=== PATIENT | male | born 1950 | race Caucasian/White ===

== ENCOUNTER 2017-06-28 10:10 | Emergency (ER) | payer BC, MEDICARE, OTHER ==
[~2017-06-28] VITALS: Ht 182.9 cm; Wt 111.6 kg
[~2017-06-28 10:10] MED LIST: ACHYD1T PO; CELE200C PO; GLIP10TA13 PO; INSU100V5 SQ; LACT1CAP66 PO; LIRA0.6P SQ; MELO-195 PO; METF-380 PO; SULF-222 PO; TRAM50TA2 PO
--- NOTE | 2017-06-28 10:26 | ED Neurological Problem ---
General Chief Complaint: Neuro-Stroke Like Symptoms Stated Complaint: LEFT SIDE WEAKNESS Nursing Triage Note: TO ROOM 05 WITH COMPLAINTS OF LEFT SIDED LEG WEAKNESS. STATES HE WOKE UP YESTERDAY AM WITH THIS. STATES SHE NOTICED LEFT FACIAL DROOP LAST NIGHT. Nursing Sepsis Screen: No Definite Risk Source: patient, spouse Exam Limitations: no limitations History of Present Illness Time seen by provider: 10:15 Initial Comments . He denies any falls or syncope or palpitations or heart racing. He only has a history of diabetes for which is on metformin and Victoza and uses NSAIDs for occasional knee pain after having both knees replaced historically. Appetite is been okay no fevers or chills nausea vomiting or diarrhea. However his noticed last night that he was having some facial drooping on the left side. He has no history of strokes TIAs or heart disease. Last known well time was approximately 26 hours ago. Denies slurring of speech or confusion or problems walking on his own. Allergies and Home Medications Allergies Coded Allergies: No Known Allergies (Unverified Allergy, Unknown, 02/15/14) Home Medications Celecoxib 200 Mg Capsule, 200 MG PO DAILY, (Reported) Liraglutide 0.6 Mg/0.1 Ml Pen.injctr, 0.6 MG SQ DAILY, (Reported) Metformin Hcl 1,000 Mg Tablet, 1,000 MG PO BID WITH MEALS, (Reported) Constitutional: see HPI, No chills, No diaphoresis Eyes: Denies Blindness, Denies Blurred Vision, Denies Decreased Acuity Ears, Nose, Mouth, Throat: denies ear pain Respiratory: No cough (heart appearing), No short of breath Cardiovascular: No chest pain, No edema, No Hx of Intervention, No palpitations , No syncope, No vascular heart diseas Gastrointestinal: No abdominal pain, No constipation, No diarrhea, No loss of appetite, No nausea Genitourinary: No discharge, No dysuria, No incontinence Musculoskeletal: joint pain (chronic bilateral knee pain) Skin: No pruritus, No rash Psychiatric/Neurological: Denies Cognitive Dysfunction, Denies Headache, Denies Numbness Past Yvrllms-Taufuu-Tcpcil Hx Patient Social History Alcohol Use: Denies Use Recreational Drug Use: No Smoking Status: Never a Smoker Recent Foreign Travel: No Contact w/Someone Who Travel: No Recent Infectious Disease Expo: No Immunizations Up To Date Tetanus Booster (TDap): More than 5yrs Date of Pneumonia Vaccine: Aug 23, 2015 Date of Influenza Vaccine: Aug 23, 2015 Surgeries HX Surgeries: Yes (R TKR, DENTAL SX, ELBOW SURGERY) Respiratory Hx Respiratory Disorders: No Cardiovascular Hx Cardiac Disorders: No Neurological Hx Neurological Disorders: No Reproductive System Hx Reproductive Disorders: No Sexually Transmitted Disease: No HIV/AIDS: No Genitourinary Hx Genitourinary Disorders: No Gastrointestinal Hx Gastrointestinal Disorders: No Musculoskeletal Hx Musculoskeletal Disorders: Yes (LEFT ANKLE INFLAMED, KNEES) Musculoskeletal Disorders: Arthritis Endocrine Hx Endocrine Disorders: Yes Endocrine Disorders: Diabetes, Non-Insulin dep HEENT HX ENT Disorders: Yes (GLASSES, DENTURES (FULL)) Hearing Impairment: Hard of Hearing, Bilateral Hearing Aide Cancer Hx Cancer: No Psychosocial Hx Psychiatric Problems: No Integumentary HX Skin/Integumentary Disorder: No Blood Transfusions Hx Blood Disorders: No Adverse Reaction to a Blood Tr: No Family Medical History Family Medial History: Cancer 03 FATHER (BLADDER) 03 MOTHER (LUNG) Myocardial infarction 03 FATHER No Family History of: Abdominal aortic aneurysm Alcoholism Congestive heart failure Family history: Alzheimer's disease Family history: Arthritis Family history: Asthma Family history: Breast disease Family history: Cardiovascular disease Family history: Diabetes mellitus Family history: Gastrointestinal disease Family history: Hypertension Family history: Thyroid disorder Heart disease Hereditary disease History of - anemia Parkinson's disease Prostate cancer Psychotic disorder Seizure disorder Stroke Physical Exam Vital Signs Vital Sign - Last 12Hours 06/28/17 10:10 Temp 98.5 Pulse 77 Resp 16 B/P (MAP) 183/92 Pulse Ox 98 Capillary Refill : Less Than 3 Seconds General Appearance: WD/WN, no apparent distress HEENT: PERRL/EOMI, normal ENT inspection, pharynx normal Neck: non-tender, normal inspection Respiratory: chest non-tender, lungs clear, normal breath sounds Cardiovascular: normal peripheral pulses, regular rate, rhythm, no edema, no gallop, no murmur Peripheral Pulses: 3+ Dorsalis Pedis (R), 3+ Left Dors-Pedis (L), 3+ Radial Pulses (R), 3+ Radial Pulses (L) Gastrointestinal: normal bowel sounds, non tender, soft Back: normal inspection, no CVA tenderness Extremities: non-tender, normal inspection, no pedal edema, normal capillary refill Neurologic/Psychiatric: bee tender II-XII nml as tested, no motor/sensory deficits, alert, normal mood/affect, oriented x 3, No abnormal cerebellar tests Crainal Nerves: normal hearing (chronic hard of hearing with hearing aids in place), normal speech, PERRL Coordination/Gait: normal finger to nose, normal gait Motor/Sensory: no sensory deficit, no pronator drift, other (slight facial droop noted at the left orbicularis emily) Reflexes: 2+ Bicep (R), 2+ Bicep (L), 2+ Knee (R), 2+ Knee (L) Skin: normal color, warm/dry Stroke Onset of Symptoms Date of Onset of Symptoms: Jun 27, 2017 Time of Symptom Onset: 07:30 NIH Stroke Scale Assessment Select: Initial Level of Consciousness: 0=Alert Level of Consciousness-Questio: 0=Answers both month/age LOC Commands: 0=Performs both tasks Gaze: 0=Normal Visual Villalobos: 0=No visual loss Facial Movement (Facial Paresi: 1=Minor paralysis Motor Function-Arms Right: 0=No drift Motor Function-Arms Left: 0=No drift Motor Function-Legs Right: 0=No drift Motor Function-Legs Left: 0=No drift Limb Ataxia: 0=Absent Sensory: 0=Normal:no loss Best Language: 0=No aphasia Dysarthria: 0=Normal Extinction & Inattention: 0=No abnormality NIH Stroke Scale Score: 1 Stroke Thrombolytic Exclusion Age 18 or Over: Yes Acute intenal hemorrhage: No History of CVA: No Uncontrolled Coagulation Defec: No Intracranial Hemorrhage: No Severe Hypertension: No GI or Bleed: No Subarachnoid Hemorrhage: No Intracranial Neoplasm/Aneurysm: No Oral Anticoagulants: No Surgery or Trauma: No Puncture of Non-Compressible V: No Recent CPR: No Diabetic Hemorrhagic Retinopat: No Organ Biopsy: No Recent Obstetric Delivery: No Glucose: No Significant Hepatic Dysfunctio: No NIH Stoke Scale >22: No Bacterial Endocarditis: No Pericarditis: No Improving Symptoms: No Platelets: No TPA Contraindication: Yes (greater than 24 hours since last known well time) Progress/Results/Core Measures Results/Orders Lab Results Laboratory Tests Test 06/28/17 10:20 Range/Units White Blood Count 8.2 4.3-11.0 10^3/uL Red Blood Count 5.70 4.35-5.85 10^6/uL Hemoglobin 15.3 13.3-17.7 G/DL Hematocrit 45 40-54 % Mean Corpuscular Volume 79 L 80-99 FL Mean Corpuscular Hemoglobin 27 25-34 PG Mean Corpuscular Hemoglobin Concent 34 32-36 G/DL Red Cell Distribution Width 13.2 10.0-14.5 % Platelet Count 199 130-400 10^3/uL Mean Platelet Volume 11.3 H 7.4-10.4 FL Neutrophils (%) (Auto) 59 42-75 % Lymphocytes (%) (Auto) 29 12-44 % Monocytes (%) (Auto) 7 0-12 % Eosinophils (%) (Auto) 4 0-10 % Basophils (%) (Auto) 1 0-10 % Neutrophils # (Auto) 4.8 1.8-7.8 X 10^3 Lymphocytes # (Auto) 2.4 1.0-4.0 X 10^3 Monocytes # (Auto) 0.6 0.0-1.0 X 10^3 Eosinophils # (Auto) 0.4 H 0.0-0.3 10^3/uL Basophils # (Auto) 0.0 0.0-0.1 10^3/uL Sodium Level 137 135-145 MMOL/L Potassium Level 3.9 3.6-5.0 MMOL/L Chloride Level 103 98-107 MMOL/L Carbon Dioxide Level 24 21-32 MMOL/L Anion Gap 10 5-14 MMOL/L Blood Urea Nitrogen 15 7-18 MG/DL Creatinine 0.78 0.60-1.30 MG/DL Estimat Glomerular Filtration Rate > 60 BUN/Creatinine Ratio 19 Glucose Level 206 H 70-105 MG/DL Calcium Level 9.6 8.5-10.1 MG/DL Magnesium Level 1.9 1.8-2.4 MG/DL Total Bilirubin 0.7 0.1-1.0 MG/DL Aspartate Amino Transf (AST/SGOT) 13 5-34 U/L Alanine Aminotransferase (ALT/SGPT) 19 0-55 U/L Alkaline Phosphatase 54 40-136 U/L Troponin I < 0.30 <0.30 NG/ML Total Protein 7.5 6.4-8.2 GM/DL Albumin 4.1 3.2-4.5 GM/DL My Orders Orders - RAIZA EATON Ct Head Wo-R/O Stroke (06/28/17 10:28) Saline Lock/Iv-Start (06/28/17 10:28) Cbc With Automated Diff (06/28/17 10:28) Comprehensive Metabolic Panel (06/28/17 10:28) Magnesium (06/28/17 10:28) Troponin I (06/28/17 10:28) Chest 1 View, Ap/Pa Only (06/28/17 10:28) Ekg Tracing (06/28/17 10:28) Mri Brain W/O Contrast (06/28/17 11:13) Atorvastatin Tablet (Lipitor) (06/28/17 11:15) General/Regular (06/28/17 Lunch) Ct Angio Head/Neck (06/28/17 13:34) Iohexol Injection (Omnipaque 350 Mg/Ml 1 (06/28/17 14:00) Ns (Ivpb) (Sodium Chloride 0.9% Ivpb Bag (06/28/17 14:00) Aspirin Chewable Tablet (Baby Aspirin Ch (06/28/17 15:45) Medications Given in ED Current Medications Medications Dose Ordered Sig/Naya Route Start Time Stop Time Status Last Admin Dose Admin Iohexol 100 ml ONCE ONCE IV 06/28/17 14:00 06/28/17 14:01 DC 06/28/17 14:44 85 ML Sodium Chloride 100 ml ONCE ONCE IV 06/28/17 14:00 06/28/17 14:01 DC 06/28/17 14:44 80 ML Vital Signs/I&O Vital Sign - Last 12Hours 06/28/17 10:10 Temp 98.5 Pulse 77 Resp 16 B/P (MAP) 183/92 Pulse Ox 98 Blood Pressure Mean: 122 Progress Note : Time: 10:59 Progress Note Patient presents for signs of possible CVA but last known well time was over 24 hours ago. We'll obtain CT of the head and basic lab workup. ECG Initial ECG Impression Date: Jun 28, 2017 Initial ECG Impression Time: 10:34 Initial ECG Rate: 67 Initial ECG Rhythm: Normal Sinus Initial ECG Intervals: Normal Initial ECG Impression: Normal Initial ECG Comparisson: No Previous ECG Available Diagnostic Imaging Diagonstic Imaging: Xray Plain Films/CT/US/NM/MRI: chest Comments No acute cardio pulmonary process. Reviewed: Reviewed by Me Diagonstic Imaging: CT Plain Films/CT/US/NM/MRI: head (without contrast) Comments No masses, bleeds, areas of new infarct, midline shift. NAME: GISSELLE SINGER [facility] REC#: [id number] PHYSICIAN: RAIZA EATON MD CC: RYAN MIRELES MD; RAIZA EATON Page 1 of 1 RADIOLOGY REPORT [place]IA [place], [place] CC: RYAN MIRELES MD; RAIZA EATON Page 1 of 1 RADIOLOGY REPORT NAME: GISSELLE SINGER [facility] REC#: [id number] PT STATUS: REG ER : 1950 PHYSICIAN: RAIZA EATON MD ADMIT DATE: 06/28/17/ER Signed Date of Exam: 06/28/17 CT HEAD WO-R/O STROKE EXAM: CT head. TECHNIQUE: Noncontrast axial images of the brain were obtained. INDICATION: Weakness. Abnormal balance. FINDINGS: There is no intracranial hemorrhage, edema or mass effect. The brain parenchyma appears unremarkable. No hydrocephalus. The visualized portions of the orbits and paranasal sinuses appear unremarkable. IMPRESSION: Unremarkable study. Dictated by: Dictated on workstation # [id number] Dict: 06/28/17 1054 Trans: 06/28/17 1057 Interpreted by: RYAN MIRELES MD Electronically signed by: RYAN MIRELES MD 06/28/17 1057 Reviewed: Reviewed by Me Diagonstic Imaging: MRI Plain Films/CT/US/NM/MRI: head Comments [place] NAME: GISSELLE SINGER [facility] REC#: [id number] PT STATUS: REG ER : 1950 PHYSICIAN: RAIZA EATON MD ADMIT DATE: 06/28/17/ER Draft Date of Exam:06/28/17 MRI BRAIN W/O CONTRAST PROCEDURE: MR imaging of the brain without contrast. TECHNIQUE: Multiplanar, multisequence MR imaging of the brain was performed without contrast. INDICATION: Bilateral leg weakness worse on the left side. FINDINGS: There is a lacunar acute infarct measuring 1 cm seen in the lower jeff to the right of the midline measuring 1 cm in size with edema seen in the area on FLAIR and T2-weighted images compatible with an acute lacunar infarct. No other areas of diffusion restriction are seen. The basilar artery demonstrates normal flow-void signal. The other central vascular flow-voids appear grossly unremarkable as well. The rest of the brain demonstrates no significant signal abnormality. There is no hydrocephalus. No extra-axial fluid collection is seen. The pituitary gland is normal in size. No hypothalamic or pineal region mass. The internal auditory canals and inner ear structures appear unremarkable. The paranasal sinuses and orbits appear grossly unremarkable. IMPRESSION: Findings compatible with an acute 1 cm lacunar infarct in the lower jeff, to the right of the midline. The findings were called to Dr. Eaton by Dr. Mireles at time of dictation. Dictated on workstation # [id number] Dict: 06/28/17 1245 Trans: 06/28/17 1313 [facility] [id number] Interpreted by: RYAN MIRELES MD Electronically signed by: Reviewed: Reviewed by Dc Diagonstic Imaging: CT (angiogram) Plain Films/CT/US/NM/MRI: head Comments [place] NAME: GISSELLE SINGER Christoph [facility] REC#: [id number] PT STATUS: REG ER : 1950 PHYSICIAN: RAIZA EATON MD ADMIT DATE: 06/28/17/ER Draft Date of Exam:06/28/17 CT ANGIO HEAD/NECK PROCEDURE: CT angiography of the head and CT angiography of the neck with and without contrast. TECHNIQUE: Contiguous noncontrast images were obtained from the skull base through the vertex. After intravenous contrast administration, helical CT angiography of the neck was performed. Source data was reformatted into multiple MIP projections. Delayed post contrast acquisition was also obtained. INDICATION: Recent infarct of the jeff demonstrated on MRI. FINDINGS: There is good opacification of the aorta. Normal takeoff of the carotid and vertebral arteries. There does appear to be occlusion short segment in nature in the base of the right common carotid artery. There is reconstitution in the lower cervical region of the right carotid artery. There is a calcified plaquing in the carotid bulb extending into the internal carotid artery with stenosis estimated less than 50%. The left common carotid artery is patent. There is atherosclerotic change noted in the left internal carotid artery with stenosis estimated less than 50%. External carotid are both widely patent. Both vertebral arteries are widely patent and symmetrical in appearance. Both vertebral arteries supply the basilar artery. Both the internal carotid arteries show a rather dense calcification within the carotid siphons. Probable hemodynamic stenosis within the internal carotid arteries intracranially. The anterior, middle and posterior cerebral arteries opacify in a symmetrical fashion with no evidence of stenosis or occlusive disease. The cerebellar arteries are patent. The basilar artery is widely patent. The pontine arteries are not well visualized. There are no intracranial enhancing masses. There is no mass effect. IMPRESSION: 1. 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 2. There is moderate calcified plaquing within the internal carotid artery bilaterally at the bifurcation though these do not appear to be in hemodynamic. There is dense calcification within the internal carotid arteries along the carotid siphon which does appear to be most likely hemodynamic bilaterally. 3. Vertebral arteries and basilar artery widely patent with cerebellar arteries well visualized. The pontine arteries are not well seen. Dictated on workstation # [id number] Dict: 06/28/17 1501 Trans: 06/28/17 1519 [facility] [id number] Interpreted by: SWATI FREITAS MD Electronically signed by: Reviewed: Reviewed by Me, Discussed w/Radiologist Consults Consults #1: Consulting Physician: ROCHELLE RIBEIRO MD Consults Notes Discussed the imaging and she is okay with getting the MRI today and if it's okay letting follow-up next week in the clinic. It is positive then we'll observe him and start a more thorough workup. Consults #2: Consults Notes Case discussed with neurology Dr. Butler who recommends getting a CTA make sure the basilar artery is patent and if there is nothing actionable then maximize medical management and have him follow up outpatient. Departure Impression Impression: Primary Impression: Transient cerebral ischemia Qualified Codes: G45.9 - Transient cerebral ischemic attack, unspecified Disposition: 01 HOME, SELF-CARE Condition: Stable Departure-Patient Inst. Decision time for Depature: 15:49 Referrals: ROCHELLE RIBEIRO MD (PCP/Family) Primary Care Physician Patient Instructions: Transient Ischemic Attack (DC) Add. Discharge Instructions: Saturday morning call your doctor and make an appointment to be seen the following 1-2 weeks. Please follow-up the medical management of your stroke. You 'll need to control your blood pressure and diabetes. Go to the pharmacy and slat pickler your statin to be taken at bedtime one tablet daily. If you're having any symptoms such as muscle aches or pains or weakness in the big muscle groups then you should stop taking the medicine immediately and call your primary doctor. Take a baby aspirin and take one tablet daily by mouth. If you're having new or worsening neurologic symptoms such as weakness or facial asymmetry or slurring of your speech or any other symptoms you should return to the ER immediately for evaluation. All discharge instructions reviewed with patient and/or family. Voiced understanding. Scripts Aspirin (Aspirin EC) 81 Mg Tablet. 81 MG PO DAILY for 100 Days, #100 TAB 0 Refills Prov: RAIZA EATON 06/28/17 Atorvastatin Calcium (Atorvastatin Calcium) 40 Mg Tablet 40 MG PO HS for 30 Days, #30 TAB 0 Refills Prov: RAIZA EATON 06/28/17 Copy Copies To 1: ROCHELLE RIBEIRO MD, TITUS J Jun 28, 2017 10:26
[2017-06-28 10:35] LABS: BASOPHILS % (AUTO) 1 % (0-10); EOSINOPHILS # (AUTO) 0.4 10^3/uL (0.0-0.3); EOSINOPHILS % (AUTO) 4 % (0-10); LYMPHOCYTES # (AUTO) 2.4 X 10^3 (1.0-4.0); LYMPHOCYTES % (AUTO) 29 % (12-44); MEAN CORPUSCULAR HEMOGLOBIN 27 PG (25-34); MEAN CORPUSCULAR HGB CONC 34 G/DL (32-36); MEAN CORPUSCULAR VOLUME 79 FL (80-99); MEAN PLATELET VOLUME 11.3 FL (7.4-10.4); MONOCYTES # (AUTO) 0.6 X 10^3 (0.0-1.0); MONOCYTES % (AUTO) 7 % (0-12); NEUTROPHILS # (AUTO) 4.8 X 10^3 (1.8-7.8); NEUTROPHILS % (AUTO) 59 % (42-75); PLATELET COUNT 199 10^3/uL (130-400); RED CELL DISTRIBUTION WIDTH 13.2 % (10.0-14.5); WHITE BLOOD COUNT 8.2 10^3/uL (4.3-11.0)
[2017-06-28 10:51] LABS: ALANINE AMINOTRANSFERASE 19 U/L (0-55); ALBUMIN 4.1 GM/DL (3.2-4.5); ANION GAP 10 MMOL/L (5-14); ASPARTATE AMINO TRANSFERASE 13 U/L (5-34); BILIRUBIN,TOTAL 0.7 MG/DL (0.1-1.0); BLOOD UREA NITROGEN 15 MG/DL (7-18); BUN/CREATININE RATIO 19; CALCIUM 9.6 MG/DL (8.5-10.1); CARBON DIOXIDE 24 MMOL/L (21-32); CHLORIDE 103 MMOL/L (98-107); CREATININE SERUM 0.78 MG/DL (0.60-1.30); GFR ESTIMATED > 60; GLUCOSE 206 MG/DL (70-105); MAGNESIUM 1.9 MG/DL (1.8-2.4); POTASSIUM 3.9 MMOL/L (3.6-5.0); SODIUM 137 MMOL/L (135-145); TOTAL PROTEIN 7.5 GM/DL (6.4-8.2)
--- NOTE | 2017-06-28 10:59 | Diagnostic Imaging Report ---
EXAM: CT head. TECHNIQUE: Noncontrast axial images of the brain were obtained. INDICATION: Weakness. Abnormal balance. FINDINGS: There is no intracranial hemorrhage, edema or mass effect. The brain parenchyma appears unremarkable. No hydrocephalus. The visualized portions of the orbits and paranasal sinuses appear unremarkable. IMPRESSION: Unremarkable study. Dictated by: Dictated on workstation # [id number]
--- NOTE | 2017-06-28 11:08 | Diagnostic Imaging Report ---
PA view of the chest. INDICATION: Weakness. Abnormal balance. COMPARISON: 07/14/15. FINDINGS: The lungs are clear. The heart size is normal. No effusion or pneumothorax. The mediastinum and juancho appear unremarkable. IMPRESSION: Unremarkable exam. Dictated by: Dictated on workstation # [id number]
[2017-06-28 11:09] LABS: TROPONIN I < 0.30 NG/ML (<0.30)
[2017-06-28] MEDS ORDERED: ATORVASTATIN 40 MG (LIPITOR) TABLET PO SCH (11:15)
--- NOTE | 2017-06-28 13:14 | Diagnostic Imaging Report ---
PROCEDURE: MR imaging of the brain without contrast. TECHNIQUE: Multiplanar, multisequence MR imaging of the brain was performed without contrast. INDICATION: Bilateral leg weakness worse on the left side. FINDINGS: There is a lacunar acute infarct measuring 1 cm seen in the lower jeff to the right of the midline measuring 1 cm in size with edema seen in the area on FLAIR and T2-weighted images compatible with an acute lacunar infarct. No other areas of diffusion restriction are seen. The basilar artery demonstrates normal flow-void signal. The other central vascular flow-voids appear grossly unremarkable as well. The rest of the brain demonstrates no significant signal abnormality. There is no hydrocephalus. No extra-axial fluid collection is seen. The pituitary gland is normal in size. No hypothalamic or pineal region mass. The internal auditory canals and inner ear structures appear unremarkable. The paranasal sinuses and orbits appear grossly unremarkable. IMPRESSION: Findings compatible with an acute 1 cm lacunar infarct in the lower jeff, to the right of the midline. The findings were called to Dr. Eaton by Dr. Mireles at time of dictation. Dictated by: Dictated on workstation # [id number]
[2017-06-28] MEDS ORDERED: NS 100 ML (IVPB) BAG IV ONE (14:00)
[2017-06-28] MEDS ORDERED: IOHEXOL 350 MG/ML 100 ML (OMNIPAQUE 350) VIAL IV ONE (14:00)
--- NOTE | 2017-06-28 15:20 | Diagnostic Imaging Report ---
PROCEDURE: CT angiography of the head and CT angiography of the neck with and without contrast. TECHNIQUE: Contiguous noncontrast images were obtained from the skull base through the vertex. After intravenous contrast administration, helical CT angiography of the neck was performed. Source data was reformatted into multiple MIP projections. Delayed post contrast acquisition was also obtained. INDICATION: Recent infarct of the jeff demonstrated on MRI. FINDINGS: There is good opacification of the aorta. Normal takeoff of the carotid and vertebral arteries. There does appear to be occlusion short segment in nature in the base of the right common carotid artery. There is reconstitution in the lower cervical region of the right carotid artery. There is a calcified plaquing in the carotid bulb extending into the internal carotid artery with stenosis estimated less than 50%. The left common carotid artery is patent. There is atherosclerotic change noted in the left internal carotid artery with stenosis estimated less than 50%. External carotid are both widely patent. Both vertebral arteries are widely patent and symmetrical in appearance. Both vertebral arteries supply the basilar artery. Both the internal carotid arteries show a rather dense calcification within the carotid siphons. Probable hemodynamic stenosis within the internal carotid arteries intracranially. The anterior, middle and posterior cerebral arteries opacify in a symmetrical fashion with no evidence of stenosis or occlusive disease. The cerebellar arteries are patent. The basilar artery is widely patent. The pontine arteries are not well visualized. There are no intracranial enhancing masses. There is no mass effect. IMPRESSION: 1. 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 2. There is moderate calcified plaquing within the internal carotid artery bilaterally at the bifurcation with stenosis estimated less than 50%. 3.. There is dense calcification within the internal carotid arteries along the carotid siphon intracranially which does appear to be most likely hemodynamic bilaterally estimated 50-70%.. 4. Vertebral arteries and basilar artery widely patent with cerebellar arteries well visualized. The pontine arteries are not well seen. Dictated by: Dictated on workstation # [id number]
[2017-06-28] MEDS ORDERED: ASPIRIN 81 MG CHEW (CHILDREN'S ASA) PO ONE (15:45)
[2017-06-28] MEDS ORDERED: ASPI-983 PO (15:52)
[2017-06-28] MEDS ORDERED: ATOR40TA70 PO (15:52)
[2017-06-28 16:16] VITALS: BP 153/87
[2017-06-29] MEDS ORDERED: CLOP75TA28 PO (11:27)
== END 2017-06-28 16:16 | disposition home or self-care (01) ==
LOC: EDUNIT# 10:10 → ER 10:12
DX: G45.9 Transient cerebral ischemic attack, unspecified (principal); E11.9 Type 2 diabetes mellitus without complications; M19.90 Unspecified osteoarthritis, unspecified site; R29.701 NIHSS score 1; Z98.890 Other specified postprocedural states; Z79.84 Long term (current) use of oral hypoglycemic drugs
CPT/HCPCS: 36415; 70450; 70496; 70498; 70551; 71010; 80053; 83735; 84484; 85025; 93005; 93041

== ENCOUNTER 2017-06-29 10:18 | Emergency (ER) | payer OTHER ==
[~2017-06-29] VITALS: Ht 182.9 cm; Wt 113.4 kg
[~2017-06-29 10:18] MED LIST changes: +ASPI-983 PO; +ATOR40TA70 PO
--- NOTE | 2017-06-29 10:35 | ED Neurological Problem ---
General Chief Complaint: Neuro-Stroke Like Symptoms Stated Complaint: STROKE SYMPTOMS Nursing Triage Note: ARRIVED VIA AMB TO ROOM 09. WAS SEEN YESTERDAY ET DX WITH A TIA. TODAY WOKE UP AT 0730 WITH LEFT ARM AND LEG WEAKNESS. STATES MOUTH STARTED DROPPING (MORE THEN YESTERDAY) AT 0918 ALONG WITH SLURRED SPEECH. Nursing Sepsis Screen: No Definite Risk Source: patient, RN/MD, spouse Exam Limitations: no limitations History of Present Illness Time seen by provider: 10:30 Initial Comments Patient returns the ER. Was seen yesterday for a TIA and found to have a small infarct in the jeff. He initiated a statin and aspirin yesterday in the ER. Today he is having worsening symptoms with right-sided face and weakness in the left upper extremity and left lower extremity. He is having some facial symmetry and this is worse than yesterday. Allergies and Home Medications Allergies Coded Allergies: No Known Allergies (Unverified Allergy, Unknown, 02/15/14) Home Medications Aspirin 81 Mg Tablet.dr, 81 MG PO DAILY for 100 Days, #100 Ref 0 Prescribed by: RAIZA HEDRICK on 06/28/17 1552 Atorvastatin Calcium 40 Mg Tablet, 40 MG PO HS for 30 Days, #30 Ref 0 Prescribed by: RAIZA HEDRICK on 06/28/17 1552 Celecoxib 200 Mg Capsule, 200 MG PO DAILY, (Reported) Clopidogrel Bisulfate 75 Mg Tablet, 75 MG PO DAILY for 30 Days, #30 Ref 0 Prescribed by: RAIZA HEDRICK on 06/29/17 1127 Liraglutide 0.6 Mg/0.1 Ml Pen.injctr, 0.6 MG SQ DAILY, (Reported) Metformin Hcl 1,000 Mg Tablet, 1,000 MG PO BID WITH MEALS, (Reported) Constitutional: No chills, No diaphoresis, No fever, No malaise Eyes: Denies Blindness, Denies Blurred Vision Ears, Nose, Mouth, Throat: denies ear pain, denies ear discharge Respiratory: No cough, No short of breath Cardiovascular: No chest pain, No palpitations Gastrointestinal: No constipation, No diarrhea, No nausea Genitourinary: No discharge, No dysuria Musculoskeletal: No back pain, No joint pain Skin: No pruritus, No rash Psychiatric/Neurological: See HPI, Denies Cognitive Dysfunction, Denies Headache Past Xpbcmzw-Qeqolw-Iskwap Hx Patient Social History Alcohol Use: Denies Use Recreational Drug Use: No Smoking Status: Never a Smoker Recent Foreign Travel: No Contact w/Someone Who Travel: No Recent Infectious Disease Expo: No Immunizations Up To Date Tetanus Booster (TDap): More than 5yrs Date of Pneumonia Vaccine: Aug 23, 2015 Date of Influenza Vaccine: Aug 23, 2015 Surgeries HX Surgeries: Yes (R TKR, DENTAL SX, ELBOW SURGERY) Respiratory Hx Respiratory Disorders: No Cardiovascular Hx Cardiac Disorders: No Neurological Hx Neurological Disorders: No Reproductive System Hx Reproductive Disorders: No Sexually Transmitted Disease: No HIV/AIDS: No Genitourinary Hx Genitourinary Disorders: No Gastrointestinal Hx Gastrointestinal Disorders: No Musculoskeletal Hx Musculoskeletal Disorders: Yes (LEFT ANKLE INFLAMED, KNEES) Musculoskeletal Disorders: Arthritis Endocrine Hx Endocrine Disorders: Yes Endocrine Disorders: Diabetes, Non-Insulin dep HEENT HX ENT Disorders: Yes (GLASSES, DENTURES (FULL)) Hearing Impairment: Hard of Hearing, Bilateral Hearing Aide Cancer Hx Cancer: No Psychosocial Hx Psychiatric Problems: No Integumentary HX Skin/Integumentary Disorder: No Blood Transfusions Hx Blood Disorders: No Adverse Reaction to a Blood Tr: No Family Medical History Family Medial History: Cancer 03 FATHER (BLADDER) 03 MOTHER (LUNG) Myocardial infarction 03 FATHER No Family History of: Abdominal aortic aneurysm Alcoholism Congestive heart failure Family history: Alzheimer's disease Family history: Arthritis Family history: Asthma Family history: Breast disease Family history: Cardiovascular disease Family history: Diabetes mellitus Family history: Gastrointestinal disease Family history: Hypertension Family history: Thyroid disorder Heart disease Hereditary disease History of - anemia Parkinson's disease Prostate cancer Psychotic disorder Seizure disorder Stroke Physical Exam Vital Signs Vital Sign - Last 12Hours 06/29/17 10:20 Temp 98.0 Pulse 69 Resp 16 B/P (MAP) 176/109 Pulse Ox 97 O2 Delivery Room Air Capillary Refill : Less Than 3 Seconds General Appearance: WD/WN, no apparent distress HEENT: PERRL/EOMI, normal ENT inspection, pharynx normal Neck: non-tender, normal inspection Respiratory: lungs clear, normal breath sounds Cardiovascular: normal peripheral pulses, regular rate, rhythm Peripheral Pulses: 3+ Radial Pulses (R), 3+ Radial Pulses (L) Gastrointestinal: normal bowel sounds, non tender, soft Extremities: normal range of motion, normal capillary refill Neurologic/Psychiatric: alert, normal mood/affect, oriented x 3, No abnormal cerebellar tests, facial droop (left face drooping smile and mild left-sided pronator drift as well as weakness on his left leg. 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.) Crainal Nerves: normal hearing (baseline hard of hearing), normal speech, PERRL Coordination/Gait: normal finger to nose, normal gait (slowed) Motor/Sensory: no sensory deficit, weak motor strength LUE, weak motor strength LLE Skin: normal color, warm/dry Stroke Onset of Symptoms Date of Onset of Symptoms: Jun 28, 2017 NIH Stroke Scale Assessment Level of Consciousness: 0=Alert Level of Consciousness-Questio: 0=Answers both month/age LOC Commands: 0=Performs both tasks Gaze: 0=Normal Visual Villalobos: 0=No visual loss Facial Movement (Facial Paresi: 1=Minor paralysis Motor Function-Arms Right: 0=No drift Motor Function-Arms Left: 1=Drift Motor Function-Legs Right: 0=No drift Motor Function-Legs Left: 1=Drift Limb Ataxia: 1=Present in one limb Sensory: 0=Normal:no loss Best Language: 0=No aphasia Dysarthria: 0=Normal Extinction & Inattention: 0=No abnormality Stroke Thrombolytic Exclusion Age 18 or Over: Yes Acute intenal hemorrhage: No History of CVA: No Uncontrolled Coagulation Defec: No Intracranial Hemorrhage: No Severe Hypertension: No GI or Bleed: No Subarachnoid Hemorrhage: No Intracranial Neoplasm/Aneurysm: No Oral Anticoagulants: No Surgery or Trauma: No Puncture of Non-Compressible V: No Recent CPR: No Diabetic Hemorrhagic Retinopat: No Organ Biopsy: No Recent Obstetric Delivery: No Glucose: No Significant Hepatic Dysfunctio: No NIH Stoke Scale >22: No Bacterial Endocarditis: No Pericarditis: No Improving Symptoms: No Platelets: No TPA Contraindication: Yes (2 long since onset of symptoms) IV - TPa Received IV - TPa Procedure Performed?: No Progress/Results/Core Measures Results/Orders Lab Results Laboratory Tests Test 06/29/17 10:40 06/29/17 10:42 06/29/17 11:26 Range/Units White Blood Count 7.5 4.3-11.0 10^3/uL Red Blood Count 5.51 4.35-5.85 10^6/uL Hemoglobin 15.0 13.3-17.7 G/DL Hematocrit 44 40-54 % Mean Corpuscular Volume 80 80-99 FL Mean Corpuscular Hemoglobin 27 25-34 PG Mean Corpuscular Hemoglobin Concent 34 32-36 G/DL Red Cell Distribution Width 13.3 10.0-14.5 % Platelet Count 200 130-400 10^3/uL Mean Platelet Volume 11.2 H 7.4-10.4 FL Neutrophils (%) (Auto) 60 42-75 % Lymphocytes (%) (Auto) 27 12-44 % Monocytes (%) (Auto) 9 0-12 % Eosinophils (%) (Auto) 3 0-10 % Basophils (%) (Auto) 0 0-10 % Neutrophils # (Auto) 4.5 1.8-7.8 X 10^3 Lymphocytes # (Auto) 2.1 1.0-4.0 X 10^3 Monocytes # (Auto) 0.7 0.0-1.0 X 10^3 Eosinophils # (Auto) 0.2 0.0-0.3 10^3/uL Basophils # (Auto) 0.0 0.0-0.1 10^3/uL Prothrombin Time 12.5 12.2-14.7 SEC INR Comment 1.0 0.8-1.4 Activated Partial Thromboplast Time 26 24-35 SEC D-Dimer 0.27 0.00-0.49 UG/ML Sodium Level 138 135-145 MMOL/L Potassium Level 4.1 3.6-5.0 MMOL/L Chloride Level 104 98-107 MMOL/L Carbon Dioxide Level 21 21-32 MMOL/L Anion Gap 13 5-14 MMOL/L Blood Urea Nitrogen 17 7-18 MG/DL Creatinine 0.87 0.60-1.30 MG/DL Estimat Glomerular Filtration Rate > 60 BUN/Creatinine Ratio 20 Glucose Level 246 H 70-105 MG/DL Calcium Level 9.4 8.5-10.1 MG/DL Total Bilirubin 0.5 0.1-1.0 MG/DL Aspartate Amino Transf (AST/SGOT) 11 5-34 U/L Alanine Aminotransferase (ALT/SGPT) 18 0-55 U/L Alkaline Phosphatase 55 40-136 U/L Troponin I < 0.30 <0.30 NG/ML Total Protein 7.3 6.4-8.2 GM/DL Albumin 4.1 3.2-4.5 GM/DL Glucometer 221 H 70-110 MG/DL Urine Color YELLOW Urine Clarity CLEAR Urine pH 6 5-9 Urine Specific Simms 1.025 H 1.016-1.022 Urine Protein 1+ H NEGATIVE Urine Glucose (UA) 4+ H NEGATIVE Urine Ketones 1+ H NEGATIVE Urine Nitrite NEGATIVE NEGATIVE Urine Bilirubin NEGATIVE NEGATIVE Urine Urobilinogen NORMAL NORMAL MG/DL Urine Leukocyte Esterase NEGATIVE NEGATIVE Urine RBC (Auto) NEGATIVE NEGATIVE Urine RBC NONE /HPF Urine WBC NONE /HPF Urine Crystals NONE /LPF Urine Bacteria NEGATIVE /HPF Urine Casts NONE /LPF Urine Mucus NEGATIVE /LPF Urine Culture Indicated NO My Orders Orders - RAIZA HEDRICK Cbc With Automated Diff (06/29/17 10:23) Protime With Inr (06/29/17 10:23) Partial Thromboplastin Time (06/29/17 10:23) Comprehensive Metabolic Panel (06/29/17 10:23) Fibrin Degradation Products (06/29/17 10:23) Troponin I (06/29/17 10:23) Chest 1 View, Ap/Pa Only (06/29/17 10:23) Catheter(Urinary) Insert & Ass 03,15 (06/29/17 10:23) Ekg Tracing (06/29/17 10:23) Nothing By Mouth (06/29/17 Lunch) Accucheck Stat ONCE (06/29/17 10:23) Saline Lock/Iv-Start (06/29/17 10:23) Saline Lock/Iv-Start (06/29/17 10:23) Vital Signs - Stroke Q15M (06/29/17 10:23) Ct Head Wo-R/O Stroke (06/29/17 10:23) O2 (06/29/17 10:23) Intake & Output 06,14,22 (06/29/17 10:23) Monitor-Rhythm Ecg Trace Only (06/29/17 10:23) Dysphagia Screening Tool (06/29/17 10:23) Post Thrombolytic Adminstratio (06/29/17 10:23) Urinalysis (06/29/17 11:26) Vital Signs/I&O Vital Sign - Last 12Hours 06/29/17 06/29/17 10:20 11:40 Temp 98.0 Pulse 69 75 Resp 16 16 B/P (MAP) 176/109 Pulse Ox 97 97 O2 Delivery Room Air Blood Pressure Mean: 131 Progress Note : Time: 11:14 Progress Note After discussing the case with neuro and the patient he agrees to go home and he will set up physical therapy occupational therapy as needed next week early. He has an appointment Saturday with his doctor. We will have the nurse get him up walking around and do a bedside swallow study if he does okay on these things would be prepared let him go barring his labs being okay. ECG Initial ECG Impression Date: Jun 29, 2017 Initial ECG Impression Time: 10:44 Initial ECG Rate: 70 Initial ECG Rhythm: Normal Sinus Initial ECG Intervals: Normal Initial ECG Impression: Normal Initial ECG Comparisson: Unchanged Comment No T-wave elevation or depression. Diagnostic Imaging Diagonstic Imaging: CT Plain Films/CT/US/NM/MRI: head Comments NAME: GISSELLE SINGER [facility] REC#: [id number] PHYSICIAN: RAIZA HEDRICK MD CC: CRISTOBAL TURNER; RAIZA HEDRICK Page 1 of 1 RADIOLOGY REPORT VIA [place], [place] CC: CRISTOBAL TURNER; RAIZA HEDRICK Page 1 of 1 RADIOLOGY REPORT NAME: GISSELLE SINGER JR [facility] REC#: [id number] PT STATUS: REG ER : 1950 PHYSICIAN: RAIZA HEDRICK MD ADMIT DATE: 06/29/17/ER Signed Date of Exam: 06/29/17 CT HEAD WO-R/O STROKE INDICATION: Stroke FINDINGS: Ventricles normal in size, shape and position. There is no midline shift or mass effect. There is no hemorrhage or evidence of acute ischemia. No dense vessel sign is identified. The bony calvarium, visualized paranasal sinuses and mastoids are unremarkable. IMPRESSION: Negative CT head. Dictated by: Dictated on workstation # [id number] Dict: 06/29/17 1037 Trans: 06/29/17 1044 Interpreted by: CRISTOBAL TURNER Electronically signed by: CRISTOBAL TURNER 06/29/17 1044 Diagonstic Imaging: Xray Plain Films/CT/US/NM/MRI: chest Comments NAME: LUCRECIAGISSELLE [facility] REC#: [id number] PHYSICIAN: RAIZA HEDRICK MD CC: CRISTOBAL TURNER; RAIZA HEDRICK Page 1 of 1 RADIOLOGY REPORT VIA [facility], [facility]. [place], [place] CC: CRISTOBAL TRUNER; RAIZA HEDRICK Page 1 of 1 RADIOLOGY REPORT NAME: GISSELLE SINGER JR [facility] REC#: [id number] PT STATUS: REG ER : 1950 PHYSICIAN: RAIZA HEDRICK MD ADMIT DATE: 06/29/17/ER Signed Date of Exam: 06/29/17 CHEST 1 VIEW, AP/PA ONLY INDICATION: Stroke COMPARISON: 06/28/17 FINDINGS: Single view of the chest demonstrates clear lungs bilaterally. The heart is normal. No pneumothorax. Osseous structures normal. IMPRESSION: Negative chest Dictated by: Dictated on workstation # [id number] Dict: 06/29/17 1038 Trans: 06/29/17 1044 Interpreted by: CRISTOBAL TURNER Electronically signed by: CRISTOBAL TURNER 06/29/17 1044 Reviewed: Reviewed by Me Consults Consults : Consults Notes 1104 Dr Terry discussed the case and today and yesterday's findings. She recommends it with a history of one day of small pontine lesion that since he has a negative CT today it's possible that this is still the same stroke just finishing setting up and it may have some changing symptoms for the next day or 2. She says that it is able to walk and take care of himself for going home and following up with outpatient PT OT would be reasonable. He also would not be unreasonable to observe him for a day in the hospital however there is nothing to be added in terms of intervention acutely if the stroke symptoms are worsening. We can start him on Plavix in addition to the aspirin and statin. This may give him some benefit although that is uncertain. She recommends that we explained to him that if he goes home is always possible his symptoms could worsen. At the small infarct in the right jeff would definitely explain the symptoms she was experiencing yesterday and today. She recommends early initiation of PT OT, Plavix, aspirin. The other alternative explanation is that there may be something wrong with the small physician president vessels that serve the pontine midbrain but there is no intervention available at this time nor is her imaging sensitive enough to view them. Departure Impression Impression: Primary Impression: CVA, old, hemiparesis Disposition: 01 HOME, SELF-CARE Condition: Improved Departure-Patient Inst. Decision time for Depature: 11:19 Referrals: ROCHELLE RIBEIRO MD (PCP/Family) Primary Care Physician Patient Instructions: Stroke (DC) Add. Discharge Instructions: Your symptoms appear to be recurrence of the same symptoms of stroke. The CT scan does not show any new findings. Neurology agrees that we can add Plavix, a blood thinner that may help you with some of the symptoms and that you can expect some waxing and waning and recurrence of the same symptoms for the next day or two as the stroke organizes and becomes more stable. Continue taking aspirin and the statin. Please discontinue the Plavix when you're physician tells you it is okay to do so. When you are on Plavix you will be more prone to bleeding if you have a fall and hit your head, lose consciousness or have any cuts that you cannot get the bleeding under control; if this occurs you should report to the ER. If you have new symptoms such as weakness on the right side or other symptoms that are new from what you been experiencing you should return to the ER as well. If you're having chest pain fever shortness of breath nausea and vomiting or any other concerning symptoms he should also return to the ER otherwise plan on following with her primary care physician at your scheduled appointment on Monday July 03, 2017. If you're having some weakness with your walking you should use the walker that you have at home. All discharge instructions reviewed with patient and/or family. Voiced understanding. Scripts Clopidogrel Bisulfate (Clopidogrel) 75 Mg Tablet 75 MG PO DAILY for 30 Days, #30 TAB 0 Refills Prov: RAIZA HEDRICK 06/29/17 Copy Copies To 1: ROCHELLE RIBEIRO MD, TITUS J Jun 29, 2017 10:34
--- NOTE | 2017-06-29 10:43 | Diagnostic Imaging Report ---
INDICATION: Stroke FINDINGS: Ventricles normal in size, shape and position. There is no midline shift or mass effect. There is no hemorrhage or evidence of acute ischemia. No dense vessel sign is identified. The bony calvarium, visualized paranasal sinuses and mastoids are unremarkable. IMPRESSION: Negative CT head. Dictated by: Dictated on workstation # [id number]
--- NOTE | 2017-06-29 10:44 | Diagnostic Imaging Report ---
INDICATION: Stroke COMPARISON: 06/28/17 FINDINGS: Single view of the chest demonstrates clear lungs bilaterally. The heart is normal. No pneumothorax. Osseous structures normal. IMPRESSION: Negative chest Dictated by: Dictated on workstation # [id number]
[2017-06-29 10:48] LABS: BASOPHILS % (AUTO) 0 % (0-10); EOSINOPHILS # (AUTO) 0.2 10^3/uL (0.0-0.3); EOSINOPHILS % (AUTO) 3 % (0-10); LYMPHOCYTES # (AUTO) 2.1 X 10^3 (1.0-4.0); LYMPHOCYTES % (AUTO) 27 % (12-44); MEAN CORPUSCULAR HEMOGLOBIN 27 PG (25-34); MEAN CORPUSCULAR HGB CONC 34 G/DL (32-36); MEAN CORPUSCULAR VOLUME 80 FL (80-99); MEAN PLATELET VOLUME 11.2 FL (7.4-10.4); MONOCYTES # (AUTO) 0.7 X 10^3 (0.0-1.0); MONOCYTES % (AUTO) 9 % (0-12); NEUTROPHILS # (AUTO) 4.5 X 10^3 (1.8-7.8); NEUTROPHILS % (AUTO) 60 % (42-75); PLATELET COUNT 200 10^3/uL (130-400); RED BLOOD COUNT 5.51 10^6/uL (4.35-5.85); RED CELL DISTRIBUTION WIDTH 13.3 % (10.0-14.5); WHITE BLOOD COUNT 7.5 10^3/uL (4.3-11.0)
[2017-06-29 10:57] LABS: PROTHROMBIN TIME PATIENT 12.5 SEC (12.2-14.7)
[2017-06-29 11:08] LABS: ALANINE AMINOTRANSFERASE 18 U/L (0-55); ALBUMIN 4.1 GM/DL (3.2-4.5); ANION GAP 13 MMOL/L (5-14); ASPARTATE AMINO TRANSFERASE 11 U/L (5-34); BILIRUBIN,TOTAL 0.5 MG/DL (0.1-1.0); BLOOD UREA NITROGEN 17 MG/DL (7-18); BUN/CREATININE RATIO 20; CALCIUM 9.4 MG/DL (8.5-10.1); CARBON DIOXIDE 21 MMOL/L (21-32); CHLORIDE 104 MMOL/L (98-107); CREATININE SERUM 0.87 MG/DL (0.60-1.30); GFR ESTIMATED > 60; GLUCOSE 246 MG/DL (70-105); POTASSIUM 4.1 MMOL/L (3.6-5.0); SODIUM 138 MMOL/L (135-145); TOTAL PROTEIN 7.3 GM/DL (6.4-8.2)
[2017-06-29 11:13] LABS: TROPONIN I < 0.30 NG/ML (<0.30)
[2017-06-29] MEDS ORDERED: CLOP75TA28 PO (11:27)
[2017-06-29 11:40] VITALS: BP 150/80
[2017-06-29 11:54] LABS: BILIRUBIN,URINE NEGATIVE (NEGATIVE); KETONES,URINE 1+ (NEGATIVE); LEUKOCYTE ESTERASE ,URINE NEGATIVE (NEGATIVE); NITRITE,URINE NEGATIVE (NEGATIVE); PH,URINE 6 (5-9); PROTEIN,URINE 1+ (NEGATIVE); UROBILINOGEN,URINE NORMAL (NORMAL)
== END 2017-06-29 11:40 | disposition home or self-care (01) ==
LOC: EDUNIT# 10:18 → ER 10:19
DX: I63.9 Cerebral infarction, unspecified (principal); G81.90 Hemiplegia, unspecified affecting unspecified side; E11.9 Type 2 diabetes mellitus without complications; M19.90 Unspecified osteoarthritis, unspecified site; Z98.890 Other specified postprocedural states
CPT/HCPCS: 36415; 70450; 71010; 80053; 81000; 82962; 84484; 85025; 85379; 85610; 85730; 93005; 93041

== ENCOUNTER 2017-07-03 15:23 | Inpatient (IN) | payer MEDICARE ==
[~2017-07-03] VITALS: Ht 182.9 cm; Wt 121.3 kg
[~2017-07-03 15:23] MED LIST changes: +CLOP75TA28 PO
[2017-07-03 16:00] VITALS: BP 141/96
--- NOTE | 2017-07-03 16:23 | Consultation ---
History of Present Illness History of Present Illness Patient Consulted On(keny/time) 07/03/17 16:18 Date Seen by Provider: Jul 03, 2017 Time Seen by Provider: 15:20 Reason for Visit: stroke History of Present Illness PT IS A 67 Y/O FEMALE WHO IS KNOWN TO ME FROM CLINIC. HE WAS IN THE CLINIC TODAY WITH COMPLAINTS OF WORSENING LEFT LEG WEAKNESS. HIS UPPER BODY HAS NOT IMPROVED. HE PRESENTED TO THE HOSPITAL EMERGENCY DEPARTMENT ON SATURDAY WITH OVER 26 HOURS OF STROKE SYMPTOMS. HE WAS DISCHARGED FROM THE HOSPITAL EMERGENCY DEPARTMENT AFTER AN MRI SHOWED AN ACUTE LACUNAR INFARCT. HE WAS DISCHARGED ON ASPIRIN, PLAVIX AND LIPITOR. Allergies and Home Medications Allergies Coded Allergies: No Known Allergies (Unverified Allergy, Unknown, 02/15/14) Home Medications Aspirin 81 Mg Tablet.dr, 81 MG PO DAILY for 100 Days, #100 Ref 0 Prescribed by: RAIZA HEDRICK on 06/28/17 1552 Atorvastatin Calcium 40 Mg Tablet, 40 MG PO HS for 30 Days, #30 Ref 0 Prescribed by: RAIZA HEDRICK on 06/28/17 1552 Celecoxib 200 Mg Capsule, 200 MG PO DAILY, (Reported) Clopidogrel Bisulfate 75 Mg Tablet, 75 MG PO DAILY for 30 Days, #30 Ref 0 Prescribed by: RAIZA HEDRICK on 06/29/17 1127 Liraglutide 0.6 Mg/0.1 Ml Pen.injctr, 0.6 MG SQ DAILY, (Reported) Metformin Hcl 1,000 Mg Tablet, 1,000 MG PO BID WITH MEALS, (Reported) Past Hoeakzq-Owudue-Gpidbe Hx Patient Social History Alcohol Use: Denies Use Recreational Drug Use: No 2nd Hand Smoke Exposure: No Recent Foreign Travel: No Contact w/Someone Who Travel: No Recent Infectious Disease Expo: No Recent Hopitalizations: No Physical Abuse Screen: No Sexual Abuse: No Immunizations Up To Date Tetanus Booster (TDap): More than 5yrs Date of Pneumonia Vaccine: Aug 23, 2015 Date of Influenza Vaccine: Aug 23, 2015 Seasonal Allergies Seasonal Allergies: No Surgeries HX Surgeries: Yes (R TKR, DENTAL SX, ELBOW SURGERY) Surgeries: Orthopedic Respiratory Hx Respiratory Disorders: No Cardiovascular Hx Cardiac Disorders: No Neurological Hx Neurological Disorders: Yes Neurological Disorders: Stroke Reproductive System Hx Reproductive Disorders: No Sexually Transmitted Disease: No HIV/AIDS: No Genitourinary Hx Genitourinary Disorders: No Gastrointestinal Hx Gastrointestinal Disorders: No Musculoskeletal Hx Musculoskeletal Disorders: Yes (LEFT ANKLE INFLAMED, KNEES) Musculoskeletal Disorders: Arthritis Endocrine Hx Endocrine Disorders: Yes Endocrine Disorders: Diabetes, Non-Insulin dep HEENT HX ENT Disorders: Yes (GLASSES, DENTURES (FULL)) Loss of Vision: Denies Hearing Impairment: Hard of Hearing, Bilateral Hearing Aide Cancer Hx Cancer: No Psychosocial Hx Psychiatric Problems: No Integumentary HX Skin/Integumentary Disorder: No Blood Transfusions Hx Blood Disorders: No Adverse Reaction to a Blood Tr: No Reviewed Nursing Assessment Reviewed/Agree w Nursing PMH: Yes Family Medical History Significant Family History: Heart Disease, Cancer, Hypertension Family Medial History: Cancer 03 FATHER (BLADDER) 03 MOTHER (LUNG) Myocardial infarction 03 FATHER No Family History of: Abdominal aortic aneurysm Alcoholism Congestive heart failure Family history: Alzheimer's disease Family history: Arthritis Family history: Asthma Family history: Breast disease Family history: Cardiovascular disease Family history: Diabetes mellitus Family history: Gastrointestinal disease Family history: Hypertension Family history: Thyroid disorder Heart disease Hereditary disease History of - anemia Parkinson's disease Prostate cancer Psychotic disorder Seizure disorder Stroke Review of Systems-General Constitutional: No chills, No diaphoresis, No fever, malaise, weakness EENTM: No hoarseness, No mouth pain, No throat pain Respiratory: No cough, No dyspnea on exertion Cardiovascular: No chest pain, No palpitations Gastrointestinal: No abdominal pain, No constipation, No diarrhea Genitourinary: no symptoms reported Musculoskeletal: muscle weakness (LEFT ARM/HAND/LEG/FOOT) Psychiatric/Neurological: Denies Anxiety, Denies Depressed, Pre-Existing Deficit (FROM RECENT STROKE), Weakness All Other Systems Reviewed Negative Unless Noted: Yes Physical Exam-General Problems Physical Exam Vital Signs Vital Sign - Last 12Hours 07/03/17 16:00 Temp 97.3 Pulse 70 Resp 20 B/P (MAP) 141/96 Pulse Ox 95 O2 Delivery Room Air Capillary Refill : General Appearance: WD/WN, no apparent distress Eyes: Bilateral Eye EOMI, Bilateral Eye Normal Inspection, Bilateral Eye PERRL HEENT: PERRL/EOMI, pharynx normal Neck: non-tender, supple Respiratory: chest non-tender, lungs clear, normal breath sounds, no respiratory distress Cardiovascular: regular rate, rhythm, no edema Gastrointestinal: normal bowel sounds, non tender, soft, no organomegaly, no pulsatile mass Back: no CVA tenderness Extremities: other (LEFT ARM AND HAND FLACID, LEFT FOOT WITH FOOT DROP) Neurologic/Psychiatric: alert, normal mood/affect, oriented x 3, facial droop ( LEFT MOUTH), 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 PHYSICAL, OCCUPATIONAL SPEECH AND REC THERAPY TO BE STARTED ON THE INPATIENT REHAB UNIT. DIABETES MELLITUS - RESTARTED METFORMIN - MONITOR RESPONSE, CHECK HGBA1C AND ACCU CHECK BID HX OF TICK BITES - CHECK TICK PANEL. ROCHELLE RIBEIRO MD Jul 03, 2017 16:23
[2017-07-03] MEDS ORDERED: METF1000 PO (16:44)
[2017-07-03] MEDS ORDERED: CLOP75TA28 PO (16:44)
[2017-07-03] MEDS ORDERED: LIRA0.6P3 SQ (16:44)
[2017-07-03] MEDS ORDERED: NAPR-1033 PO (16:44)
[2017-07-03] MEDS ORDERED: ATOR40TA70 PO (16:44)
[2017-07-03] MEDS ORDERED: CELE-63 PO (16:44)
[2017-07-03] MEDS ORDERED: ASPI-983 PO (16:44)
[2017-07-03] MEDS: metFORMIN 500 MG (GLUCOPHAGE) TAB PO SCH (17:11)
[2017-07-03 18:14] VITALS: BP 114/62
[2017-07-03] MEDS: ATORVASTATIN 40 MG (LIPITOR) TABLET PO SCH (20:11)
[2017-07-04 05:21] VITALS: BP 125/75
[2017-07-04 05:27] LABS: MEAN PLATELET VOLUME 11.7 FL (7.4-10.4); RED BLOOD COUNT 5.35 10^6/uL (4.35-5.85); RED CELL DISTRIBUTION WIDTH 13.4 % (10.0-14.5); WHITE BLOOD COUNT 10.2 10^3/uL (4.3-11.0)
[2017-07-04 05:51] LABS: ALANINE AMINOTRANSFERASE 21 U/L (0-55); ALBUMIN 3.8 GM/DL (3.2-4.5); ANION GAP 11 MMOL/L (5-14); ASPARTATE AMINO TRANSFERASE 15 U/L (5-34); BILIRUBIN,TOTAL 0.7 MG/DL (0.1-1.0); BLOOD UREA NITROGEN 17 MG/DL (7-18); BUN/CREATININE RATIO 22; CALCIUM 9.1 MG/DL (8.5-10.1); CARBON DIOXIDE 22 MMOL/L (21-32); CHLORIDE 103 MMOL/L (98-107); CHOLESTEROL 127 MG/DL (< 200); CREATININE SERUM 0.76 MG/DL (0.60-1.30); DIRECT LDL 80 MG/DL (1-129); GFR ESTIMATED > 60; GLUCOSE 243 MG/DL (70-105); POTASSIUM 3.7 MMOL/L (3.6-5.0); SODIUM 136 MMOL/L (135-145); TRIGLYCERIDES 105 MG/DL (<150); VLDL CHOLESTEROL 21 MG/DL (5-40)
[2017-07-04] MEDS: metFORMIN 500 MG (GLUCOPHAGE) TAB PO SCH ×2 (06:26→16:24)
--- NOTE | 2017-07-04 08:03 | PM&R Post Admission Assessment ---
Post Admission Physician Asses The preadmission screen agrees with the post admission assessment that the patient is a good candidate for inpatient rehabilitation. The patient will have a comprehensive program of inpatient rehabilitation with a goal of maximizing level of functional independence prior to discharge home with spouse. The patient will have PT/OT ninety minutes per day, each discipline, five days a week for gait, strengthening, conditioning, balance, ADLs, any patient/family/caregiver training as necessary. Speech therapy to do cognitive and speech assessment and treat as indicated. Rehabilitation nursing to assist with bowel, bladder, skin,, medication administration, pain management. Manager Search to assist with discharge planning, community reentry. SCD's for DVT prophylaxis. He appears to be well motivated to participate in three hours of therapy a day. He should be able to tolerate three hours of therapy a day from a medical standpoint. He should benefit from the three hours of therapy a day. He has a reasonable discharge plan, reasonable discharge rehabilitation goals and a supportive family. He has various comorbidities that need to be closely monitored with medications and treatments adjusted on a daily basis as needed. These include: DM OA Barriers to discharge for this patient who had been independent prior to this are for him to be modified independent to supervision for ADLs and mobility skills prior to discharge home with spouse, so as to lessen the burden of the caregivers. Risks for this patient include: 1. Fall 2. Fracture 3. DVT 4. Pulmonary embolism 5. Poorly controlled DM 6. Skin breakdown 7. Contractures 8. Poorly controlled pain 9. Urinary retention 10. UTI 11. Respiratory infection 12. Aspiration 13. reactive depression Estimated Length of Stay: 21 days Prognosis: Rehab prognosis appears good for goal of discharge home with spouse modified independent to supervision for ADLs and mobility skills. SWATI STOREY MD Jul 04, 2017 08:03
[2017-07-04] MEDS: ASPIRIN E.C. 325 MG (ECOTRIN) TABLET PO SCH (08:22)
[2017-07-04] MEDS: CLOPIDOGREL 75 MG (PLAVIX) TABLET PO SCH (08:22)
--- NOTE | 2017-07-04 09:26 | Physical Therapy Evaluation ---
PT Evaluation-General Medical Diagnosis Admission Date Jul 03, 2017 at 15:44 Medical Diagnosis: lacunar infact Onset Date: Jun 28, 2017 Therapy Diagnosis Therapy Diagnosis: weakness; abn gait Height/Weight Height (Feet): 6 Height (Inches): 0.00 Weight (Pounds): 267 Weight (Ounces): 7.0 Precautions Precautions/Isolations: Fall Prevention, Standard Precautions Referral Physician: Augustine Reason for Referral: Evaluation/Treatment Medical History Pertinent Medical History: Arthritis, DM Additional Medical History B TKR Current History Pt presented to ED on 06/28/17 with left sided weakness; diagnostic testing revealed CVA; pt sent home. Pt reports his symptoms did not resolve and presented to his primary care physicians office on 07/03/17; pt admitted to ARU directly with left sided weakness. Reviewed History: Yes Social History Home: Single Level Current Living Status: Spouse Entry Into Home: Stairs With Railing PT Steps Into Home: 3 pt also has a ramp Prior/Core FIM Prior Level of Function Functional [place] Measure 0=Not Assessed/NA 4=Minimal Assistance 1=Total Assistance 5=Supervision or Setup 2=Maximal Assistance 6=Modified [place] 3=Moderate Assistance 7=Complete [place] Bed Mobility: 7 Transfers (B,C,W/C) (FIM): 7 Gait: 7 Pt spends time wood working in his shop; indep and active. Retired about a year ago PT Evaluation-Current Subjective denies pain. Reports he feels his left side is generally moving a bit better than yesterday. Happy to be on ARU. Wants to return home when able. Pain Numeric Pain Scale: 0-No Pain Location: No Pain Reported Objective Patient Orientation: Person, Place, Time, Situation Problem Solving: Good ROM/Strength ROM Lower Extremities R LE WNL: left LE WFL with AAROM Strenght Lower Extremities R LE is grossly 5/5 throughout; left LE DF 1/5, quads 3/5; hamstrings 2/5, hip flexion 1/5 Integumentary/Posture Integumentary Refer to nursing notes. Bowel Incontinence: No Bladder Incontinence: No Posture Normal and symmetrical; left shoulder slightly dropped due to mm weakness Neuromuscular (Tone, Coordination, Reflexes) R LE WNL: left side has diminished tone and coordination; reflexes intact but diminished. Sensory Vision: Wears Glasses Hearing: Hearing Aid/Aides Hand Dominance: Right Sensation Right Lower Extremit: Intact Sensation Left Lower Extremity: Impaired Sensation Lower Extremities Decreased sensation to light touch left LE but it is present Transfers Functional [place] Measure 0=Not Assessed/NA 4=Minimal Assistance 1=Total Assistance 5=Supervision or Setup 2=Maximal Assistance 6=Modified [place] 3=Moderate Assistance 7=Complete IndependenceIRFPAI Quality Coding Scale 6 Independent with activity with or without an assistive device 5 Patient requires set up or clean up by helper. Patient completes activity by themselves 4 Supervision or touching assist (CGA). Independence provide cues , steadying assist 3 The helper provides less than half the effort to complete the activity 2 The helper provides more than half the effort to complete the activity 1 Dependent. The helper does all the effort to complete an activity 7 Patient refused to complete or attempt activity 9 The patient did not perform the activity before the current illness or injury 88 Not attempted due to Medical conditions or safety concerns Transfers (B, C, W/C) (FIM): 2 Scootin Roll Left to Right (QC): 3 Supine to/from Sit: 2 (Max assist to lift his trunk) Sit to/from Stand: 3 (lifting assist withskilled cues for sequencing) bed t/f WC(FIM only if WC use): 3 Sit to Lying (QC): 4 (asssit with left LE) Lying to Sitting/Side of Bed(Q: 2 (max asssit to lift trunk) Sit to Stand (QC): 3 Chair/Bep-oj-Jitrs Xfer(QC): 4 Car Transfer (QC): 88 Worked on sit to stand transfers with skilled cues for hand placement and sequencing. Pt able to push up from the bed and reach for the walker. Sit to stand x 5 reps. Gait Does the Patient Walk?: Yes Mode of Locomotion: Walk Anticipated Mode of Locomotion: Walk Gait (FIM): 2 Distance (FIM): 1=up to 49 ft (30 ft) Walk 10 feet (QC): 4 (close CGA with FWW) Walk 50 ft with 2 Turns(QC): 88 Walk 150 ft (QC): 88 Walking 10ft/uneven surface-QC: 88 (unsafe to attempt) Distance: 30 ft Gait Level of Assist: 4 Gait Assistive Device: FWW Comments/Gait Description close CGA with skilled cues to sequence; difficulty clearing left LE as he swings through with toe drag and limited foot clearanc.e Wheelchair Training Does the Pt Use a Wheelchair?: No Stairs Stairs (FIM): 0 (unsafe to attempt due to left LE weakness) #of Steps: 0 1 Step (curb) (QC): 88 4 Steps (QC): 88 12 Steps (QC): 88 If not tested on admit;explain unsafe to attempt due to left LE weakness Balance Sitting Static: Good Sitting Dynamic: Good Standing Static: Fair Standing Dynamic: Fair Picking up an Object (QC): 88 Treatment Worked on seated EOB balance; transfers; gait progression. Education on PT POC and and progression of activity. Assessment/Needs Pt presents post CVA with left sided weakness that impairs all aspects of functional mobility. Per his report he is moving better today compared to yesterday. He is an excellent candidate for skilled PT intervention to address his mobility and weakness to allow him to return home as before. Eval of moderate intensity; Personal factors: alone during the day, history of DM and arthritis; systems impaired: L sided strength, transfers, balance, decreased functional activity tolerance; and is it evolving as it is a recent event. Rehab Potential: Good PT Short Term Goals Short Term Goals Time Frame: Jul 18, 2017 Transfers (B,C,W/C) (FIM): 4 Gait (FIM): 4 Distance (FIM): 3=150 ft Gait Assistive Device: FWW PT Care Home Goals Care Home Goals PT Care Home Goals Time Frame: Aug 01, 2017 Transfers (B,C,W/C) (FIM): 6 Sit to Lying (QC): 6 Lying-Sitting on Side/Bed(QC): 6 Sit to Stand (QC): 6 Roll Left to Right (QC): 6 Chair/Rzc-qs-Uvihr Xfer(QC): 6 Car Transfer (QC): 5 Does the Patient Walk: Yes Gait (FIM): 6 Gait distance (FIM): 3=150 ft Walk 10 feet (QC): 6 Walk 10ft-Uneven Surface(QC): 6 Walk 50ft with 2 Turns (QC): 6 Walk 150 ft (QC): 6 Gait Assistive Device: FWW Does the Pt use WC or Scooter?: No Stairs (FIM): 5 # of Steps: 8 1 Step (curb) (QC): 6 4 Steps (QC): 6 12 Steps (QC): 88 Stairs Level Of Assist: 6 Picking up an Object (QC): 5 All LTG's set with the plan for him to return home and be mod indep in his home and able to enter/exit his home without assist. PT Plan Problem List Problem List: Activity Tolerance, Functional Strength, Safety, Balance, Gait, Transfer, Bed Mobility Treatment/Plan Treatment Plan: Continue Plan of Care Treatment Plan: Bed Mobility, Education, Functional Activity Ninfa, Functional Strength, Group Therapy, Gait, Safety Treatment Duration: Aug 01, 2017 Frequency: At least 5-7 days/Wk (IRF) Estimated Hrs Per Day: 1.5 hours per day Patient and/or Family Agrees t: Yes Safety Risks/Education Patient Education: Transfer Techniques, Safety Issues Teaching Recipient: Patient, Significant Other Teaching Methods: Discussion Response to Teaching: Reinforcement Needed Discharge Recommendations Therapy D/C Recommendations: Physical Therapy Home Care Time/GCodes Time In: 800 Time Out: 905 Total Billed Treatment Time: 65 Total Billed Treatment visit EVM 20 FA 45 GREY YOUNG PT Jul 04, 2017 09:26
[2017-07-04] MEDS: NAPROXEN 250 MG (NAPROSYN) TABLET PO SCH ×2 (09:36→16:25)
--- NOTE | 2017-07-04 09:52 | Occupational Therapy Eval ---
OT Evaluation-General/PLF Medical Diagnosis Admission Date Jul 03, 2017 at 15:44 Medical Diagnosis: lacunar infact Onset Date: Jun 28, 2017 Therapy Diagnosis Therapy Diagnosis: Left Hemiparesis Height/Weight Height (Feet): 6 Height (Inches): 0.00 Weight (Pounds): 267 Weight (Ounces): 7.0 Precautions Precautions/Isolations: Fall Prevention, Standard Precautions Safety Interventions: Reorient-PRN Weight Bear Status Weight Bearing Restriction: Weight Bearing/Tolerated Referral Physician: Augustine Referral Reason: Activity Tolerance, Self Care, Evaluation/Treatment, Strengthening/ROM Medical History Pertinent Medical History: Arthritis, DM Additional Medical History Right TKR, dental sx, elbow sx Current History Pt. went to ER on 06-28-17. Diagnosed with acute lacunar infarct. Sent home on medication. Pt. states that he had worsening of symptoms. Went to physicians clinic yesterday. Presented with significant left sided weakness. Admitted yesterday afternoon. Reviewed History: Yes Social History Home: Single Level Current Living Status: Spouse Entry Into Home: Stairs With Railing Steps Into Home: 3 Pt. usually goes in the back of house, where the stairs are. However, states that he has a ramp on the front of his house. ADL-Prior Level of Function ADL PLOF Comments Pt. states that he was independent with daily tasks. 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 DME/Equipment: Bath Chair, Grab Bars, Shower DME/Equipment Comments Pt. has a walker at home and an "old wheelchair" that belonged to his mother. He states that he has a small step to get into walk in shower, but that it has grab bars and a seat in there. Drive Self: Yes OT Current Status Subjective No pain reported, except some "tenderness" in left bicep upon palpation. Appearance Pt. in chair. Spouse in room. Pleasant and able to answer all questions. Mental Status/Objective Patient Orientation: Person, Place, Time, Situation Pt. somewhat [place]. Current Glasses/Contacts: Yes Hearing Aids: Yes Hand Dominance: Right Upper Extremity ROM Right- WFL Left- slight index finger noted. Slight thumb adduction noted. Slight MP movement noted. However, no other active ROM noted at this time in left UE. Upper Extremity Coordination Right- intact Left- impaired. See above. Upper Extremity Strength Right- 4/5 throughout Left- Trace in index/thumb. Edema: No UE edema noted at this time. Pt. is educated about positioning of left UE for posture and pain control. Note reported tenderness in joint space of shoulder and bicep with palpation. No subluxation noted. ADL-Treatment Functional [place] Measure 0=Not Assessed/NA 4=Minimal Assistance 1=Total Assistance 5=Supervision or Setup 2=Maximal Assistance 6=Modified [place] 3=Moderate Assistance 7=Complete IndependenceIRFPAI Quality Coding Scale 6 Independent with activity with or without an assistive device 5 Patient requires set up or clean up by helper. Patient completes activity by themselves 4 Supervision or touching assist (CGA). [place] provide cues , steadying assist 3 The helper provides less than half the effort to complete the activity 2 The helper provides more than half the effort to complete the activity 1 Dependent. The helper does all the effort to complete an activity 7 Patient refused to complete or attempt activity 9 The patient did not perform the activity before the current illness or injury 88 Not attempted due to Medical conditions or safety concerns Grooming (FIM): 5 (set up with comb.) Bathing (FIM): 3 (Pt. required assist to wash rear pinky area and under left UE. ) Shower/Bathe Self (QC): 3 Upper Body Dressing (FIM): 3 (Mod assist to don shirt. ) Upper Body Dressing (QC): 3 Lower Body Dressing (FIM): 2 (Pt. requires max assist to don underwear, shorts , socks, and shoes.) Lower Body Dressing (QC): 2 On/Off Footwear (QC): 1 Transfers (B, C, W/C) (FIM): 3 (Pt. requires mod assist to stand out of chair, and to transfer between chair and wheelchair.) Shower Transfer (FIM): 3 Other Treatments Pt. able to stand with mod assist for sit-stand, and min in stance to urinate at toilet. Is able to pull self up using right UE and grab bars. No functional assistance provided by left UE. Pt. does have ability to pivot on left LE. No visual deficits noted. No neglect or field cuts noted. All needs met after shower back in reclining chair. Education OT Patient Education: Correct positioning, Modified ADL techniques, Progress toward Goal/Update tx plan, Purpose of tx/functional activities, Reviewed precautions, Rehab process, Transfer techniques Teaching Recipient: Patient Teaching Methods: Demonstration, Discussion Response to Teaching: Verbalize Understanding, Return Demonstration OT Short Term Goals Short Term Goals Time Frame: Jul 18, 2017 Eating(FIM): 5 Grooming(FIM): 5 Bathing(FIM): 5 Upper Body Dressing(FIM): 5 Lower Body Dressing(FIM): 4 Toileting(FIM): 4 Transfers (B,C,W/C) (FIM): 4 Toilet/Commode Transfer(FIM): 4 Shower Transfer(FIM): 4 Additional Short Term Goals: 1-Demonstrate ADL Tasks, 2-Verbalize Understanding , 3-ImproveStrength/Ninfa 1=Demonstrate adherence to instructed precautions during ADL tasks. 2=Patient will verbalize/demonstrate understanding of assistive devices/ modifications for ADL. 3=Patient will improve strength/tolerance for activity to enable patient to perform ADL's. OT Custodial Goals Armature Coil Winder Goals Time Frame: Aug 01, 2017 Eating (FIM): 6 Eating (QC): 6 Groomin Oral Hygiene (QC): 6 Bathing(FIM): 5 Shower/Bathe Self (QC): 5 Upper Body Dressing(FIM): 6 Upper Body Dressing (QC): 6 Lower Body Dressing(FIM): 6 Lower Body Dressing (QC): 6 On/Off Footwear (QC): 6 Toileting(FIM): 6 Toileting Hygiene (QC): 6 Transfers (B,C,W/C) (FIM): 6 Toilet/Commode Transfer(FIM): 6 Toilet/Commode Transfer (QC): 6 Shower Transfer(FIM): 5 Additional Goals: 1-Demonstrate ADL Tasks, 2-Verbalize Understanding, 3- ImproveStrength/Ninfa 1=Demonstrate adherence to instructed precautions during ADL tasks. 2=Patient will verbalize/demonstrate understanding of assistive devices/ modifications for ADL. 3=Patient will improve strength/tolerance for activity to enable patient to perform ADL's. OT Education/Plan Problem List/Assessment Assessment: Decreased Activ Tolerance, Decreased UE Strength, Dependent Transfers, Impaired Coordination, Impaired Funct Balance, Impaired I ADL's, Impaired Self-Care Skills, Restricted Funct UE ROM Discharge Recommendations Plan/Recommendations: Continue POC Therapy D/C Recommendations: Home w/ Family Support, Occupational Therapy Home Care Equpiment Recommendations-D/C: Hip Kit Barriers to Progress Left UE weakness Treatment Plan/Plan of Care Treatment,Training & Education: Yes Patient would benefit from OT for education, treatment and training to promote independence in ADL's, mobility, safety and/or upper extremity function for ADL' s. Plan of Care: ADL Retraining, Caregiver Training, Functional Mobility, UE Funct Exercise/Act, UE Neuromus Re-Ed/Coord Treatment Duration: Aug 01, 2017 Frequency: At least 5-7 days/Wk (IRF) Estimated Hrs Per Day: 1.5 hours per day Agreement: Yes Rehab Potential: Good Time/GCodes Start Time: 09:15 Stop Time: 10:55 Total Time Billed (hr/min): 75 Billed Treatment Time 1, EVM x 30minutes [id number] 1, ADL x 45minutes [id number] NURY LMION OT Jul 04, 2017 09:52
--- NOTE | 2017-07-04 10:27 | HISTORY AND PHYSICAL ---
DATE OF ADMISSION: 07/03/2017 CHIEF COMPLAINT: Difficulty with walking. HISTORY OF PRESENT ILLNESS: The patient is a 67-year-old male who was admitted from Dr. Prakash's office, PCP, after imaging studies revealed an acute lacunar infarct on the right with resulting left hemiparesis. He was initially evaluated in ED and sent home but having increasing weakness and problems with daily routine. He lives with his spouse in [place], [place]. He was referred to Inpatient Rehabilitation Unit with approval of his managed Medicare plan for ongoing stroke rehabilitation. Currently he requires assistance for his ADLs and mobility skills.He is mod assist for transfers and gait with Gait aide,He is set up for grooming nad max assist for lower body dressing He is mod assist for Upper body dressing He is right handed PAST MEDICAL HISTORY: 1. Diabetes mellitus 2. Arthritis. 3. Presbycusis. 4. He has bilateral hearing aids. PAST SURGICAL HISTORY: He has had bilateral total knee replacements and elbow surgeries. ALLERGIES: No known medication allergies. FAMILY HISTORY: Heart disease, cancer, hypertension. 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 No tobacco. Active in [employer] with his spouse.He had been Independent prior to this REVIEW OF SYSTEMS: Ten-point review of systems significant for left-sided weakness. He checks his Accu-Cheks as home p.r.n. MEDICATIONS: 1. Metformin 1000 mg p.o. b.i.d. 2. Lipitor 40 mg p.o. at bedtime. 3. Plavix 75 mg p.o. daily. 4. ASA 325 mg p.o. daily. PHYSICAL EXAMINATION: Significant for a pleasant male, appearing his stated age, alert and oriented in no acute distress. VITAL SIGNS: Blood pressure is 114/62, pulse 72, O2 sat 94% on room air. Respirations 20. HEENT: He has a mild left-sided labial droop. Vision, speech, hearing otherwise grossly intact with hearing aids and slight dysarthria noted. No oral lesion is noted. NECK: Supple without mass. HEART: Regular rhythm. LUNGS: Clear. ABDOMEN: Soft, nontender. Bowel sounds present. EXTREMITIES: No lower leg edema. No calf tenderness. MUSCULOSKELETAL: The patient has functional passive range of motion of all 4 extremities. NEUROLOGIC: He has a left hemiparesis. Coordination is impaired He has a mild dysarthria.. Sensation is grossly intact to touch. Cognition appears grossly intact.He is reported to be contineent of bowel and bladder Sensation is mildly diminshed in left leg.Good strength on rt Left LE dorsiflexion 1/5,Quads 3/5,hamstrings 2/5,hip flex 1/5 Decreased tone and reflexes on left.Trace movement in left hand. IMPRESSION: 1. Right lacunar infarct with resulting left hemiparesis and mild dysarthria with a decline in his functional independence. 2. Diabetes mellitus, controlled with medication. 3. Osteoarthritis. Status post bilateral total knee replacements. 4. Presbycusis has bileteral hearing aides PLAN: The patient is admitted to Inpatient Rehabilitation Unit for a comprehensive program of inpatient stroke rehabilitation with goal of maximizing level of functional independence prior to discharge home with spouse. The patient will have PT/OT 90 minutes per day, each discipline, 5 days week for gait, strengthening, conditioning, balance, ADLs, any patient/family/caregiver training necessary, any adaptive equipment and training necessary. Speech therapy do cognitive speech assessment and treat as indicated, 3 to 5 times a week for 1 to 2 weeks. Rehabilitation nursing assist with bowel, bladder, skin care, medication administration, pain management. management services technician to assist with discharge planning, community reentry. Follow-up with Dr. Prakash as per her schedule. Appreciate her consult. ESTIMATED LENGTH OF STAY: 2 to 3 weeks. PROGNOSIS: Rehab prognosis appears good for goal of discharging home with spouse modified independent to supervision for ADLs and mobility skills. DIET: Carb consistent. CODE STATUS: Full code. Job ID: [id number] Dictated Date: 07/03/2017 22:18:38 Fast Food Manager Date: 07/04/2017 10:12:13/yumiko JACOBS
--- NOTE | 2017-07-04 10:49 | ST Cognitive Linguistic Eval ---
Speech Evaluation-General Medical Diagnosis Lacunar Infact Onset Date: Jun 28, 2017 Therapy Diagnosis Therapy Diagnosis: Mild Dysarthria Precautions Precautions/Isolations: Fall Prevention, Standard Precautions Referral Referring Physician: Dr. Mark Bradshaw Reason for Referral: Evaluation/Treatment Cognitive Evaluation Medical History Pertinent Medical History: Arthritis, DM Reviewed History: Yes Social History Current Living Status: Spouse Speech PLF-Current Status Prior Level of Function The patient denied prior challenges with speech, language, or cognition. Subjective The patient was recently admitted to [facility] Unit with a diagnosis of acute lacunar infarct. The patient greeted the clinician appropriately and was agreeable to participation in the cognitive, speech, and language evaluation. Language Eval: Auditory Comprehends Simple Yes/No Ques: Functional Indent/Objects Multiple [place]: Functional Ident/Pics in Multiple [place]: Functional Follows 1-Step Commands: Functional Follows Complex Directions: Functional Follows General Conversations: Functional Language Eval: Verbal Language Completes Spontaneous Greeting: Functional Produces Auto, Serial Info: Functional Imitates Simple Words/Phrases: Functional Word Finding: Functional Requests Basic Needs: Functional States Basic Personal Info: Functional Expresses Complex Ideas: Functional To note, the patient has a left facial droop at rest, demonstrating reduced left labial retraction and protrusion. The reduced range of motion results in mildly imprecise articulation upon oral expression. Cognitive Patient Orientation The patient was oriented to month, year, day of week and date (independently). Objective Cognitive Domain Attention: WNL Memory: WNL Problem Solving: Functional Executive Functions: WNL Objective Impression The patient demonstrated cognitive linguistic skills within normal limits. The patient displayed mild dysarthria consistent with flaccid-type. Communication/Social Cognition Comprehension: 6 Expression: 5 Social Interaction: 6 Problem Solvin Memory: 6 Speech Patient Assess Expression of Ideas/Wants: Expression (4) Understanding [place] Content: Understands (4) Brief Interview-Mental Status: Yes Repetition of Three Words: Three (3) Temporal Orientation: Year: Correct (3) Temporal Orientation: Month: Accurate within 5 days(2) Temporal Orientation: Day: Incorrect or No Answer(0) Recall : Wear to say "Sock": Yes, no cue required (2) Recall : Color: Yes, no cue required (2) Recall : Bed: Yes, no cue required (2) Speech Short Term Goals Short Term Goals Short Term Goals 1. The patient will demonstrate oral motor exercises (labial range of motion and strengthening) with 90% accuracy, independently. Time Frame-STG: Five Days Speech Concrete Craftsman Goals Concrete Craftsman Goals 1. The patient will demonstrate increased intelligibility through oral expression. Time Frame: One Week Comprehension: 6 Expression: 6 Social Interaction: 6 Problem Solvin Memory: 6 Speech-Plan Treatment Plan Speech Therapy Treatment Plan: Continue Plan of Care Continue skilled speech pathology to target lingual and labial strengthening for improved oral expression. Frequency: Modified Program (IRF) (4 to 5 times per week.) Estimated Hrs Per Day: .5 hour per day Rehab Potential: Good Safety Risks/Education Teaching Recipient: Patient Teaching Methods: Discussion Response to Teaching: Verbalize Understanding Education Topics Provided: Plan of Care, Results, Recommendations Time Speech Therapy Time In: 10:51 Speech Therapy Time Out: 11:06 Total Billed Time: 15 Billed Treatment Time 1, DEVON MCKENZIE Jul 04, 2017 10:49
--- NOTE | 2017-07-04 14:11 | Progress Note (SOAP) ---
Subjective Date Seen by Provider: Jul 04, 2017 Time Seen by Provider: 09:20 Subjective/Events-last exam PT REPORTS THAT WHEN HE GOT UP THIS MORNING HIS FACE AND ARM WERE MORE DIFFICULT TO MANEUVER - HIS FACE HAD MORE DROP ON THE LEFT. HE DENIES ANY OTHER ACUTE CONCERNS THIS MORNING. Review of Systems General: Fatigue HEENT: No Head Aches, No Visual Changes Pulmonary: No Dyspnea, No Cough Cardiovascular: No: Chest Pain, Palpitations Gastrointestinal: No: Abdominal Pain Genitourinary: No Dysuria Neurological: Weakness, No: Confusion Objective Exam Vital Signs Date Time Temp Pulse Resp B/P (MAP) Pulse Ox O2 Delivery O2 Flow Rate FiO2 07/04/17 05:21 97.7 76 18 125/75 93 Room Air 07/03/17 18:14 98.2 72 20 114/62 94 Room Air 07/03/17 18:13 Room Air 07/03/17 16:00 97.3 70 20 141/96 95 Room Air I & O 07/04/17 07:00 Intake Total 700 ml Balance 700 ml Capillary Refill : General Appearance: No Apparent Distress, WD/WN HEENT: PERRL/EOMI Neck: Supple Respiratory: Chest Non Tender, Lungs Clear, Normal Breath Sounds, No Accessory Muscle Use Cardiovascular: Regular Rate, Rhythm, No Edema Gastrointestinal: normal bowel sounds, non tender, soft, no organomegaly, no pulsatile mass Extremity: Normal Capillary Refill, No Calf Tenderness, No Pedal Edema Neurologic/Psychiatric: Alert, Oriented x3, Normal Mood/Affect, Other (FACIAL DROOP ON LEFT, PARESIS LEFT UPPER EXT AND LOWER EXT) Skin: Warm/Dry Lymphatic: No Adenopathy Results Lab Laboratory Tests 07/04/17 05:10: White Blood Count 10.2, Red Blood Count 5.35, Hemoglobin 14.4, Hematocrit 43, Mean Corpuscular Volume 80, Mean Corpuscular Hemoglobin 27, Mean Corpuscular Hemoglobin Concent 34, Red Cell Distribution Width 13.4, Platelet Count 215, Mean Platelet Volume 11.7H, Sodium Level 136, Potassium Level 3.7, Chloride Level 103, Carbon Dioxide Level 22, Anion Gap 11, Blood Urea Nitrogen 17, Creatinine 0.76, Estimat Glomerular Filtration Rate > 60, BUN/Creatinine Ratio 22, Glucose Level 243H, Hemoglobin A1c < 4.0L, Calcium Level 9.1, Total Bilirubin 0.7, Aspartate Amino Transf (AST/SGOT) 15, Alanine Aminotransferase ( ALT/SGPT) 21, Alkaline Phosphatase 51, Total Protein 7.0, Albumin 3.8, Triglycerides Level 105, Cholesterol Level 127, LDL Cholesterol Direct 80, VLDL Cholesterol 21, HDL Cholesterol 29L Assessment/Plan Assessment/Plan Assess & Plan/Chief Complaint SUBACUTE LACUNAR INFARCT LEFT HEMIPARESIS DIABETES MELLITUS HX OF TICK BITES SUBACUTE LACUNAR INFARCT WITH LEFT HEMIPARESIS - CONTINUE WITH PLAVIX, ASPIRIN, LIPITOR -CHECK CAROTID ULTRASOUND AND AN ECHOCARDIOGRAM (WAITING ON REPORTS). PHYSICAL, OCCUPATIONAL SPEECH AND REC THERAPY TO BE STARTED ON THE INPATIENT REHAB UNIT. DIABETES MELLITUS - RESTARTED METFORMIN - MONITOR RESPONSE, CHECK HGBA1C AND ACCU CHECK BID HX OF TICK BITES - CHECK TICK PANEL (WAITING ON RESULTS). Clinical Quality Measures DVT/VTE Risk/Contraindication: Risk Factor Score Per Nursin RFS Level Per Nursing on Admit: 4+=Very High ROCHELLE RIBEIRO MD Jul 04, 2017 2:11 pm
--- NOTE | 2017-07-04 14:15 | Physical Therapy Daily Note ---
PT Daily Note-Current Subjective Agrees to PT. Reports he feels drowsy this afternoon after a busy morning and lunch. Pain Numeric Pain Scale: 0-No Pain Location: No Pain Reported Mental Status Patient Orientation: Person, Place, Time, Situation Transfers Functional [place] Measure 0=Not Assessed/NA 4=Minimal Assistance 1=Total Assistance 5=Supervision or Setup 2=Maximal Assistance 6=Modified [place] 3=Moderate Assistance 7=Complete IndependenceIRFPAI Quality Coding Scale 6 Independent with activity with or without an assistive device 5 Patient requires set up or clean up by helper. Patient completes activity by themselves 4 Supervision or touching assist (CGA). [place] provide cues , steadying assist 3 The helper provides less than half the effort to complete the activity 2 The helper provides more than half the effort to complete the activity 1 Dependent. The helper does all the effort to complete an activity 7 Patient refused to complete or attempt activity 9 The patient did not perform the activity before the current illness or injury 88 Not attempted due to Medical conditions or safety concerns Transfers (B, C, W/C) (FIM): 3 Sit to Lying (QC): 3 Sit to Stand (QC): 4 Sit to stand x multiple times this visit with CGA and skilled cues for hand placement. SPT x 4 with FWW with CGA and cues 50% of the time for sequencing and safety. Gait Training Gait (FIM): 2 Distance (FIM): 1=up to 49 ft Distance: 40 ft x 4 reps. Gait Assistive Device: FWW platform walker; close CGA. Difficulty clearing left LE but able swing through with extra time and concentration. Exercises NuStep Minutes: 10 (to increase Le strength for functional transfers) Treatments Stood at toilet to urninate with CGA. Pt in bed post treatment with needs met. Assessment Current Status: Good Progress PT Short Term Goals Short Term Goals Time Frame: Jul 18, 2017 Transfers (B,C,W/C) (FIM): 4 Gait (FIM): 4 Distance (FIM): 3=150 ft Gait Assistive Device: FWW PT Fpc Goals Acetylene Cutter Goals PT Acetylene Cutter Goals Time Frame: Aug 01, 2017 Transfers (B,C,W/C) (FIM): 6 Sit to Lying (QC): 6 Lying-Sitting on Side/Bed(QC): 6 Sit to Stand (QC): 6 Roll Left to Right (QC): 6 Chair/Qkt-hq-Dydww Xfer(QC): 6 Car Transfer (QC): 5 Does the Patient Walk: Yes Gait (FIM): 6 Gait distance (FIM): 3=150 ft Walk 10 feet (QC): 6 Walk 10ft-Uneven Surface(QC): 6 Walk 50ft with 2 Turns (QC): 6 Walk 150 ft (QC): 6 Gait Assistive Device: FWW Does the Pt use WC or Scooter?: No Stairs (FIM): 5 # of Steps: 8 1 Step (curb) (QC): 6 4 Steps (QC): 6 12 Steps (QC): 88 Stairs Level Of Assist: 6 Picking up an Object (QC): 5 PT Plan Problem List Problem List: Activity Tolerance, Functional Strength Treatment/Plan Treatment Plan: Continue Plan of Care Treatment Plan: Bed Mobility, Education, Functional Activity Ninfa, Functional Strength, Group Therapy, Gait, Safety Treatment Duration: Aug 01, 2017 Frequency: At least 5-7 days/Wk (IRF) Estimated Hrs Per Day: 1.5 hours per day Patient and/or Family Agrees t: Yes Safety Risks/Education Patient Education: Transfer Techniques, Safety Issues Teaching Recipient: Patient Teaching Methods: Demonstration, Discussion Response to Teaching: Reinforcement Needed Time/GCodes Time In: 1230 Time Out: 1300 Total Billed Treatment Time: 30 Total Billed Treatment visit GT 20 EX 10 GREY YOUNG PT Jul 04, 2017 14:14
--- NOTE | 2017-07-04 15:48 | Diagnostic Imaging Report ---
PROCEDURE: US carotid duplex, bilateral. TECHNIQUE: Multiple real-time grayscale images were obtained over the carotid arteries in various projections, bilaterally. Additional duplex Doppler and color Doppler images were also obtained. INDICATION: STROKE. FINDINGS: Grayscale images demonstrate mild plaque seen, bilaterally. Color Doppler demonstrates flow in the common carotid, internal and external carotid arteries, bilaterally. The vertebral arteries demonstrate antegrade flow on both sides. Peak systolic velocities in the right ICA is 81, 92 and 93 cm/s and on the left side 45, 51 and 45 cm/s. ICA over CCA ratios are up to 1.0 on the right and 0.6 on the left. IMPRESSION: There is mild atherosclerotic plaque seen at the carotid bifurcation, more prominent on the left side. Estimated underlying degree of stenosis is less than 40%, bilaterally. Dictated by: Dictated on workstation # [id number]
--- NOTE | 2017-07-04 17:34 | Individualized Plan of Care ---
Individualized Plan of Care Rehab Nursing IPOC Order Admission Date Jul 03, 2017 at 15:44 Current Orders Orders Physical Therapy Rehab Orders (07/03/17 17:45) Occupational Therapy Rehab Ord (07/03/17 17:45) Rehab Nursing Orders-Ipoc (07/03/17 17:45) Speech Therapy Rehab Orders (07/03/17 17:45) Metformin Tablet (Glucophage Tablet) (07/04/17 17:00) Naproxen Tablet (Naprosyn Tablet) (07/04/17 09:00) Patient Visit (07/04/17 ) Speech Sound Lang Comp (07/04/17 ) Patient Visit (07/04/17 ) Pt Eval Moderate Complexity (07/04/17 ) Functional Activities, Ea 15 (07/04/17 ) Exercise Therap, Ea 15 Min (07/04/17 ) Gait Training, Ea 15 Min (07/04/17 ) Accucheck Achs ACHS (07/04/17 17:03) Insulin Aspart (Novolog) (Novolog (Charg (07/04/17 21:00) Rehab Nursing Orders: Bladder Program, Bladder Scan, Bladder Training, Bowel Program, Bowel Training, Diseage Management, Edu in Press Rel Techn, Hydration Management, Nutrition Management Other Nursing Orders: Monitor for urinary retention and constipation PT IPOC Problem List: Activity Tolerance, Functional Strength Treatment Plan: Continue Plan of Care Bed Mobility, Education, Functional Activity Ninfa, Functional Strength, Group Therapy, Gait, Safety Treatment Duration: Aug 01, 2017 Frequency: At least 5-7 days/Wk (IRF) Estimated Hrs Per Day: 1.5 hours per day OT IPOC Problems: Decreased Activ Tolerance, Decreased UE Strength, Dependent Transfers , Impaired Coordination, Impaired Funct Balance, Impaired I ADL's, Impaired Self -Care Skills, Restricted Funct UE ROM Plan of Care: ADL Retraining, Caregiver Training, Functional Mobility, UE Funct Exercise/Act, UE Neuromus Re-Ed/Coord Treatment Duration: Aug 01, 2017 Frequency: At least 5-7 days/Wk (IRF) Estimated Hrs Per Day: 1.[address] IPOC Speech Therapy Treatment Plan: Continue Plan of Care Frequency: Modified Program (IRF) (4 to 5 times per week.) Estimated Hrs Per Day: .5 hour per day Physician IPOC Medical Issues being managed closely and that require the 24 hour availability of a physician: DM arthritic pain Medical Issues: DVT Prophylaxis, Falls Precautions, Fluid/Electrolyte/ Nutrition Balance, Infection Protection, Pain Management, Other (List) (as per above) Brief Synthesis of Preadmission Screen, Post-Admission Evaluation, and Therapy Evaluations: 67 yo male with rt lacunar infarct with resulting Left HP and mild dysarthria PMH Arthritis with TKRS and DM Meds for DM currently being adjusted Had been Independent prior to this and living with spouse in [facility] PCP DR Prakash Medical Prognosis: good Anticipated Length of Stay: 08-01-17 Rehab Goals Modified Independent to supervision for adls and mobility skills with improved speech articulation Anticipated discharge destinat: Home with spouse with [facility] SWATI STOREY MD Jul 04, 2017 17:34
--- NOTE | 2017-07-04 18:18 | PM & R (SOAP) Progress Note ---
Subjective Time Seen by Provider: 07:50 Subjective/Events-last exam Patient was seen in his room this AM Appreciate DR Vanegas notes and therapy notes Adjusting well to unit Discussed case with RN this afternoon Accucheks climbing Sliding scale insulin regimen ordered Patient mod assist for transfers Review of Systems Neurological: Change in speech, Weakness Objective Exam Last Set of Vital Signs Vital Signs Date Time Temp Pulse Resp B/P (MAP) Pulse Ox O2 Delivery O2 Flow Rate FiO2 07/04/17 05:21 97.7 76 18 125/75 93 Room Air Capillary Refill : I&O Bad tableGeneral: Alert, Oriented X3, Cooperative, No Acute Distress HEENT: Atraumatic, PERRLA, EOMI, Mucous Memb Moist/[place] Neck: Supple, No JVD Lungs: Clear to Auscultation Heart: Regular Rate Abdomen: Normal Bowel Sounds, Soft, No Tenderness Extremities: No Edema Neuro: Other (Left HP upper >lower extremity mild dysarthria) Results Lab Laboratory Tests 07/04/17 05:10: White Blood Count 10.2, Red Blood Count 5.35, Hemoglobin 14.4, Hematocrit 43, Mean Corpuscular Volume 80, Mean Corpuscular Hemoglobin 27, Mean Corpuscular Hemoglobin Concent 34, Red Cell Distribution Width 13.4, Platelet Count 215, Mean Platelet Volume 11.7H, Sodium Level 136, Potassium Level 3.7, Chloride Level 103, Carbon Dioxide Level 22, Anion Gap 11, Blood Urea Nitrogen 17, Creatinine 0.76, Estimat Glomerular Filtration Rate > 60, BUN/Creatinine Ratio 22, Glucose Level 243H, Hemoglobin A1c < 4.0L, Calcium Level 9.1, Total Bilirubin 0.7, Aspartate Amino Transf (AST/SGOT) 15, Alanine Aminotransferase ( ALT/SGPT) 21, Alkaline Phosphatase 51, Total Protein 7.0, Albumin 3.8, Triglycerides Level 105, Cholesterol Level 127, LDL Cholesterol Direct 80, VLDL Cholesterol 21, HDL Cholesterol 29L 07/04/17 13:55: Glucometer 235H 07/04/17 16:04: Glucometer 262H Assessment/Plan Assessment Rt lacunar infarct with Left HP and dysarthria OA DM meds being adjusted Presbycusis has hearing aides Plan Continue PT/OT/ST Monitor accucheks and adjust meds as needed F/U with SWATI Padron MD Jul 04, 2017 18:18
[2017-07-04 18:34] VITALS: BP 130/75
[2017-07-04] MEDS: ATORVASTATIN 40 MG (LIPITOR) TABLET PO SCH (21:39)
[2017-07-04] MEDS: inSUlin ASPART (NovoLOG) 1 UNIT/0.01 ML (CHARGE PER UNIT) SC SCH (21:42)
[2017-07-05 03:35] LABS: LYME AB G M 0.03 Index (0.00-0.89)
[2017-07-05] MEDS: inSUlin ASPART (NovoLOG) 1 UNIT/0.01 ML (CHARGE PER UNIT) SC SCH ×4 (05:20→21:44)
[2017-07-05 05:47] VITALS: BP 115/72
[2017-07-05 06:39] LABS: LYME AB INTERP Negative (Negative)
[2017-07-05] MEDS: NAPROXEN 250 MG (NAPROSYN) TABLET PO SCH ×2 (06:41→16:33)
[2017-07-05] MEDS: metFORMIN 500 MG (GLUCOPHAGE) TAB PO SCH ×2 (06:41→16:33)
--- NOTE | 2017-07-05 07:34 | Progress Note (SOAP) ---
Subjective Date Seen by Provider: Jul 05, 2017 Time Seen by Provider: 07:50 Subjective/Events-last exam PT REPORTS THAT HE FELT A LITTLE STRONGER THIS MORNING. HE WAS ABLE TO HELP HIMSELF TO THE RESTROOM YESTERDAY EVENING AFTER THERAPY. HE DENIES CHEST PAIN, SHORTNESS OF BREATH, ABDOMINAL PAIN, NAUSEA. Review of Systems General: Fatigue HEENT: No Head Aches Pulmonary: No Dyspnea, No Cough Cardiovascular: No: Chest Pain Gastrointestinal: No: Abdominal Pain, Nausea Genitourinary: No Dysuria Neurological: Weakness, No: Confusion Objective Exam Vital Signs Date Time Temp Pulse Resp B/P (MAP) Pulse Ox O2 Delivery O2 Flow Rate FiO2 07/05/17 05:47 96.0 68 22 115/72 94 Room Air 07/04/17 21:00 Room Air 07/04/17 18:34 96.4 71 16 130/75 94 I & O 07/05/17 07:00 Intake Total 1400 ml Balance 1400 ml Capillary Refill : General Appearance: No Apparent Distress, WD/WN HEENT: PERRL/EOMI Neck: Supple Respiratory: Chest Non Tender, Lungs Clear, Normal Breath Sounds Cardiovascular: Regular Rate, Rhythm Gastrointestinal: normal bowel sounds, non tender, soft Extremity: Normal Capillary Refill, No Pedal Edema Neurologic/Psychiatric: Alert, Oriented x3, Normal Mood/Affect Skin: Warm/Dry Results Lab Laboratory Tests 07/04/17 13:55: Glucometer 235H 07/04/17 16:04: Glucometer 262H 07/04/17 21:30: Glucometer 226H 07/05/17 05:04: Glucometer 178H Assessment/Plan Assessment/Plan Assess & Plan/Chief Complaint SUBACUTE LACUNAR INFARCT LEFT HEMIPARESIS DIABETES MELLITUS HX OF TICK BITES SUBACUTE LACUNAR INFARCT WITH LEFT HEMIPARESIS - CONTINUE WITH PLAVIX, ASPIRIN, LIPITOR -CHECK CAROTID ULTRASOUND 40% STENOSIS BILATERALLY AND AN ECHOCARDIOGRAM (WAITING ON REPORT). PHYSICAL, OCCUPATIONAL SPEECH AND REC THERAPY TO BE STARTED ON THE INPATIENT REHAB UNIT. DIABETES MELLITUS - RESTARTED METFORMIN - MONITOR RESPONSE, CHECKED HGBA1C - LESS THAN 4 AND ACCU CHECK BID HX OF TICK BITES - CHECK TICK PANEL (WAITING ON RESULTS). Clinical Quality Measures DVT/VTE Risk/Contraindication: Risk Factor Score Per Nursin RFS Level Per Nursing on Admit: 4+=Very High ROCHELLE RIBEIRO MD Jul 05, 2017 7:34 am
[2017-07-05] MEDS: CLOPIDOGREL 75 MG (PLAVIX) TABLET PO SCH (08:49)
[2017-07-05] MEDS: ASPIRIN E.C. 325 MG (ECOTRIN) TABLET PO SCH (08:49)
--- NOTE | 2017-07-05 08:52 | Speech Therapy Daily Note ---
Speech Daily Progress Note Subjective Date Seen by Provider: Jul 05, 2017 Time Seen by Provider: 08:15 The patient was seated upright in bed upon entrance. The patient greeted the clinician appropriately and was agreeable to participation in the speech pathology treatment session. The patient's was present for a portion of today's therapy. Objective Oral Motor Exercises: Oral motor (lingual and labial) range of motion and strengthening exercises were introduced, discussed, and demonstrated on this date. The patient demonstrated high accuracy with all exercises with mild clinician verbal prompting and direct modeling (initially). The patient completed ten repetitions of each exercise. Functional Sentences: The patient was encouraged to brainstorm functional sentences to practice speech sounds that may be problematic in his common vernacular. The patient composed seven phrases which included family members' names and favorite sport teams. The phrases were typed and provided to the patient to add to the above oral motor exercises. Assessment Assessment Current Status: Excellent Progress Treatment Plan Continue Plan of Care Communication Comprehension: 6 Expression: 6 Social Cognition Social Interaction: 7 Problem Solvin Memory: 6 Speech Short Term Goals Short Term Goals Short Term Goals 1. The patient will demonstrate oral motor exercises (labial range of motion and strengthening) with 90% accuracy, independently. Time Frame-STG: Five Days Speech [facility] Goals Systems Development Manager Goals 1. The patient will demonstrate increased intelligibility through oral expression. Time Frame: One Week Comprehension: 6 Expression: 6 Social Interaction: 6 Problem Solvin Memory: 6 Speech-Plan Treatment Plan Speech Therapy Treatment Plan: Continue Plan of Care Continue skilled speech pathology to target lingual and labial strength and range of motion to improve oral expressive communication. Frequency: Modified Program (IRF) (4 to 5 times per week.) Estimated Hrs Per Day: .5 hour per day Rehab Potential: Good Safety Risks/Education Teaching Recipient: Patient Teaching Methods: Demonstration, Handout, Discussion Response to Teaching: Verbalize Understanding, Return Demonstration Education Topics Provided: Oral Motor Exercises Time Speech Therapy Time In: 08:15 Speech Therapy Time Out: 08:45 Total Billed Time: 30 Billed Treatment Time SHEN Shwa ELIZABETH Jul 05, 2017 08:52
--- NOTE | 2017-07-05 10:13 | PM & R (SOAP) Progress Note ---
Subjective Time Seen by Provider: 08:00 Subjective/Events-last exam Patient was seen in his room this AM Has question re test for tick bites? DR Prakash following up Patient mod assist for transfers Objective Exam Last Set of Vital Signs Vital Signs Date Time Temp Pulse Resp B/P (MAP) Pulse Ox O2 Delivery O2 Flow Rate FiO2 07/05/17 05:47 96.0 68 22 115/72 94 Room Air Capillary Refill : I&O Intake and Output 07/05/17 00:00 Intake Total 1500 ml Balance 1500 ml Intake Oral 1500 ml # Voids 5 # Bowel Movements 4 General: Alert, Oriented X3, Cooperative, No Acute Distress HEENT: Atraumatic, PERRLA, EOMI, Mucous Memb Moist/[place] Neck: Supple, No JVD Lungs: Clear to Auscultation Heart: Regular Rate Abdomen: Normal Bowel Sounds, Soft, No Tenderness Extremities: No Edema Neuro: Other (Left HP upper >lower extremity mild dysarthria) Results Lab Laboratory Tests 07/04/17 05:10: White Blood Count 10.2, Red Blood Count 5.35, Hemoglobin 14.4, Hematocrit 43, Mean Corpuscular Volume 80, Mean Corpuscular Hemoglobin 27, Mean Corpuscular Hemoglobin Concent 34, Red Cell Distribution Width 13.4, Platelet Count 215, Mean Platelet Volume 11.7H, Sodium Level 136, Potassium Level 3.7, Chloride Level 103, Carbon Dioxide Level 22, Anion Gap 11, Blood Urea Nitrogen 17, Creatinine 0.76, Estimat Glomerular Filtration Rate > 60, BUN/Creatinine Ratio 22, Glucose Level 243H, Hemoglobin A1c < 4.0L, Calcium Level 9.1, Total Bilirubin 0.7, Aspartate Amino Transf (AST/SGOT) 15, Alanine Aminotransferase ( ALT/SGPT) 21, Alkaline Phosphatase 51, Total Protein 7.0, Albumin 3.8, Triglycerides Level 105, Cholesterol Level 127, LDL Cholesterol Direct 80, VLDL Cholesterol 21, HDL Cholesterol 29L, Lyme Disease Screen IgG & IgM Ab 0.03, Lyme Antibody Interpretation Negative 07/04/17 13:55: Glucometer 235H 07/04/17 16:04: Glucometer 262H 07/04/17 21:30: Glucometer 226H 07/05/17 05:04: Glucometer 178H Assessment/Plan Assessment Rt lacunar infarct with Left HP and dysarthria OA DM meds being adjusted Presbycusis has hearing aides Plan Continue PT/OT/ST Monitor accucheks and adjust meds as needed F/U with DR Prakash prn Team Conference next week SWATI STOREY MD Jul 05, 2017 10:13
--- NOTE | 2017-07-05 12:58 | Physical Therapy Daily Note ---
PT Daily Note-Current Subjective Pt sitting in recliner upon arrival. Pt agrees to PT. Pain Location: No Pain Reported Mental Status Patient Orientation: Person, Place, Situation Transfers Functional [place] Measure 0=Not Assessed/NA 4=Minimal Assistance 1=Total Assistance 5=Supervision or Setup 2=Maximal Assistance 6=Modified [place] 3=Moderate Assistance 7=Complete IndependenceIRFPAI Quality Coding Scale 6 Independent with activity with or without an assistive device 5 Patient requires set up or clean up by helper. Patient completes activity by themselves 4 Supervision or touching assist (CGA). [place] provide cues , steadying assist 3 The helper provides less than half the effort to complete the activity 2 The helper provides more than half the effort to complete the activity 1 Dependent. The helper does all the effort to complete an activity 7 Patient refused to complete or attempt activity 9 The patient did not perform the activity before the current illness or injury 88 Not attempted due to Medical conditions or safety concerns Scootin Sit to/from Stand: 4 Sit to Stand (QC): 4 Weight Bearing Weight Bearing Restriction: Full Weight Bearing Location Restriction: LE Bilateral Gait Training Does the Patient Walk?: Yes Distance (FIM): 0=557-92 ft Distance: 80' Walk 10 feet (QC): 4 Walk 50 ft with 2 Turns(QC): 4 Gait Level of Assist: 4 Gait Persons Needed: 1 Gait Assistive Device: Walker Platform Pt improves on distance ambulated and with less dependence on staff. Wheelchair Training Does the Pt Use a Wheelchair?: Yes Wheelchair Distance: 3=729-31 ft Distance: 100' Wheelchair Level of Assist: 3 Wheel 50 ft with 2 turns (QC): 3 Type of Wheelchair: Manual Pt needs assistance propelling WCH due to lack of coordination on LUE. Exercises Seated Therapy Exercises: Ankle pumps, Long arc quads, Hip flexion, Kicking activity Seated Reps: 15 NuStep Minutes: 10 NuStep Workload: 3 Treatments Pt transferred from recliner to standing using platform walker at CGA-Min A. Pt ambulated using walker at CGA-Min A with FWW following. Pt rests a couple of times during ambulation. Pt uses NuStep for 10m at Workload 3 as well as completes Seated Ex to work on ROM and strengthening. Pt ambulates to mat to sit EOB then lay Supine for OT to work on LUE. Pt has all needs met at end of tx. Assessment Current Status: Good Progress Pt increased distance ambulating at a time as well as independence of transfers and mobility. PT Short Term Goals Short Term Goals Time Frame: Jul 18, 2017 Transfers (B,C,W/C) (FIM): 4 Gait (FIM): 4 Distance (FIM): 3=150 ft Gait Assistive Device: FWW PT Alf Goals Alf Goals PT Financial Report Service Sales Agent Goals Time Frame: Aug 01, 2017 Transfers (B,C,W/C) (FIM): 6 Sit to Lying (QC): 6 Lying-Sitting on Side/Bed(QC): 6 Sit to Stand (QC): 6 Roll Left to Right (QC): 6 Chair/Zmz-yx-Mknun Xfer(QC): 6 Car Transfer (QC): 5 Does the Patient Walk: Yes Gait (FIM): 6 Gait distance (FIM): 3=150 ft Walk 10 feet (QC): 6 Walk 10ft-Uneven Surface(QC): 6 Walk 50ft with 2 Turns (QC): 6 Walk 150 ft (QC): 6 Gait Assistive Device: FWW Does the Pt use WC or Scooter?: No Stairs (FIM): 5 # of Steps: 8 1 Step (curb) (QC): 6 4 Steps (QC): 6 12 Steps (QC): 88 Stairs Level Of Assist: 6 Picking up an Object (QC): 5 PT Plan Problem List Problem List: Activity Tolerance, Functional Strength, Safety, Balance, Gait, Transfer, Bed Mobility Treatment/Plan Treatment Plan: Continue Plan of Care Treatment Plan: Bed Mobility, Education, Functional Activity Ninfa, Functional Strength, Group Therapy, Gait, Safety Treatment Duration: Aug 01, 2017 Frequency: At least 5-7 days/Wk (IRF) Estimated Hrs Per Day: 1.5 hours per day Patient and/or Family Agrees t: Yes Safety Risks/Education Patient Education: Gait Training, Transfer Techniques, Correct Positioning, W/ C Management, Safety Issues Teaching Recipient: Patient Teaching Methods: Discussion Response to Teaching: Verbalize Understanding Time/GCodes Time In: 900 Time Out: 1000 Total Billed Treatment Time: 60 Total Billed Treatment visit, GT x2 (30m) & EX x2 (30m) GRANT GOLDEN HAND PLEATER Jul 05, 2017 12:58
--- NOTE | 2017-07-05 13:22 | Occupational Ther Daily Note ---
OT Current Status-Daily Note Subjective Took over care from PT in therapy gym. Pt agreed to OT. Pt c/o pain in L shldr , did not rate. Mental Status/Objective Patient Orientation: Person, Place, Time, Situation Functional [place] Measure 0=Not Assessed/NA 4=Minimal Assistance 1=Total Assistance 5=Supervision or Setup 2=Maximal Assistance 6=Modified [place] 3=Moderate Assistance 7=Complete [place] ADL-Treatment Pt declined shower, agreed to sponge bath. Pt bathed upper body only. Mod A for donning/doffing shirt with one arm technique. Verbal/physical cues needed for technique. Min A for donning/doffing lower body assist. Pt was able to cross each leg, L leg was able to remain on R knee for dressing purposes. Pt stood with CGA while hiking pants over hips with assist to get over L hip. Pt was able to shave self with electric razor. Min A for stand pivot transfer from w/c to recliner. After therapy, pt sitting in recliner with call light/ phone in reach. All needs met in room. Functional [place] Measure 0=Not Assessed/NA 4=Minimal Assistance 1=Total Assistance 5=Supervision or Setup 2=Maximal Assistance 6=Modified [place] 3=Moderate Assistance 7=Complete IndependenceIRFPAI Quality Coding Scale 6 Independent with activity with or without an assistive device 5 Patient requires set up or clean up by helper. Patient completes activity by themselves 4 Supervision or touching assist (CGA). [place] provide cues , steadying assist 3 The helper provides less than half the effort to complete the activity 2 The helper provides more than half the effort to complete the activity 1 Dependent. The helper does all the effort to complete an activity 7 Patient refused to complete or attempt activity 9 The patient did not perform the activity before the current illness or injury 88 Not attempted due to Medical conditions or safety concerns Upper Body (FIM): 3 Lower Body Dressing (FIM): 4 Other Treatment Pt was able to transfer to therapy mat with min A then mod A to go from EOB to supine. Active movement noted in L shldr elevation, bicep (after tapping), finger flexion-poor- (middle, pinky, thumb). Educated pt on shldr subluxation and encouraged pt to work on shldr shrugs for strengthening. Self ROM for shldr flexion recommended while lying in bed. Pt demonstrated tightness in external shldr rotation and at end range with shldr flexion. No movement in wrist or forearm noted at this time. OT Short Term Goals Short Term Goals Time Frame: Jul 18, 2017 Eating(FIM): 5 Grooming(FIM): 5 Bathing(FIM): 5 Upper Body Dressing(FIM): 5 Lower Body Dressing(FIM): 4 Toileting(FIM): 4 Transfers (B,C,W/C) (FIM): 4 Toilet/Commode Transfer(FIM): 4 Shower Transfer(FIM): 4 Additional Short Term Goals: 1-Demonstrate ADL Tasks, 2-Verbalize Understanding , 3-ImproveStrength/Ninfa 1=Demonstrate adherence to instructed precautions during ADL tasks. 2=Patient will verbalize/demonstrate understanding of assistive devices/ modifications for ADL. 3=Patient will improve strength/tolerance for activity to enable patient to perform ADL's. OT Penitentiary Goals Penitentiary Goals Time Frame: Aug 01, 2017 Eating (FIM): 6 Eating (QC): 6 Groomin Oral Hygiene (QC): 6 Bathing(FIM): 5 Shower/Bathe Self (QC): 5 Upper Body Dressing(FIM): 6 Upper Body Dressing (QC): 6 Lower Body Dressing(FIM): 6 Lower Body Dressing (QC): 6 On/Off Footwear (QC): 6 Toileting(FIM): 6 Toileting Hygiene (QC): 6 Transfers (B,C,W/C) (FIM): 6 Toilet/Commode Transfer(FIM): 6 Toilet/Commode Transfer (QC): 6 Shower Transfer(FIM): 5 Comprehension(FIM): 6 Expression (FIM): 6 Social Interaction(FIM): 6 Problem Solving(FIM): 6 Memory(FIM): 6 Additional Goals: 1-Demonstrate ADL Tasks, 2-Verbalize Understanding, 3- ImproveStrength/Ninfa 1=Demonstrate adherence to instructed precautions during ADL tasks. 2=Patient will verbalize/demonstrate understanding of assistive devices/ modifications for ADL. 3=Patient will improve strength/tolerance for activity to enable patient to perform ADL's. OT Education/Plan Discharge Recommendations Plan/Recommendations: Continue POC Treatment Plan/Plan of Care Patient would benefit from OT for education, treatment and training to promote independence in ADL's, mobility, safety and/or upper extremity function for ADL' s. Plan of Care: ADL Retraining, Caregiver Training, Functional Mobility, UE Funct Exercise/Act, UE Neuromus Re-Ed/Coord Treatment Duration: Aug 01, 2017 Frequency: At least 5-7 days/Wk (IRF) Estimated Hrs Per Day: 1.5 hours per day Agreement: Yes Rehab Potential: Good Time/GCodes Start Time: 10:00 Stop Time: 11:00 Total Time Billed (hr/min): 60 Billed Treatment Time 1 visit-NM 2 (30 min) ADL 2 (30 min) GREY VAUGHN Jul 05, 2017 13:22
[2017-07-05 13:39] LABS: EHRLICHIA CHAFFEENSIS G ABY <1:16 (<1:16)
--- NOTE | 2017-07-05 14:31 | Therapy Group Daily Note ---
Therapy Daily Group Note Patient Education Topic Other List Below Exercises LE Seated Exercise, UE Exercise Other/Notes Pt was an active participant in OT/PT group. He introduced himself by describing a school memory. He contributed to group discussion/education on memory strategies and was able to make matches on a memory activity. He also did seated UE and LE exercises to strengthen himself for transfers and ADLs. He had a visitor and stayed in the [facility] area after group, up in w/c, all needs met. Start Time: 13:00 Stop Time: 14:00 Total Billed Treatment Time: 60 Total Billed Treatment visit, 60 minutes group BRIANA HERRERA OT Jul 05, 2017 14:31
[2017-07-05 17:44] VITALS: BP 144/79
[2017-07-05] MEDS: ATORVASTATIN 40 MG (LIPITOR) TABLET PO SCH (21:44)
[2017-07-06 05:00] VITALS: BP 135/80
[2017-07-06] MEDS: inSUlin ASPART (NovoLOG) 1 UNIT/0.01 ML (CHARGE PER UNIT) SC SCH ×4 (05:58→20:59)
[2017-07-06] MEDS: NAPROXEN 250 MG (NAPROSYN) TABLET PO SCH ×2 (06:20→16:52)
[2017-07-06] MEDS: metFORMIN 500 MG (GLUCOPHAGE) TAB PO SCH ×2 (06:21→16:52)
[2017-07-06] MEDS: CLOPIDOGREL 75 MG (PLAVIX) TABLET PO SCH (07:51)
[2017-07-06] MEDS: ASPIRIN E.C. 325 MG (ECOTRIN) TABLET PO SCH (07:51)
--- NOTE | 2017-07-06 08:24 | Occupational Ther Daily Note ---
OT Current Status-Daily Note Subjective Pt alert, in the bathroom. Pt agreed to therapy. C/o dizziness, reported to nrsg. BP-120/74 and P-74 Mental Status/Objective Patient Orientation: Person, Place, Time, Situation Functional [place] Measure 0=Not Assessed/NA 4=Minimal Assistance 1=Total Assistance 5=Supervision or Setup 2=Maximal Assistance 6=Modified [place] 3=Moderate Assistance 7=Complete [place] ADL-Treatment Pt declined sponge bath or shower this am. Pt completed toileting with min A. Pt was able to cleanse self sitting on toilet then assist to hike pants over hips. Pt was able to doff pants with min A then donned pants with min A. Pt is able to cross LE over opposite knee and don over feet, assist only with hiking over hips. Pt ambulated back to recliner with min A using platform walker. Doffed by self, donned with 1-handed technique with mod A (attempted sequence L UE-over head-R UE, still working on easiest sequence). Pt then was educated on donning socks with 1-handed technique. Min A for donning socks. Functional [place] Measure 0=Not Assessed/NA 4=Minimal Assistance 1=Total Assistance 5=Supervision or Setup 2=Maximal Assistance 6=Modified [place] 3=Moderate Assistance 7=Complete IndependenceIRFPAI Quality Coding Scale 6 Independent with activity with or without an assistive device 5 Patient requires set up or clean up by helper. Patient completes activity by themselves 4 Supervision or touching assist (CGA). [place] provide cues , steadying assist 3 The helper provides less than half the effort to complete the activity 2 The helper provides more than half the effort to complete the activity 1 Dependent. The helper does all the effort to complete an activity 7 Patient refused to complete or attempt activity 9 The patient did not perform the activity before the current illness or injury 88 Not attempted due to Medical conditions or safety concerns Upper Body (FIM): 3 Lower Body Dressing (FIM): 4 Toileting (FIM): 4 Toilet/Commode Transfer (FIM): 4 Other Treatment Pt was able to demonstrate self AAROM for L shldr flexion. Pt stated that L shdr was sore and stiff this morning. Massage to L shldr to relieve soreness/ stiffness then PROM for L shldr flexion. Pt demonstrated shldr retraction and slight protraction with shldr elevation in L UE. After therapy, pt sitting in recliner with call light/phone in reach. All needs met in room. Education OT Patient Education: Modified ADL techniques Teaching Recipient: Patient Teaching Methods: Demonstration Response to Teaching: Verbalize Understanding, Return Demonstration OT Short Term Goals Short Term Goals Time Frame: Jul 18, 2017 Eating(FIM): 5 Grooming(FIM): 5 Bathing(FIM): 5 Upper Body Dressing(FIM): 5 Lower Body Dressing(FIM): 4 Toileting(FIM): 4 Transfers (B,C,W/C) (FIM): 4 Toilet/Commode Transfer(FIM): 4 Shower Transfer(FIM): 4 Additional Short Term Goals: 1-Demonstrate ADL Tasks, 2-Verbalize Understanding , 3-ImproveStrength/Ninfa 1=Demonstrate adherence to instructed precautions during ADL tasks. 2=Patient will verbalize/demonstrate understanding of assistive devices/ modifications for ADL. 3=Patient will improve strength/tolerance for activity to enable patient to perform ADL's. OT Usp Goals Usp Goals Time Frame: Aug 01, 2017 Eating (FIM): 6 Eating (QC): 6 Groomin Oral Hygiene (QC): 6 Bathing(FIM): 5 Shower/Bathe Self (QC): 5 Upper Body Dressing(FIM): 6 Upper Body Dressing (QC): 6 Lower Body Dressing(FIM): 6 Lower Body Dressing (QC): 6 On/Off Footwear (QC): 6 Toileting(FIM): 6 Toileting Hygiene (QC): 6 Transfers (B,C,W/C) (FIM): 6 Toilet/Commode Transfer(FIM): 6 Toilet/Commode Transfer (QC): 6 Shower Transfer(FIM): 5 Comprehension(FIM): 6 Expression (FIM): 6 Social Interaction(FIM): 6 Problem Solving(FIM): 6 Memory(FIM): 6 Additional Goals: 1-Demonstrate ADL Tasks, 2-Verbalize Understanding, 3- ImproveStrength/Ninfa 1=Demonstrate adherence to instructed precautions during ADL tasks. 2=Patient will verbalize/demonstrate understanding of assistive devices/ modifications for ADL. 3=Patient will improve strength/tolerance for activity to enable patient to perform ADL's. OT Education/Plan Discharge Recommendations Plan/Recommendations: Continue POC Treatment Plan/Plan of Care Patient would benefit from OT for education, treatment and training to promote independence in ADL's, mobility, safety and/or upper extremity function for ADL' s. Plan of Care: ADL Retraining, Caregiver Training, Functional Mobility, UE Funct Exercise/Act, UE Neuromus Re-Ed/Coord Treatment Duration: Aug 01, 2017 Frequency: At least 5-7 days/Wk (IRF) Estimated Hrs Per Day: 1.5 hours per day Agreement: Yes Rehab Potential: Good Time/GCodes Start Time: 07:30 Stop Time: 08:00 Total Time Billed (hr/min): 30 Billed Treatment Time 1 visit-FA 1 (15 min) EX 1 (15 min) GREY VAUGHN Jul 06, 2017 08:24
--- NOTE | 2017-07-06 10:13 | Physical Therapy Daily Note ---
PT Daily Note-Current Subjective Patient agrees to PT. No c/o at this time. Pain Numeric Pain Scale: 0-No Pain Location: No Pain Reported Mental Status Patient Orientation: Normal For Age Transfers Functional [place] Measure 0=Not Assessed/NA 4=Minimal Assistance 1=Total Assistance 5=Supervision or Setup 2=Maximal Assistance 6=Modified [place] 3=Moderate Assistance 7=Complete IndependenceIRFPAI Quality Coding Scale 6 Independent with activity with or without an assistive device 5 Patient requires set up or clean up by helper. Patient completes activity by themselves 4 Supervision or touching assist (CGA). [place] provide cues , steadying assist 3 The helper provides less than half the effort to complete the activity 2 The helper provides more than half the effort to complete the activity 1 Dependent. The helper does all the effort to complete an activity 7 Patient refused to complete or attempt activity 9 The patient did not perform the activity before the current illness or injury 88 Not attempted due to Medical conditions or safety concerns Transfers (B, C, W/C) (FIM): 4 Scootin Sit to/from Stand: 4 Sit to Stand (QC): 3 close CGA for safety with sit to stand transfers Gait Training Does the Patient Walk?: Yes Gait (FIM): 2 Distance (FIM): 6=474-23 ft Distance: 125' x 3 Walk 10 feet (QC): 3 Walk 50 ft with 2 Turns(QC): 3 Gait Level of Assist: 4 Gait Persons Needed: 1 Gait Assistive Device: Walker Platform (left UE) 25% skilled verbal instruction with advancing left LE with weight shifting to right Exercises Seated Therapy Exercises: Long arc quads, Hip flexion Seated Reps: 10 (AAROM left LE) NuStep Minutes: 10 NuStep Workload: 3 (to improve reciprocal movement and bilateral LE strength) Assessment Current Status: Good Progress PT Short Term Goals Short Term Goals Time Frame: Jul 18, 2017 Transfers (B,C,W/C) (FIM): 4 Gait (FIM): 4 Distance (FIM): 3=150 ft Gait Assistive Device: FWW Wheelchair Distance: 100' PT Air Filler Goals Air Filler Goals PT Air Filler Goals Time Frame: Aug 01, 2017 Transfers (B,C,W/C) (FIM): 6 Sit to Lying (QC): 6 Lying-Sitting on Side/Bed(QC): 6 Sit to Stand (QC): 6 Roll Left to Right (QC): 6 Chair/Blm-ps-Fkbzc Xfer(QC): 6 Car Transfer (QC): 5 Does the Patient Walk: Yes Gait (FIM): 6 Gait distance (FIM): 3=150 ft Walk 10 feet (QC): 6 Walk 10ft-Uneven Surface(QC): 6 Walk 50ft with 2 Turns (QC): 6 Walk 150 ft (QC): 6 Gait Assistive Device: FWW Does the Pt use WC or Scooter?: No Stairs (FIM): 5 # of Steps: 8 1 Step (curb) (QC): 6 4 Steps (QC): 6 12 Steps (QC): 88 Stairs Level Of Assist: 6 Picking up an Object (QC): 5 PT Plan Treatment/Plan Treatment Plan: Continue Plan of Care Treatment Plan: Bed Mobility, Education, Functional Activity Ninfa, Functional Strength, Group Therapy, Gait, Safety Treatment Duration: Aug 01, 2017 Frequency: At least 5-7 days/Wk (IRF) Estimated Hrs Per Day: 1.5 hours per day Patient and/or Family Agrees t: Yes Time/GCodes Time In: 935 Time Out: 1005 Total Billed Treatment Time: 30 Total Billed Treatment 1 visit GT 15 min EX 15 min LAURA DOUGLASS PT Jul 06, 2017 10:13
[2017-07-06 13:04] LABS: IGG ROCKY MOUNTAIN SPOTTED FEV <1:16 (<1:16); IGM ROCKY MOUNTAIN SPOTTED FEV <1:10 (<1:10)
[2017-07-06 13:05] LABS: TULAREMIA ANTIBODY <1:20
[2017-07-06 18:16] VITALS: BP 144/80
[2017-07-06 18:21] VITALS: BP 89/60
[2017-07-06] MEDS: ATORVASTATIN 40 MG (LIPITOR) TABLET PO SCH (21:39)
[2017-07-07 06:07] VITALS: BP 142/69
[2017-07-07] MEDS: inSUlin ASPART (NovoLOG) 1 UNIT/0.01 ML (CHARGE PER UNIT) SC SCH ×4 (06:09→20:59)
[2017-07-07] MEDS: NAPROXEN 250 MG (NAPROSYN) TABLET PO SCH ×2 (06:17→16:41)
[2017-07-07] MEDS: metFORMIN 500 MG (GLUCOPHAGE) TAB PO SCH ×2 (06:17→16:41)
[2017-07-07] MEDS: CLOPIDOGREL 75 MG (PLAVIX) TABLET PO SCH (08:04)
[2017-07-07] MEDS: ASPIRIN E.C. 325 MG (ECOTRIN) TABLET PO SCH (08:04)
[2017-07-07 19:19] VITALS: BP 139/67
[2017-07-07] MEDS: ATORVASTATIN 40 MG (LIPITOR) TABLET PO SCH (20:25)
[2017-07-08 05:12] VITALS: BP 149/68
[2017-07-08] MEDS: inSUlin ASPART (NovoLOG) 1 UNIT/0.01 ML (CHARGE PER UNIT) SC SCH ×4 (05:18→20:59)
[2017-07-08] MEDS: metFORMIN 500 MG (GLUCOPHAGE) TAB PO SCH ×2 (06:01→16:54)
[2017-07-08] MEDS: NAPROXEN 250 MG (NAPROSYN) TABLET PO SCH ×2 (06:01→16:54)
[2017-07-08] MEDS: ASPIRIN E.C. 325 MG (ECOTRIN) TABLET PO SCH (08:11)
[2017-07-08] MEDS: CLOPIDOGREL 75 MG (PLAVIX) TABLET PO SCH (08:11)
--- NOTE | 2017-07-08 09:05 | Speech Therapy Daily Note ---
Speech Daily Progress Note Subjective Date Seen by Provider: Jul 08, 2017 Time Seen by Provider: 08:30 The patient was seated upright in bed upon entrance. The patient greeted the clinician appropriately and was agreeable to participation in the speech pathology treatment session. Objective Oral Motor Exercises: Oral motor (lingual and labial) range of motion and strengthening exercises were continued, discussed, and demonstrated on this date. The patient demonstrated high accuracy with all exercises with minimal clinician verbal prompting and direct modeling (initially). The patient completed ten repetitions of each exercise. Functional Sentences: The patient composed seven phrases which included family members' names and favorite sport teams. The phrases were typed and provided to the patient to add to the above oral motor exercises. The patient completed phrases with high accuracy and demonstration of intelligibility strategies. Assessment Assessment Current Status: Excellent Progress Treatment Plan Discontinue ST, Goals Met Communication Comprehension: 6 Expression: 6 Social Cognition Social Interaction: 6 Problem Solvin Memory: 6 Speech Short Term Goals Short Term Goals Short Term Goals 1. The patient will demonstrate oral motor exercises (labial range of motion and strengthening) with 90% accuracy, independently. Time Frame-STG: Five Days Speech Halfway Goals Change Control Analyst Goals 1. The patient will demonstrate increased intelligibility through oral expression. Time Frame: One Week Comprehension: 6 Expression: 6 Social Interaction: 6 Problem Solvin Memory: 6 Speech-Plan Treatment Plan Speech Therapy Treatment Plan: Discontinue ST, Goals Met The patient met oral expression exercises and will be discharged from speech pathology services at this time. Frequency: Modified Program (IRF) (4 to 5 times per week.) Estimated Hrs Per Day: .5 hour per day Rehab Potential: Good Safety Risks/Education Teaching Recipient: Patient Teaching Methods: Demonstration, Handout, Discussion Response to Teaching: Verbalize Understanding, Return Demonstration Education Topics Provided: Oral Motor Exercises. Time Speech Therapy Time In: 08:30 Speech Therapy Time Out: 09:00 Total Billed Time: 30 Billed Treatment Time 1, DEVON CHOE Jul 08, 2017 09:05
--- NOTE | 2017-07-08 09:07 | Therapy Team Discharge Summary ---
Therapy Discharge Summary Discharge Recommendations Date of Discharge Therapy D/C Recommendations: Home w/ Family Support, Occupational Therapy Home Care Speech-Language Pathology The patient was recently admitted to [facility] following a lacunar ischemic infarct. The patient demonstrated mild dysarthria upon admission with a left labial droop. Skilled speech pathology focused on oral motor exercises and functional speech. The patient demonstrated high accuracy with all exercises and strategies. The patient will be discharged from skilled speech pathology services at this time. PT Half-Way Goals Half-Way Goals PT Half-Way Goals Time Frame: Aug 01, 2017 Transfers (B,C,W/C) (FIM): 6 Roll Left to Right (QC): 6 Sit to Lying (QC): 6 Lying-Sitting on Side/Bed(QC): 6 Sit to Stand (QC): 6 Chair/Vmo-gz-Clfns Xfer(QC): 6 Car Transfer (QC): 5 Does the Patient Walk: Yes Gait (FIM): 6 Gait distance (FIM): 3=150 ft Walk 10 feet (QC): 6 Walk 10ft-Uneven Surface(QC): 6 Walk 50ft with 2 Turns (QC): 6 Walk 150 ft (QC): 6 Gait Assistive Device: FWW Does the Pt use WC or Scooter?: No Stairs (FIM): 5 # of Steps: 8 1 Step (curb) (QC): 6 4 Steps (QC): 6 12 Steps (QC): 88 Stairs Level Of Assist: 6 Picking up an Object (QC): 5 OT Half-Way Goals Shim Plug Cutter Goals Time Frame: Aug 01, 2017 Eating (FIM): 6 Eating (QC): 6 Oral Hygiene (QC): 6 Grooming(FIM): 6 Bathing(FIM): 5 Shower/Bathe Self (QC): 5 Upper Body Dressing(FIM): 6 Upper Body Dressing (QC): 6 Lower Body Dressing(FIM): 6 Lower Body Dressing (QC): 6 On/Off Footwear (QC): 6 Toileting(FIM): 6 Toileting Hygiene (QC): 6 Transfers (B,C,W/C) (FIM): 6 Toilet/Commode Transfer(FIM): 6 Toilet/Commode Transfer (QC): 6 Shower Transfer(FIM): 5 Comprehension(FIM): 6 Expression (FIM): 6 Social Interaction(FIM): 6 Problem Solving(FIM): 6 Memory(FIM): 6 Additional Goals: 1-Demonstrate ADL Tasks, 2-Verbalize Understanding, 3- ImproveStrength/Ninfa 1=Demonstrate adherence to instructed precautions during ADL tasks. 2=Patient will verbalize/demonstrate understanding of assistive devices/ modifications for ADL. 3=Patient will improve strength/tolerance for activity to enable patient to perform ADL's. Speech Shim Plug Cutter Goals Shim Plug Cutter Goals 1. The patient will demonstrate increased intelligibility through oral expression. Time Frame: One Week Comprehension: 6 (MET) Expression: 6 (MET) Social Interaction: 6 (MET) Problem Solvin (MET) Memory: 6 (MET) DEVON GAMA Jul 08, 2017 09:07
--- NOTE | 2017-07-08 10:00 | Physical Therapy Daily Note ---
PT Daily Note-Current Subjective Patient in recliner pre tx, agrees to PT, he has no complaints of pain. Appearance Patient in recliner post tx with nurse call, phone, tray, all needs met. Mental Status Patient Orientation: Person, Place, Situation Transfers Functional [place] Measure 0=Not Assessed/NA 4=Minimal Assistance 1=Total Assistance 5=Supervision or Setup 2=Maximal Assistance 6=Modified [place] 3=Moderate Assistance 7=Complete IndependenceIRFPAI Quality Coding Scale 6 Independent with activity with or without an assistive device 5 Patient requires set up or clean up by helper. Patient completes activity by themselves 4 Supervision or touching assist (CGA). [place] provide cues , steadying assist 3 The helper provides less than half the effort to complete the activity 2 The helper provides more than half the effort to complete the activity 1 Dependent. The helper does all the effort to complete an activity 7 Patient refused to complete or attempt activity 9 The patient did not perform the activity before the current illness or injury 88 Not attempted due to Medical conditions or safety concerns Transfers (B, C, W/C) (FIM): 4 Sit to/from Stand: 4 CGA, cues for safety and hand placement, patient has a harder time turning to the right when turning to sit Gait Training Gait (FIM): 4 Distance: 150'x2, 50'x2 Gait Level of Assist: 4 Gait Persons Needed: 1 Gait Assistive Device: Walker Platform Patient ambulated 150'x2 with a platform walker with CGA, slight hyperextension of left knee, trouble advancing his left leg, no heel strike. Patient also ambulated 50'x2 with a quad cane with min assist for balance. Slow, uncoordinated ambulation, fatigues quickly. Exercises LAQ left side for 5 min NuStep Minutes: 15 NuStep Workload: 5 (to strengthen left leg and improve ambulation and mobility ) Treatments transfers, ambulation, functional strengthening Assessment Current Status: Fair Progress improving endurance but he does fatigue quickly and needs rest breaks between activities PT Short Term Goals Short Term Goals Time Frame: Jul 18, 2017 Transfers (B,C,W/C) (FIM): 4 Gait (FIM): 4 Distance (FIM): 3=150 ft Gait Assistive Device: FWW Wheelchair Distance: 100' PT Silo Worker Goals Shelter Goals PT Shelter Goals Time Frame: Aug 01, 2017 Transfers (B,C,W/C) (FIM): 6 Sit to Lying (QC): 6 Lying-Sitting on Side/Bed(QC): 6 Sit to Stand (QC): 6 Roll Left to Right (QC): 6 Chair/Dvy-vv-Whaji Xfer(QC): 6 Car Transfer (QC): 5 Does the Patient Walk: Yes Gait (FIM): 6 Gait distance (FIM): 3=150 ft Walk 10 feet (QC): 6 Walk 10ft-Uneven Surface(QC): 6 Walk 50ft with 2 Turns (QC): 6 Walk 150 ft (QC): 6 Gait Assistive Device: FWW Does the Pt use WC or Scooter?: No Stairs (FIM): 5 # of Steps: 8 1 Step (curb) (QC): 6 4 Steps (QC): 6 12 Steps (QC): 88 Stairs Level Of Assist: 6 Picking up an Object (QC): 5 PT Plan Problem List Problem List: Activity Tolerance, Functional Strength, Safety, Balance, Gait, Transfer, Bed Mobility, ROM Treatment/Plan Treatment Plan: Continue Plan of Care Treatment Plan: Bed Mobility, Education, Functional Activity Ninfa, Functional Strength, Group Therapy, Gait, Safety Treatment Duration: Aug 01, 2017 Frequency: At least 5-7 days/Wk (IRF) Estimated Hrs Per Day: 1.5 hours per day Patient and/or Family Agrees t: Yes Safety Risks/Education Patient Education: Gait Training, Transfer Techniques, Correct Positioning, Safety Issues Teaching Recipient: Patient Teaching Methods: Demonstration, Discussion Response to Teaching: Reinforcement Needed Time/GCodes Time In: 900 Time Out: 1000 Total Billed Treatment Time: 60 Total Billed Treatment 1 visit EX 20' GT 40' ELSA DIAZ PT Jul 08, 2017 10:00
--- NOTE | 2017-07-08 12:33 | Occupational Ther Daily Note ---
OT Current Status-Daily Note Subjective Pt. states that he did not sleep well last night. No pain reported. Appearance Pt up in chair. Agrees to work with OT and shower. Mental Status/Objective Patient Orientation: Person, Place, Time, Situation Functional [place] Measure 0=Not Assessed/NA 4=Minimal Assistance 1=Total Assistance 5=Supervision or Setup 2=Maximal Assistance 6=Modified [place] 3=Moderate Assistance 7=Complete [place] ADL-Treatment Functional [place] Measure 0=Not Assessed/NA 4=Minimal Assistance 1=Total Assistance 5=Supervision or Setup 2=Maximal Assistance 6=Modified [place] 3=Moderate Assistance 7=Complete IndependenceIRFPAI Quality Coding Scale 6 Independent with activity with or without an assistive device 5 Patient requires set up or clean up by helper. Patient completes activity by themselves 4 Supervision or touching assist (CGA). [place] provide cues , steadying assist 3 The helper provides less than half the effort to complete the activity 2 The helper provides more than half the effort to complete the activity 1 Dependent. The helper does all the effort to complete an activity 7 Patient refused to complete or attempt activity 9 The patient did not perform the activity before the current illness or injury 88 Not attempted due to Medical conditions or safety concerns Bathing (FIM): 3 (Pt. required assistance to bathe right UE and rear pinky area. ) Shower/Bathe Self (QC): 3 Upper Body (FIM): 5 (Pt. is able to doff and don shirt. Demonstrates some difficulty getting on left UE, but able to do with increased time.) Upper Body Dressing (QC): 4 Lower Body Dressing (FIM): 3 (Pt. requires assistance in shower to don underwear and pants over left LE, and to jawbone puller left hip. Is able to do the rest. Assist to don left sock.) Lower Body Dressing (QC): 3 On/Off Footwear (QC): 3 Transfers (B, C, W/C) (FIM): 4 (Min assist sit-stand) Shower Transfer(FIM): 4 Other Treatment After ADLs, OT brought in adaptive equipment. Pt. educated in use of adapted equipment. Pt. able to doff socks with dressing stick, but unable to put sock on sock aide due to only being able to use one hand. OT put sock on sock aide, and then pt. practiced pulling sock onto foot using right hand. Pt. able to pull onto right foot, but unable to flex left ankle, or point toes downward. OT applied e-stim pads to left wrist extensors. Pt. able to tolerate 5 elizabeth- amps x 8 minutes to facilitate wrist extension. Tolerated this well with good muscle stimulation noted. All needs met in room. Education OT Patient Education: Correct positioning, Exercise program, Modified ADL techniques, Progress toward Goal/Update tx plan, Purpose of tx/functional activities, Reviewed precautions, Rehab process, Transfer techniques, Use of adapted equipment Teaching Recipient: Patient Teaching Methods: Demonstration, Discussion Response to Teaching: Verbalize Understanding, Return Demonstration OT Short Term Goals Short Term Goals Time Frame: Jul 18, 2017 Eating(FIM): 5 Grooming(FIM): 5 Bathing(FIM): 5 Upper Body Dressing(FIM): 5 Lower Body Dressing(FIM): 4 Toileting(FIM): 4 Transfers (B,C,W/C) (FIM): 4 Toilet/Commode Transfer(FIM): 4 Shower Transfer(FIM): 4 Additional Short Term Goals: 1-Demonstrate ADL Tasks, 2-Verbalize Understanding , 3-ImproveStrength/Ninfa 1=Demonstrate adherence to instructed precautions during ADL tasks. 2=Patient will verbalize/demonstrate understanding of assistive devices/ modifications for ADL. 3=Patient will improve strength/tolerance for activity to enable patient to perform ADL's. OT Threading Machine Operator Goals [facility] Goals Time Frame: Aug 01, 2017 Eating (FIM): 6 Eating (QC): 6 Groomin Oral Hygiene (QC): 6 Bathing(FIM): 5 Shower/Bathe Self (QC): 5 Upper Body Dressing(FIM): 6 Upper Body Dressing (QC): 6 Lower Body Dressing(FIM): 6 Lower Body Dressing (QC): 6 On/Off Footwear (QC): 6 Toileting(FIM): 6 Toileting Hygiene (QC): 6 Transfers (B,C,W/C) (FIM): 6 Toilet/Commode Transfer(FIM): 6 Toilet/Commode Transfer (QC): 6 Shower Transfer(FIM): 5 Comprehension(FIM): 6 (MET) Expression (FIM): 6 (MET) Social Interaction(FIM): 6 (MET) Problem Solving(FIM): 6 (MET) Memory(FIM): 6 (MET) Additional Goals: 1-Demonstrate ADL Tasks, 2-Verbalize Understanding, 3- ImproveStrength/Ninfa 1=Demonstrate adherence to instructed precautions during ADL tasks. 2=Patient will verbalize/demonstrate understanding of assistive devices/ modifications for ADL. 3=Patient will improve strength/tolerance for activity to enable patient to perform ADL's. OT Education/Plan Problem List/Assessment Assessment: Decreased Activ Tolerance, Decreased UE Strength, Dependent Transfers, Impaired Bed Mobility, Impaired Coordination, Impaired Funct Balance , Impaired I ADL's, Impaired Self-Care Skills, Restricted Funct UE ROM Discharge Recommendations Plan/Recommendations: Continue POC Therapy D/C Recommendations: Home w/ Family Support, Occupational Therapy Home Care Treatment Plan/Plan of Care Treatment,Training & Education: Yes Patient would benefit from OT for education, treatment and training to promote independence in ADL's, mobility, safety and/or upper extremity function for ADL' s. Plan of Care: ADL Retraining, Caregiver Training, Functional Mobility, UE Funct Exercise/Act, UE Neuromus Re-Ed/Coord Treatment Duration: Aug 01, 2017 Frequency: At least 5-7 days/Wk (IRF) Estimated Hrs Per Day: 1.5 hours per day Agreement: Yes Rehab Potential: Good Time/GCodes Start Time: 11:00 Stop Time: 12:00 Total Time Billed (hr/min): 60 Billed Treatment Time 1, ADL x 45minutes, NM x 15minutes NURY LIMON OT Jul 08, 2017 12:33
--- NOTE | 2017-07-08 15:34 | Physical Therapy Daily Note ---
PT Daily Note-Current Subjective Patient agrees to PT. No c/o at this time. Pain Numeric Pain Scale: 0-No Pain Location: No Pain Reported Mental Status Patient Orientation: Normal For Age Transfers Functional [place] Measure 0=Not Assessed/NA 4=Minimal Assistance 1=Total Assistance 5=Supervision or Setup 2=Maximal Assistance 6=Modified [place] 3=Moderate Assistance 7=Complete IndependenceIRFPAI Quality Coding Scale 6 Independent with activity with or without an assistive device 5 Patient requires set up or clean up by helper. Patient completes activity by themselves 4 Supervision or touching assist (CGA). [place] provide cues , steadying assist 3 The helper provides less than half the effort to complete the activity 2 The helper provides more than half the effort to complete the activity 1 Dependent. The helper does all the effort to complete an activity 7 Patient refused to complete or attempt activity 9 The patient did not perform the activity before the current illness or injury 88 Not attempted due to Medical conditions or safety concerns Transfers (B, C, W/C) (FIM): 4 Scootin Rollin Roll Left to Right (QC): 4 Supine to/from Sit: 5 Sit to/from Stand: 4 Sit to Lying (QC): 4 Sit to Stand (QC): 3 Gait Training Does the Patient Walk?: Yes Gait (FIM): 4 Distance (FIM): 3=150 ft Distance: 150' Walk 10 feet (QC): 3 Walk 50 ft with 2 Turns(QC): 3 Walk 150 ft (QC): 3 Gait Level of Assist: 4 Gait Persons Needed: 1 Gait Assistive Device: Walker Platform improve reciprocal pattern Exercises Seated Therapy Exercises: Ankle pumps, Long arc quads, Hip flexion Seated Reps: 15 (x 3 sets; AAROM left hip flexion and PROM ankle dorsi/ plantarflexion) Assessment Current Status: Good Progress PT Short Term Goals Short Term Goals Time Frame: Jul 18, 2017 Transfers (B,C,W/C) (FIM): 4 Gait (FIM): 4 Distance (FIM): 3=150 ft Gait Assistive Device: FWW Wheelchair Distance: 100' PT Grinding And Spraying Supervisor Goals Grinding And Spraying Supervisor Goals PT Grinding And Spraying Supervisor Goals Time Frame: Aug 01, 2017 Transfers (B,C,W/C) (FIM): 6 Sit to Lying (QC): 6 Lying-Sitting on Side/Bed(QC): 6 Sit to Stand (QC): 6 Roll Left to Right (QC): 6 Chair/Qbt-cc-Hevdy Xfer(QC): 6 Car Transfer (QC): 5 Does the Patient Walk: Yes Gait (FIM): 6 Gait distance (FIM): 3=150 ft Walk 10 feet (QC): 6 Walk 10ft-Uneven Surface(QC): 6 Walk 50ft with 2 Turns (QC): 6 Walk 150 ft (QC): 6 Gait Assistive Device: FWW Does the Pt use WC or Scooter?: No Stairs (FIM): 5 # of Steps: 8 1 Step (curb) (QC): 6 4 Steps (QC): 6 12 Steps (QC): 88 Stairs Level Of Assist: 6 Picking up an Object (QC): 5 PT Plan Treatment/Plan Treatment Plan: Continue Plan of Care Treatment Plan: Bed Mobility, Education, Functional Activity Ninfa, Functional Strength, Group Therapy, Gait, Safety Treatment Duration: Aug 01, 2017 Frequency: At least 5-7 days/Wk (IRF) Estimated Hrs Per Day: 1.5 hours per day Patient and/or Family Agrees t: Yes Time/GCodes Time In: 1445 Time Out: 1515 Total Billed Treatment Time: 30 Total Billed Treatment 1 visit EX 15 min GT 15 min LAURA DOUGLASS PT Jul 08, 2017 15:33
--- NOTE | 2017-07-08 16:03 | Occupational Ther Daily Note ---
OT Current Status-Daily Note Subjective No pain reported. Appearance Pt. up in chair. Asleep. Awakes and states that he is tired. Mental Status/Objective Patient Orientation: Person, Place Functional [place] Measure 0=Not Assessed/NA 4=Minimal Assistance 1=Total Assistance 5=Supervision or Setup 2=Maximal Assistance 6=Modified [place] 3=Moderate Assistance 7=Complete [place] ADL-Treatment Functional [place] Measure 0=Not Assessed/NA 4=Minimal Assistance 1=Total Assistance 5=Supervision or Setup 2=Maximal Assistance 6=Modified [place] 3=Moderate Assistance 7=Complete IndependenceIRFPAI Quality Coding Scale 6 Independent with activity with or without an assistive device 5 Patient requires set up or clean up by helper. Patient completes activity by themselves 4 Supervision or touching assist (CGA). [place] provide cues , steadying assist 3 The helper provides less than half the effort to complete the activity 2 The helper provides more than half the effort to complete the activity 1 Dependent. The helper does all the effort to complete an activity 7 Patient refused to complete or attempt activity 9 The patient did not perform the activity before the current illness or injury 88 Not attempted due to Medical conditions or safety concerns Other Treatment Pt. agrees to e-stim to left UE. Tolerated 7 elizabeth-amps to left finger flexors x 10 minutes with rest break afterwards. Then tolerated 10 minutes with 5 elizabeth -amps to wrist extensors. After electrical stimulation, pt. able to demonstrate AROM in the following planes.....slight wrist extension with ulnar deviation. Slight forearm supination with no trunk compensation. Thumb adduction and MP flexion with increased sensory noted from last week. Overall, note that pt. has made progress actively to left UE. All needs met in room. Education OT Patient Education: Correct positioning, Exercise program, Modified ADL techniques, Progress toward Goal/Update tx plan, Purpose of tx/functional activities, Reviewed precautions, Rehab process, Transfer techniques Teaching Recipient: Patient Teaching Methods: Demonstration, Discussion Response to Teaching: Verbalize Understanding, Return Demonstration OT Short Term Goals Short Term Goals Time Frame: Jul 18, 2017 Eating(FIM): 5 Grooming(FIM): 5 Bathing(FIM): 5 Upper Body Dressing(FIM): 5 Lower Body Dressing(FIM): 4 Toileting(FIM): 4 Transfers (B,C,W/C) (FIM): 4 Toilet/Commode Transfer(FIM): 4 Shower Transfer(FIM): 4 Additional Short Term Goals: 1-Demonstrate ADL Tasks, 2-Verbalize Understanding , 3-ImproveStrength/Ninfa 1=Demonstrate adherence to instructed precautions during ADL tasks. 2=Patient will verbalize/demonstrate understanding of assistive devices/ modifications for ADL. 3=Patient will improve strength/tolerance for activity to enable patient to perform ADL's. OT Finishing Machine Operator Automatic Goals Finishing Machine Operator Automatic Goals Time Frame: Aug 01, 2017 Eating (FIM): 6 Eating (QC): 6 Groomin Oral Hygiene (QC): 6 Bathing(FIM): 5 Shower/Bathe Self (QC): 5 Upper Body Dressing(FIM): 6 Upper Body Dressing (QC): 6 Lower Body Dressing(FIM): 6 Lower Body Dressing (QC): 6 On/Off Footwear (QC): 6 Toileting(FIM): 6 Toileting Hygiene (QC): 6 Transfers (B,C,W/C) (FIM): 6 Toilet/Commode Transfer(FIM): 6 Toilet/Commode Transfer (QC): 6 Shower Transfer(FIM): 5 Comprehension(FIM): 6 (MET) Expression (FIM): 6 (MET) Social Interaction(FIM): 6 (MET) Problem Solving(FIM): 6 (MET) Memory(FIM): 6 (MET) Additional Goals: 1-Demonstrate ADL Tasks, 2-Verbalize Understanding, 3- ImproveStrength/Ninfa 1=Demonstrate adherence to instructed precautions during ADL tasks. 2=Patient will verbalize/demonstrate understanding of assistive devices/ modifications for ADL. 3=Patient will improve strength/tolerance for activity to enable patient to perform ADL's. OT Education/Plan Problem List/Assessment Assessment: Decreased Activ Tolerance, Decreased UE Strength, Impaired Coordination, Impaired Funct Balance, Impaired I ADL's, Impaired Self-Care Skills, Restricted Funct UE ROM Discharge Recommendations Plan/Recommendations: Continue POC Therapy D/C Recommendations: Home w/ Family Support, Occupational Therapy Home Care Equpiment Recommendations-D/C: Hip Kit Treatment Plan/Plan of Care Treatment,Training & Education: Yes Patient would benefit from OT for education, treatment and training to promote independence in ADL's, mobility, safety and/or upper extremity function for ADL' s. Plan of Care: ADL Retraining, Caregiver Training, Functional Mobility, UE Funct Exercise/Act, UE Neuromus Re-Ed/Coord Treatment Duration: Aug 01, 2017 Frequency: At least 5-7 days/Wk (IRF) Estimated Hrs Per Day: 1.5 hours per day Agreement: Yes Rehab Potential: Good Time/GCodes Start Time: 14:00 Stop Time: 14:30 Total Time Billed (hr/min): 30 Billed Treatment Time 1, NM x 2 NURY LIMON OT Jul 08, 2017 16:03
[2017-07-08 17:29] VITALS: BP 143/80
[2017-07-08] MEDS: ATORVASTATIN 40 MG (LIPITOR) TABLET PO SCH (20:58)
--- NOTE | 2017-07-08 21:19 | PM & R (SOAP) Progress Note ---
Subjective Time Seen by Provider: 21:10 Subjective/Events-last exam Patient was seen in his room this evening Patient min assist for transfers Objective Exam Last Set of Vital Signs Vital Signs Date Time Temp Pulse Resp B/P (MAP) Pulse Ox O2 Delivery O2 Flow Rate FiO2 07/08/17 17:29 60 18 143/80 94 Room Air 07/08/17 05:12 96.8 Capillary Refill : I&O Intake and Output 07/08/17 00:00 Intake Total 1670 ml Balance 1670 ml Intake Oral 1670 ml # Voids 8 # Bowel Movements 1 General: Alert, Oriented X3, Cooperative, No Acute Distress HEENT: Atraumatic, PERRLA, EOMI, Mucous Memb Moist/[place] Neck: Supple, No JVD Lungs: Clear to Auscultation Heart: Regular Rate Abdomen: Normal Bowel Sounds, Soft, No Tenderness Extremities: No Edema Neuro: Other (Left HP upper >lower extremity mild dysarthria) Results Lab Laboratory Tests 07/05/17 21:40: Glucometer 203H 07/06/17 05:48: Glucometer 193H 07/06/17 11:25: Glucometer 191H 07/06/17 15:51: Glucometer 202H 07/06/17 20:58: Glucometer 159H 07/07/17 05:23: Glucometer 150H 07/07/17 11:06: Glucometer 205H 07/07/17 16:10: Glucometer 202H 07/07/17 20:40: Glucometer 164H 07/08/17 05:17: Glucometer 185H 07/08/17 10:53: Glucometer 159H 07/08/17 16:05: Glucometer 162H 07/08/17 20:38: Glucometer 204H Assessment/Plan Assessment 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
[2017-07-09 05:09] VITALS: BP 132/72
[2017-07-09] MEDS: inSUlin ASPART (NovoLOG) 1 UNIT/0.01 ML (CHARGE PER UNIT) SC SCH (05:52)
[2017-07-09] MEDS: metFORMIN 500 MG (GLUCOPHAGE) TAB PO SCH ×3 (06:17→16:21)
[2017-07-09] MEDS: NAPROXEN 250 MG (NAPROSYN) TABLET PO SCH ×2 (06:18→16:21)
[2017-07-09] MEDS: ASPIRIN E.C. 325 MG (ECOTRIN) TABLET PO SCH (08:24)
[2017-07-09] MEDS: CLOPIDOGREL 75 MG (PLAVIX) TABLET PO SCH (08:24)
--- NOTE | 2017-07-09 09:01 | Progress Note (SOAP) ---
Subjective Date Seen by Provider: Jul 09, 2017 Time Seen by Provider: 08:55 Subjective/Events-last exam PT REPORTS THAT HE IS FEELING BETTER, MOVING HIS LEFT HAND/WRIST AND FINGERS. HE HAS MORE CONTROL OF HIS LEFT LEG WELL. Review of Systems General: No Chills, No Fatigue Pulmonary: No Dyspnea, No Cough Cardiovascular: No: Chest Pain Gastrointestinal: No: Abdominal Pain, Nausea Neurological: Weakness, No: Confusion Objective Exam Vital Signs Date Time Temp Pulse Resp B/P (MAP) Pulse Ox O2 Delivery O2 Flow Rate FiO2 07/09/17 05:09 97.8 60 18 132/72 96 Room Air 07/08/17 20:10 Room Air 07/08/17 17:29 60 18 143/80 94 Room Air I & O 07/09/17 07:00 Intake Total 1900 ml Balance 1900 ml Capillary Refill : General Appearance: No Apparent Distress, WD/WN HEENT: PERRL/EOMI Neck: Supple Respiratory: Chest Non Tender, Lungs Clear, Normal Breath Sounds, No Accessory Muscle Use Cardiovascular: Regular Rate, Rhythm Gastrointestinal: normal bowel sounds, non tender, soft Extremity: Normal Capillary Refill, No Pedal Edema Neurologic/Psychiatric: Alert, Oriented x3, Normal Mood/Affect Skin: Warm/Dry Lymphatic: No Adenopathy Results Lab Laboratory Tests 07/08/17 10:53: Glucometer 159H 07/08/17 16:05: Glucometer 162H 07/08/17 20:38: Glucometer 204H 07/09/17 05:36: Glucometer 141H Assessment/Plan Assessment/Plan Assess & Plan/Chief Complaint SUBACUTE LACUNAR INFARCT LEFT HEMIPARESIS DIABETES MELLITUS HX OF TICK BITES SUBACUTE LACUNAR INFARCT WITH LEFT HEMIPARESIS - CONTINUE WITH PLAVIX, ASPIRIN, LIPITOR -CHECK CAROTID ULTRASOUND 40% STENOSIS BILATERALLY AND AN ECHOCARDIOGRAM WHICH IS NEGATIVE. PHYSICAL, OCCUPATIONAL SPEECH AND REC THERAPY TO CONTINUE, MONITOR PROGRESS. PT HAS MORE MOVEMENT IN HIS LEFT HAND, ARM, LEG. DIABETES MELLITUS - RESTARTED METFORMIN - INCREASE DOSE FROM 500MG TO 1000MG- MONITOR RESPONSE, CHECKED HGBA1C - LESS THAN 4 AND ACCU CHECK BID HX OF TICK BITES - NEGATIVE RESULTS. Clinical Quality Measures DVT/VTE Risk/Contraindication: Risk Factor Score Per Nursin RFS Level Per Nursing on Admit: 4+=Very High ROCHELLE RIBEIRO MD Jul 09, 2017 09:01
[2017-07-09] MEDS ORDERED: metFORMIN 500 MG (GLUCOPHAGE) TAB PO NR (09:45)
--- NOTE | 2017-07-09 10:09 | PM & R (SOAP) Progress Note ---
Subjective Time Seen by Provider: 08:00 Subjective/Events-last exam Patient was seen in his room this AM Patient min assist for transfers Appreciate DR Vanegas note and orders Metformin adjusted. Objective Exam Last Set of Vital Signs Vital Signs Date Time Temp Pulse Resp B/P (MAP) Pulse Ox O2 Delivery O2 Flow Rate FiO2 07/09/17 05:09 97.8 60 18 132/72 96 Room Air Capillary Refill : I&O Intake and Output 07/09/17 00:00 Intake Total 2250 ml Balance 2250 ml Intake Oral 2250 ml # Voids 8 # Bowel Movements 1 General: Alert, Oriented X3, Cooperative, No Acute Distress HEENT: Atraumatic, PERRLA, EOMI, Mucous Memb Moist/[place] Neck: Supple, No JVD Lungs: Clear to Auscultation Heart: Regular Rate Abdomen: Normal Bowel Sounds, Soft, No Tenderness Extremities: No Edema Neuro: Other (Left HP upper >lower extremity mild dysarthria) Results Lab Laboratory Tests 07/06/17 11:25: Glucometer 191H 07/06/17 15:51: Glucometer 202H 07/06/17 20:58: Glucometer 159H 07/07/17 05:23: Glucometer 150H 07/07/17 11:06: Glucometer 205H 07/07/17 16:10: Glucometer 202H 07/07/17 20:40: Glucometer 164H 07/08/17 05:17: Glucometer 185H 07/08/17 10:53: Glucometer 159H 07/08/17 16:05: Glucometer 162H 07/08/17 20:38: Glucometer 204H 07/09/17 05:36: Glucometer 141H 07/09/17 09:27: Glucometer 214H Assessment/Plan Assessment 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
--- NOTE | 2017-07-09 11:06 | Physical Therapy Daily Note ---
PT Daily Note-Current Subjective Patient reports fatigue from OT. Agrees to PT. Pain Numeric Pain Scale: 5-Moderate Pain Location: Left Location Body Site: Shoulder Pain Description: Acute Mental Status Patient Orientation: Normal For Age Transfers Functional [place] Measure 0=Not Assessed/NA 4=Minimal Assistance 1=Total Assistance 5=Supervision or Setup 2=Maximal Assistance 6=Modified [place] 3=Moderate Assistance 7=Complete IndependenceIRFPAI Quality Coding Scale 6 Independent with activity with or without an assistive device 5 Patient requires set up or clean up by helper. Patient completes activity by themselves 4 Supervision or touching assist (CGA). [place] provide cues , steadying assist 3 The helper provides less than half the effort to complete the activity 2 The helper provides more than half the effort to complete the activity 1 Dependent. The helper does all the effort to complete an activity 7 Patient refused to complete or attempt activity 9 The patient did not perform the activity before the current illness or injury 88 Not attempted due to Medical conditions or safety concerns Transfers (B, C, W/C) (FIM): 4 Scootin Rollin Roll Left to Right (QC): 4 Supine to/from Sit: 5 Sit to/from Stand: 4 Sit to Lying (QC): 4 Sit to Stand (QC): 3 Chair/Ugi-dq-Vqtlx Xfer(QC): 3 Bed to/from Chair: 4 Car Transfer (QC): 4 CGA for safety with all sit to stand transfer Gait Training Does the Patient Walk?: Yes Gait (FIM): 4 Distance (FIM): 3=150 ft Distance: 150' x 2;75' x 2 Walk 10 feet (QC): 3 Walk 50 ft with 2 Turns(QC): 3 Walk 150 ft (QC): 3 Gait Level of Assist: 4 Gait Persons Needed: 1 Gait Assistive Device: Walker Platform (left platform) improved reciprocal pattern with noted slight left LE lag with ER to advance left LE. Exercises Supine Ex: Bridging, Ankle pumps, Quad Set, Heel Slides, Straight leg raise, Hip abd/add Supine Reps: 25 (2 sets all AROM) Seated Therapy Exercises: Ankle pumps, Long arc quads Seated Reps: 25 (2 sets) NuStep Minutes: 15 NuStep Workload: 3 (to improve strength to improve functional mobility) Assessment Patient improving with treatment plan with improvement in gait sequence and ability to perform exercises. PT to increase activity as tolerated by patient. PT Short Term Goals Short Term Goals Time Frame: Jul 18, 2017 Transfers (B,C,W/C) (FIM): 4 Gait (FIM): 4 Distance (FIM): 3=150 ft Gait Assistive Device: FWW Wheelchair Distance: 100' PT [employer] Asc[employer] Consultant Goals Nursing Home Goals PT Nursing Home Goals Time Frame: Aug 01, 2017 Transfers (B,C,W/C) (FIM): 6 Sit to Lying (QC): 6 Lying-Sitting on Side/Bed(QC): 6 Sit to Stand (QC): 6 Rollin Roll Left to Right (QC): 6 Chair/Wfy-db-Ezqps Xfer(QC): 6 Car Transfer (QC): 5 Does the Patient Walk: Yes Gait (FIM): 6 Gait distance (FIM): 3=150 ft Walk 10 feet (QC): 6 Walk 10ft-Uneven Surface(QC): 6 Walk 50ft with 2 Turns (QC): 6 Walk 150 ft (QC): 6 Gait Assistive Device: FWW Does the Pt use WC or Scooter?: No Stairs (FIM): 5 # of Steps: 8 1 Step (curb) (QC): 6 4 Steps (QC): 6 12 Steps (QC): 88 Stairs Level Of Assist: 6 Picking up an Object (QC): 5 PT Plan Treatment/Plan Treatment Plan: Continue Plan of Care Treatment Plan: Bed Mobility, Education, Functional Activity Ninfa, Functional Strength, Group Therapy, Gait, Safety Treatment Duration: Aug 01, 2017 Frequency: At least 5-7 days/Wk (IRF) Estimated Hrs Per Day: 1.5 hours per day Patient and/or Family Agrees t: Yes Time/GCodes Time In: 1000 Time Out: 1100 Total Billed Treatment Time: 60 Total Billed Treatment 1 visit EX x 2 35 min GT x 2 25 min LAURA DOUGLASS PT Jul 09, 2017 11:06
--- NOTE | 2017-07-09 12:10 | Occupational Ther Daily Note ---
OT Current Status-Daily Note Subjective No pain reported. Appearance Pt. declines showering, but does agree to put on clean clothes. Mental Status/Objective Patient Orientation: Person, Place, Time, Situation Functional [place] Measure 0=Not Assessed/NA 4=Minimal Assistance 1=Total Assistance 5=Supervision or Setup 2=Maximal Assistance 6=Modified [place] 3=Moderate Assistance 7=Complete [place] ADL-Treatment Functional [place] Measure 0=Not Assessed/NA 4=Minimal Assistance 1=Total Assistance 5=Supervision or Setup 2=Maximal Assistance 6=Modified [place] 3=Moderate Assistance 7=Complete IndependenceIRFPAI Quality Coding Scale 6 Independent with activity with or without an assistive device 5 Patient requires set up or clean up by helper. Patient completes activity by themselves 4 Supervision or touching assist (CGA). [place] provide cues , steadying assist 3 The helper provides less than half the effort to complete the activity 2 The helper provides more than half the effort to complete the activity 1 Dependent. The helper does all the effort to complete an activity 7 Patient refused to complete or attempt activity 9 The patient did not perform the activity before the current illness or injury 88 Not attempted due to Medical conditions or safety concerns Upper Body (FIM): 5 (Pt. is able to doff/don shirt with increased time noted. Educated him on putting affected side in first.) Upper Body Dressing (QC): 4 Lower Body Dressing (FIM): 4 (Pt. is able to stand with CGA and doff undwear and shorts. Is able to thread left LE in first, and then stand with CGA to pullover hips. Pt. did not change slip resistance socks.) Lower Body Dressing (QC): 4 Other Treatment Noted increased balance in standing this date. After dressing tasks, pt. agreed to ambulate to therapy gym. Required CGA with platform walker and ambulated from room to gym. Completed gentle PROM to left UE in all planes. Noted adequate scapular glide, and very little tightness. Slight subluxation forming. No pain reported at this area. Completed compression exercises and educated pt. on positioning techniques. Muscle stimulation completed with bicep and tricep tapping. Pt. able to flex/extend elbow with this technique. Slight wrist extension actively noted. Slight finger flexion. Pt. educated and able to perform self ranging techniques with right UE assisting left UE. Stood at table with CGA, and worked on [place] with left hand on towel, and emphasis to flex shoulder without compensation of trunk. Pt. able to do this somewhat, but still does have difficulty differentiating movements. Performed e- stim to left UE. 6 elizabeth-amps tolerated to wrist extensors x 10 minutes, and then 5, 8 elizabeth-amps tolerated to finger flexors for muscle stimulation. Noted good activation of musculature with stimulation. Pt. ambulated back to room via platform walker. Noted fatigue at this time, and pt. had increased difficulty picking up left foot to progress it forward. All needs met back in room. Education OT Patient Education: Correct positioning, Exercise program, Modified ADL techniques, Progress toward Goal/Update tx plan, Purpose of tx/functional activities, Reviewed precautions, Rehab process, Transfer techniques Teaching Recipient: Patient Teaching Methods: Demonstration, Discussion Response to Teaching: Verbalize Understanding, Return Demonstration OT Short Term Goals Short Term Goals Time Frame: Jul 18, 2017 Eating(FIM): 5 Grooming(FIM): 5 Bathing(FIM): 5 Upper Body Dressing(FIM): 5 Lower Body Dressing(FIM): 4 Toileting(FIM): 4 Transfers (B,C,W/C) (FIM): 4 Toilet/Commode Transfer(FIM): 4 Shower Transfer(FIM): 4 Additional Short Term Goals: 1-Demonstrate ADL Tasks, 2-Verbalize Understanding , 3-ImproveStrength/Ninfa 1=Demonstrate adherence to instructed precautions during ADL tasks. 2=Patient will verbalize/demonstrate understanding of assistive devices/ modifications for ADL. 3=Patient will improve strength/tolerance for activity to enable patient to perform ADL's. OT Dry Roaster Goals Dry Roaster Goals Time Frame: Aug 01, 2017 Eating (FIM): 6 Eating (QC): 6 Groomin Oral Hygiene (QC): 6 Bathing(FIM): 5 Shower/Bathe Self (QC): 5 Upper Body Dressing(FIM): 6 Upper Body Dressing (QC): 6 Lower Body Dressing(FIM): 6 Lower Body Dressing (QC): 6 On/Off Footwear (QC): 6 Toileting(FIM): 6 Toileting Hygiene (QC): 6 Transfers (B,C,W/C) (FIM): 6 Toilet/Commode Transfer(FIM): 6 Toilet/Commode Transfer (QC): 6 Shower Transfer(FIM): 5 Comprehension(FIM): 6 (MET) Expression (FIM): 6 (MET) Social Interaction(FIM): 6 (MET) Problem Solving(FIM): 6 (MET) Memory(FIM): 6 (MET) Additional Goals: 1-Demonstrate ADL Tasks, 2-Verbalize Understanding, 3- ImproveStrength/Ninfa 1=Demonstrate adherence to instructed precautions during ADL tasks. 2=Patient will verbalize/demonstrate understanding of assistive devices/ modifications for ADL. 3=Patient will improve strength/tolerance for activity to enable patient to perform ADL's. OT Education/Plan Problem List/Assessment Assessment: Decreased Activ Tolerance, Decreased UE Strength, Dependent Transfers, Impaired Coordination, Impaired Funct Balance, Impaired I ADL's, Impaired Self-Care Skills, Restricted Funct UE ROM Discharge Recommendations Plan/Recommendations: Continue POC Therapy D/C Recommendations: Home w/ Family Support, Occupational Therapy Home Care Treatment Plan/Plan of Care Treatment,Training & Education: Yes Patient would benefit from OT for education, treatment and training to promote independence in ADL's, mobility, safety and/or upper extremity function for ADL' s. Plan of Care: ADL Retraining, Caregiver Training, Functional Mobility, UE Funct Exercise/Act, UE Neuromus Re-Ed/Coord Treatment Duration: Aug 01, 2017 Frequency: At least 5-7 days/Wk (IRF) Estimated Hrs Per Day: 1.5 hours per day Agreement: Yes Rehab Potential: Good Time/GCodes Start Time: 08:30 Stop Time: 10:00 Total Time Billed (hr/min): 90 Billed Treatment Time 1, ADL x 30minutes, NM x 60minutes NURY LIMON OT Jul 09, 2017 12:10
--- NOTE | 2017-07-09 15:07 | Physical Therapy Daily Note ---
PT Daily Note-Current Subjective Patient c/o right shoulder pain from exercises. Agrees to PT. Pain Numeric Pain Scale: 5-Moderate Pain Location: Right, Soft Tissue Location Body Site: Shoulder Pain Description: Ache Mental Status Patient Orientation: Normal For Age Transfers Functional [place] Measure 0=Not Assessed/NA 4=Minimal Assistance 1=Total Assistance 5=Supervision or Setup 2=Maximal Assistance 6=Modified [place] 3=Moderate Assistance 7=Complete IndependenceIRFPAI Quality Coding Scale 6 Independent with activity with or without an assistive device 5 Patient requires set up or clean up by helper. Patient completes activity by themselves 4 Supervision or touching assist (CGA). [place] provide cues , steadying assist 3 The helper provides less than half the effort to complete the activity 2 The helper provides more than half the effort to complete the activity 1 Dependent. The helper does all the effort to complete an activity 7 Patient refused to complete or attempt activity 9 The patient did not perform the activity before the current illness or injury 88 Not attempted due to Medical conditions or safety concerns Transfers (B, C, W/C) (FIM): 4 Scootin Sit to/from Stand: 4 Sit to Stand (QC): 3 Gait Training Does the Patient Walk?: Yes Gait (FIM): 4 Distance (FIM): 3=150 ft Distance: 200' x 2 Walk 10 feet (QC): 3 Walk 50 ft with 2 Turns(QC): 3 Walk 150 ft (QC): 3 Walking 10ft/uneven surface-QC: 3 Gait Level of Assist: 4 Gait Persons Needed: 1 Gait Assistive Device: Walker Platform (left platform) reciprocal pattern with slight left LE lag Assessment Patient tolerated treatment well and is very fatigued this p.m. PT Short Term Goals Short Term Goals Time Frame: Jul 18, 2017 Transfers (B,C,W/C) (FIM): 4 Gait (FIM): 4 Distance (FIM): 3=150 ft Gait Assistive Device: FWW Wheelchair Distance: 100' PT Inspector Screen Printing Goals Inspector Screen Printing Goals PT Inspector Screen Printing Goals Time Frame: Aug 01, 2017 Transfers (B,C,W/C) (FIM): 6 Sit to Lying (QC): 6 Lying-Sitting on Side/Bed(QC): 6 Sit to Stand (QC): 6 Rollin Roll Left to Right (QC): 6 Chair/Lhf-bu-Oeiye Xfer(QC): 6 Car Transfer (QC): 5 Does the Patient Walk: Yes Gait (FIM): 6 Gait distance (FIM): 3=150 ft Walk 10 feet (QC): 6 Walk 10ft-Uneven Surface(QC): 6 Walk 50ft with 2 Turns (QC): 6 Walk 150 ft (QC): 6 Gait Assistive Device: FWW Does the Pt use WC or Scooter?: No Stairs (FIM): 5 # of Steps: 8 1 Step (curb) (QC): 6 4 Steps (QC): 6 12 Steps (QC): 88 Stairs Level Of Assist: 6 Picking up an Object (QC): 5 PT Plan Treatment/Plan Treatment Plan: Continue Plan of Care Treatment Plan: Bed Mobility, Education, Functional Activity Ninfa, Functional Strength, Group Therapy, Gait, Safety Treatment Duration: Aug 01, 2017 Frequency: At least 5-7 days/Wk (IRF) Estimated Hrs Per Day: 1.5 hours per day Patient and/or Family Agrees t: Yes Time/GCodes Time In: 1400 Time Out: 1430 Total Billed Treatment Time: 30 Total Billed Treatment 1 visit GT x 2 30 min LAURA DOUGLASS PT Jul 09, 2017 15:07
[2017-07-09 19:41] VITALS: BP 152/76
[2017-07-09] MEDS: ATORVASTATIN 40 MG (LIPITOR) TABLET PO SCH (20:38)
[2017-07-10] MEDS: NAPROXEN 250 MG (NAPROSYN) TABLET PO SCH ×2 (06:21→17:19)
[2017-07-10] MEDS: metFORMIN 500 MG (GLUCOPHAGE) TAB PO SCH ×2 (06:21→17:19)
[2017-07-10 06:27] VITALS: BP 125/75
--- NOTE | 2017-07-10 08:17 | PM & R (SOAP) Progress Note ---
Subjective Time Seen by Provider: 07:40 Subjective/Events-last exam Patient was seen in his room this AM Patient min assist for transfers Eating sleeping well Accuchecks noted Appreciate therapy and Dr Vanegas notes Objective Exam Last Set of Vital Signs Vital Signs Date Time Temp Pulse Resp B/P (MAP) Pulse Ox O2 Delivery O2 Flow Rate FiO2 07/10/17 06:27 98.3 60 18 125/75 97 Room Air Capillary Refill : I&O Intake and Output 07/10/17 00:00 Intake Total 1010 ml Balance 1010 ml Intake Oral 1010 ml # Voids 5 General: Alert, Oriented X3, Cooperative, No Acute Distress HEENT: Atraumatic, PERRLA, EOMI, Mucous Memb Moist/[place] Neck: Supple, No JVD Lungs: Clear to Auscultation Heart: Regular Rate Abdomen: Normal Bowel Sounds, Soft, No Tenderness Extremities: No Edema Neuro: Other (Left HP upper >lower extremity mild dysarthria) Results Lab Laboratory Tests 07/07/17 11:06: Glucometer 205H 07/07/17 16:10: Glucometer 202H 07/07/17 20:40: Glucometer 164H 07/08/17 05:17: Glucometer 185H 07/08/17 10:53: Glucometer 159H 07/08/17 16:05: Glucometer 162H 07/08/17 20:38: Glucometer 204H 07/09/17 05:36: Glucometer 141H 07/09/17 09:27: Glucometer 214H 07/09/17 21:42: Glucometer 159H Assessment/Plan Assessment 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
[2017-07-10] MEDS: CLOPIDOGREL 75 MG (PLAVIX) TABLET PO SCH (09:45)
[2017-07-10] MEDS: ASPIRIN E.C. 325 MG (ECOTRIN) TABLET PO SCH (09:45)
--- NOTE | 2017-07-10 09:45 | Occupational Ther Daily Note ---
OT Current Status-Daily Note Subjective No pain reported. Pt. states, "look what I can do." Pt. demonstrates ability to actively flex left elbow to approximately 90 degrees. Does utilize some compensatory techniques with shoulder, but seems pleased that he is able to do this. Appearance Pt. up in chair. Agrees to work with OT. Mental Status/Objective Patient Orientation: Person, Place, Time, Situation Functional [place] Measure 0=Not Assessed/NA 4=Minimal Assistance 1=Total Assistance 5=Supervision or Setup 2=Maximal Assistance 6=Modified [place] 3=Moderate Assistance 7=Complete [place] ADL-Treatment Functional [place] Measure 0=Not Assessed/NA 4=Minimal Assistance 1=Total Assistance 5=Supervision or Setup 2=Maximal Assistance 6=Modified [place] 3=Moderate Assistance 7=Complete IndependenceIRFPAI Quality Coding Scale 6 Independent with activity with or without an assistive device 5 Patient requires set up or clean up by helper. Patient completes activity by themselves 4 Supervision or touching assist (CGA). [place] provide cues , steadying assist 3 The helper provides less than half the effort to complete the activity 2 The helper provides more than half the effort to complete the activity 1 Dependent. The helper does all the effort to complete an activity 7 Patient refused to complete or attempt activity 9 The patient did not perform the activity before the current illness or injury 88 Not attempted due to Medical conditions or safety concerns Other Treatment Pt. is able to stand out of chair with CGA. Ambulates to therapy gym with platform walker and CGA. Once in gym, pt. is able to demonstrate active elbow flexion, slight wrist extension, and slight finger flexion. Tolerated 5 and then 8 elizabeth-amps to left wrist extensors x 8 minutes to increase overall muscle stimulation and strength. Then tolerated 6 and then 8 elizabeth-amps x 8 minutes to left finger flexors. Motion noted at MP joints. Noted good activation of muscles in both groups, and pt. then practiced moving in those planes after each set. States that he feels "tired" but that he feels like it is working. No definitive difference noted before/after e-stim, except for muscle fatigue. However, pt. states, "I feel like this is really helping. Pt. has shown marked improvement since even yesterday in bicep flexion. Ambulated back to room. All needs met in room. Education OT Patient Education: Correct positioning, Exercise program, Modified ADL techniques, Progress toward Goal/Update tx plan, Purpose of tx/functional activities, Reviewed precautions, Rehab process, Transfer techniques Teaching Recipient: Patient Teaching Methods: Demonstration, Discussion Response to Teaching: Verbalize Understanding, Return Demonstration OT Short Term Goals Short Term Goals Time Frame: Jul 18, 2017 Eating(FIM): 5 Grooming(FIM): 5 Bathing(FIM): 5 Upper Body Dressing(FIM): 5 Lower Body Dressing(FIM): 4 Toileting(FIM): 4 Transfers (B,C,W/C) (FIM): 4 Toilet/Commode Transfer(FIM): 4 Shower Transfer(FIM): 4 Additional Short Term Goals: 1-Demonstrate ADL Tasks, 2-Verbalize Understanding , 3-ImproveStrength/Ninfa 1=Demonstrate adherence to instructed precautions during ADL tasks. 2=Patient will verbalize/demonstrate understanding of assistive devices/ modifications for ADL. 3=Patient will improve strength/tolerance for activity to enable patient to perform ADL's. OT [facility] Goals [facility] Goals Time Frame: Aug 01, 2017 Eating (FIM): 6 Eating (QC): 6 Groomin Oral Hygiene (QC): 6 Bathing(FIM): 5 Shower/Bathe Self (QC): 5 Upper Body Dressing(FIM): 6 Upper Body Dressing (QC): 6 Lower Body Dressing(FIM): 6 Lower Body Dressing (QC): 6 On/Off Footwear (QC): 6 Toileting(FIM): 6 Toileting Hygiene (QC): 6 Transfers (B,C,W/C) (FIM): 6 Toilet/Commode Transfer(FIM): 6 Toilet/Commode Transfer (QC): 6 Shower Transfer(FIM): 5 Comprehension(FIM): 6 (MET) Expression (FIM): 6 (MET) Social Interaction(FIM): 6 (MET) Problem Solving(FIM): 6 (MET) Memory(FIM): 6 (MET) Additional Goals: 1-Demonstrate ADL Tasks, 2-Verbalize Understanding, 3- ImproveStrength/Ninfa 1=Demonstrate adherence to instructed precautions during ADL tasks. 2=Patient will verbalize/demonstrate understanding of assistive devices/ modifications for ADL. 3=Patient will improve strength/tolerance for activity to enable patient to perform ADL's. OT Education/Plan Problem List/Assessment Assessment: Decreased Activ Tolerance, Impaired Coordination, Impaired I ADL's , Impaired Self-Care Skills, Restricted Funct UE ROM Discharge Recommendations Plan/Recommendations: Continue POC Therapy D/C Recommendations: Home w/ Family Support, Occupational Therapy Home Care Treatment Plan/Plan of Care Treatment,Training & Education: Yes Patient would benefit from OT for education, treatment and training to promote independence in ADL's, mobility, safety and/or upper extremity function for ADL' s. Plan of Care: ADL Retraining, Caregiver Training, Functional Mobility, UE Funct Exercise/Act, UE Neuromus Re-Ed/Coord Treatment Duration: Aug 01, 2017 Frequency: At least 5-7 days/Wk (IRF) Estimated Hrs Per Day: 1.5 hours per day Agreement: Yes Rehab Potential: Good Time/GCodes Start Time: 08:35 Stop Time: 09:05 Total Time Billed (hr/min): 30 Billed Treatment Time 1, NM x 2 NURY LIMON OT Jul 10, 2017 09:45
--- NOTE | 2017-07-10 11:31 | Physical Therapy Daily Note ---
PT Daily Note-Current Subjective Pt in Therapy Gym just finishing with OT upon arrival. Pt reports fatigue and stomach uneasiness with tx. Pt agrees to PT. Pain Location: No Pain Reported Mental Status Patient Orientation: Person, Place, Time, Situation Transfers Functional [place] Measure 0=Not Assessed/NA 4=Minimal Assistance 1=Total Assistance 5=Supervision or Setup 2=Maximal Assistance 6=Modified [place] 3=Moderate Assistance 7=Complete IndependenceIRFPAI Quality Coding Scale 6 Independent with activity with or without an assistive device 5 Patient requires set up or clean up by helper. Patient completes activity by themselves 4 Supervision or touching assist (CGA). [place] provide cues , steadying assist 3 The helper provides less than half the effort to complete the activity 2 The helper provides more than half the effort to complete the activity 1 Dependent. The helper does all the effort to complete an activity 7 Patient refused to complete or attempt activity 9 The patient did not perform the activity before the current illness or injury 88 Not attempted due to Medical conditions or safety concerns Scootin Sit to/from Stand: 5 Sit to Stand (QC): 5 Weight Bearing Weight Bearing Restriction: Full Weight Bearing Location Restriction: LE Bilateral Gait Training Does the Patient Walk?: Yes Distance (FIM): 3=150 ft Distance: 350' Walk 10 feet (QC): 4 Walk 50 ft with 2 Turns(QC): 4 Walk 150 ft (QC): 4 Gait Level of Assist: 4 Gait Persons Needed: 1 Gait Assistive Device: Walker Platform Pt kicks L foot out due to inability to DF foot. Pt walks with otherwise normalized gait pattern. Wheelchair Training Does the Pt Use a Wheelchair?: No Exercises Seated Therapy Exercises: Ankle pumps, Long arc quads, Hip flexion, Kicking activity Seated Reps: 15 Treatments TRF using platform walker at SBA, needing only assistance to buckle LUE on walker. Pt ambulated increased distance using walker at [facility]. Pt completes Seated Ex in chair before needing to return to room due to feeling ill(sick at stomach). Pt completed Seated and Supine stretching for L DF using both rolled towel and red Tband. PT & pt also went over a few pt ed items such as Weekly Saturday mtg happenings and what can be affected and what to watch out for if future stroke. Pt sitting in recliner with all needs met at end of tx. Assessment Current Status: Fair Progress Pt feeling ill this morning same as who had recently had stomach flu. Pt a little fatigued this morning. PT Short Term Goals Short Term Goals Time Frame: Jul 18, 2017 Transfers (B,C,W/C) (FIM): 4 Gait (FIM): 4 Distance (FIM): 3=150 ft Gait Assistive Device: FWW Wheelchair Distance: 100' PT Hospital Liaison Goals Hospital Liaison Goals PT Correction Goals Time Frame: Aug 01, 2017 Transfers (B,C,W/C) (FIM): 6 Sit to Lying (QC): 6 Lying-Sitting on Side/Bed(QC): 6 Sit to Stand (QC): 6 Rollin Roll Left to Right (QC): 6 Chair/Msl-bv-Ezssg Xfer(QC): 6 Car Transfer (QC): 5 Does the Patient Walk: Yes Gait (FIM): 6 Gait distance (FIM): 3=150 ft Walk 10 feet (QC): 6 Walk 10ft-Uneven Surface(QC): 6 Walk 50ft with 2 Turns (QC): 6 Walk 150 ft (QC): 6 Gait Assistive Device: FWW Does the Pt use WC or Scooter?: No Stairs (FIM): 5 # of Steps: 8 1 Step (curb) (QC): 6 4 Steps (QC): 6 12 Steps (QC): 88 Stairs Level Of Assist: 6 Picking up an Object (QC): 5 PT Plan Problem List Problem List: Activity Tolerance, Functional Strength, Safety, Balance, Gait Treatment/Plan Treatment Plan: Continue Plan of Care Treatment Plan: Bed Mobility, Education, Functional Activity Ninfa, Functional Strength, Group Therapy, Gait, Safety Treatment Duration: Aug 01, 2017 Frequency: At least 5-7 days/Wk (IRF) Estimated Hrs Per Day: 1.5 hours per day Patient and/or Family Agrees t: Yes Safety Risks/Education Patient Education: Gait Training, Transfer Techniques, Correct Positioning, Disease Process, Safety Issues Teaching Recipient: Patient Teaching Methods: Discussion Response to Teaching: Verbalize Understanding Time/GCodes Time In: 905 Time Out: 1005 Total Billed Treatment Time: 60 Total Billed Treatment visit, GT (15m), EX x2 (30m) & FA (15m) GRANT GOLDEN WRITER EDITOR Jul 10, 2017 11:31
--- NOTE | 2017-07-10 13:37 | Occupational Ther Daily Note ---
OT Current Status-Daily Note Subjective Pt. states that his spouse has the stomach flu. Pt. states that he feels nauseated. Nursing is aware. Declines nausea medicine but is sipping on sprite. Declines showering. Mental Status/Objective Functional [place] Measure 0=Not Assessed/NA 4=Minimal Assistance 1=Total Assistance 5=Supervision or Setup 2=Maximal Assistance 6=Modified [place] 3=Moderate Assistance 7=Complete [place] Pt. declines showering or dressing, (in clothing from last night.) Agrees to work on left UE to increase AROM/strength. States that he prefers to stay in his room due to the nausea. ADL-Treatment Functional [place] Measure 0=Not Assessed/NA 4=Minimal Assistance 1=Total Assistance 5=Supervision or Setup 2=Maximal Assistance 6=Modified [place] 3=Moderate Assistance 7=Complete IndependenceIRFPAI Quality Coding Scale 6 Independent with activity with or without an assistive device 5 Patient requires set up or clean up by helper. Patient completes activity by themselves 4 Supervision or touching assist (CGA). [place] provide cues , steadying assist 3 The helper provides less than half the effort to complete the activity 2 The helper provides more than half the effort to complete the activity 1 Dependent. The helper does all the effort to complete an activity 7 Patient refused to complete or attempt activity 9 The patient did not perform the activity before the current illness or injury 88 Not attempted due to Medical conditions or safety concerns Toileting (FIM): 4 (CGA in stance to stand at toilet.) Toileting Hygiene (QC): 4 Transfers (B, C, W/C) (FIM): 4 (CGA to ambulate in room to toilet.) Other Treatment Pt. is nauseated but agrees to work on left UE. OT applies e-stim pads to left bicep. Pt. is able to tolerate 6 elizabeth-amps x 10 minutes. OT then applied pads to left wrist extensors, and then finger flexors, each x 10 minutes, 6-8 elizabeth-amps. Able to elicit a good response each time. After e-stim, pt. is able to complete AAROM exercises, AROM, and then PROM to facilitate increased movement in left UE. Pt. has demonstrated increased movement in bicep flexion, and wrist extension. Wrist extension is slight, but bicep flexion has significantly improved. Pt. states, "that is more than yesterday." All needs are met in room. Education OT Patient Education: Correct positioning, Exercise program, Modified ADL techniques, Progress toward Goal/Update tx plan, Purpose of tx/functional activities, Reviewed precautions, Rehab process, Transfer techniques Teaching Recipient: Patient Teaching Methods: Demonstration, Discussion Response to Teaching: Verbalize Understanding, Return Demonstration OT Short Term Goals Short Term Goals Time Frame: Jul 18, 2017 Eating(FIM): 5 Grooming(FIM): 5 Bathing(FIM): 5 Upper Body Dressing(FIM): 5 Lower Body Dressing(FIM): 4 Toileting(FIM): 4 Transfers (B,C,W/C) (FIM): 4 Toilet/Commode Transfer(FIM): 4 Shower Transfer(FIM): 4 Additional Short Term Goals: 1-Demonstrate ADL Tasks, 2-Verbalize Understanding , 3-ImproveStrength/Ninfa 1=Demonstrate adherence to instructed precautions during ADL tasks. 2=Patient will verbalize/demonstrate understanding of assistive devices/ modifications for ADL. 3=Patient will improve strength/tolerance for activity to enable patient to perform ADL's. OT [facility] Goals Rodding Anode Worker Goals Time Frame: Aug 01, 2017 Eating (FIM): 6 Eating (QC): 6 Groomin Oral Hygiene (QC): 6 Bathing(FIM): 5 Shower/Bathe Self (QC): 5 Upper Body Dressing(FIM): 6 Upper Body Dressing (QC): 6 Lower Body Dressing(FIM): 6 Lower Body Dressing (QC): 6 On/Off Footwear (QC): 6 Toileting(FIM): 6 Toileting Hygiene (QC): 6 Transfers (B,C,W/C) (FIM): 6 Toilet/Commode Transfer(FIM): 6 Toilet/Commode Transfer (QC): 6 Shower Transfer(FIM): 5 Comprehension(FIM): 6 (MET) Expression (FIM): 6 (MET) Social Interaction(FIM): 6 (MET) Problem Solving(FIM): 6 (MET) Memory(FIM): 6 (MET) Additional Goals: 1-Demonstrate ADL Tasks, 2-Verbalize Understanding, 3- ImproveStrength/Ninfa 1=Demonstrate adherence to instructed precautions during ADL tasks. 2=Patient will verbalize/demonstrate understanding of assistive devices/ modifications for ADL. 3=Patient will improve strength/tolerance for activity to enable patient to perform ADL's. OT Education/Plan Problem List/Assessment Assessment: Decreased Activ Tolerance, Decreased UE Strength, Dependent Transfers, Impaired Coordination, Impaired Funct Balance, Impaired I ADL's, Impaired Self-Care Skills, Restricted Funct UE ROM Discharge Recommendations Plan/Recommendations: Continue POC Therapy D/C Recommendations: Home w/ Family Support, Occupational Therapy Home Care Treatment Plan/Plan of Care Treatment,Training & Education: Yes Patient would benefit from OT for education, treatment and training to promote independence in ADL's, mobility, safety and/or upper extremity function for ADL' s. Plan of Care: ADL Retraining, Caregiver Training, Functional Mobility, UE Funct Exercise/Act, UE Neuromus Re-Ed/Coord Treatment Duration: Aug 01, 2017 Frequency: At least 5-7 days/Wk (IRF) Estimated Hrs Per Day: 1.5 hours per day Agreement: Yes Rehab Potential: Good Time/GCodes Start Time: 11:00 Stop Time: 12:00 Total Time Billed (hr/min): 60 Billed Treatment Time 1, NM x 30minutes, FA x 30minutes NURY LIMON OT Jul 10, 2017 13:37
--- NOTE | 2017-07-10 15:34 | Physical Therapy Daily Note ---
PT Daily Note-Current Subjective Pt sitting in recliner since pt has been resting due to feeling uneasy today. Pt agrees to limited PT tx. Pain Numeric Pain Scale: 0-No Pain Location: No Pain Reported Mental Status Patient Orientation: Person, Place, Time, Situation Transfers Functional [place] Measure 0=Not Assessed/NA 4=Minimal Assistance 1=Total Assistance 5=Supervision or Setup 2=Maximal Assistance 6=Modified [place] 3=Moderate Assistance 7=Complete IndependenceIRFPAI Quality Coding Scale 6 Independent with activity with or without an assistive device 5 Patient requires set up or clean up by helper. Patient completes activity by themselves 4 Supervision or touching assist (CGA). [place] provide cues , steadying assist 3 The helper provides less than half the effort to complete the activity 2 The helper provides more than half the effort to complete the activity 1 Dependent. The helper does all the effort to complete an activity 7 Patient refused to complete or attempt activity 9 The patient did not perform the activity before the current illness or injury 88 Not attempted due to Medical conditions or safety concerns Scootin Sit to/from Stand: 4 Sit to Stand (QC): 4 Weight Bearing Weight Bearing Restriction: Full Weight Bearing Location Restriction: LE Bilateral Exercises Seated Therapy Exercises: Ankle pumps, Long arc quads, Hip flexion, Kicking activity Seated Reps: 20 (20 reps of 2 sets each) Standing: Sit to Stand Standing Reps: 2 Treatments Pt completed Seated Ex in recliner as well as DF/PF stretching to encourage ankle movement. Pt completes sit to stands before resting in recliner with feet up and all needs met at end of tx. Assessment Current Status: Fair Progress Pt is fatigued and not feeling his best with stomach discomfort. PT Short Term Goals Short Term Goals Time Frame: Jul 18, 2017 Transfers (B,C,W/C) (FIM): 4 Gait (FIM): 4 Distance (FIM): 3=150 ft Gait Assistive Device: FWW Wheelchair Distance: 100' PT Carbon Lamp Cleaner Goals Carbon Lamp Cleaner Goals PT Halfway Goals Time Frame: Aug 01, 2017 Transfers (B,C,W/C) (FIM): 6 Sit to Lying (QC): 6 Lying-Sitting on Side/Bed(QC): 6 Sit to Stand (QC): 6 Rollin Roll Left to Right (QC): 6 Chair/Avr-ih-Lvxxc Xfer(QC): 6 Car Transfer (QC): 5 Does the Patient Walk: Yes Gait (FIM): 6 Gait distance (FIM): 3=150 ft Walk 10 feet (QC): 6 Walk 10ft-Uneven Surface(QC): 6 Walk 50ft with 2 Turns (QC): 6 Walk 150 ft (QC): 6 Gait Assistive Device: FWW Does the Pt use WC or Scooter?: No Stairs (FIM): 5 # of Steps: 8 1 Step (curb) (QC): 6 4 Steps (QC): 6 12 Steps (QC): 88 Stairs Level Of Assist: 6 Picking up an Object (QC): 5 PT Plan Problem List Problem List: Activity Tolerance, Functional Strength, Safety, Balance, Gait Treatment/Plan Treatment Plan: Continue Plan of Care Treatment Plan: Bed Mobility, Education, Functional Activity Ninfa, Functional Strength, Group Therapy, Gait, Safety Treatment Duration: Aug 01, 2017 Frequency: At least 5-7 days/Wk (IRF) Estimated Hrs Per Day: 1.5 hours per day Patient and/or Family Agrees t: Yes Safety Risks/Education Patient Education: Transfer Techniques, Correct Positioning, Safety Issues Teaching Recipient: Patient Teaching Methods: Discussion Response to Teaching: Verbalize Understanding Time/GCodes Time In: 1400 Time Out: 1430 Total Billed Treatment Time: 30 Total Billed Treatment visit, EX x2 (30m) GRANT GOLDEN PTA Jul 10, 2017 15:34
[2017-07-10 17:42] VITALS: BP 145/81
[2017-07-10] MEDS: ATORVASTATIN 40 MG (LIPITOR) TABLET PO SCH (20:49)
[2017-07-11 05:47] VITALS: BP 152/72
[2017-07-11] MEDS: metFORMIN 500 MG (GLUCOPHAGE) TAB PO SCH ×2 (06:09→17:24)
[2017-07-11] MEDS: NAPROXEN 250 MG (NAPROSYN) TABLET PO SCH ×2 (06:09→17:25)
--- NOTE | 2017-07-11 07:51 | PM & R (SOAP) Progress Note ---
Subjective Time Seen by Provider: 07:20 Subjective/Events-last exam Patient was seen in his room this AM Accucheks noted Patient having return in left leg but little in arm,Patient min assist for transfers Review of Systems Neurological: Weakness Objective Exam Last Set of Vital Signs Vital Signs Date Time Temp Pulse Resp B/P (MAP) Pulse Ox O2 Delivery O2 Flow Rate FiO2 07/11/17 05:47 97.0 62 16 152/72 95 Room Air Capillary Refill : I&O Intake and Output 07/11/17 00:00 Intake Total 1680 ml Balance 1680 ml Intake Oral 1680 ml # Voids 7 # Bowel Movements 1 General: Alert, Oriented X3, Cooperative, No Acute Distress HEENT: Atraumatic, PERRLA, EOMI, Mucous Memb Moist/[place] Neck: Supple, No JVD Lungs: Clear to Auscultation Heart: Regular Rate Abdomen: Normal Bowel Sounds, Soft, No Tenderness Extremities: No Edema Neuro: Other (Left HP upper >lower extremity mild dysarthria) Results Lab Laboratory Tests 07/08/17 10:53: Glucometer 159H 07/08/17 16:05: Glucometer 162H 07/08/17 20:38: Glucometer 204H 07/09/17 05:36: Glucometer 141H 07/09/17 09:27: Glucometer 214H 07/09/17 21:42: Glucometer 159H 07/10/17 09:35: Glucometer 147H 07/10/17 20:24: Glucometer 160H Assessment/Plan Assessment Rt lacunar infarct with Left HP and dysarthria OA DM meds being adjusted Presbycusis has hearing aides Plan Continue PT/OT/ST Monitor accucheks and adjust meds as needed F/U with DR Prakash prrussell Team Conference held yesterday See report for full functional update and POC and SWATI DYE MD Jul 11, 2017 07:51
[2017-07-11] MEDS: ASPIRIN E.C. 325 MG (ECOTRIN) TABLET PO SCH (09:09)
[2017-07-11] MEDS: CLOPIDOGREL 75 MG (PLAVIX) TABLET PO SCH (09:09)
--- NOTE | 2017-07-11 11:43 | Physical Therapy Daily Note ---
PT Daily Note-Current Subjective Patient c/o extreme fatigue, however, agrees to PT. Pain Numeric Pain Scale: 3 Location: Right Location Body Site: Shoulder Pain Description: Ache Mental Status Patient Orientation: Normal For Age Transfers Functional [place] Measure 0=Not Assessed/NA 4=Minimal Assistance 1=Total Assistance 5=Supervision or Setup 2=Maximal Assistance 6=Modified [place] 3=Moderate Assistance 7=Complete IndependenceIRFPAI Quality Coding Scale 6 Independent with activity with or without an assistive device 5 Patient requires set up or clean up by helper. Patient completes activity by themselves 4 Supervision or touching assist (CGA). [place] provide cues , steadying assist 3 The helper provides less than half the effort to complete the activity 2 The helper provides more than half the effort to complete the activity 1 Dependent. The helper does all the effort to complete an activity 7 Patient refused to complete or attempt activity 9 The patient did not perform the activity before the current illness or injury 88 Not attempted due to Medical conditions or safety concerns Transfers (B, C, W/C) (FIM): 4 Scootin Rollin Roll Left to Right (QC): 4 Supine to/from Sit: 4 Sit to/from Stand: 4 Sit to Lying (QC): 3 Sit to Stand (QC): 3 Chair/Wzg-gi-Wqagm Xfer(QC): 3 Bed to/from Chair: 3 Car Transfer (QC): 3 Gait Training Does the Patient Walk?: Yes Gait (FIM): 2 Distance (FIM): 4=915-65 ft Distance: 100' x 6 Walk 10 feet (QC): 3 Walk 50 ft with 2 Turns(QC): 3 Gait Level of Assist: 4 Gait Persons Needed: 1 Gait Assistive Device: Walker Mir step to gait sequence with mir walker in right UE. Patient requires recovery periods due to fatigue. Balance is Fair+ with CGA for safety with ambulation. Exercises Supine Ex: Ankle pumps, Quad Set, Rolling, Heel Slides, Short Arc Quads, Straight leg raise, Hip abd/add Supine Reps: 10 (2 sets with AAROM left LE with SLR and HS due to minimal hamstring activation) Seated Therapy Exercises: Ankle pumps, Long arc quads (2# wt. right LE; 1# wt. left LE), Hip flexion Assessment Patient is very fatigued on this date, however, tolerated treatment very well. Advancement with gait training with use of mir walker noted. PT Short Term Goals Short Term Goals Time Frame: Jul 18, 2017 Transfers (B,C,W/C) (FIM): 4 Gait (FIM): 4 Distance (FIM): 3=150 ft Gait Assistive Device: FWW Wheelchair Distance: 100' PT Jail Goals Records Specialist Goals PT Records Specialist Goals Time Frame: Aug 01, 2017 Transfers (B,C,W/C) (FIM): 6 Sit to Lying (QC): 6 Lying-Sitting on Side/Bed(QC): 6 Sit to Stand (QC): 6 Rollin Roll Left to Right (QC): 6 Chair/Krc-rc-Ibgzg Xfer(QC): 6 Car Transfer (QC): 5 Does the Patient Walk: Yes Gait (FIM): 6 Gait distance (FIM): 3=150 ft Walk 10 feet (QC): 6 Walk 10ft-Uneven Surface(QC): 6 Walk 50ft with 2 Turns (QC): 6 Walk 150 ft (QC): 6 Gait Assistive Device: FWW Does the Pt use WC or Scooter?: No Stairs (FIM): 5 # of Steps: 8 1 Step (curb) (QC): 6 4 Steps (QC): 6 12 Steps (QC): 88 Stairs Level Of Assist: 6 Picking up an Object (QC): 5 PT Plan Treatment/Plan Treatment Plan: Continue Plan of Care Treatment Plan: Bed Mobility, Education, Functional Activity Ninfa, Functional Strength, Group Therapy, Gait, Safety Treatment Duration: Aug 01, 2017 Frequency: At least 5-7 days/Wk (IRF) Estimated Hrs Per Day: 1.5 hours per day Patient and/or Family Agrees t: Yes Safety Risks/Education Patient Education: Gait Training Teaching Recipient: Patient Teaching Methods: Demonstration, Discussion Response to Teaching: Verbalize Understanding, Return Demonstration Discharge Recommendations Therapy D/C Recommendations: Home w/ Family Support, Physical Therapy Home Care Time/GCodes Time In: 1010 Time Out: 1140 Total Billed Treatment Time: 90 Total Billed Treatment 1 visit EX x 3 45 min GT x 3 45 min LAURA DOUGLASS PT Jul 11, 2017 11:43
--- NOTE | 2017-07-11 14:19 | Occupational Ther Daily Note ---
OT Current Status-Daily Note Subjective No pain reported. Pt. states that his stomach is still a "bit queasy," but that he is feeling better. Appearance Pt. is in chair. Agrees to treatment. Mental Status/Objective Patient Orientation: Person, Place, Time, Situation Functional [place] Measure 0=Not Assessed/NA 4=Minimal Assistance 1=Total Assistance 5=Supervision or Setup 2=Maximal Assistance 6=Modified [place] 3=Moderate Assistance 7=Complete [place] ADL-Treatment Functional [place] Measure 0=Not Assessed/NA 4=Minimal Assistance 1=Total Assistance 5=Supervision or Setup 2=Maximal Assistance 6=Modified [place] 3=Moderate Assistance 7=Complete IndependenceIRFPAI Quality Coding Scale 6 Independent with activity with or without an assistive device 5 Patient requires set up or clean up by helper. Patient completes activity by themselves 4 Supervision or touching assist (CGA). [place] provide cues , steadying assist 3 The helper provides less than half the effort to complete the activity 2 The helper provides more than half the effort to complete the activity 1 Dependent. The helper does all the effort to complete an activity 7 Patient refused to complete or attempt activity 9 The patient did not perform the activity before the current illness or injury 88 Not attempted due to Medical conditions or safety concerns Bathing (FIM): 5 (Pt. is able to shower with SBA.) Shower/Bathe Self (QC): 4 Upper Body (FIM): 5 Upper Body Dressing (QC): 4 Lower Body Dressing (FIM): 4 (Pt. is able to don underwear and shorts with SBA. Is able to don right slipper sock with SBA. Requires assistance to don left sock.) Lower Body Dressing (QC): 4 On/Off Footwear (QC): 4 Toileting (FIM): 4 (CGA to stand at toilet to urinate.) Toileting Hygiene (QC): 4 Transfers (B, C, W/C) (FIM): 4 Shower Transfer(FIM): 4 (CGA to transfer into shower.) Other Treatment Spouse in room at beginning of treatment. Pt. and spouse had a lot of questions regarding pt's progress, and desired outcome. OT explained the progression of stroke, and educated them on pt's progress thus far. Both seemed pleased with this, as pt. has made significant progress since initial evaluation. After shower, pt. agreed to ambulate to therapy gym. Able to ambulate with platform walker and CGA to therapy gym. Pt. tolerated electrical stimulation to left elbow flexor, wrist extensors, and finger flexors. Tolerated 8 minutes each, 6 elizabeth-amps each. After this, pt. tolerated muscle stimulation with muscle tapping, while actively engaging muscles. Pt. able to achieve good bicep flexion, and slight wrist extension. Very little active finger flexion noted at this time. Demonstrates good sensation throughout left UE. Tolerated PROM to left UE in all planes. Noted good scapular glide with shoulder flexion. No pectoral tightness noted. Slight tenderness noted at bicep insertion. Pt. encouraged to continue with these exercises on his own in his room, after therapy is over for the day, as to not fatigue himself before therapy session. Ambulated back to room with CGA. Noted pt. fatigued. Had increased difficulty picking up left UE and clearing it. All needs met back in room. Education OT Patient Education: Correct positioning, Exercise program, Modified ADL techniques, Progress toward Goal/Update tx plan, Purpose of tx/functional activities, Reviewed precautions, Rehab process, Transfer techniques Teaching Recipient: Patient Teaching Methods: Demonstration, Discussion Response to Teaching: Verbalize Understanding, Return Demonstration OT Short Term Goals Short Term Goals Time Frame: Jul 18, 2017 Eating(FIM): 5 Grooming(FIM): 5 Bathing(FIM): 5 Upper Body Dressing(FIM): 5 Lower Body Dressing(FIM): 4 Toileting(FIM): 4 Transfers (B,C,W/C) (FIM): 4 Toilet/Commode Transfer(FIM): 4 Shower Transfer(FIM): 4 Additional Short Term Goals: 1-Demonstrate ADL Tasks, 2-Verbalize Understanding , 3-ImproveStrength/Ninfa 1=Demonstrate adherence to instructed precautions during ADL tasks. 2=Patient will verbalize/demonstrate understanding of assistive devices/ modifications for ADL. 3=Patient will improve strength/tolerance for activity to enable patient to perform ADL's. OT Bee Tender Goals M[facility] Goals Time Frame: Aug 01, 2017 Eating (FIM): 6 Eating (QC): 6 Groomin Oral Hygiene (QC): 6 Bathing(FIM): 5 Shower/Bathe Self (QC): 5 Upper Body Dressing(FIM): 6 Upper Body Dressing (QC): 6 Lower Body Dressing(FIM): 6 Lower Body Dressing (QC): 6 On/Off Footwear (QC): 6 Toileting(FIM): 6 Toileting Hygiene (QC): 6 Transfers (B,C,W/C) (FIM): 6 Toilet/Commode Transfer(FIM): 6 Toilet/Commode Transfer (QC): 6 Shower Transfer(FIM): 5 Comprehension(FIM): 6 (MET) Expression (FIM): 6 (MET) Social Interaction(FIM): 6 (MET) Problem Solving(FIM): 6 (MET) Memory(FIM): 6 (MET) Additional Goals: 1-Demonstrate ADL Tasks, 2-Verbalize Understanding, 3- ImproveStrength/Ninfa 1=Demonstrate adherence to instructed precautions during ADL tasks. 2=Patient will verbalize/demonstrate understanding of assistive devices/ modifications for ADL. 3=Patient will improve strength/tolerance for activity to enable patient to perform ADL's. OT Education/Plan Problem List/Assessment Assessment: Decreased Activ Tolerance, Decreased UE Strength, Dependent Transfers, Impaired Coordination, Impaired Funct Balance, Impaired I ADL's, Impaired Self-Care Skills, Restricted Funct UE ROM Discharge Recommendations Plan/Recommendations: Continue POC Therapy D/C Recommendations: Home w/ Family Support, Occupational Therapy Home Care Target Placement Home with spouse Treatment Plan/Plan of Care Treatment,Training & Education: Yes Patient would benefit from OT for education, treatment and training to promote independence in ADL's, mobility, safety and/or upper extremity function for ADL' s. Plan of Care: ADL Retraining, Caregiver Training, Functional Mobility, UE Funct Exercise/Act, UE Neuromus Re-Ed/Coord Treatment Duration: Aug 01, 2017 Frequency: At least 5-7 days/Wk (IRF) Estimated Hrs Per Day: 1.5 hours per day Agreement: Yes Rehab Potential: Good Time/GCodes Start Time: 08:30 Stop Time: 10:00 Total Time Billed (hr/min): 90 Billed Treatment Time 1, ADL x 45minutes, NM x 45minutes NURY LIMON OT Jul 11, 2017 14:19
[2017-07-11 18:20] VITALS: BP 159/88
[2017-07-11] MEDS: ATORVASTATIN 40 MG (LIPITOR) TABLET PO SCH (20:11)
[2017-07-12 05:00] VITALS: BP 97/62
[2017-07-12] MEDS: metFORMIN 500 MG (GLUCOPHAGE) TAB PO SCH ×2 (06:13→17:47)
[2017-07-12] MEDS: NAPROXEN 250 MG (NAPROSYN) TABLET PO SCH ×2 (06:13→17:48)
[2017-07-12] MEDS: ASPIRIN E.C. 325 MG (ECOTRIN) TABLET PO SCH (08:18)
[2017-07-12] MEDS: CLOPIDOGREL 75 MG (PLAVIX) TABLET PO SCH (08:18)
--- NOTE | 2017-07-12 08:45 | PM & R (SOAP) Progress Note ---
Subjective Time Seen by Provider: 07:50 Subjective/Events-last exam Patient was seen in his room this AM Patient Min to mod assist for transfers Accuchecks noted Review of Systems Neurological: Weakness Objective Exam Last Set of Vital Signs Vital Signs Date Time Temp Pulse Resp B/P (MAP) Pulse Ox O2 Delivery O2 Flow Rate FiO2 07/12/17 05:00 97.5 60 18 97/62 95 Room Air Capillary Refill : I&O Intake and Output 07/12/17 00:00 Intake Total 1970 ml Balance 1970 ml Intake Oral 1970 ml # Voids 8 # Bowel Movements 1 General: Alert, Oriented X3, Cooperative, No Acute Distress HEENT: Atraumatic, PERRLA, EOMI, Mucous Memb Moist/[place] Neck: Supple, No JVD Lungs: Clear to Auscultation Heart: Regular Rate Abdomen: Normal Bowel Sounds, Soft, No Tenderness Extremities: No Edema Neuro: Other (Left HP upper >lower extremity mild dysarthria) Results Lab Laboratory Tests 07/09/17 09:27: Glucometer 214H 07/09/17 21:42: Glucometer 159H 07/10/17 09:35: Glucometer 147H 07/10/17 20:24: Glucometer 160H 07/11/17 09:43: Glucometer 165H 07/11/17 21:38: Glucometer 191H Assessment/Plan Assessment Rt lacunar infarct with Left HP and dysarthria OA DM meds being adjusted Presbycusis has hearing aides Plan Continue PT/OT/ST Monitor accucheks and adjust meds as needed F/U with DR Olinda tesfaye Next Team Conference 07/17/17 SWATI STOREY MD Jul 12, 2017 08:45
--- NOTE | 2017-07-12 10:06 | Occupational Ther Daily Note ---
OT Current Status-Daily Note Subjective Pt alert, sitting in recliner. Pt agreed to therapy. No c/o pain at this time. Pt declined shower during first OT session, will complete at 2nd OT session. Mental Status/Objective Patient Orientation: Person, Place, Time, Situation Functional [place] Measure 0=Not Assessed/NA 4=Minimal Assistance 1=Total Assistance 5=Supervision or Setup 2=Maximal Assistance 6=Modified [place] 3=Moderate Assistance 7=Complete [place] ADL-Treatment Functional [place] Measure 0=Not Assessed/NA 4=Minimal Assistance 1=Total Assistance 5=Supervision or Setup 2=Maximal Assistance 6=Modified [place] 3=Moderate Assistance 7=Complete IndependenceIRFPAI Quality Coding Scale 6 Independent with activity with or without an assistive device 5 Patient requires set up or clean up by helper. Patient completes activity by themselves 4 Supervision or touching assist (CGA). [place] provide cues , steadying assist 3 The helper provides less than half the effort to complete the activity 2 The helper provides more than half the effort to complete the activity 1 Dependent. The helper does all the effort to complete an activity 7 Patient refused to complete or attempt activity 9 The patient did not perform the activity before the current illness or injury 88 Not attempted due to Medical conditions or safety concerns Other Treatment Pt ambulated to therapy gym with min A using zayda-walker. Pt worked on AAROM with L UE at table top with decreased resistance using towel under arm. Using minimal compensatory movements, pt was able to complete L shldr retraction/ protraction and horizontal abd/add. Pt educated on compensatory movements, that the rest of his body wants to do the movement for his L UE instead of L UE doing the primary movements. Pt verbalized understanding. Pt. tolerated electrical stimulation to left forearm pron/sup, wrist ext/flex, and finger flex /ext. Tolerated 8 minutes each, 6 elizabeth-amps each. After e-stim pt was able to demonstrate active movement with elbow flexion and forearm pron/sup. Pt then used zayda-walker to ambulated back to room with min A. After therapy, pt sitting in recliner with call light/phone in reach. All needs met in room. OT Short Term Goals Short Term Goals Time Frame: Jul 18, 2017 Eating(FIM): 5 Grooming(FIM): 5 Bathing(FIM): 5 Upper Body Dressing(FIM): 5 Lower Body Dressing(FIM): 4 Toileting(FIM): 4 Transfers (B,C,W/C) (FIM): 4 Toilet/Commode Transfer(FIM): 4 Shower Transfer(FIM): 4 Additional Short Term Goals: 1-Demonstrate ADL Tasks, 2-Verbalize Understanding , 3-ImproveStrength/Ninfa 1=Demonstrate adherence to instructed precautions during ADL tasks. 2=Patient will verbalize/demonstrate understanding of assistive devices/ modifications for ADL. 3=Patient will improve strength/tolerance for activity to enable patient to perform ADL's. OT Commercial Sales Director Goals Commercial Sales Director Goals Time Frame: Aug 01, 2017 Eating (FIM): 6 Eating (QC): 6 Groomin Oral Hygiene (QC): 6 Bathing(FIM): 5 Shower/Bathe Self (QC): 5 Upper Body Dressing(FIM): 6 Upper Body Dressing (QC): 6 Lower Body Dressing(FIM): 6 Lower Body Dressing (QC): 6 On/Off Footwear (QC): 6 Toileting(FIM): 6 Toileting Hygiene (QC): 6 Transfers (B,C,W/C) (FIM): 6 Toilet/Commode Transfer(FIM): 6 Toilet/Commode Transfer (QC): 6 Shower Transfer(FIM): 5 Comprehension(FIM): 6 (MET) Expression (FIM): 6 (MET) Social Interaction(FIM): 6 (MET) Problem Solving(FIM): 6 (MET) Memory(FIM): 6 (MET) Additional Goals: 1-Demonstrate ADL Tasks, 2-Verbalize Understanding, 3- ImproveStrength/Ninfa 1=Demonstrate adherence to instructed precautions during ADL tasks. 2=Patient will verbalize/demonstrate understanding of assistive devices/ modifications for ADL. 3=Patient will improve strength/tolerance for activity to enable patient to perform ADL's. OT Education/Plan Discharge Recommendations Plan/Recommendations: Continue POC Treatment Plan/Plan of Care Patient would benefit from OT for education, treatment and training to promote independence in ADL's, mobility, safety and/or upper extremity function for ADL' s. Plan of Care: ADL Retraining, Caregiver Training, Functional Mobility, UE Funct Exercise/Act, UE Neuromus Re-Ed/Coord Treatment Duration: Aug 01, 2017 Frequency: At least 5-7 days/Wk (IRF) Estimated Hrs Per Day: 1.5 hours per day Agreement: Yes Rehab Potential: Good Time/GCodes Start Time: 09:00 Stop Time: 10:00 Total Time Billed (hr/min): 60 Billed Treatment Time 1 visit-NM 3 (45 min) FA 1 (15 min) GREY VAUGHN Jul 12, 2017 10:06
--- NOTE | 2017-07-12 12:15 | Physical Therapy Daily Note ---
PT Daily Note-Current Subjective Pt. agrees to Rx. C/o fatigue and states he just walked back and now he has to walk again, but agrees after some rest. States he will have a ramp at home. Pain Numeric Pain Scale: 0-No Pain Mental Status Patient Orientation: Normal For Age Transfers Functional [place] Measure 0=Not Assessed/NA 4=Minimal Assistance 1=Total Assistance 5=Supervision or Setup 2=Maximal Assistance 6=Modified [place] 3=Moderate Assistance 7=Complete IndependenceIRFPAI Quality Coding Scale 6 Independent with activity with or without an assistive device 5 Patient requires set up or clean up by helper. Patient completes activity by themselves 4 Supervision or touching assist (CGA). [place] provide cues , steadying assist 3 The helper provides less than half the effort to complete the activity 2 The helper provides more than half the effort to complete the activity 1 Dependent. The helper does all the effort to complete an activity 7 Patient refused to complete or attempt activity 9 The patient did not perform the activity before the current illness or injury 88 Not attempted due to Medical conditions or safety concerns Transfers (B, C, W/C) (FIM): 4 Scootin Rollin Supine to/from Sit: 4 (min assist sup to sit) Sit to/from Stand: 5 Gait Training Does the Patient Walk?: Yes Gait (FIM): 4 Distance (FIM): 3=150 ft (150, 75,50) Gait Level of Assist: 4 Gait Persons Needed: 1 Gait Assistive Device: Walker Mir Exercises Supine Ex: Bridging, Ankle pumps, Quad Set, Rolling, Glut sets, Heel Slides, Short Arc Quads, Scooting, Straight leg raise, Hip abd/add Supine Reps: 12 Seated Therapy Exercises: Ankle pumps, Sit to stand, Long arc quads, Hip flexion Seated Reps: 10 NuStep Minutes: 10 NuStep Workload: 4 Assessment Current Status: Good Progress PT Short Term Goals Short Term Goals Time Frame: Jul 18, 2017 Transfers (B,C,W/C) (FIM): 4 Gait (FIM): 4 Distance (FIM): 3=150 ft Gait Assistive Device: FWW Wheelchair Distance: 100' PT Geriatric Physical Therapist Goals Geriatric Physical Therapist Goals PT Nursing Home Goals Time Frame: Aug 01, 2017 Transfers (B,C,W/C) (FIM): 6 Sit to Lying (QC): 6 Lying-Sitting on Side/Bed(QC): 6 Sit to Stand (QC): 6 Rollin Roll Left to Right (QC): 6 Chair/Oei-nf-Wvbng Xfer(QC): 6 Car Transfer (QC): 5 Does the Patient Walk: Yes Gait (FIM): 6 Gait distance (FIM): 3=150 ft Walk 10 feet (QC): 6 Walk 10ft-Uneven Surface(QC): 6 Walk 50ft with 2 Turns (QC): 6 Walk 150 ft (QC): 6 Gait Assistive Device: FWW Does the Pt use WC or Scooter?: No Stairs (FIM): 5 # of Steps: 8 1 Step (curb) (QC): 6 4 Steps (QC): 6 12 Steps (QC): 88 Stairs Level Of Assist: 6 Picking up an Object (QC): 5 PT Plan Treatment/Plan Treatment Plan: Continue Plan of Care Treatment Plan: Bed Mobility, Education, Functional Activity Ninfa, Functional Strength, Group Therapy, Gait, Safety Treatment Duration: Aug 01, 2017 Frequency: At least 5-7 days/Wk (IRF) Estimated Hrs Per Day: 1.5 hours per day Patient and/or Family Agrees t: Yes Safety Risks/Education Patient Education: Gait Training, Transfer Techniques Teaching Recipient: Patient Teaching Methods: Demonstration, Discussion Response to Teaching: Verbalize Understanding, Return Demonstration, Reinforcement Needed Time/GCodes Time In: 1000 Time Out: 1100 Total Billed Treatment Time: 60 Total Billed Treatment 1,GT30m,EX30m G Codes Necessary: DAIJA Matthew DEVELOPER EVANGELIST Jul 12, 2017 12:15
--- NOTE | 2017-07-12 12:22 | Occupational Ther Daily Note ---
OT Current Status-Daily Note Subjective Pt alert, sitting in recliner. Pt agreed to therapy. No c/o pain. Mental Status/Objective Patient Orientation: Person, Place, Time, Situation Functional [place] Measure 0=Not Assessed/NA 4=Minimal Assistance 1=Total Assistance 5=Supervision or Setup 2=Maximal Assistance 6=Modified [place] 3=Moderate Assistance 7=Complete [place] ADL-Treatment Functional [place] Measure 0=Not Assessed/NA 4=Minimal Assistance 1=Total Assistance 5=Supervision or Setup 2=Maximal Assistance 6=Modified [place] 3=Moderate Assistance 7=Complete IndependenceIRFPAI Quality Coding Scale 6 Independent with activity with or without an assistive device 5 Patient requires set up or clean up by helper. Patient completes activity by themselves 4 Supervision or touching assist (CGA). [place] provide cues , steadying assist 3 The helper provides less than half the effort to complete the activity 2 The helper provides more than half the effort to complete the activity 1 Dependent. The helper does all the effort to complete an activity 7 Patient refused to complete or attempt activity 9 The patient did not perform the activity before the current illness or injury 88 Not attempted due to Medical conditions or safety concerns Bathing (FIM): 4 (Using grabbar, shower bench and hand held shower pt able to complete all bathing. CGA in standing to dry buttocks.) Bathing Location: L Arm, R Arm, L Upper Leg, R Upper Leg, L Lower Leg ( including foot), R Lower Leg (including foot), Chest, Abdomen, Buttocks, Perineal Area Shower/Bathe Self (QC): 4 (Using grabbar, shower bench and hand held shower pt able to complete all bathing. CGA in standing to dry buttocks.) Upper Body (FIM): 4 (Using one-handed technique pt is able to don shirt with min A to pull shirt over elbow and assist to pull down in back.) Lower Body Dressing (FIM): 4 (CGA in standing to hike pants over hips. Pt is able to don pants, underwear and socks by self after set up.) Shower Transfer(FIM): 4 (Min A using zayda-walker, tub bench and grabbars to transfer into shower.) OT Short Term Goals Short Term Goals Time Frame: Jul 18, 2017 Eating(FIM): 5 Grooming(FIM): 5 Bathing(FIM): 5 Upper Body Dressing(FIM): 5 Lower Body Dressing(FIM): 4 Toileting(FIM): 4 Transfers (B,C,W/C) (FIM): 4 Toilet/Commode Transfer(FIM): 4 Shower Transfer(FIM): 4 Additional Short Term Goals: 1-Demonstrate ADL Tasks, 2-Verbalize Understanding , 3-ImproveStrength/Ninfa 1=Demonstrate adherence to instructed precautions during ADL tasks. 2=Patient will verbalize/demonstrate understanding of assistive devices/ modifications for ADL. 3=Patient will improve strength/tolerance for activity to enable patient to perform ADL's. OT Usp Goals Usp Goals Time Frame: Aug 01, 2017 Eating (FIM): 6 Eating (QC): 6 Groomin Oral Hygiene (QC): 6 Bathing(FIM): 5 Shower/Bathe Self (QC): 5 Upper Body Dressing(FIM): 6 Upper Body Dressing (QC): 6 Lower Body Dressing(FIM): 6 Lower Body Dressing (QC): 6 On/Off Footwear (QC): 6 Toileting(FIM): 6 Toileting Hygiene (QC): 6 Transfers (B,C,W/C) (FIM): 6 Toilet/Commode Transfer(FIM): 6 Toilet/Commode Transfer (QC): 6 Shower Transfer(FIM): 5 Comprehension(FIM): 6 (MET) Expression (FIM): 6 (MET) Social Interaction(FIM): 6 (MET) Problem Solving(FIM): 6 (MET) Memory(FIM): 6 (MET) Additional Goals: 1-Demonstrate ADL Tasks, 2-Verbalize Understanding, 3- ImproveStrength/Ninfa 1=Demonstrate adherence to instructed precautions during ADL tasks. 2=Patient will verbalize/demonstrate understanding of assistive devices/ modifications for ADL. 3=Patient will improve strength/tolerance for activity to enable patient to perform ADL's. OT Education/Plan Discharge Recommendations Plan/Recommendations: Continue POC Treatment Plan/Plan of Care Patient would benefit from OT for education, treatment and training to promote independence in ADL's, mobility, safety and/or upper extremity function for ADL' s. Plan of Care: ADL Retraining, Caregiver Training, Functional Mobility, UE Funct Exercise/Act, UE Neuromus Re-Ed/Coord Treatment Duration: Aug 01, 2017 Frequency: At least 5-7 days/Wk (IRF) Estimated Hrs Per Day: 1.5 hours per day Agreement: Yes Rehab Potential: Good Time/GCodes Start Time: 11:30 Stop Time: 12:00 Total Time Billed (hr/min): 30 Billed Treatment Time 1 visit-ADL 2 (30 min) GREY VAUGHN Jul 12, 2017 12:22
--- NOTE | 2017-07-12 14:33 | Physical Therapy Daily Note ---
PT Daily Note-Current Subjective Pt. states he had a fall in the bathroom earlier. States his mir walker got caught in the leg of the BSC that is also in the bathroom. States he scraped his right inside forearm and probably will have a bruise on his left shoulder but feels he is ok. Pt. states the pad in the bed is restrictive and hot and he would like to get rid of it if he could Pain Numeric Pain Scale: 0-No Pain Appearance abrasion to right inside forearm Transfers Functional [place] Measure 0=Not Assessed/NA 4=Minimal Assistance 1=Total Assistance 5=Supervision or Setup 2=Maximal Assistance 6=Modified [place] 3=Moderate Assistance 7=Complete IndependenceIRFPAI Quality Coding Scale 6 Independent with activity with or without an assistive device 5 Patient requires set up or clean up by helper. Patient completes activity by themselves 4 Supervision or touching assist (CGA). [place] provide cues , steadying assist 3 The helper provides less than half the effort to complete the activity 2 The helper provides more than half the effort to complete the activity 1 Dependent. The helper does all the effort to complete an activity 7 Patient refused to complete or attempt activity 9 The patient did not perform the activity before the current illness or injury 88 Not attempted due to Medical conditions or safety concerns much work on sup to sit and sit to sup. Pt. in bed flat with top rail up. pt able to use RLE to support LLE in to bed. Out of bed pt. rolls to right indep making effort to make sure LUE is on his chest then rolls to right and TRFd side to sit x3 trials with significant effort on his part. sit to stand from bed , chair and toilet all SBA Gait Training Gait Assistive Device: Walker Mir Gait 20ft x 3 mir walker CGA and cues for awareness of mir walker and objects etc. Treatments BSC was put over toilet so as to prevent pt. from getting walker leg tangle in it again but still providing taller surface to TRF from and arm to push up from as well Assessment Current Status: Good Progress PT Short Term Goals Short Term Goals Time Frame: Jul 18, 2017 Transfers (B,C,W/C) (FIM): 4 Gait (FIM): 4 Distance (FIM): 3=150 ft Gait Assistive Device: FWW Wheelchair Distance: 100' PT Residential Leasing Manager Goals Senior Living Goals PT Residential Leasing Manager Goals Time Frame: Aug 01, 2017 Transfers (B,C,W/C) (FIM): 6 Sit to Lying (QC): 6 Lying-Sitting on Side/Bed(QC): 6 Sit to Stand (QC): 6 Rollin Roll Left to Right (QC): 6 Chair/Yjq-uz-Crdbm Xfer(QC): 6 Car Transfer (QC): 5 Does the Patient Walk: Yes Gait (FIM): 6 Gait distance (FIM): 3=150 ft Walk 10 feet (QC): 6 Walk 10ft-Uneven Surface(QC): 6 Walk 50ft with 2 Turns (QC): 6 Walk 150 ft (QC): 6 Gait Assistive Device: FWW Does the Pt use WC or Scooter?: No Stairs (FIM): 5 # of Steps: 8 1 Step (curb) (QC): 6 4 Steps (QC): 6 12 Steps (QC): 88 Stairs Level Of Assist: 6 Picking up an Object (QC): 5 PT Plan Treatment/Plan Treatment Plan: Continue Plan of Care Treatment Plan: Bed Mobility, Education, Functional Activity Ninfa, Functional Strength, Group Therapy, Gait, Safety Treatment Duration: Aug 01, 2017 Frequency: At least 5-7 days/Wk (IRF) Estimated Hrs Per Day: 1.5 hours per day Patient and/or Family Agrees t: Yes Safety Risks/Education Patient Education: Gait Training, Transfer Techniques, Correct Positioning, Disease Process, Safety Issues Teaching Recipient: Patient Teaching Methods: Demonstration, Discussion Response to Teaching: Verbalize Understanding, Return Demonstration, Reinforcement Needed Time/GCodes Time In: 1400 Time Out: 1430 Total Billed Treatment Time: 30 Total Billed Treatment 1,GT10m,FA20m G Codes Necessary: DAIJA Matthew REHABILITATION COUNSELLOR Jul 12, 2017 14:33
[2017-07-12 17:59] VITALS: BP 156/73
[2017-07-12] MEDS: ATORVASTATIN 40 MG (LIPITOR) TABLET PO SCH (20:46)
[2017-07-13 05:20] VITALS: BP 135/72
[2017-07-13] MEDS: metFORMIN 500 MG (GLUCOPHAGE) TAB PO SCH ×2 (06:29→16:41)
[2017-07-13] MEDS: NAPROXEN 250 MG (NAPROSYN) TABLET PO SCH ×2 (06:29→16:41)
[2017-07-13] MEDS: ASPIRIN E.C. 325 MG (ECOTRIN) TABLET PO SCH (08:55)
[2017-07-13] MEDS: CLOPIDOGREL 75 MG (PLAVIX) TABLET PO SCH (08:55)
--- NOTE | 2017-07-13 10:37 | Physical Therapy Daily Note ---
PT Daily Note-Current Subjective Pt. agrees to Rx. Hopes to get full use of left foot DF as well as left hand wrist back soon. Discussed possible use/trial of AFO L Pain Numeric Pain Scale: 0-No Pain Mental Status Patient Orientation: Normal For Age Transfers Functional [place] Measure 0=Not Assessed/NA 4=Minimal Assistance 1=Total Assistance 5=Supervision or Setup 2=Maximal Assistance 6=Modified [place] 3=Moderate Assistance 7=Complete IndependenceIRFPAI Quality Coding Scale 6 Independent with activity with or without an assistive device 5 Patient requires set up or clean up by helper. Patient completes activity by themselves 4 Supervision or touching assist (CGA). [place] provide cues , steadying assist 3 The helper provides less than half the effort to complete the activity 2 The helper provides more than half the effort to complete the activity 1 Dependent. The helper does all the effort to complete an activity 7 Patient refused to complete or attempt activity 9 The patient did not perform the activity before the current illness or injury 88 Not attempted due to Medical conditions or safety concerns Transfers (B, C, W/C) (FIM): 4 Scootin Rollin Supine to/from Sit: 4 Sit to/from Stand: 5 pt. at home will need to exit and enter his bed to his left. Pt. continues to give full effort but needs min assist to roll right , indep to roll left but requires min assist side to sit at left of bed Gait Training Does the Patient Walk?: Yes Gait (FIM): 4 Distance (FIM): 3=150 ft (150x1,75x2) Gait Level of Assist: 4 Gait Persons Needed: 1 Gait Assistive Device: Walker Mir Exercises Supine Ex: Bridging, Ankle pumps (stretches HC left), Quad Set, Rolling, Glut sets, Heel Slides, Short Arc Quads, Scooting, Straight leg raise, Hip abd/add Supine Reps: 15 Treatments right sidelying for attempted clam shells and abduction, required assist Assessment Current Status: Good Progress fatigues with gait and Rx. needs rest breaks PT Short Term Goals Short Term Goals Time Frame: Jul 18, 2017 Transfers (B,C,W/C) (FIM): 4 Gait (FIM): 4 Distance (FIM): 3=150 ft Gait Assistive Device: FWW Wheelchair Distance: 100' PT Derivatives Trader Goals Senior Living Goals PT Derivatives Trader Goals Time Frame: Aug 01, 2017 Transfers (B,C,W/C) (FIM): 6 Sit to Lying (QC): 6 Lying-Sitting on Side/Bed(QC): 6 Sit to Stand (QC): 6 Rollin Roll Left to Right (QC): 6 Chair/Fwj-nm-Lwmxu Xfer(QC): 6 Car Transfer (QC): 5 Does the Patient Walk: Yes Gait (FIM): 6 Gait distance (FIM): 3=150 ft Walk 10 feet (QC): 6 Walk 10ft-Uneven Surface(QC): 6 Walk 50ft with 2 Turns (QC): 6 Walk 150 ft (QC): 6 Gait Assistive Device: FWW Does the Pt use WC or Scooter?: No Stairs (FIM): 5 # of Steps: 8 1 Step (curb) (QC): 6 4 Steps (QC): 6 12 Steps (QC): 88 Stairs Level Of Assist: 6 Picking up an Object (QC): 5 PT Plan Treatment/Plan Treatment Plan: Continue Plan of Care Treatment Plan: Bed Mobility, Education, Functional Activity Ninfa, Functional Strength, Group Therapy, Gait, Safety Treatment Duration: Aug 01, 2017 Frequency: At least 5-7 days/Wk (IRF) Estimated Hrs Per Day: 1.5 hours per day Patient and/or Family Agrees t: Yes Safety Risks/Education Patient Education: Gait Training, Transfer Techniques, Correct Positioning, Safety Issues Teaching Recipient: Patient Teaching Methods: Demonstration, Discussion Response to Teaching: Verbalize Understanding, Return Demonstration, Reinforcement Needed Time/GCodes Time In: 1000 Time Out: 1030 Total Billed Treatment Time: 30 Total Billed Treatment 1,EX10m,GT15m G Codes Necessary: No DAIJA RODRIGUEZ TELEVISION AND RADIO REPAIRER Jul 13, 2017 10:37
[2017-07-13 17:47] VITALS: BP 124/71
[2017-07-13] MEDS: ATORVASTATIN 40 MG (LIPITOR) TABLET PO SCH (20:10)
[2017-07-14 05:35] VITALS: BP 112/68
[2017-07-14] MEDS: metFORMIN 500 MG (GLUCOPHAGE) TAB PO SCH ×2 (06:15→17:10)
[2017-07-14] MEDS: NAPROXEN 250 MG (NAPROSYN) TABLET PO SCH ×2 (06:16→17:10)
[2017-07-14] MEDS: ASPIRIN E.C. 325 MG (ECOTRIN) TABLET PO SCH (09:39)
[2017-07-14] MEDS: CLOPIDOGREL 75 MG (PLAVIX) TABLET PO SCH (09:39)
[2017-07-14 18:20] VITALS: BP 137/77
[2017-07-14] MEDS: ATORVASTATIN 40 MG (LIPITOR) TABLET PO SCH (21:18)
[2017-07-15 05:25] VITALS: BP 130/74
[2017-07-15] MEDS: metFORMIN 500 MG (GLUCOPHAGE) TAB PO SCH ×2 (06:09→16:56)
[2017-07-15] MEDS: NAPROXEN 250 MG (NAPROSYN) TABLET PO SCH ×2 (06:10→16:56)
[2017-07-15] MEDS: ASPIRIN E.C. 325 MG (ECOTRIN) TABLET PO SCH (08:27)
[2017-07-15] MEDS: CLOPIDOGREL 75 MG (PLAVIX) TABLET PO SCH (08:27)
--- NOTE | 2017-07-15 09:22 | Progress Note (SOAP) ---
Subjective Date Seen by Provider: Jul 15, 2017 Time Seen by Provider: 08:55 Subjective/Events-last exam PT IS A 67 Y/O MALE WHO IS KNOWN TO ME FROM CLINIC. HE REPORTS THAT HE FELL OVER THE WEEKEND DUE TO INSTABILITY WHEN TRYING TO TURN IN THE BATHROOM. THE 4 POINT CANE WALKER LEGS GOT CAUGHT ON THE LEGS OF A COMMODE THAT WAS IN THE BATHROOM AND HE BECAME UNSTEADY AND FELL INTO THE SHOWER. HE DENIES PROBLEMS FROM THE FALL. HE REPORTS THAT HE HAS IMPROVED STRENGTH IN HIS LEFT LEG, HE CAN MOVE THE LEG INDEPENDENTLY, BUT IT IS STILL WEAK COMPARED TO HIS NORMAL STRENGTH. 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 HE REPORTS THAT AT THE END OF THE DAY, HIS STRENGTH IS NOT GOOD DUE TO FATIGUE. HE DENIES CHEST PAIN, SHORTNESS OF BREATH, DIZZINESS, DEPRESSION, MOOD CHANGES. Review of Systems General: Fatigue HEENT: No Head Aches Pulmonary: No Dyspnea, No Cough Cardiovascular: No: Chest Pain, Palpitations Gastrointestinal: No: Abdominal Pain, Nausea Genitourinary: No Dysuria, No Frequency Musculoskeletal: No: back pain, leg pain Neurological: Weakness, No: Confusion Objective Exam Vital Signs Date Time Temp Pulse Resp B/P (MAP) Pulse Ox O2 Delivery O2 Flow Rate FiO2 07/15/17 05:25 97.7 63 18 130/74 95 Room Air 07/14/17 20:13 Room Air 07/14/17 18:20 97.2 56 18 137/77 95 Room Air I & O 07/15/17 07:00 Intake Total 500 ml Balance 500 ml Capillary Refill : General Appearance: No Apparent Distress, WD/WN HEENT: PERRL/EOMI, Pharynx Normal Neck: Full Range of Motion, Supple Respiratory: Chest Non Tender, Lungs Clear, Normal Breath Sounds, No Accessory Muscle Use Cardiovascular: Regular Rate, Rhythm, No Edema Gastrointestinal: normal bowel sounds, non tender, soft Extremity: Normal Capillary Refill, No Pedal Edema Neurologic/Psychiatric: Alert, Oriented x3, Normal Mood/Affect, Motor Weakness (LEFT HAND, LEFT UPPER ARM, IMPROVED STRENGTH LEFT LEG) Skin: Warm/Dry Lymphatic: No Adenopathy Results Lab Laboratory Tests 07/14/17 11:31: Glucometer 159H 07/14/17 21:22: Glucometer 160H Assessment/Plan Assessment/Plan Assess & Plan/Chief Complaint SUBACUTE LACUNAR INFARCT LEFT HEMIPARESIS DIABETES MELLITUS HX OF TICK BITES SUBACUTE LACUNAR INFARCT WITH LEFT HEMIPARESIS - CONTINUE WITH PLAVIX, ASPIRIN, LIPITOR -CHECKED CAROTID ULTRASOUND 40% STENOSIS BILATERALLY AND AN ECHOCARDIOGRAM WHICH IS NEGATIVE. PHYSICAL, OCCUPATIONAL SPEECH AND REC THERAPY TO CONTINUE, MONITOR PROGRESS. PT HAS MORE MOVEMENT IN HIS LEFT HAND, ARM, LEG. PER THERAPY STAFF, PLAN IS FOR ANOTHER WEEK OF THERAPY AND THEN MONITOR FOR PROGRESS, MAY BE ABLE TO HAVE PT STAY FOR ANOTHER 2 WEEKS DEPENDING ON HOW HE IS PROGRESSING WITH HIS STRENGTH. DIABETES MELLITUS - RESTARTED METFORMIN - INCREASE DOSE FROM 500MG TO 1000MG- MONITOR RESPONSE, CHECKED HGBA1C - LESS THAN 4 AND ACCU CHECK BID HX OF TICK BITES - NEGATIVE RESULTS ON TICK PANEL. Clinical Quality Measures DVT/VTE Risk/Contraindication: Risk Factor Score Per Nursin RFS Level Per Nursing on Admit: 4+=Very High ROCHELLE RIBEIRO MD Jul 15, 2017 09:22
--- NOTE | 2017-07-15 12:09 | Physical Therapy Daily Note ---
PT Daily Note-Current Subjective Agrees to PT. Reports he uses the mir walker during therapy and FWW with platform at other times. Agreeable to try the AFO today. Mental Status Patient Orientation: Person, Place, Time, Situation Transfers Functional [place] Measure 0=Not Assessed/NA 4=Minimal Assistance 1=Total Assistance 5=Supervision or Setup 2=Maximal Assistance 6=Modified [place] 3=Moderate Assistance 7=Complete IndependenceIRFPAI Quality Coding Scale 6 Independent with activity with or without an assistive device 5 Patient requires set up or clean up by helper. Patient completes activity by themselves 4 Supervision or touching assist (CGA). [place] provide cues , steadying assist 3 The helper provides less than half the effort to complete the activity 2 The helper provides more than half the effort to complete the activity 1 Dependent. The helper does all the effort to complete an activity 7 Patient refused to complete or attempt activity 9 The patient did not perform the activity before the current illness or injury 88 Not attempted due to Medical conditions or safety concerns Transfers (B, C, W/C) (FIM): 4 Supine to/from Sit: 4 (sup to sit on the mat; he is SBA with sit to sup with skilled cues to lift the L LE.) Sit to/from Stand: 4 (CGA and skilled cues to remind him to push up from the chair. ) Pt able to lie himself down, with difficulty getting left leg into bed but able to complete with only skilled cueing; however, afer several attempts to push from sidelying to sitting EOB, pt required min assist to sit up. Gait Training Does the Patient Walk?: Yes Gait (FIM): 4 Distance (FIM): 3=150 ft Distance: 150 ft; 75 ft x 2 Gait Assistive Device: Walker Mir Gait the first 150 ft with mir walker with CGA for safety in socks. Then applied shoes and AFO left and ambulated 75 ft x 2 with mir walker with close CGA. Pt able to clear toes better with AFO in place and did well using it. However, the AFO is slightly uncomfortable and ultimately, pt would not like to wear it, it possible. Discussed custom fit AFO"s and that they are more comfortable and pt is open to necessary equipment as needed! Exercises Supine Ex: Ankle pumps, Quad Set, Lower trunk rotation, Short Arc Quads, Straight leg raise Supine Reps: 15 (LE strength to promote improved safety with gait and transfer. ) Neuromuscular Applies NMES to left ant tib and worked to find motor points for optimal stimulus of DF. Able to locate motor point for some DF but specifically got the great toe. Allowed pt to work with DF while NMES applied x 10 minutes with a 10 second contract and 20 sec rest cycle. Post treatment, pt had some tone of DF on the left and did demonstrate 2-/5 strength. Will use a different machine tomorrow to attempt to find a more accurate motor point for full DF. Assessment Current Status: Good Progress Pt progressing. Feel the NMES went well as well as gait with the AFO> Pt is progressing; however has potential to make significantly more gains. His gait and transfers are improving and I"m hopeful to elicit improved DF with electrical stim. PT Short Term Goals Short Term Goals Time Frame: Jul 18, 2017 Transfers (B,C,W/C) (FIM): 4 (met) Gait (FIM): 4 (mt) Distance (FIM): 3=150 ft Gait Assistive Device: FWW Wheelchair Distance: 100' PT Locator Specialist Goals Locator Specialist Goals PT Locator Specialist Goals Time Frame: Aug 01, 2017 Transfers (B,C,W/C) (FIM): 6 Sit to Lying (QC): 6 Lying-Sitting on Side/Bed(QC): 6 Sit to Stand (QC): 6 Rollin Roll Left to Right (QC): 6 Chair/Cbo-wm-Xkobv Xfer(QC): 6 Car Transfer (QC): 5 Does the Patient Walk: Yes Gait (FIM): 6 Gait distance (FIM): 3=150 ft Walk 10 feet (QC): 6 Walk 10ft-Uneven Surface(QC): 6 Walk 50ft with 2 Turns (QC): 6 Walk 150 ft (QC): 6 Gait Assistive Device: FWW Does the Pt use WC or Scooter?: No Stairs (FIM): 5 # of Steps: 8 1 Step (curb) (QC): 6 4 Steps (QC): 6 12 Steps (QC): 88 Stairs Level Of Assist: 6 Picking up an Object (QC): 5 PT Plan Problem List Problem List: Activity Tolerance, Functional Strength, Safety, Gait, Transfer, Bed Mobility Treatment/Plan Treatment Plan: Continue Plan of Care Treatment Plan: Bed Mobility, Education, Functional Activity Ninfa, Functional Strength, Group Therapy, Gait, Safety Treatment Duration: Aug 01, 2017 Frequency: At least 5-7 days/Wk (IRF) Estimated Hrs Per Day: 1.5 hours per day Patient and/or Family Agrees t: Yes Safety Risks/Education Patient Education: Gait Training, Transfer Techniques, Safety Issues Teaching Recipient: Patient Teaching Methods: Demonstration, Discussion Response to Teaching: Reinforcement Needed Discharge Recommendations Therapy D/C Recommendations: Physical Therapy Home Care Time/GCodes Time In: 900 Time Out: 1000 Total Billed Treatment Time: 60 Total Billed Treatment visit GT 30 EX 15 EStim 15 GREY YOUNG PT Jul 15, 2017 12:09
--- NOTE | 2017-07-15 13:50 | Occupational Ther Daily Note ---
OT Current Status-Daily Note Subjective No pain noted. Appearance Pt. in chair. Agrees to shower. Mental Status/Objective Patient Orientation: Person, Place, Time, Situation Functional [place] Measure 0=Not Assessed/NA 4=Minimal Assistance 1=Total Assistance 5=Supervision or Setup 2=Maximal Assistance 6=Modified [place] 3=Moderate Assistance 7=Complete [place] ADL-Treatment Functional [place] Measure 0=Not Assessed/NA 4=Minimal Assistance 1=Total Assistance 5=Supervision or Setup 2=Maximal Assistance 6=Modified [place] 3=Moderate Assistance 7=Complete IndependenceIRFPAI Quality Coding Scale 6 Independent with activity with or without an assistive device 5 Patient requires set up or clean up by helper. Patient completes activity by themselves 4 Supervision or touching assist (CGA). [place] provide cues , steadying assist 3 The helper provides less than half the effort to complete the activity 2 The helper provides more than half the effort to complete the activity 1 Dependent. The helper does all the effort to complete an activity 7 Patient refused to complete or attempt activity 9 The patient did not perform the activity before the current illness or injury 88 Not attempted due to Medical conditions or safety concerns Bathing (FIM): 5 (SBA to shower.) Shower/Bathe Self (QC): 4 Upper Body (FIM): 5 (Pt. is able to doff/don shirt with SBA.) Upper Body Dressing (QC): 4 Lower Body Dressing (FIM): 4 (Min assist to don pants over left hip in stance.) Lower Body Dressing (QC): 4 On/Off Footwear (QC): 5 Toileting (FIM): 4 (CGA in stance at toilet to urinate.) Toileting Hygiene (QC): 4 Transfers (B, C, W/C) (FIM): 4 (CGA with platform walker.) Shower Transfer(FIM): 4 Other Treatment After shower and dressing task, pt. tolerated E-stim to left UE. Noted that pt. does exhibit increased left UE AROM this date, than three days ago from last treatment session with this therapist. Pt. able to more actively flex left bicep, and flex fingers. Slight wrist extension noted. Pt. tolerated 4 elizabeth-amps to left wrist extenders x 10 minutes with good activation noted, and then 5 minutes to finger flexors x 8 elizabeth-amps, with good activation noted. All needs met in room. Pt. states that he has continued to complete exercises on his own in room. Education OT Patient Education: Correct positioning, Exercise program, Home exercise program, Modified ADL techniques, Progress toward Goal/Update tx plan, Purpose of tx/functional activities, Reviewed precautions, Rehab process, Transfer techniques Teaching Recipient: Patient Teaching Methods: Demonstration Response to Teaching: Verbalize Understanding, Return Demonstration OT Short Term Goals Short Term Goals Time Frame: Jul 18, 2017 Eating(FIM): 5 Grooming(FIM): 5 Bathing(FIM): 5 Upper Body Dressing(FIM): 5 Lower Body Dressing(FIM): 4 Toileting(FIM): 4 Transfers (B,C,W/C) (FIM): 4 (met) Toilet/Commode Transfer(FIM): 4 Shower Transfer(FIM): 4 Additional Short Term Goals: 1-Demonstrate ADL Tasks, 2-Verbalize Understanding , 3-ImproveStrength/Ninfa 1=Demonstrate adherence to instructed precautions during ADL tasks. 2=Patient will verbalize/demonstrate understanding of assistive devices/ modifications for ADL. 3=Patient will improve strength/tolerance for activity to enable patient to perform ADL's. OT Software Systems Architect Goals Mcc Goals Time Frame: Aug 01, 2017 Eating (FIM): 6 Eating (QC): 6 Groomin Oral Hygiene (QC): 6 Bathing(FIM): 5 Shower/Bathe Self (QC): 5 Upper Body Dressing(FIM): 6 Upper Body Dressing (QC): 6 Lower Body Dressing(FIM): 6 Lower Body Dressing (QC): 6 On/Off Footwear (QC): 6 Toileting(FIM): 6 Toileting Hygiene (QC): 6 Transfers (B,C,W/C) (FIM): 6 Toilet/Commode Transfer(FIM): 6 Toilet/Commode Transfer (QC): 6 Shower Transfer(FIM): 5 Comprehension(FIM): 6 (MET) Expression (FIM): 6 (MET) Social Interaction(FIM): 6 (MET) Problem Solving(FIM): 6 (MET) Memory(FIM): 6 (MET) Additional Goals: 1-Demonstrate ADL Tasks, 2-Verbalize Understanding, 3- ImproveStrength/Ninfa 1=Demonstrate adherence to instructed precautions during ADL tasks. 2=Patient will verbalize/demonstrate understanding of assistive devices/ modifications for ADL. 3=Patient will improve strength/tolerance for activity to enable patient to perform ADL's. OT Education/Plan Problem List/Assessment Assessment: Decreased Activ Tolerance, Decreased UE Strength, Dependent Transfers, Impaired Coordination, Impaired I ADL's, Impaired Self-Care Skills Discharge Recommendations Plan/Recommendations: Continue POC Therapy D/C Recommendations: Home w/ Family Support, Occupational Therapy Home Care Treatment Plan/Plan of Care Treatment,Training & Education: Yes Patient would benefit from OT for education, treatment and training to promote independence in ADL's, mobility, safety and/or upper extremity function for ADL' s. Plan of Care: ADL Retraining, Caregiver Training, Functional Mobility, UE Funct Exercise/Act, UE Neuromus Re-Ed/Coord Treatment Duration: Aug 01, 2017 Frequency: At least 5-7 days/Wk (IRF) Estimated Hrs Per Day: 1.5 hours per day Agreement: Yes Rehab Potential: Good Time/GCodes Start Time: 11:00 Stop Time: 12:00 Total Time Billed (hr/min): 60 Billed Treatment Time 1, ADL x 45minutes, NM x 15minutes NURY LIMON OT Jul 15, 2017 13:49
--- NOTE | 2017-07-15 14:44 | Therapy Group Daily Note ---
Therapy Daily Group Note Patient Education Topic Home Safety, Fall Prevention Exercises LE Seated Exercise, UE Exercise Other/Notes Pt ambulated to OT group with SBA using platform FWW. OT group consisted of introductions (name, place living, first car), socialization, education on home safety/fall prevention and seated UE/LE exercises. Pt was able to introduce self appropriately and was attentive to other pt's stories. Pt was able to verbalize understanding of educational topics by stating how it is used in own home and different ways to incorporate in every day use. Pt was able to complete UE seated exercises using R UE to assisted L UE with shldr exercises. Pt demonstrated ability to complete LE exercises without difficulty. Pt ambulated back to room with CGA using platform FWW. After therapy, pt sitting in recliner with call light/phone in reach. All needs met in room. Start Time: 13:00 Stop Time: 14:10 Total Billed Treatment Time: 70 Total Billed Treatment 1-GRP GREY VAUGHN Jul 15, 2017 14:44
[2017-07-15 17:50] VITALS: BP 136/72
[2017-07-15] MEDS: ATORVASTATIN 40 MG (LIPITOR) TABLET PO SCH (20:05)
--- NOTE | 2017-07-15 20:29 | PM & R (SOAP) Progress Note ---
Subjective Time Seen by Provider: 19:45 Subjective/Events-last exam Patient was seen in his roomthis evening RN reports that patient had a fall over the weekend No injury sustained Patient Min assist for transfers Accuchecks noted Eating OK Objective Exam Last Set of Vital Signs Vital Signs Date Time Temp Pulse Resp B/P (MAP) Pulse Ox O2 Delivery O2 Flow Rate FiO2 07/15/17 17:50 98.0 61 18 136/72 97 Room Air Capillary Refill : I&O Intake and Output 07/15/17 00:00 Intake Total 400 ml Balance 400 ml Intake Oral 400 ml # Voids 7 # Bowel Movements 1 General: Alert, Oriented X3, Cooperative, No Acute Distress HEENT: Atraumatic, PERRLA, EOMI, Mucous Memb Moist/[place] Neck: Supple, No JVD Lungs: Clear to Auscultation Heart: Regular Rate Abdomen: Normal Bowel Sounds, Soft, No Tenderness Extremities: No Edema Neuro: Other (Left HP upper >lower extremity mild dysarthria) Results Lab Laboratory Tests 07/12/17 20:45: Glucometer 185H 07/13/17 11:22: Glucometer 159H 07/13/17 20:38: Glucometer 189H 07/14/17 11:31: Glucometer 159H 07/14/17 21:22: Glucometer 160H 07/15/17 09:23: Glucometer 125H Assessment/Plan Assessment 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
[2017-07-16 04:31] VITALS: BP 129/72
[2017-07-16] MEDS: metFORMIN 500 MG (GLUCOPHAGE) TAB PO SCH ×2 (06:18→17:10)
[2017-07-16] MEDS: NAPROXEN 250 MG (NAPROSYN) TABLET PO SCH ×2 (06:18→17:11)
[2017-07-16] MEDS: CLOPIDOGREL 75 MG (PLAVIX) TABLET PO SCH (08:27)
[2017-07-16] MEDS: ASPIRIN E.C. 325 MG (ECOTRIN) TABLET PO SCH (08:27)
--- NOTE | 2017-07-16 08:44 | Progress Note (SOAP) ---
Subjective Date Seen by Provider: Jul 16, 2017 Time Seen by Provider: 08:45 Subjective/Events-last exam PT SEEN IN HIS ROOM TODAY - PHYSICAL THERAPISTS - FAYE AND JAK WERE IN THE ROOM WORKING ON PATIENT WITH A STIM DEVICE TO ISOLATE SPECIFIC MUSCULATURE THAT NEEDS MORE INTENSE THERAPY/STIMULATION. THE PATIENT HAD GOOD RESPONSE WHILE I WAS IN THE ROOM, THEY ARE PLANNING ON USING THE EQUIPMENT THAT IS AVAILABLE FOR IMPROVED FUNCTION. MR. SINGER STATES THAT HE DOES FEEL A LITTLE STRONGER TODAY THAN HE HAS PREVIOUSLY, A LITTLE STRONGER TODAY THAN YESTERDAY. Review of Systems General: No Chills, No Malaise HEENT: No Head Aches, No Visual Changes Pulmonary: No Dyspnea, No Cough Cardiovascular: No: Chest Pain, Palpitations Gastrointestinal: No: Abdominal Pain, Constipation, Nausea Genitourinary: No Dysuria, No Frequency Musculoskeletal: No: back pain Neurological: Weakness (LEFT ARM/HAND, LEFT LEG/FOOT), No: Confusion Objective Exam Vital Signs Date Time Temp Pulse Resp B/P (MAP) Pulse Ox O2 Delivery O2 Flow Rate FiO2 07/16/17 04:31 97.7 62 18 129/72 97 Room Air 07/15/17 20:40 Room Air 07/15/17 17:50 98.0 61 18 136/72 97 Room Air I & O 07/16/17 07:00 Intake Total 1400 ml Balance 1400 ml Capillary Refill : General Appearance: No Apparent Distress, WD/WN HEENT: PERRL/EOMI Neck: Full Range of Motion, Supple Respiratory: Chest Non Tender, Lungs Clear, Normal Breath Sounds, No Accessory Muscle Use, No Respiratory Distress Cardiovascular: Regular Rate, Rhythm, No Edema, Normal Peripheral Pulses Gastrointestinal: normal bowel sounds, non tender, soft Extremity: Normal Capillary Refill, No Calf Tenderness, No Pedal Edema Neurologic/Psychiatric: Alert, Oriented x3, Normal Mood/Affect, Facial Droop ( SLIGHT ON LEFT FACE/LIP), Motor Weakness (LEFT ARM/HAND, LEFT FOOT) Skin: Normal Color, Warm/Dry Lymphatic: No Adenopathy Results Lab Laboratory Tests 07/15/17 09:23: Glucometer 125H 07/15/17 20:25: Glucometer 156H Assessment/Plan Assessment/Plan Assess & Plan/Chief Complaint SUBACUTE LACUNAR INFARCT LEFT HEMIPARESIS DIABETES MELLITUS HX OF TICK BITES SUBACUTE LACUNAR INFARCT WITH LEFT HEMIPARESIS - CONTINUE WITH PLAVIX, ASPIRIN, LIPITOR -CHECKED CAROTID ULTRASOUND 40% STENOSIS BILATERALLY AND AN ECHOCARDIOGRAM WHICH IS NEGATIVE. PHYSICAL, OCCUPATIONAL SPEECH AND REC THERAPY TO CONTINUE, MONITOR PROGRESS. PT HAS MORE MOVEMENT IN HIS LEFT HAND, ARM, LEG. PER THERAPY STAFF, PLAN IS FOR ANOTHER WEEK OF THERAPY AND THEN MONITOR FOR PROGRESS, MAY BE ABLE TO HAVE PT STAY FOR ANOTHER 2 WEEKS DEPENDING ON HOW HE IS PROGRESSING WITH HIS STRENGTH. I HAVE TALKED TO FAYE DAY AND JAK YOUNG - THEY REPORT THAT HE HAS HAD GOOD RESPONSE TO STIM THERAPY, AND WOULD LIKE TO GET A BIONESS DEVICE TO USE ON HIS ARM AND LEG/FOOT TO HELP AUGMENT HIS RECOVERY FURTHER. I HAVE ASKED OUR ADMINISTRATION TO SEE IF THEY CAN BORROW A BIONESS DEVICE FROM [facility], THEY HAVE OVER 20 UNITS AND COULD SPARE ONE UNIT FOR THIS PATIENT. DIABETES MELLITUS - RESTARTED METFORMIN - INCREASED DOSE FROM 500MG TO 1000MG- IMPROVED BLOOD GLUCOSE. Clinical Quality Measures DVT/VTE Risk/Contraindication: Risk Factor Score Per Nursin RFS Level Per Nursing on Admit: 4+=Very High ROCHELLE RIBEIRO MD Jul 16, 2017 08:44
--- NOTE | 2017-07-16 09:24 | Physical Therapy Daily Note ---
PT Daily Note-Current Subjective Agrees to work with the NMES unit this morning. Transfers Functional [place] Measure 0=Not Assessed/NA 4=Minimal Assistance 1=Total Assistance 5=Supervision or Setup 2=Maximal Assistance 6=Modified [place] 3=Moderate Assistance 7=Complete IndependenceIRFPAI Quality Coding Scale 6 Independent with activity with or without an assistive device 5 Patient requires set up or clean up by helper. Patient completes activity by themselves 4 Supervision or touching assist (CGA). [place] provide cues , steadying assist 3 The helper provides less than half the effort to complete the activity 2 The helper provides more than half the effort to complete the activity 1 Dependent. The helper does all the effort to complete an activity 7 Patient refused to complete or attempt activity 9 The patient did not perform the activity before the current illness or injury 88 Not attempted due to Medical conditions or safety concerns Treatments Spent time using the e stim machine on gabonese stim mode to find the motor points on the left LE that most effectively elicited DF. Found the points and marked his leg. Applied the NMES unit and worked on pt trying to elicit DF contraction while unit is on. Unit set at 15 sec contraction with 9 sec rest; performed this x 10 minutes. Assessment Towards the end of the treatment, a visible fasiculation at the proximal muscle belly noted but limited DF noted. Pt tolerates this treatment and has potential to make improved DF contraction with use of this method. PT Short Term Goals Short Term Goals Time Frame: Jul 18, 2017 Transfers (B,C,W/C) (FIM): 4 (met) Gait (FIM): 4 (mt) Distance (FIM): 3=150 ft Gait Assistive Device: FWW Wheelchair Distance: 100' PT Skilled Nursing Goals Large Animal Veterinarian Goals PT Skilled Nursing Goals Time Frame: Aug 01, 2017 Transfers (B,C,W/C) (FIM): 6 Sit to Lying (QC): 6 Lying-Sitting on Side/Bed(QC): 6 Sit to Stand (QC): 6 Rollin Roll Left to Right (QC): 6 Chair/Cut-ap-[place]ry[place] Xfer(QC): 6 Car Transfer (QC): 5 Does the Patient Walk: Yes Gait (FIM): 6 Gait distance (FIM): 3=150 ft Walk 10 feet (QC): 6 Walk 10ft-Uneven Surface(QC): 6 Walk 50ft with 2 Turns (QC): 6 Walk 150 ft (QC): 6 Gait Assistive Device: FWW Does the Pt use WC or Scooter?: No Stairs (FIM): 5 # of Steps: 8 1 Step (curb) (QC): 6 4 Steps (QC): 6 12 Steps (QC): 88 Stairs Level Of Assist: 6 Picking up an Object (QC): 5 PT Plan Problem List Problem List: Activity Tolerance, Functional Strength Treatment/Plan Treatment Plan: Continue Plan of Care Treatment Plan: Bed Mobility, Education, Functional Activity Ninfa, Functional Strength, Group Therapy, Gait, Safety Treatment Duration: Aug 01, 2017 Frequency: At least 5-7 days/Wk (IRF) Estimated Hrs Per Day: 1.5 hours per day Patient and/or Family Agrees t: Yes Time/GCodes Time In: 850 Time Out: 915 Total Billed Treatment Time: 25 Total Billed Treatment visit ES 25 GREY YOUNG PT Jul 16, 2017 09:24
--- NOTE | 2017-07-16 11:44 | Physical Therapy Daily Note ---
PT Daily Note-Current Subjective Agreeable to gait and exercise this visit. Reports he is tired from his recent OT treatment. Requests to toilet. Transfers Functional [place] Measure 0=Not Assessed/NA 4=Minimal Assistance 1=Total Assistance 5=Supervision or Setup 2=Maximal Assistance 6=Modified [place] 3=Moderate Assistance 7=Complete IndependenceIRFPAI Quality Coding Scale 6 Independent with activity with or without an assistive device 5 Patient requires set up or clean up by helper. Patient completes activity by themselves 4 Supervision or touching assist (CGA). [place] provide cues , steadying assist 3 The helper provides less than half the effort to complete the activity 2 The helper provides more than half the effort to complete the activity 1 Dependent. The helper does all the effort to complete an activity 7 Patient refused to complete or attempt activity 9 The patient did not perform the activity before the current illness or injury 88 Not attempted due to Medical conditions or safety concerns Transfers (B, C, W/C) (FIM): 4 Roll Left to Right (QC): 5 Supine to/from Sit: 4 (min asssit to lift trunk; pt improved from yesterday and does a good job of pushing with the R UE and propping on the left; just needs a bit of assist for come to full upright.) Sit to/from Stand: 4 (CGA) Sit to Lying (QC): 5 (pt hooks left foot with the right and lifts onto the mat) Sit to Stand (QC): 4 Gait Training Does the Patient Walk?: Yes Distance (FIM): 1=up to 49 ft Distance: 125 ft x 2; 50 ft x 2 Gait Assistive Device: Walker Mir Gait with AFO left with CGA with focus on turning and safe management with obstacles. Pt ambulated in/out of bathroom and stood to urinate and then moved to the sink to wash his right hand. CGA with all and only needed cues 25% of the time for safety with obstacle management in the bathroom. Exercises Supine Ex: Bridging, Ankle pumps, Heel Slides, Short Arc Quads, Straight leg raise, Hip abd/add Supine Reps: 15 (intermittent rest breaks on the left. ) LE ther ex performed to enhance functional LE strength for improved gait and transfers. Requires skilled cues for pacing with exercise and correct performance; such as maintaining quad control with SLR. Assessment Current Status: Good Progress Pt is making functional progress; still does not have active DF, thus using an AFO; however he may benefit from gait training as well without the AFO to promote DF activation. Pt is highly motivated and cooperative. Improving each day. Has much room for continued progress. PT Short Term Goals Short Term Goals Time Frame: Jul 18, 2017 Transfers (B,C,W/C) (FIM): 4 (met) Gait (FIM): 4 (mt) Distance (FIM): 3=150 ft Gait Assistive Device: FWW Wheelchair Distance: 100' PT Senior Care Goals Senior Care Goals PT Instructional Services Specialist Goals Time Frame: Aug 01, 2017 Transfers (B,C,W/C) (FIM): 6 Sit to Lying (QC): 6 Lying-Sitting on Side/Bed(QC): 6 Sit to Stand (QC): 6 Rollin Roll Left to Right (QC): 6 Chair/[place] Xfer(QC): 6 Car Transfer (QC): 5 Does the Patient Walk: Yes Gait (FIM): 6 Gait distance (FIM): 3=150 ft Walk 10 feet (QC): 6 Walk 10ft-Uneven Surface(QC): 6 Walk 50ft with 2 Turns (QC): 6 Walk 150 ft (QC): 6 Gait Assistive Device: FWW Does the Pt use WC or Scooter?: No Stairs (FIM): 5 # of Steps: 8 1 Step (curb) (QC): 6 4 Steps (QC): 6 12 Steps (QC): 88 Stairs Level Of Assist: 6 Picking up an Object (QC): 5 PT Plan Problem List Problem List: Activity Tolerance, Functional Strength, Safety, Balance, Gait, Transfer, Bed Mobility Treatment/Plan Treatment Plan: Continue Plan of Care Treatment Plan: Bed Mobility, Education, Functional Activity Ninfa, Functional Strength, Group Therapy, Gait, Safety Treatment Duration: Aug 01, 2017 Frequency: At least 5-7 days/Wk (IRF) Estimated Hrs Per Day: 1.5 hours per day Patient and/or Family Agrees t: Yes Safety Risks/Education Patient Education: Gait Training, Transfer Techniques, Safety Issues Teaching Recipient: Patient Teaching Methods: Demonstration, Discussion Response to Teaching: Reinforcement Needed Time/GCodes Time In: 1100 Time Out: 1140 Total Billed Treatment Time: 40 Total Billed Treatment visit GT 15 NM 10 EX 15 GREY YOUNG PT Jul 16, 2017 11:44
--- NOTE | 2017-07-16 11:53 | Occupational Ther Daily Note ---
OT Current Status-Daily Note Subjective Pt sitting in chair, agrees to treatment. Pt has no c/o pain. Mental Status/Objective Functional [place] Measure 0=Not Assessed/NA 4=Minimal Assistance 1=Total Assistance 5=Supervision or Setup 2=Maximal Assistance 6=Modified [place] 3=Moderate Assistance 7=Complete [place] ADL-Treatment Pt declined bathing or changing his clothes this morning. States he washed up a little bit earlier when he was in the restroom. Pt declined grooming at this time as well. Pt doffed slipper socks with SBA. Donned socks with SBA and increased time using right UE. Pt donned right shoe, but required assist to tie shoe. Assist required to don left shoe and AFO. Functional [place] Measure 0=Not Assessed/NA 4=Minimal Assistance 1=Total Assistance 5=Supervision or Setup 2=Maximal Assistance 6=Modified [place] 3=Moderate Assistance 7=Complete IndependenceIRFPAI Quality Coding Scale 6 Independent with activity with or without an assistive device 5 Patient requires set up or clean up by helper. Patient completes activity by themselves 4 Supervision or touching assist (CGA). [place] provide cues , steadying assist 3 The helper provides less than half the effort to complete the activity 2 The helper provides more than half the effort to complete the activity 1 Dependent. The helper does all the effort to complete an activity 7 Patient refused to complete or attempt activity 9 The patient did not perform the activity before the current illness or injury 88 Not attempted due to Medical conditions or safety concerns Other Treatment Pt performed sit to stand x5 reps, 2 sets to increase strength and safety for transfers. Pt requires CGA to SBA for sit to stand, cues for safety. Transfer to EOB with zayda-walker. Sit to supine with CGA. Pt completed left shoulder ROM exercises in gravity eliminated position while in right sidelying. Pt demonstrates minimal shoulder extension, but requires assist for shoulder flexion. Supine to sit with minimal assistance. Gait to therapy gym with zayda- walker, slow pace and occasional cues for safety. Pt completed left UE ROM exercises to promote increased ROM and strength needed for ADLs. Pt performed elevation and scapular retraction. PROM completed shoulder flexion and abduction. Horizontal abduction/adduction completed in gravity eliminated. Pt demonstrates some active horizontal abduction, but assist is required for adduction. Elbow flexion/extension completed in gravity eliminated position. Pt has active elbow flexion, but not extension. Pt has compensatory movement during shoulder and elbow ROM, requires multiple cues for proper positioning. PROM completed at forearm pronation/supination. Pt demonstrates active wrist extension to neutral, but fatigues quickly. Pt able to partially actively flex fingers. No active finger extension noted. Pt returned to room, sitting in chair with needs met after session. OT Short Term Goals Short Term Goals Time Frame: Jul 18, 2017 Eating(FIM): 5 Grooming(FIM): 5 Bathing(FIM): 5 Upper Body Dressing(FIM): 5 Lower Body Dressing(FIM): 4 Toileting(FIM): 4 Transfers (B,C,W/C) (FIM): 4 (met) Toilet/Commode Transfer(FIM): 4 Shower Transfer(FIM): 4 Additional Short Term Goals: 1-Demonstrate ADL Tasks, 2-Verbalize Understanding , 3-ImproveStrength/Ninfa 1=Demonstrate adherence to instructed precautions during ADL tasks. 2=Patient will verbalize/demonstrate understanding of assistive devices/ modifications for ADL. 3=Patient will improve strength/tolerance for activity to enable patient to perform ADL's. OT Jail Goals Jail Goals Time Frame: Aug 01, 2017 Eating (FIM): 6 Eating (QC): 6 Groomin Oral Hygiene (QC): 6 Bathing(FIM): 5 Shower/Bathe Self (QC): 5 Upper Body Dressing(FIM): 6 Upper Body Dressing (QC): 6 Lower Body Dressing(FIM): 6 Lower Body Dressing (QC): 6 On/Off Footwear (QC): 6 Toileting(FIM): 6 Toileting Hygiene (QC): 6 Transfers (B,C,W/C) (FIM): 6 Toilet/Commode Transfer(FIM): 6 Toilet/Commode Transfer (QC): 6 Shower Transfer(FIM): 5 Comprehension(FIM): 6 (MET) Expression (FIM): 6 (MET) Social Interaction(FIM): 6 (MET) Problem Solving(FIM): 6 (MET) Memory(FIM): 6 (MET) Additional Goals: 1-Demonstrate ADL Tasks, 2-Verbalize Understanding, 3- ImproveStrength/Ninfa 1=Demonstrate adherence to instructed precautions during ADL tasks. 2=Patient will verbalize/demonstrate understanding of assistive devices/ modifications for ADL. 3=Patient will improve strength/tolerance for activity to enable patient to perform ADL's. OT Education/Plan Discharge Recommendations Plan/Recommendations: Continue POC Treatment Plan/Plan of Care Patient would benefit from OT for education, treatment and training to promote independence in ADL's, mobility, safety and/or upper extremity function for ADL' s. Plan of Care: ADL Retraining, Caregiver Training, Functional Mobility, UE Funct Exercise/Act, UE Neuromus Re-Ed/Coord Treatment Duration: Aug 01, 2017 Frequency: At least 5-7 days/Wk (IRF) Estimated Hrs Per Day: 1.5 hours per day Agreement: Yes Rehab Potential: Good Time/GCodes Start Time: 09:15 Stop Time: 10:45 Total Time Billed (hr/min): 90 Billed Treatment Time 1 visit, ADL(15minutes), FAx2(30minutes), NMx3(45minutes) AISHA BARKER OT Jul 16, 2017 11:52
--- NOTE | 2017-07-16 14:13 | Physical Therapy Daily Note ---
PT Daily Note-Current Subjective Pt was seated in recliner prior to tx and was agreeable to PT. Pt was left in recliner with all needs within reach. Pain Numeric Pain Scale: 0-No Pain Location: No Pain Reported Mental Status Patient Orientation: Normal For Age Transfers Functional [place] Measure 0=Not Assessed/NA 4=Minimal Assistance 1=Total Assistance 5=Supervision or Setup 2=Maximal Assistance 6=Modified [place] 3=Moderate Assistance 7=Complete IndependenceIRFPAI Quality Coding Scale 6 Independent with activity with or without an assistive device 5 Patient requires set up or clean up by helper. Patient completes activity by themselves 4 Supervision or touching assist (CGA). [place] provide cues , steadying assist 3 The helper provides less than half the effort to complete the activity 2 The helper provides more than half the effort to complete the activity 1 Dependent. The helper does all the effort to complete an activity 7 Patient refused to complete or attempt activity 9 The patient did not perform the activity before the current illness or injury 88 Not attempted due to Medical conditions or safety concerns Transfers (B, C, W/C) (FIM): 4 Scootin Sit to/from Stand: 4 Sit to Stand (QC): 4 Car Transfer (QC): 4 Pt requires CGA for sit to stand transfers for safety. Gait Training Does the Patient Walk?: Yes Distance: 120 x 4 Walk 10 feet (QC): 4 Walk 50 ft with 2 Turns(QC): 4 Gait Level of Assist: 4 Gait Persons Needed: 1 Gait Assistive Device: Walker Mir Pt requires gait training with CGA for safety. Pt drags left foot with gait, and requires verbal cueing to correct. Exercises NuStep Minutes: 10 NuStep Workload: 5 Assessment Current Status: Good Progress Pt requires CGA for safety with gait training. Patient presents with slow praful and decreased foot clearance on left. Pt requires frequent verbal cueing to pickling grader left foot. Pt requires breaks with gait training due to fatigue. PT Short Term Goals Short Term Goals Time Frame: Jul 18, 2017 Transfers (B,C,W/C) (FIM): 4 (met) Gait (FIM): 4 (mt) Distance (FIM): 3=150 ft Gait Assistive Device: FWW Wheelchair Distance: 100' PT Certified Registered Nurse Anesthetist Goals Certified Registered Nurse Anesthetist Goals PT Prison Goals Time Frame: Aug 01, 2017 Transfers (B,C,W/C) (FIM): 6 Sit to Lying (QC): 6 Lying-Sitting on Side/Bed(QC): 6 Sit to Stand (QC): 6 Rollin Roll Left to Right (QC): 6 Chair/Har-su-Kigll Xfer(QC): 6 Car Transfer (QC): 5 Does the Patient Walk: Yes Gait (FIM): 6 Gait distance (FIM): 3=150 ft Walk 10 feet (QC): 6 Walk 10ft-Uneven Surface(QC): 6 Walk 50ft with 2 Turns (QC): 6 Walk 150 ft (QC): 6 Gait Assistive Device: FWW Does the Pt use WC or Scooter?: No Stairs (FIM): 5 # of Steps: 8 1 Step (curb) (QC): 6 4 Steps (QC): 6 12 Steps (QC): 88 Stairs Level Of Assist: 6 Picking up an Object (QC): 5 PT Plan Problem List Problem List: Activity Tolerance, Functional Strength, Safety, Balance, Gait, Transfer, Bed Mobility, ROM Treatment/Plan Treatment Plan: Continue Plan of Care Treatment Plan: Bed Mobility, Education, Functional Activity Ninfa, Functional Strength, Group Therapy, Gait, Safety Treatment Duration: Aug 01, 2017 Frequency: At least 5-7 days/Wk (IRF) Estimated Hrs Per Day: 1.5 hours per day Patient and/or Family Agrees t: Yes Safety Risks/Education Patient Education: Gait Training Teaching Recipient: Patient Teaching Methods: Demonstration Response to Teaching: Verbalize Understanding Pt is instructed to pickling grader foot more on left to increase safety and decrease fall risk. Time/GCodes Time In: 1245 Time Out: 1315 Total Billed Treatment Time: 30 Total Billed Treatment 1 visit GT 15 min EX 15 min LAURA DOUGLASS PT Jul 16, 2017 14:13
--- NOTE | 2017-07-16 16:10 | PM & R (SOAP) Progress Note ---
Subjective Time Seen by Provider: 08:10 Subjective/Events-last exam Patient was seen in his room this AM Patient Min assist for transfers Objective Exam Last Set of Vital Signs Vital Signs Date Time Temp Pulse Resp B/P (MAP) Pulse Ox O2 Delivery O2 Flow Rate FiO2 07/16/17 04:31 97.7 62 18 129/72 97 Room Air Capillary Refill : I&O Intake and Output 07/16/17 00:00 Intake Total 1600 ml Balance 1600 ml Intake Oral 1600 ml # Voids 6 # Bowel Movements 1 General: Alert, Oriented X3, Cooperative, No Acute Distress HEENT: Atraumatic, PERRLA, EOMI, Mucous Memb Moist/Krebs Neck: Supple, No JVD Lungs: Clear to Auscultation Heart: Regular Rate Abdomen: Normal Bowel Sounds, Soft, No Tenderness Extremities: No Edema Neuro: Other (Left HP upper >lower extremity mild dysarthria) Results Lab Laboratory Tests 07/13/17 20:38: Glucometer 189H 07/14/17 11:31: Glucometer 159H 07/14/17 21:22: Glucometer 160H 07/15/17 09:23: Glucometer 125H 07/15/17 20:25: Glucometer 156H 07/16/17 09:25: Glucometer 149H Assessment/Plan Assessment 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
[2017-07-16 17:28] VITALS: BP 128/73
[2017-07-16] MEDS: ATORVASTATIN 40 MG (LIPITOR) TABLET PO SCH (20:47)
[2017-07-17 05:46] VITALS: BP 114/68
[2017-07-17] MEDS: NAPROXEN 250 MG (NAPROSYN) TABLET PO SCH ×2 (06:07→16:07)
[2017-07-17] MEDS: metFORMIN 500 MG (GLUCOPHAGE) TAB PO SCH ×2 (06:07→16:07)
[2017-07-17] MEDS: ASPIRIN E.C. 325 MG (ECOTRIN) TABLET PO SCH (07:48)
[2017-07-17] MEDS: CLOPIDOGREL 75 MG (PLAVIX) TABLET PO SCH (07:48)
--- NOTE | 2017-07-17 09:33 | Physical Therapy Daily Note ---
PT Daily Note-Current Subjective Pt sitting in recliner upon arrival. Pt reports needing to use restroom before leaving room for tx. Pt agrees to PT. Pain Numeric Pain Scale: 0-No Pain Location: No Pain Reported Mental Status Patient Orientation: Person, Place, Situation Transfers Functional [place] Measure 0=Not Assessed/NA 4=Minimal Assistance 1=Total Assistance 5=Supervision or Setup 2=Maximal Assistance 6=Modified [place] 3=Moderate Assistance 7=Complete IndependenceIRFPAI Quality Coding Scale 6 Independent with activity with or without an assistive device 5 Patient requires set up or clean up by helper. Patient completes activity by themselves 4 Supervision or touching assist (CGA). [place] provide cues , steadying assist 3 The helper provides less than half the effort to complete the activity 2 The helper provides more than half the effort to complete the activity 1 Dependent. The helper does all the effort to complete an activity 7 Patient refused to complete or attempt activity 9 The patient did not perform the activity before the current illness or injury 88 Not attempted due to Medical conditions or safety concerns Scootin Sit to/from Stand: 4 Sit to Stand (QC): 4 Weight Bearing Weight Bearing Restriction: Full Weight Bearing Location Restriction: LE Bilateral Gait Training Does the Patient Walk?: Yes Distance (FIM): 3=150 ft Distance: 300' Walk 10 feet (QC): 4 Walk 50 ft with 2 Turns(QC): 4 Walk 150 ft (QC): 4 Gait Level of Assist: 4 Gait Persons Needed: 1 Gait Assistive Device: Walker Mir Pt was more fatigued at start of tx this morning. PT worked on DF to prevent shuffling of feet especially LLE. Pt shuffles more as he fatigues. Wheelchair Training Does the Pt Use a Wheelchair?: No Exercises Seated Therapy Exercises: Ankle pumps Treatments Pt transferred from recliner using Mir walker at [facility]-Min A due to fatigue. Pt ambulated using walker at [facility] for safety. Pt completed 10m of [place] Estim while trying to DF to work on strengthening and muscle contraction/firing. Pt ambulated more in hallway before returning to room to rest in recliner at end of tx to await OT, all needs were met. Assessment Current Status: Fair Progress Pt continued to work through fatigue today. Pt is getting stronger and more independent with transfers and mobility. PT Short Term Goals Short Term Goals Time Frame: Jul 18, 2017 Transfers (B,C,W/C) (FIM): 4 (met) Gait (FIM): 4 (mt) Distance (FIM): 3=150 ft Gait Assistive Device: FWW Wheelchair Distance: 100' PT Mcfp Goals Mcfp Goals PT Engineering Assistant Goals Time Frame: Aug 01, 2017 Transfers (B,C,W/C) (FIM): 6 Sit to Lying (QC): 6 Lying-Sitting on Side/Bed(QC): 6 Sit to Stand (QC): 6 Rollin Roll Left to Right (QC): 6 Chair/Hhf-en-Sifyo Xfer(QC): 6 Car Transfer (QC): 5 Does the Patient Walk: Yes Gait (FIM): 6 Gait distance (FIM): 3=150 ft Walk 10 feet (QC): 6 Walk 10ft-Uneven Surface(QC): 6 Walk 50ft with 2 Turns (QC): 6 Walk 150 ft (QC): 6 Gait Assistive Device: FWW Does the Pt use WC or Scooter?: No Stairs (FIM): 5 # of Steps: 8 1 Step (curb) (QC): 6 4 Steps (QC): 6 12 Steps (QC): 88 Stairs Level Of Assist: 6 Picking up an Object (QC): 5 PT Plan Problem List Problem List: Activity Tolerance, Functional Strength, Safety, Balance, Gait Treatment/Plan Treatment Plan: Continue Plan of Care Treatment Plan: Bed Mobility, Education, Functional Activity Ninfa, Functional Strength, Group Therapy, Gait, Safety Treatment Duration: Aug 01, 2017 Frequency: At least 5-7 days/Wk (IRF) Estimated Hrs Per Day: 1.5 hours per day Patient and/or Family Agrees t: Yes Safety Risks/Education Patient Education: Gait Training, Correct Positioning, Safety Issues Teaching Recipient: Patient Teaching Methods: Discussion Response to Teaching: Verbalize Understanding Time/GCodes Time In: 815 Time Out: 915 Total Billed Treatment Time: 60 Total Billed Treatment visit, GT x2 (30m), EX (20m) & ES (10m) GRANT GOLDEN ART TRACER Jul 17, 2017 09:33
--- NOTE | 2017-07-17 13:42 | Occupational Ther Daily Note ---
OT Current Status-Daily Note Subjective Pt. reports that he is tired. Appearance Pt. in chair. No pain reported. Agrees to treatment. Mental Status/Objective Patient Orientation: Person, Place, Time, Situation Functional [place] Measure 0=Not Assessed/NA 4=Minimal Assistance 1=Total Assistance 5=Supervision or Setup 2=Maximal Assistance 6=Modified [place] 3=Moderate Assistance 7=Complete [place] ADL-Treatment Functional [place] Measure 0=Not Assessed/NA 4=Minimal Assistance 1=Total Assistance 5=Supervision or Setup 2=Maximal Assistance 6=Modified [place] 3=Moderate Assistance 7=Complete IndependenceIRFPAI Quality Coding Scale 6 Independent with activity with or without an assistive device 5 Patient requires set up or clean up by helper. Patient completes activity by themselves 4 Supervision or touching assist (CGA). [place] provide cues , steadying assist 3 The helper provides less than half the effort to complete the activity 2 The helper provides more than half the effort to complete the activity 1 Dependent. The helper does all the effort to complete an activity 7 Patient refused to complete or attempt activity 9 The patient did not perform the activity before the current illness or injury 88 Not attempted due to Medical conditions or safety concerns Bathing (FIM): 5 (SBA to bathe self in shower.) Shower/Bathe Self (QC): 4 Upper Body (FIM): 5 Upper Body Dressing (QC): 4 Lower Body Dressing (FIM): 5 Lower Body Dressing (QC): 4 (min assist to pull pants over left hip.) On/Off Footwear (QC): 5 Transfers (B, C, W/C) (FIM): 4 (CGA to ambulate with zayda walker.) Shower Transfer(FIM): 4 Other Treatment Pt. ambulated to therapy gym after shower. However, required several brief rest breaks during ambulation due to fatigue. Pt. tolerated left UE e-stim to increase overall use of left UE actively. Tolerated 6 elizabeth-amps to left wrist extensors x 7 minutes, and 8 elizabeth-amps to left finger flexors x 8 minutes with good activation. Tolerated this well. Pt. reports that he is tired. Ambulated back to room with CGA. Required rest breaks again during ambulation. All needs met back in room. Education OT Patient Education: Correct positioning, Exercise program, Modified ADL techniques, Progress toward Goal/Update tx plan, Purpose of tx/functional activities, Reviewed precautions, Rehab process, Transfer techniques Teaching Recipient: Patient Teaching Methods: Demonstration, Discussion Response to Teaching: Verbalize Understanding, Return Demonstration OT Short Term Goals Short Term Goals Time Frame: Jul 18, 2017 Eating(FIM): 5 Grooming(FIM): 5 Bathing(FIM): 5 Upper Body Dressing(FIM): 5 Lower Body Dressing(FIM): 4 Toileting(FIM): 4 Transfers (B,C,W/C) (FIM): 4 (met) Toilet/Commode Transfer(FIM): 4 Shower Transfer(FIM): 4 Additional Short Term Goals: 1-Demonstrate ADL Tasks, 2-Verbalize Understanding , 3-ImproveStrength/Ninfa 1=Demonstrate adherence to instructed precautions during ADL tasks. 2=Patient will verbalize/demonstrate understanding of assistive devices/ modifications for ADL. 3=Patient will improve strength/tolerance for activity to enable patient to perform ADL's. OT Retirement Goals Retirement Goals Time Frame: Aug 01, 2017 Eating (FIM): 6 Eating (QC): 6 Groomin Oral Hygiene (QC): 6 Bathing(FIM): 5 Shower/Bathe Self (QC): 5 Upper Body Dressing(FIM): 6 Upper Body Dressing (QC): 6 Lower Body Dressing(FIM): 6 Lower Body Dressing (QC): 6 On/Off Footwear (QC): 6 Toileting(FIM): 6 Toileting Hygiene (QC): 6 Transfers (B,C,W/C) (FIM): 6 Toilet/Commode Transfer(FIM): 6 Toilet/Commode Transfer (QC): 6 Shower Transfer(FIM): 5 Comprehension(FIM): 6 (MET) Expression (FIM): 6 (MET) Social Interaction(FIM): 6 (MET) Problem Solving(FIM): 6 (MET) Memory(FIM): 6 (MET) Additional Goals: 1-Demonstrate ADL Tasks, 2-Verbalize Understanding, 3- ImproveStrength/Ninfa 1=Demonstrate adherence to instructed precautions during ADL tasks. 2=Patient will verbalize/demonstrate understanding of assistive devices/ modifications for ADL. 3=Patient will improve strength/tolerance for activity to enable patient to perform ADL's. OT Education/Plan Problem List/Assessment Assessment: Decreased Activ Tolerance, Decreased UE Strength, Dependent Transfers, Impaired Funct Balance, Impaired I ADL's, Impaired Self-Care Skills Discharge Recommendations Plan/Recommendations: Continue POC Therapy D/C Recommendations: Home w/ Family Support, Occupational Therapy Home Care Treatment Plan/Plan of Care Treatment,Training & Education: Yes Patient would benefit from OT for education, treatment and training to promote independence in ADL's, mobility, safety and/or upper extremity function for ADL' s. Plan of Care: ADL Retraining, Caregiver Training, Functional Mobility, UE Funct Exercise/Act, UE Neuromus Re-Ed/Coord Treatment Duration: Aug 01, 2017 Frequency: At least 5-7 days/Wk (IRF) Estimated Hrs Per Day: 1.5 hours per day Agreement: Yes Rehab Potential: Good Time/GCodes Start Time: 09:15 Stop Time: 10:45 Total Time Billed (hr/min): 90 Billed Treatment Time 1, ADL x 60minutes, FA x 15minutes, NM x 15minutes NURY LIMON OT Jul 17, 2017 13:42
--- NOTE | 2017-07-17 13:54 | Physical Therapy Daily Note ---
PT Daily Note-Current Subjective Pt sitting in recliner upon arrival. Pt agrees to PT this afternoon. Pt took short nap and is a little more rested than this morning. Pain Numeric Pain Scale: 0-No Pain Location: No Pain Reported Mental Status Patient Orientation: Person, Place, Time, Situation Transfers Functional [place] Measure 0=Not Assessed/NA 4=Minimal Assistance 1=Total Assistance 5=Supervision or Setup 2=Maximal Assistance 6=Modified [place] 3=Moderate Assistance 7=Complete IndependenceIRFPAI Quality Coding Scale 6 Independent with activity with or without an assistive device 5 Patient requires set up or clean up by helper. Patient completes activity by themselves 4 Supervision or touching assist ([facility]). [place] provide cues , steadying assist 3 The helper provides less than half the effort to complete the activity 2 The helper provides more than half the effort to complete the activity 1 Dependent. The helper does all the effort to complete an activity 7 Patient refused to complete or attempt activity 9 The patient did not perform the activity before the current illness or injury 88 Not attempted due to Medical conditions or safety concerns Scootin Sit to/from Stand: 4 Sit to Stand (QC): 4 Weight Bearing Weight Bearing Restriction: Full Weight Bearing Location Restriction: LE Bilateral Gait Training Does the Patient Walk?: Yes Distance (FIM): 3=150 ft Distance: 325' Walk 10 feet (QC): 4 Walk 50 ft with 2 Turns(QC): 4 Walk 150 ft (QC): 4 Gait Level of Assist: 4 Gait Persons Needed: 1 Gait Assistive Device: Walker Mir Pt since still slightly fatigued even from the start of tx, has a little difficulty keeping foot DF during ambulation. Pt shuffles/scoots feet instead. Wheelchair Training Does the Pt Use a Wheelchair?: No Exercises Seated Therapy Exercises: Ankle pumps Seated Reps: 15 Treatments Pt transfers from recliner using Mir walker at [facility]-Min A. Pt ambulates using walker at [facility] for safety. Pt ambulates in Therapy Commons before returning to room to rest in recliner after Ankle Pumps (PROM-AAROM for DF). Pt rests in recliner with all needs met at end of tx. Assessment Current Status: Good Progress Pt ambulates as well as possible but has some difficulty bringing foot to DF due to fatigue today. Pt continues to work harder at progressing though. PT Short Term Goals Short Term Goals Time Frame: Jul 18, 2017 Transfers (B,C,W/C) (FIM): 4 (met) Gait (FIM): 4 (mt) Distance (FIM): 3=150 ft Gait Assistive Device: FWW Wheelchair Distance: 100' PT Shelter Goals Shelter Goals PT Store Associate Goals Time Frame: Aug 01, 2017 Transfers (B,C,W/C) (FIM): 6 Sit to Lying (QC): 6 Lying-Sitting on Side/Bed(QC): 6 Sit to Stand (QC): 6 Rollin Roll Left to Right (QC): 6 Chair/Ajb-su-Dksys Xfer(QC): 6 Car Transfer (QC): 5 Does the Patient Walk: Yes Gait (FIM): 6 Gait distance (FIM): 3=150 ft Walk 10 feet (QC): 6 Walk 10ft-Uneven Surface(QC): 6 Walk 50ft with 2 Turns (QC): 6 Walk 150 ft (QC): 6 Gait Assistive Device: FWW Does the Pt use WC or Scooter?: No Stairs (FIM): 5 # of Steps: 8 1 Step (curb) (QC): 6 4 Steps (QC): 6 12 Steps (QC): 88 Stairs Level Of Assist: 6 Picking up an Object (QC): 5 PT Plan Problem List Problem List: Activity Tolerance, Functional Strength, Safety, Balance, Gait, Transfer Treatment/Plan Treatment Plan: Continue Plan of Care Treatment Plan: Bed Mobility, Education, Functional Activity Ninfa, Functional Strength, Group Therapy, Gait, Safety Treatment Duration: Aug 01, 2017 Frequency: At least 5-7 days/Wk (IRF) Estimated Hrs Per Day: 1.5 hours per day Patient and/or Family Agrees t: Yes Safety Risks/Education Patient Education: Gait Training, Transfer Techniques, Correct Positioning, Safety Issues Teaching Recipient: Patient Teaching Methods: Discussion Response to Teaching: Verbalize Understanding Time/GCodes Time In: 1310 Time Out: 1340 Total Billed Treatment Time: 30 Total Billed Treatment visit, GT (20m) & EX (10m) GRANT GOLDEN PTA Jul 17, 2017 13:54
--- NOTE | 2017-07-17 16:35 | PM & R (SOAP) Progress Note ---
Subjective Time Seen by Provider: 08:20 Subjective/Events-last exam Patient was seen in his room earlier today Progressing well with therapies RN reports patient slipped to floor over weekend but only had an abrasion to the arm resulting. Review of Systems Neurological: Weakness Objective Exam Last Set of Vital Signs Vital Signs Date Time Temp Pulse Resp B/P (MAP) Pulse Ox O2 Delivery O2 Flow Rate FiO2 07/17/17 08:15 Room Air 07/17/17 05:46 97.0 58 20 114/68 95 Capillary Refill : I&O Intake and Output 07/18/17 00:00 Intake Total 400 ml Balance 400 ml Intake Oral 400 ml # Voids 3 General: Alert, Oriented X3, Cooperative, No Acute Distress HEENT: Atraumatic, PERRLA, EOMI, Mucous Memb Moist/[place] Neck: Supple, No JVD Lungs: Clear to Auscultation Heart: Regular Rate Abdomen: Normal Bowel Sounds, Soft, No Tenderness Extremities: No Edema Neuro: Other (Left HP upper >lower extremity mild dysarthria) Results Lab Laboratory Tests 07/14/17 21:22: Glucometer 160H 07/15/17 09:23: Glucometer 125H 07/15/17 20:25: Glucometer 156H 07/16/17 09:25: Glucometer 149H 07/16/17 21:03: Glucometer 153H 07/17/17 09:25: Glucometer 142H Assessment/Plan Assessment 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
[2017-07-17 17:04] VITALS: BP 149/73
[2017-07-17] MEDS: ATORVASTATIN 40 MG (LIPITOR) TABLET PO SCH (20:41)
[2017-07-18 05:45] VITALS: BP 126/68
[2017-07-18] MEDS: metFORMIN 500 MG (GLUCOPHAGE) TAB PO SCH ×2 (06:13→17:40)
[2017-07-18] MEDS: NAPROXEN 250 MG (NAPROSYN) TABLET PO SCH ×2 (06:13→17:40)
[2017-07-18] MEDS: CLOPIDOGREL 75 MG (PLAVIX) TABLET PO SCH (08:32)
[2017-07-18] MEDS: ASPIRIN E.C. 325 MG (ECOTRIN) TABLET PO SCH (08:32)
--- NOTE | 2017-07-18 08:39 | PM & R (SOAP) Progress Note ---
Subjective Time Seen by Provider: 07:45 Subjective/Events-last exam Patient was seen in his room this AM Patient SBA for dressing and donning AFO Objective Exam Last Set of Vital Signs Vital Signs Date Time Temp Pulse Resp B/P (MAP) Pulse Ox O2 Delivery O2 Flow Rate FiO2 07/18/17 05:45 97.2 56 20 126/68 95 Room Air Capillary Refill : I&O Intake and Output 07/19/17 00:00 Intake Total 200 ml Balance 200 ml Intake Oral 200 ml # Voids 4 General: Alert, Oriented X3, Cooperative, No Acute Distress HEENT: Atraumatic, PERRLA, EOMI, Mucous Memb Moist/[place] Neck: Supple, No JVD Lungs: Clear to Auscultation Heart: Regular Rate Abdomen: Normal Bowel Sounds, Soft, No Tenderness Extremities: No Edema Neuro: Other (Left HP upper >lower extremity mild dysarthria) Results Lab Laboratory Tests 07/15/17 09:23: Glucometer 125H 07/15/17 20:25: Glucometer 156H 07/16/17 09:25: Glucometer 149H 07/16/17 21:03: Glucometer 153H 07/17/17 09:25: Glucometer 142H 07/17/17 21:08: Glucometer 175H Assessment/Plan Assessment 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
--- NOTE | 2017-07-18 10:05 | Occupational Ther Daily Note ---
OT Current Status-Daily Note Subjective No pain reported. Appearance Pt. asleep in his chair. Declines showering, stating that he doesn't need one. Does agree to work with OT. Mental Status/Objective Patient Orientation: Person, Place, Time, Situation Functional [place] Measure 0=Not Assessed/NA 4=Minimal Assistance 1=Total Assistance 5=Supervision or Setup 2=Maximal Assistance 6=Modified [place] 3=Moderate Assistance 7=Complete [place] ADL-Treatment Functional [place] Measure 0=Not Assessed/NA 4=Minimal Assistance 1=Total Assistance 5=Supervision or Setup 2=Maximal Assistance 6=Modified [place] 3=Moderate Assistance 7=Complete IndependenceIRFPAI Quality Coding Scale 6 Independent with activity with or without an assistive device 5 Patient requires set up or clean up by helper. Patient completes activity by themselves 4 Supervision or touching assist (CGA). [place] provide cues , steadying assist 3 The helper provides less than half the effort to complete the activity 2 The helper provides more than half the effort to complete the activity 1 Dependent. The helper does all the effort to complete an activity 7 Patient refused to complete or attempt activity 9 The patient did not perform the activity before the current illness or injury 88 Not attempted due to Medical conditions or safety concerns Other Treatment Pt. declines showering. States that he is already dressed. Spoke in depth with pt. regarding needs for home. Pt. states that his main concern is that he will have to walk up a ramp to get in his front door. States that his spouse can assist him with this, but that she might have to push him in a wheelchair. Will speak to PT about practicing this with pt. Pt. states that he has had no difficulty with cleansing rear pinky area, and has only had minor difficulty pulling up pants. States that he notices that his left foot "drags" more when he gets tired. OT talks to pt. about need to be able to cook for self, as pt.' s spouse will be gone during the day. He states that he has already spoke to her about this, and they have decided that she will make him a lunch that he can get out of the refridgerator when she is gone. Pt. requests to work on left UE strengthening today. OT applied new electrode pads to left UE consecutively, to left bicep, wrist extensors, and finger flexors. Noted good muscle activation. Tolerated 6 elizabeth-amps x 10 minutes to biceps, 4 elizabeth-amps x 10 minutes to wrist extensors, and 8 elizabeth-amps to finger flexors x 10 minutes. After e-stim, pt. was engaged in various activities to elicite active muscle stimulation in all planes. Note good bicep flexion, active shoulder flexion, slight shoulder elevation, good wrist extension, and finger extension. Unable to elicite finger extension. All needs met in chair. Pt. is educated to continue with exercises. Education OT Patient Education: Correct positioning, Exercise program, Home exercise program, Progress toward Goal/Update tx plan, Purpose of tx/functional activities, Reviewed precautions, Rehab process, Transfer techniques Teaching Recipient: Patient Teaching Methods: Demonstration, Discussion Response to Teaching: Verbalize Understanding, Return Demonstration OT Short Term Goals Short Term Goals Time Frame: Jul 18, 2017 Eating(FIM): 5 Grooming(FIM): 5 Bathing(FIM): 5 Upper Body Dressing(FIM): 5 Lower Body Dressing(FIM): 4 Toileting(FIM): 4 Transfers (B,C,W/C) (FIM): 4 (met) Toilet/Commode Transfer(FIM): 4 Shower Transfer(FIM): 4 Additional Short Term Goals: 1-Demonstrate ADL Tasks, 2-Verbalize Understanding , 3-ImproveStrength/Ninfa 1=Demonstrate adherence to instructed precautions during ADL tasks. 2=Patient will verbalize/demonstrate understanding of assistive devices/ modifications for ADL. 3=Patient will improve strength/tolerance for activity to enable patient to perform ADL's. OT Mcfp Goals Mcfp Goals Time Frame: Aug 01, 2017 Eating (FIM): 6 Eating (QC): 6 Groomin Oral Hygiene (QC): 6 Bathing(FIM): 5 Shower/Bathe Self (QC): 5 Upper Body Dressing(FIM): 6 Upper Body Dressing (QC): 6 Lower Body Dressing(FIM): 6 Lower Body Dressing (QC): 6 On/Off Footwear (QC): 6 Toileting(FIM): 6 Toileting Hygiene (QC): 6 Transfers (B,C,W/C) (FIM): 6 Toilet/Commode Transfer(FIM): 6 Toilet/Commode Transfer (QC): 6 Shower Transfer(FIM): 5 Comprehension(FIM): 6 (MET) Expression (FIM): 6 (MET) Social Interaction(FIM): 6 (MET) Problem Solving(FIM): 6 (MET) Memory(FIM): 6 (MET) Additional Goals: 1-Demonstrate ADL Tasks, 2-Verbalize Understanding, 3- ImproveStrength/Ninfa 1=Demonstrate adherence to instructed precautions during ADL tasks. 2=Patient will verbalize/demonstrate understanding of assistive devices/ modifications for ADL. 3=Patient will improve strength/tolerance for activity to enable patient to perform ADL's. OT Education/Plan Problem List/Assessment Assessment: Decreased Activ Tolerance, Decreased UE Strength, Impaired Bed Mobility, Impaired Coordination, Impaired Funct Balance, Impaired I ADL's, Impaired Self-Care Skills Discharge Recommendations Plan/Recommendations: Continue POC Therapy D/C Recommendations: Home w/ Family Support, Occupational Therapy Home Care Treatment Plan/Plan of Care Treatment,Training & Education: Yes Patient would benefit from OT for education, treatment and training to promote independence in ADL's, mobility, safety and/or upper extremity function for ADL' s. Plan of Care: ADL Retraining, Caregiver Training, Functional Mobility, UE Funct Exercise/Act, UE Neuromus Re-Ed/Coord Treatment Duration: Aug 01, 2017 Frequency: At least 5-7 days/Wk (IRF) Estimated Hrs Per Day: 1.5 hours per day Agreement: Yes Rehab Potential: Good Time/GCodes Start Time: 08:30 Stop Time: 10:00 Total Time Billed (hr/min): 90 Billed Treatment Time 1, ADL x 30minutes, NM x 60minutes NURY LIMON OT Jul 18, 2017 10:05
--- NOTE | 2017-07-18 12:00 | Physical Therapy Daily Note ---
PT Daily Note-Current Subjective Patient agrees to PT. He c/o fatigue. Pain Numeric Pain Scale: 3 Location: Left Location Body Site: Knee Pain Description: Ache Comment: due to hemiparesis Mental Status Patient Orientation: Normal For Age Transfers Functional [place] Measure 0=Not Assessed/NA 4=Minimal Assistance 1=Total Assistance 5=Supervision or Setup 2=Maximal Assistance 6=Modified [place] 3=Moderate Assistance 7=Complete IndependenceIRFPAI Quality Coding Scale 6 Independent with activity with or without an assistive device 5 Patient requires set up or clean up by helper. Patient completes activity by themselves 4 Supervision or touching assist (CGA). [place] provide cues , steadying assist 3 The helper provides less than half the effort to complete the activity 2 The helper provides more than half the effort to complete the activity 1 Dependent. The helper does all the effort to complete an activity 7 Patient refused to complete or attempt activity 9 The patient did not perform the activity before the current illness or injury 88 Not attempted due to Medical conditions or safety concerns Transfers (B, C, W/C) (FIM): 4 Scootin Sit to/from Stand: 4 Sit to Stand (QC): 3 close CGA with use of gait belt for safety Weight Bearing Weight Bearing Restriction: Weight Bearing/Tolerated Location Restriction: LE Bilateral Gait Training Does the Patient Walk?: Yes Gait (FIM): 4 Distance (FIM): 3=150 ft Distance: 250' x 4; 150' x 2 Walk 10 feet (QC): 3 Walk 50 ft with 2 Turns(QC): 3 Walk 150 ft (QC): 3 Walking 10ft/uneven surface-QC: 3 Gait Level of Assist: 4 Gait Assistive Device: Walker Platform (left UE) Patient gait training with left platform FWW 250' x 4 and up and down ramp and on carpet. Patient required minimal assist due to fatigue and difficulty with advancing left LE. Patient had declined AFO left foot use with initial gait training, however, PT placed on and patient ambulated with hemiwalker 150' x 2 with CGA for safety. Assessment Patient is progressing with treatment plan and does fatigue quickly requiring recovery periods. Plan home pass on Saturday with spouse. PT Short Term Goals Short Term Goals Time Frame: Jul 18, 2017 Transfers (B,C,W/C) (FIM): 4 (met) Gait (FIM): 4 (mt) Distance (FIM): 3=150 ft Gait Assistive Device: FWW Wheelchair Distance: 100' PT Usp Goals Usp Goals PT Soap Tender Goals Time Frame: Aug 01, 2017 Transfers (B,C,W/C) (FIM): 6 Sit to Lying (QC): 6 Lying-Sitting on Side/Bed(QC): 6 Sit to Stand (QC): 6 Rollin Roll Left to Right (QC): 6 Chair/Aao-rx-Vowmi Xfer(QC): 6 Car Transfer (QC): 5 Does the Patient Walk: Yes Gait (FIM): 6 Gait distance (FIM): 3=150 ft Walk 10 feet (QC): 6 Walk 10ft-Uneven Surface(QC): 6 Walk 50ft with 2 Turns (QC): 6 Walk 150 ft (QC): 6 Gait Assistive Device: FWW Does the Pt use WC or Scooter?: No Stairs (FIM): 5 # of Steps: 8 1 Step (curb) (QC): 6 4 Steps (QC): 6 12 Steps (QC): 88 Stairs Level Of Assist: 6 Picking up an Object (QC): 5 PT Plan Treatment/Plan Treatment Plan: Continue Plan of Care Treatment Plan: Bed Mobility, Education, Functional Activity Ninfa, Functional Strength, Group Therapy, Gait, Safety Treatment Duration: Aug 01, 2017 Frequency: At least 5-7 days/Wk (IRF) Estimated Hrs Per Day: 1.5 hours per day Patient and/or Family Agrees t: Yes Time/GCodes Time In: 1058 Time Out: 1158 Total Billed Treatment Time: 60 Total Billed Treatment 1 visit GT x 4 60 min LAURA DOUGLASS PT Jul 18, 2017 11:59
--- NOTE | 2017-07-18 14:03 | Physical Therapy Daily Note ---
PT Daily Note-Current Subjective Patient agrees to PT. Patient has 5/10 left knee pain. RN is aware. Pain Numeric Pain Scale: 5-Moderate Pain Location: Left Location Body Site: Knee Pain Description: Ache Mental Status Patient Orientation: Normal For Age Transfers Functional [place] Measure 0=Not Assessed/NA 4=Minimal Assistance 1=Total Assistance 5=Supervision or Setup 2=Maximal Assistance 6=Modified [place] 3=Moderate Assistance 7=Complete IndependenceIRFPAI Quality Coding Scale 6 Independent with activity with or without an assistive device 5 Patient requires set up or clean up by helper. Patient completes activity by themselves 4 Supervision or touching assist (CGA). [place] provide cues , steadying assist 3 The helper provides less than half the effort to complete the activity 2 The helper provides more than half the effort to complete the activity 1 Dependent. The helper does all the effort to complete an activity 7 Patient refused to complete or attempt activity 9 The patient did not perform the activity before the current illness or injury 88 Not attempted due to Medical conditions or safety concerns Transfers (B, C, W/C) (FIM): 5 Scootin Sit to/from Stand: 5 Sit to Stand (QC): 4 Car Transfer (QC): 3 Gait Training Does the Patient Walk?: Yes Gait (FIM): 5 Distance (FIM): 3=150 ft Distance: 150' x 2 Walk 10 feet (QC): 4 Walk 50 ft with 2 Turns(QC): 4 Walk 150 ft (QC): 4 Gait Level of Assist: 5 Gait Persons Needed: 1 Gait Assistive Device: Walker Platform (left platform FWW) Exercises Seated Therapy Exercises: Ankle pumps, Long arc quads, Hip flexion Seated Reps: 20 (2 sets) NuStep Minutes: 15 NuStep Workload: 5 (to increase strength and functional mobility) Assessment Current Status: Good Progress PT Short Term Goals Short Term Goals Time Frame: Jul 18, 2017 Transfers (B,C,W/C) (FIM): 4 (met) Gait (FIM): 4 (mt) Distance (FIM): 3=150 ft Gait Assistive Device: FWW Wheelchair Distance: 100' PT Antique Refinisher Goals Chcf Goals PT Antique Refinisher Goals Time Frame: Aug 01, 2017 Transfers (B,C,W/C) (FIM): 6 Sit to Lying (QC): 6 Lying-Sitting on Side/Bed(QC): 6 Sit to Stand (QC): 6 Rollin Roll Left to Right (QC): 6 Chair/Gnv-me-Hwoym Xfer(QC): 6 Car Transfer (QC): 5 Does the Patient Walk: Yes Gait (FIM): 6 Gait distance (FIM): 3=150 ft Walk 10 feet (QC): 6 Walk 10ft-Uneven Surface(QC): 6 Walk 50ft with 2 Turns (QC): 6 Walk 150 ft (QC): 6 Gait Assistive Device: FWW Does the Pt use WC or Scooter?: No Stairs (FIM): 5 # of Steps: 8 1 Step (curb) (QC): 6 4 Steps (QC): 6 12 Steps (QC): 88 Stairs Level Of Assist: 6 Picking up an Object (QC): 5 PT Plan Treatment/Plan Treatment Plan: Continue Plan of Care Treatment Plan: Bed Mobility, Education, Functional Activity Ninfa, Functional Strength, Group Therapy, Gait, Safety Treatment Duration: Aug 01, 2017 Frequency: At least 5-7 days/Wk (IRF) Estimated Hrs Per Day: 1.5 hours per day Patient and/or Family Agrees t: Yes Time/GCodes Time In: 1258 Time Out: 1328 Total Billed Treatment Time: 30 Total Billed Treatment 1 visit EX x 2 30 min LAURA DOUGLASS PT Jul 18, 2017 14:03
[2017-07-18 18:03] VITALS: BP 154/67
[2017-07-18] MEDS: ATORVASTATIN 40 MG (LIPITOR) TABLET PO SCH (20:30)
[2017-07-19 05:41] VITALS: BP 127/64
[2017-07-19] MEDS: metFORMIN 500 MG (GLUCOPHAGE) TAB PO SCH ×2 (06:31→16:39)
[2017-07-19] MEDS: NAPROXEN 250 MG (NAPROSYN) TABLET PO SCH ×2 (06:31→16:39)
[2017-07-19] MEDS: CLOPIDOGREL 75 MG (PLAVIX) TABLET PO SCH (07:59)
[2017-07-19] MEDS: ASPIRIN E.C. 325 MG (ECOTRIN) TABLET PO SCH (07:59)
--- NOTE | 2017-07-19 08:38 | PM & R (SOAP) Progress Note ---
Subjective Time Seen by Provider: 08:00 Subjective/Events-last exam Patient was seen in his room this AM Progressing well with therapies Patient min assist for transfers Objective Exam Last Set of Vital Signs Vital Signs Date Time Temp Pulse Resp B/P (MAP) Pulse Ox O2 Delivery O2 Flow Rate FiO2 07/19/17 05:41 97.7 61 16 127/64 95 Room Air Capillary Refill : I&O Intake and Output 07/20/17 00:00 Intake Total 990 ml Balance 990 ml Intake Oral 990 ml # Voids 5 General: Alert, Oriented X3, Cooperative, No Acute Distress HEENT: Atraumatic, PERRLA, EOMI, Mucous Memb Moist/[place] Neck: Supple, No JVD Lungs: Clear to Auscultation Heart: Regular Rate Abdomen: Normal Bowel Sounds, Soft, No Tenderness Extremities: No Edema Neuro: Other (Left HP upper >lower extremity mild dysarthria) Results Lab Laboratory Tests 07/16/17 09:25: Glucometer 149H 07/16/17 21:03: Glucometer 153H 07/17/17 09:25: Glucometer 142H 07/17/17 21:08: Glucometer 175H 07/18/17 09:28: Glucometer 229H 07/18/17 21:20: Glucometer 143H Assessment/Plan Assessment Rt 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
--- NOTE | 2017-07-19 13:01 | Physical Therapy Daily Note ---
PT Daily Note-Current Subjective Patient agrees to PT. Pain Numeric Pain Scale: 0-No Pain Location: No Pain Reported Mental Status Patient Orientation: Normal For Age Transfers Functional [place] Measure 0=Not Assessed/NA 4=Minimal Assistance 1=Total Assistance 5=Supervision or Setup 2=Maximal Assistance 6=Modified [place] 3=Moderate Assistance 7=Complete IndependenceIRFPAI Quality Coding Scale 6 Independent with activity with or without an assistive device 5 Patient requires set up or clean up by helper. Patient completes activity by themselves 4 Supervision or touching assist (CGA). [place] provide cues , steadying assist 3 The helper provides less than half the effort to complete the activity 2 The helper provides more than half the effort to complete the activity 1 Dependent. The helper does all the effort to complete an activity 7 Patient refused to complete or attempt activity 9 The patient did not perform the activity before the current illness or injury 88 Not attempted due to Medical conditions or safety concerns Transfers (B, C, W/C) (FIM): 5 Scootin Rollin Roll Left to Right (QC): 4 Supine to/from Sit: 5 Sit to/from Stand: 5 Sit to Lying (QC): 4 Sit to Stand (QC): 4 Chair/Igo-ir-Sndlo Xfer(QC): 4 Bed to/from Chair: 4 Car Transfer (QC): 3 (assist with left LE) Gait Training Does the Patient Walk?: Yes Gait (FIM): 5 Distance (FIM): 3=150 ft Distance: 150' x 4 Walk 10 feet (QC): 4 Walk 50 ft with 2 Turns(QC): 4 Walk 150 ft (QC): 4 Gait Level of Assist: 5 Gait Persons Needed: 1 Gait Assistive Device: Walker [place] close SBA for safety noted left LE lag with difficulty with foot clearance due to fatigue and weakness Exercises Supine Ex: Quad Set, Heel Slides, Short Arc Quads, Straight leg raise Supine Reps: 25 (2 sets; 2# wts bilateral LE to increase strength to improve functional mobility) NuStep Minutes: 12 (to improve reciprocal pattern to improve gait sequencing) NuStep Workload: 5 Assessment Patient is very fatigued on the date and requires recovery periods. He is improving with treatment plan. PT Short Term Goals Short Term Goals Time Frame: Jul 18, 2017 Transfers (B,C,W/C) (FIM): 4 (met) Gait (FIM): 4 (mt) Distance (FIM): 3=150 ft Gait Assistive Device: FWW Wheelchair Distance: 100' PT Mcc Goals District Representative Goals PT District Representative Goals Time Frame: Aug 01, 2017 Transfers (B,C,W/C) (FIM): 6 Sit to Lying (QC): 6 Lying-Sitting on Side/Bed(QC): 6 Sit to Stand (QC): 6 Rollin Roll Left to Right (QC): 6 Chair/Tbd-yi-Bedkr Xfer(QC): 6 Car Transfer (QC): 5 Does the Patient Walk: Yes Gait (FIM): 6 Gait distance (FIM): 3=150 ft Walk 10 feet (QC): 6 Walk 10ft-Uneven Surface(QC): 6 Walk 50ft with 2 Turns (QC): 6 Walk 150 ft (QC): 6 Gait Assistive Device: FWW Does the Pt use WC or Scooter?: No Stairs (FIM): 5 # of Steps: 8 1 Step (curb) (QC): 6 4 Steps (QC): 6 12 Steps (QC): 88 Stairs Level Of Assist: 6 Picking up an Object (QC): 5 PT Plan Treatment/Plan Treatment Plan: Continue Plan of Care Treatment Plan: Bed Mobility, Education, Functional Activity Ninfa, Functional Strength, Group Therapy, Gait, Safety Treatment Duration: Aug 01, 2017 Frequency: At least 5-7 days/Wk (IRF) Estimated Hrs Per Day: 1.5 hours per day Patient and/or Family Agrees t: Yes Time/GCodes Time In: 1100 Time Out: 1200 Total Billed Treatment Time: 60 Total Billed Treatment 1 visit EX x 2 30 min GT x 2 30 min LAURA DOUGLASS PT Jul 19, 2017 13:01
--- NOTE | 2017-07-19 13:05 | Occupational Ther Daily Note ---
OT Current Status-Daily Note Subjective Pt sitting in chair, agrees to treatment. No pain reported. Mental Status/Objective Functional [place] Measure 0=Not Assessed/NA 4=Minimal Assistance 1=Total Assistance 5=Supervision or Setup 2=Maximal Assistance 6=Modified [place] 3=Moderate Assistance 7=Complete [place] ADL-Treatment Pt sit to stand with supervision. Gait to restroom with zayda-walker with CGA. Pt stood at toilet to urinate with SBA. Pt able to manage clothing. Transfer to walk in shower with minimal assistance and cues for safety using grab bar for balance. Doff clothing with SBA. Pt completed seated bathing using hand held shower with SBA. Don pullover shirt with SBA and increased time. Pt had difficulty orienting shirt, but is able to self-correct. Don underwear and shorts with minimal assistance to pull up over left hip. Don bilateral socks with SBA. Pt donned right shoe, but required assist to tie. Assist required to don left AFO and shoe. Elastic shoestrings were placed in shoes. Pt then able to don right shoe after set up. Functional [place] Measure 0=Not Assessed/NA 4=Minimal Assistance 1=Total Assistance 5=Supervision or Setup 2=Maximal Assistance 6=Modified [place] 3=Moderate Assistance 7=Complete IndependenceIRFPAI Quality Coding Scale 6 Independent with activity with or without an assistive device 5 Patient requires set up or clean up by helper. Patient completes activity by themselves 4 Supervision or touching assist (CGA). [place] provide cues , steadying assist 3 The helper provides less than half the effort to complete the activity 2 The helper provides more than half the effort to complete the activity 1 Dependent. The helper does all the effort to complete an activity 7 Patient refused to complete or attempt activity 9 The patient did not perform the activity before the current illness or injury 88 Not attempted due to Medical conditions or safety concerns Bathing (FIM): 5 Shower/Bathe Self (QC): 4 Upper Body (FIM): 5 Upper Body Dressing (QC): 4 Lower Body Dressing (FIM): 4 Lower Body Dressing (QC): 3 On/Off Footwear (QC): 3 Shower Transfer(FIM): 4 Other Treatment Gait to therapy gym with zayda-walker. Cues for safety. Pt completed left UE exercises to promote increased active ROM. Slight shoulder flexion noted. Pt able to participate in shoulder elevation and scapular retraction. Elbow flex/ ext completed in gravity eliminated plane. Pt has good biceps activation, but no active elbow extension noted. PROM x10 for forearm pronation/supination. Pt demonstrates active wrist extension to neutral. Pt able to actively flex fingers , but no active finger extension noted. Pt fatigues quickly with activity and requires rest breaks during activity. Pt returned to room, sitting in chair with needs met after session. OT Short Term Goals Short Term Goals Time Frame: Jul 18, 2017 Eating(FIM): 5 Grooming(FIM): 5 Bathing(FIM): 5 Upper Body Dressing(FIM): 5 Lower Body Dressing(FIM): 4 Toileting(FIM): 4 Transfers (B,C,W/C) (FIM): 4 (met) Toilet/Commode Transfer(FIM): 4 Shower Transfer(FIM): 4 Additional Short Term Goals: 1-Demonstrate ADL Tasks, 2-Verbalize Understanding , 3-ImproveStrength/Ninfa 1=Demonstrate adherence to instructed precautions during ADL tasks. 2=Patient will verbalize/demonstrate understanding of assistive devices/ modifications for ADL. 3=Patient will improve strength/tolerance for activity to enable patient to perform ADL's. OT Intermediate Goals Intermediate Goals Time Frame: Aug 01, 2017 Eating (FIM): 6 Eating (QC): 6 Groomin Oral Hygiene (QC): 6 Bathing(FIM): 5 Shower/Bathe Self (QC): 5 Upper Body Dressing(FIM): 6 Upper Body Dressing (QC): 6 Lower Body Dressing(FIM): 6 Lower Body Dressing (QC): 6 On/Off Footwear (QC): 6 Toileting(FIM): 6 Toileting Hygiene (QC): 6 Transfers (B,C,W/C) (FIM): 6 Toilet/Commode Transfer(FIM): 6 Toilet/Commode Transfer (QC): 6 Shower Transfer(FIM): 5 Comprehension(FIM): 6 (MET) Expression (FIM): 6 (MET) Social Interaction(FIM): 6 (MET) Problem Solving(FIM): 6 (MET) Memory(FIM): 6 (MET) Additional Goals: 1-Demonstrate ADL Tasks, 2-Verbalize Understanding, 3- ImproveStrength/Ninfa 1=Demonstrate adherence to instructed precautions during ADL tasks. 2=Patient will verbalize/demonstrate understanding of assistive devices/ modifications for ADL. 3=Patient will improve strength/tolerance for activity to enable patient to perform ADL's. OT Education/Plan Discharge Recommendations Plan/Recommendations: Continue POC Treatment Plan/Plan of Care Patient would benefit from OT for education, treatment and training to promote independence in ADL's, mobility, safety and/or upper extremity function for ADL' s. Plan of Care: ADL Retraining, Caregiver Training, Functional Mobility, UE Funct Exercise/Act, UE Neuromus Re-Ed/Coord Treatment Duration: Aug 01, 2017 Frequency: At least 5-7 days/Wk (IRF) Estimated Hrs Per Day: 1.5 hours per day Agreement: Yes Rehab Potential: Good Time/GCodes Start Time: 09:00 Stop Time: 10:30 Total Time Billed (hr/min): 90 Billed Treatment Time 1 visit, ADLx4(60minutes), NMx2(30minutes) AISHA BARKER OT Jul 19, 2017 13:05
--- NOTE | 2017-07-19 13:45 | Physical Therapy Daily Note ---
PT Daily Note-Current Subjective Patient c/o fatigue this p.m. Agrees to PT. Pain Numeric Pain Scale: 3 Location: Left Location Body Site: Knee Pain Description: Ache Mental Status Patient Orientation: Normal For Age Transfers Functional [place] Measure 0=Not Assessed/NA 4=Minimal Assistance 1=Total Assistance 5=Supervision or Setup 2=Maximal Assistance 6=Modified [place] 3=Moderate Assistance 7=Complete IndependenceIRFPAI Quality Coding Scale 6 Independent with activity with or without an assistive device 5 Patient requires set up or clean up by helper. Patient completes activity by themselves 4 Supervision or touching assist (CGA). [place] provide cues , steadying assist 3 The helper provides less than half the effort to complete the activity 2 The helper provides more than half the effort to complete the activity 1 Dependent. The helper does all the effort to complete an activity 7 Patient refused to complete or attempt activity 9 The patient did not perform the activity before the current illness or injury 88 Not attempted due to Medical conditions or safety concerns Transfers (B, C, W/C) (FIM): 5 Scootin Sit to/from Stand: 5 Sit to Stand (QC): 4 Gait Training Does the Patient Walk?: Yes Gait (FIM): 5 Distance (FIM): 3=150 ft Distance: 200' x 2 Walk 10 feet (QC): 4 Walk 50 ft with 2 Turns(QC): 4 Walk 150 ft (QC): 4 Gait Level of Assist: 5 Gait Assistive Device: Walker Platform (left platform) step to gait sequence Exercises Standin way Ex=Flex, Abd, Ext Standing Reps: 10 (2 sets with recovery periods between sets and exercises) Assessment Current Status: Good Progress PT Short Term Goals Short Term Goals Time Frame: Jul 18, 2017 Transfers (B,C,W/C) (FIM): 4 (met) Gait (FIM): 4 (mt) Distance (FIM): 3=150 ft Gait Assistive Device: FWW Wheelchair Distance: 100' PT Industrial Relations Specialist Goals Nursing Home Goals PT Nursing Home Goals Time Frame: Aug 01, 2017 Transfers (B,C,W/C) (FIM): 6 Sit to Lying (QC): 6 Lying-Sitting on Side/Bed(QC): 6 Sit to Stand (QC): 6 Rollin Roll Left to Right (QC): 6 Chair/Ubj-eu-Zygwb Xfer(QC): 6 Car Transfer (QC): 5 Does the Patient Walk: Yes Gait (FIM): 6 Gait distance (FIM): 3=150 ft Walk 10 feet (QC): 6 Walk 10ft-Uneven Surface(QC): 6 Walk 50ft with 2 Turns (QC): 6 Walk 150 ft (QC): 6 Gait Assistive Device: FWW Does the Pt use WC or Scooter?: No Stairs (FIM): 5 # of Steps: 8 1 Step (curb) (QC): 6 4 Steps (QC): 6 12 Steps (QC): 88 Stairs Level Of Assist: 6 Picking up an Object (QC): 5 PT Plan Treatment/Plan Treatment Plan: Continue Plan of Care Treatment Plan: Bed Mobility, Education, Functional Activity Ninfa, Functional Strength, Group Therapy, Gait, Safety Treatment Duration: Aug 01, 2017 Frequency: At least 5-7 days/Wk (IRF) Estimated Hrs Per Day: 1.5 hours per day Patient and/or Family Agrees t: Yes Time/GCodes Time In: 1310 Time Out: 1340 Total Billed Treatment Time: 30 Total Billed Treatment 1 visit EX 15 min GT 15 min LAURA DOUGLASS PT Jul 19, 2017 13:45
[2017-07-19 19:00] VITALS: BP 145/70
[2017-07-19] MEDS: ATORVASTATIN 40 MG (LIPITOR) TABLET PO SCH (20:16)
[2017-07-20 05:45] VITALS: BP 116/55
[2017-07-20] MEDS: metFORMIN 500 MG (GLUCOPHAGE) TAB PO SCH ×2 (06:06→17:42)
[2017-07-20] MEDS: NAPROXEN 250 MG (NAPROSYN) TABLET PO SCH ×2 (06:06→17:42)
[2017-07-20] MEDS: ASPIRIN E.C. 325 MG (ECOTRIN) TABLET PO SCH (08:57)
[2017-07-20] MEDS: CLOPIDOGREL 75 MG (PLAVIX) TABLET PO SCH (08:57)
--- NOTE | 2017-07-20 11:03 | Physical Therapy Daily Note ---
PT Daily Note-Current Subjective Pt reclined in recliner upon arrival. Pt agreed to walk with PT for tx. Pain Numeric Pain Scale: 0-No Pain Location: No Pain Reported Mental Status Patient Orientation: Person, Place, Time, Situation Transfers Functional [place] Measure 0=Not Assessed/NA 4=Minimal Assistance 1=Total Assistance 5=Supervision or Setup 2=Maximal Assistance 6=Modified [place] 3=Moderate Assistance 7=Complete IndependenceIRFPAI Quality Coding Scale 6 Independent with activity with or without an assistive device 5 Patient requires set up or clean up by helper. Patient completes activity by themselves 4 Supervision or touching assist ([facility]). [place] provide cues , steadying assist 3 The helper provides less than half the effort to complete the activity 2 The helper provides more than half the effort to complete the activity 1 Dependent. The helper does all the effort to complete an activity 7 Patient refused to complete or attempt activity 9 The patient did not perform the activity before the current illness or injury 88 Not attempted due to Medical conditions or safety concerns Scootin Sit to/from Stand: 4 Sit to Stand (QC): 4 Weight Bearing Weight Bearing Restriction: Full Weight Bearing Location Restriction: LE Bilateral Gait Training Does the Patient Walk?: Yes Distance (FIM): 3=150 ft Distance: 250' Walk 10 feet (QC): 4 Walk 50 ft with 2 Turns(QC): 4 Walk 150 ft (QC): 4 Gait Level of Assist: 4 Gait Persons Needed: 1 Gait Assistive Device: Walker Mir Pt walks with slight shuffle due to inability to DF during ambulation. PT is encouraged to focus on DF while walking. Wheelchair Training Does the Pt Use a Wheelchair?: No Treatments Pt transfers from recliner to standing suing Mir walker at [facility]. PT uses restroom before leaving room for walking. Pt ambulates in [facility] using FWW at [facility] for safety. Pt returns to room to rest in recliner at end of tx with all needs met. Assessment Current Status: Good Progress Pt continues to have tightness and hard to get going first thing in the morning. Pt has made progress with safety and independence of transfers and mobility. PT Short Term Goals Short Term Goals Time Frame: Jul 18, 2017 Transfers (B,C,W/C) (FIM): 4 (met) Gait (FIM): 4 (mt) Distance (FIM): 3=150 ft Gait Assistive Device: FWW Wheelchair Distance: 100' PT Drywall Mechanic Goals [facility] Goals PT Drywall Mechanic Goals Time Frame: Aug 01, 2017 Transfers (B,C,W/C) (FIM): 6 Sit to Lying (QC): 6 Lying-Sitting on Side/Bed(QC): 6 Sit to Stand (QC): 6 Rollin Roll Left to Right (QC): 6 Chair/Sgr-aq-Azfzj Xfer(QC): 6 Car Transfer (QC): 5 Does the Patient Walk: Yes Gait (FIM): 6 Gait distance (FIM): 3=150 ft Walk 10 feet (QC): 6 Walk 10ft-Uneven Surface(QC): 6 Walk 50ft with 2 Turns (QC): 6 Walk 150 ft (QC): 6 Gait Assistive Device: FWW Does the Pt use WC or Scooter?: No Stairs (FIM): 5 # of Steps: 8 1 Step (curb) (QC): 6 4 Steps (QC): 6 12 Steps (QC): 88 Stairs Level Of Assist: 6 Picking up an Object (QC): 5 PT Plan Problem List Problem List: Activity Tolerance, Functional Strength, Safety, Balance, Gait, Transfer Treatment/Plan Treatment Plan: Continue Plan of Care Treatment Plan: Bed Mobility, Education, Functional Activity Ninfa, Functional Strength, Group Therapy, Gait, Safety Treatment Duration: Aug 01, 2017 Frequency: At least 5-7 days/Wk (IRF) Estimated Hrs Per Day: 1.5 hours per day Patient and/or Family Agrees t: Yes Safety Risks/Education Patient Education: Gait Training, Correct Positioning, Safety Issues Teaching Recipient: Patient Teaching Methods: Discussion Response to Teaching: Verbalize Understanding Time/GCodes Time In: 825 Time Out: 845 Total Billed Treatment Time: 20 Total Billed Treatment visit, GT (20m) GRANT GOLDEN PTA Jul 20, 2017 11:03
[2017-07-20 18:41] VITALS: BP 152/71
[2017-07-20] MEDS: ATORVASTATIN 40 MG (LIPITOR) TABLET PO SCH (20:04)
[2017-07-21 05:49] VITALS: BP 129/70
[2017-07-21] MEDS: metFORMIN 500 MG (GLUCOPHAGE) TAB PO SCH ×2 (06:09→16:40)
[2017-07-21] MEDS: NAPROXEN 250 MG (NAPROSYN) TABLET PO SCH ×2 (06:09→16:41)
[2017-07-21] MEDS: ASPIRIN E.C. 325 MG (ECOTRIN) TABLET PO SCH (07:54)
[2017-07-21] MEDS: CLOPIDOGREL 75 MG (PLAVIX) TABLET PO SCH (07:54)
[2017-07-21] MEDS: ATORVASTATIN 40 MG (LIPITOR) TABLET PO SCH (20:53)
[2017-07-21 21:07] VITALS: BP 136/68
[2017-07-22 05:17] VITALS: BP 133/63
[2017-07-22] MEDS: metFORMIN 500 MG (GLUCOPHAGE) TAB PO SCH ×2 (06:03→19:09)
[2017-07-22] MEDS: NAPROXEN 250 MG (NAPROSYN) TABLET PO SCH ×2 (06:03→19:09)
[2017-07-22] MEDS: CLOPIDOGREL 75 MG (PLAVIX) TABLET PO SCH (08:34)
[2017-07-22] MEDS: ASPIRIN E.C. 325 MG (ECOTRIN) TABLET PO SCH (08:34)
--- NOTE | 2017-07-22 08:53 | Physical Therapy Daily Note ---
PT Daily Note-Current Subjective Pt. states his visit to home yesterday went very well and he did well on the ramp he had built. son in law is building a platform to sit his recliner on b/ c it is too low. Pain Numeric Pain Scale: 0-No Pain Mental Status Patient Orientation: Normal For Age Transfers Functional [place] Measure 0=Not Assessed/NA 4=Minimal Assistance 1=Total Assistance 5=Supervision or Setup 2=Maximal Assistance 6=Modified [place] 3=Moderate Assistance 7=Complete IndependenceIRFPAI Quality Coding Scale 6 Independent with activity with or without an assistive device 5 Patient requires set up or clean up by helper. Patient completes activity by themselves 4 Supervision or touching assist (CGA). [place] provide cues , steadying assist 3 The helper provides less than half the effort to complete the activity 2 The helper provides more than half the effort to complete the activity 1 Dependent. The helper does all the effort to complete an activity 7 Patient refused to complete or attempt activity 9 The patient did not perform the activity before the current illness or injury 88 Not attempted due to Medical conditions or safety concerns Transfers (B, C, W/C) (FIM): 6 Scootin Rollin Supine to/from Sit: 6 Sit to/from Stand: 6 Gait Training Does the Patient Walk?: Yes Gait (FIM): 4 Distance (FIM): 3=150 ft (160,75x2) Gait Level of Assist: 4 Gait Persons Needed: 1 Gait Assistive Device: Walker Platform Exercises Supine Ex: Bridging, Ankle pumps (passive with stretching on left), Quad Set, Rolling, Glut sets, Heel Slides, Short Arc Quads, Scooting, Straight leg raise, Hip abd/add Supine Reps: 15 Seated Therapy Exercises: Ankle pumps, Sit to stand, Long arc quads, Hip flexion Seated Reps: 12 Assessment Current Status: Good Progress PT Short Term Goals Short Term Goals Time Frame: Jul 18, 2017 Transfers (B,C,W/C) (FIM): 4 (met) Gait (FIM): 4 (mt) Distance (FIM): 3=150 ft Gait Assistive Device: FWW Wheelchair Distance: 100' PT Associate Manager Goals [facility] Goals PT Associate Manager Goals Time Frame: Aug 01, 2017 Transfers (B,C,W/C) (FIM): 6 Sit to Lying (QC): 6 Lying-Sitting on Side/Bed(QC): 6 Sit to Stand (QC): 6 Rollin Roll Left to Right (QC): 6 Chair/Eyw-xn-Lletp Xfer(QC): 6 Car Transfer (QC): 5 Does the Patient Walk: Yes Gait (FIM): 6 Gait distance (FIM): 3=150 ft Walk 10 feet (QC): 6 Walk 10ft-Uneven Surface(QC): 6 Walk 50ft with 2 Turns (QC): 6 Walk 150 ft (QC): 6 Gait Assistive Device: FWW Does the Pt use WC or Scooter?: No Stairs (FIM): 5 # of Steps: 8 1 Step (curb) (QC): 6 4 Steps (QC): 6 12 Steps (QC): 88 Stairs Level Of Assist: 6 Picking up an Object (QC): 5 PT Plan Treatment/Plan Treatment Plan: Continue Plan of Care Treatment Plan: Bed Mobility, Education, Functional Activity Ninfa, Functional Strength, Group Therapy, Gait, Safety Treatment Duration: Aug 01, 2017 Frequency: At least 5-7 days/Wk (IRF) Estimated Hrs Per Day: 1.5 hours per day Patient and/or Family Agrees t: Yes Safety Risks/Education Patient Education: Gait Training, Transfer Techniques, Correct Positioning, Safety Issues Teaching Recipient: Patient Teaching Methods: Demonstration, Discussion Response to Teaching: Verbalize Understanding, Return Demonstration, Reinforcement Needed Time/GCodes Time In: 800 Time Out: 900 Total Billed Treatment Time: 60 Total Billed Treatment 1,FA15m,GT25m,20m G Codes Necessary: No DAIJA RODRIGUEZ PTA Jul 22, 2017 08:52
--- NOTE | 2017-07-22 09:49 | Progress Note (SOAP) ---
Subjective Date Seen by Provider: Jul 22, 2017 Time Seen by Provider: 08:45 Subjective/Events-last exam PATIENT STATES THAT HE IS FEELING BETTER, HAS IMPROVED STRENGTH AFTER USE OF THE STIM THERAPY ON HIS ARMS AND LEG. HE STATES THAT HE FEELS LIKE HE IS STILL IMPROVING WITH THERAPY AND CONTINUES TO NEED THERAPY FOR IMPROVED FUNCTION. HE DENIES CHEST PAIN, SHORTNESS OF BREATH, DIZZINESS. Review of Systems General: Fatigue, No Malaise HEENT: No Head Aches, No Eye Pain Pulmonary: No Dyspnea, No Cough Cardiovascular: No: Chest Pain, Palpitations Gastrointestinal: No: Nausea, Abdominal Pain Genitourinary: No Dysuria Neurological: Weakness (LEFT ARM/LEG) Objective Exam Vital Signs Date Time Temp Pulse Resp B/P (MAP) Pulse Ox O2 Delivery O2 Flow Rate FiO2 07/22/17 05:17 98.3 58 20 133/63 97 07/21/17 21:07 98.4 62 16 136/68 92 07/21/17 21:05 Room Air Capillary Refill : General Appearance: No Apparent Distress, WD/WN HEENT: PERRL/EOMI, Pharynx Normal Neck: Full Range of Motion, Supple Respiratory: Chest Non Tender, Lungs Clear, Normal Breath Sounds, No Accessory Muscle Use, No Respiratory Distress Cardiovascular: Regular Rate, Rhythm, No Edema Gastrointestinal: normal bowel sounds, non tender, soft, no organomegaly Extremity: Normal Capillary Refill, Non Tender, No Calf Tenderness, No Pedal Edema Neurologic/Psychiatric: Alert, Oriented x3, Motor Weakness (LEFT UPPER ARM/ WRIST, HAND, LEFT FOOT) Skin: Normal Color, Warm/Dry Lymphatic: No Adenopathy Results Lab Laboratory Tests 07/21/17 10:14: Glucometer 124H 07/21/17 21:33: Glucometer 136H Assessment/Plan Assessment/Plan Assess & Plan/Chief Complaint SUBACUTE LACUNAR INFARCT LEFT HEMIPARESIS DIABETES MELLITUS HX OF TICK BITES SUBACUTE LACUNAR INFARCT WITH LEFT HEMIPARESIS - CONTINUE WITH PLAVIX, ASPIRIN, LIPITOR -CHECKED CAROTID ULTRASOUND 40% STENOSIS BILATERALLY AND AN ECHOCARDIOGRAM WHICH IS NEGATIVE. PHYSICAL, OCCUPATIONAL SPEECH AND REC THERAPY TO CONTINUE, MONITOR PROGRESS. PT HAS MORE MOVEMENT IN HIS LEFT HAND, ARM, LEG. PER THERAPY STAFF, PLAN IS FOR ANOTHER WEEK OF THERAPY AND THEN MONITOR FOR PROGRESS, MAY BE ABLE TO HAVE PT STAY FOR ANOTHER 2 WEEKS DEPENDING ON HOW HE IS PROGRESSING WITH HIS STRENGTH. I HAVE TALKED TO FAYE DAY AND JAK YOUNG - THEY REPORT THAT HE HAS HAD GOOD RESPONSE TO STIM THERAPY, AND WOULD LIKE TO GET A BIONESS DEVICE TO USE ON HIS ARM AND LEG/FOOT TO HELP AUGMENT HIS RECOVERY FURTHER. THE THERAPY DEPARTMENT WAS UNABLE TO GET THE BIONESS DEVICE DUE TO "LACK OF STAFF TRAINING" . THE PATIENT IS TO CONTINUE WITH THERAPY, PLAN TO GO HOME WITH FAMILY AND OUTPATIENT THERAPY. DIABETES MELLITUS - RESTARTED METFORMIN - INCREASED DOSE FROM 500MG TO 1000MG- IMPROVED BLOOD GLUCOSE. Clinical Quality Measures DVT/VTE Risk/Contraindication: Risk Factor Score Per Nursin RFS Level Per Nursing on Admit: 4+=Very High ROCHELLE RIBEIRO MD Jul 22, 2017 09:49
--- NOTE | 2017-07-22 14:00 | Physical Therapy Daily Note ---
PT Daily Note-Current Subjective Patient agrees to PT. No c/o at this time. Pain Numeric Pain Scale: 0-No Pain Location: No Pain Reported Mental Status Patient Orientation: Normal For Age Transfers Functional [place] Measure 0=Not Assessed/NA 4=Minimal Assistance 1=Total Assistance 5=Supervision or Setup 2=Maximal Assistance 6=Modified [place] 3=Moderate Assistance 7=Complete IndependenceIRFPAI Quality Coding Scale 6 Independent with activity with or without an assistive device 5 Patient requires set up or clean up by helper. Patient completes activity by themselves 4 Supervision or touching assist (CGA). [place] provide cues , steadying assist 3 The helper provides less than half the effort to complete the activity 2 The helper provides more than half the effort to complete the activity 1 Dependent. The helper does all the effort to complete an activity 7 Patient refused to complete or attempt activity 9 The patient did not perform the activity before the current illness or injury 88 Not attempted due to Medical conditions or safety concerns Transfers (B, C, W/C) (FIM): 5 Scootin Supine to/from Sit: 5 Sit to Lying (QC): 4 Sit to Stand (QC): 4 Gait Training Does the Patient Walk?: Yes Gait (FIM): 5 Distance (FIM): 3=150 ft Distance: 200' x 4 Walk 10 feet (QC): 4 Walk 50 ft with 2 Turns(QC): 4 Walk 150 ft (QC): 4 Gait Level of Assist: 5 Gait Assistive Device: Walker Platform (left platform) slight reciprocal pattern, 90% step to gait sequence Assessment Current Status: Excellent Progress PT Short Term Goals Short Term Goals Time Frame: Jul 18, 2017 Transfers (B,C,W/C) (FIM): 4 (met) Gait (FIM): 4 (mt) Distance (FIM): 3=150 ft Gait Assistive Device: FWW Wheelchair Distance: 100' PT [employer] Goals Half-Way Goals PT Half-Way Goals Time Frame: Aug 01, 2017 Transfers (B,C,W/C) (FIM): 6 Sit to Lying (QC): 6 Lying-Sitting on Side/Bed(QC): 6 Sit to Stand (QC): 6 Rollin Roll Left to Right (QC): 6 Chair/Hht-yc-Uzgpn Xfer(QC): 6 Car Transfer (QC): 5 Does the Patient Walk: Yes Gait (FIM): 6 Gait distance (FIM): 3=150 ft Walk 10 feet (QC): 6 Walk 10ft-Uneven Surface(QC): 6 Walk 50ft with 2 Turns (QC): 6 Walk 150 ft (QC): 6 Gait Assistive Device: FWW Does the Pt use WC or Scooter?: No Stairs (FIM): 5 # of Steps: 8 1 Step (curb) (QC): 6 4 Steps (QC): 6 12 Steps (QC): 88 Stairs Level Of Assist: 6 Picking up an Object (QC): 5 PT Plan Treatment/Plan Treatment Plan: Continue Plan of Care Treatment Plan: Bed Mobility, Education, Functional Activity Ninfa, Functional Strength, Group Therapy, Gait, Safety Treatment Duration: Aug 01, 2017 Frequency: At least 5-7 days/Wk (IRF) Estimated Hrs Per Day: 1.5 hours per day Patient and/or Family Agrees t: Yes Time/GCodes Time In: 1255 Time Out: 1325 Total Billed Treatment Time: 30 Total Billed Treatment 1 visit GT x 2 30 min LAURA DOUGLASS PT Jul 22, 2017 13:59
--- NOTE | 2017-07-22 14:30 | Occupational Ther Daily Note ---
OT Current Status-Daily Note Subjective No pain reported. Appearance Pt. up in chair. Agrees to work with OT. Mental Status/Objective Patient Orientation: Person, Place, Time, Situation Functional [place] Measure 0=Not Assessed/NA 4=Minimal Assistance 1=Total Assistance 5=Supervision or Setup 2=Maximal Assistance 6=Modified [place] 3=Moderate Assistance 7=Complete [place] ADL-Treatment Functional [place] Measure 0=Not Assessed/NA 4=Minimal Assistance 1=Total Assistance 5=Supervision or Setup 2=Maximal Assistance 6=Modified [place] 3=Moderate Assistance 7=Complete IndependenceIRFPAI Quality Coding Scale 6 Independent with activity with or without an assistive device 5 Patient requires set up or clean up by helper. Patient completes activity by themselves 4 Supervision or touching assist (CGA). [place] provide cues , steadying assist 3 The helper provides less than half the effort to complete the activity 2 The helper provides more than half the effort to complete the activity 1 Dependent. The helper does all the effort to complete an activity 7 Patient refused to complete or attempt activity 9 The patient did not perform the activity before the current illness or injury 88 Not attempted due to Medical conditions or safety concerns Bathing (FIM): 5 (Pt. is able to wash self standing in shower with SBA.) Shower/Bathe Self (QC): 4 Upper Body (FIM): 5 (SBA to don shirt. Requires increased time, but able to do so.) Upper Body Dressing (QC): 4 Lower Body Dressing (FIM): 4 (CGA in stance to pull pants up. Pt. is able to don socks sitting, and thread pants and undwerwear around feet sitting.) Lower Body Dressing (QC): 4 On/Off Footwear (QC): 5 Toileting (FIM): 4 (CGA i n stance to urinate at toilet.) Toileting Hygiene (QC): 4 Transfers (B, C, W/C) (FIM): 4 (CGA to ambulate to therapy gym. ) Shower Transfer(FIM): 4 (CGA to transfer into shower. Pt. requires encouragement to do so safely.) Other Treatment Pt. ambulated to therapy gym after ADL treatment. Pt. tolerated left UE electrical stimulation to increase overall strength. Tolerated 4 elizabeth-amps to left bicep, 6 elizabeth-amps to left wrist extensors, and 8 elizabeth-amps to left finger flexors. Pt. tolerated each area for 8-10 minutes. Good activation noted. Pt. encouraged to complete AAROM of left UE. Pt. able to actively flex bicep, extend wrist, and flex fingers. However, noted that pt. fatigued easily and only able to move in those designated planes several times before he was too tired to do them again. Ambulated back to room with CGA for ambulation using platform walker. All needs met back in room. Pt. tolerated treatment well. Continue POC. Education OT Patient Education: Correct positioning, Exercise program, Modified ADL techniques, Progress toward Goal/Update tx plan, Purpose of tx/functional activities, Reviewed precautions, Rehab process, Transfer techniques Teaching Recipient: Patient Teaching Methods: Demonstration, Discussion Response to Teaching: Verbalize Understanding, Return Demonstration OT Short Term Goals Short Term Goals Time Frame: Jul 18, 2017 Eating(FIM): 5 Grooming(FIM): 5 Bathing(FIM): 5 Upper Body Dressing(FIM): 5 Lower Body Dressing(FIM): 4 Toileting(FIM): 4 Transfers (B,C,W/C) (FIM): 4 (met) Toilet/Commode Transfer(FIM): 4 Shower Transfer(FIM): 4 Additional Short Term Goals: 1-Demonstrate ADL Tasks, 2-Verbalize Understanding , 3-ImproveStrength/Ninfa 1=Demonstrate adherence to instructed precautions during ADL tasks. 2=Patient will verbalize/demonstrate understanding of assistive devices/ modifications for ADL. 3=Patient will improve strength/tolerance for activity to enable patient to perform ADL's. OT Long-Term Goals Gas Plant Worker Goals Time Frame: Aug 01, 2017 Eating (FIM): 6 Eating (QC): 6 Groomin Oral Hygiene (QC): 6 Bathing(FIM): 5 Shower/Bathe Self (QC): 5 Upper Body Dressing(FIM): 6 Upper Body Dressing (QC): 6 Lower Body Dressing(FIM): 6 Lower Body Dressing (QC): 6 On/Off Footwear (QC): 6 Toileting(FIM): 6 Toileting Hygiene (QC): 6 Transfers (B,C,W/C) (FIM): 6 Toilet/Commode Transfer(FIM): 6 Toilet/Commode Transfer (QC): 6 Shower Transfer(FIM): 5 Comprehension(FIM): 6 (MET) Expression (FIM): 6 (MET) Social Interaction(FIM): 6 (MET) Problem Solving(FIM): 6 (MET) Memory(FIM): 6 (MET) Additional Goals: 1-Demonstrate ADL Tasks, 2-Verbalize Understanding, 3- ImproveStrength/Ninfa 1=Demonstrate adherence to instructed precautions during ADL tasks. 2=Patient will verbalize/demonstrate understanding of assistive devices/ modifications for ADL. 3=Patient will improve strength/tolerance for activity to enable patient to perform ADL's. OT Education/Plan Problem List/Assessment Assessment: Decreased Activ Tolerance, Decreased UE Strength, Dependent Transfers, Impaired Coordination, Impaired I ADL's, Impaired Self-Care Skills, Restricted Funct UE ROM Discharge Recommendations Plan/Recommendations: Continue POC Therapy D/C Recommendations: Home w/ Family Support, Occupational Therapy Home Care Treatment Plan/Plan of Care Treatment,Training & Education: Yes Patient would benefit from OT for education, treatment and training to promote independence in ADL's, mobility, safety and/or upper extremity function for ADL' s. Plan of Care: ADL Retraining, Caregiver Training, Functional Mobility, UE Funct Exercise/Act, UE Neuromus Re-Ed/Coord Treatment Duration: Aug 01, 2017 Frequency: At least 5-7 days/Wk (IRF) Estimated Hrs Per Day: 1.5 hours per day Agreement: Yes Rehab Potential: Good Time/GCodes Start Time: 09:15 Stop Time: 10:45 Total Time Billed (hr/min): 90 Billed Treatment Time 1, ADL x 45minutes, NM x 45minutes NURY LIMON OT Jul 22, 2017 14:30
[2017-07-22 17:27] VITALS: BP 128/64
[2017-07-22] MEDS: ATORVASTATIN 40 MG (LIPITOR) TABLET PO SCH (20:49)
--- NOTE | 2017-07-22 21:56 | PM & R (SOAP) Progress Note ---
Subjective Time Seen by Provider: 21:40 Subjective/Events-last exam Patient was seen in his room this evening Patient min assist for transfers continues to have return on left Objective Exam Last Set of Vital Signs Vital Signs Date Time Temp Pulse Resp B/P (MAP) Pulse Ox O2 Delivery O2 Flow Rate FiO2 07/22/17 20:19 Room Air 07/22/17 17:27 97.7 60 18 128/64 95 Capillary Refill : I&O Intake and Output 07/23/17 00:00 Intake Total 1915 ml Balance 1915 ml Intake Oral 1915 ml # Voids 8 # Bowel Movements 1 General: Alert, Oriented X3, Cooperative, No Acute Distress HEENT: Atraumatic, PERRLA, EOMI, Mucous Memb Moist/[place] Neck: Supple, No JVD Lungs: Clear to Auscultation Heart: Regular Rate Abdomen: Normal Bowel Sounds, Soft, No Tenderness Extremities: No Edema Neuro: Other (Left HP upper >lower extremity mild dysarthria) Results Lab Laboratory Tests 07/20/17 10:14: Glucometer 194H 07/20/17 21:01: Glucometer 147H 07/21/17 10:14: Glucometer 124H 07/21/17 21:33: Glucometer 136H 07/22/17 10:03: Glucometer 143H 07/22/17 20:50: Glucometer 176H Assessment/Plan Assessment 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
[2017-07-23 05:16] VITALS: BP 115/67
[2017-07-23] MEDS: NAPROXEN 250 MG (NAPROSYN) TABLET PO SCH ×2 (06:04→18:26)
[2017-07-23] MEDS: metFORMIN 500 MG (GLUCOPHAGE) TAB PO SCH ×2 (06:05→18:26)
[2017-07-23] MEDS: CLOPIDOGREL 75 MG (PLAVIX) TABLET PO SCH (08:31)
[2017-07-23] MEDS: ASPIRIN E.C. 325 MG (ECOTRIN) TABLET PO SCH (08:32)
--- NOTE | 2017-07-23 08:58 | PM & R (SOAP) Progress Note ---
Subjective Time Seen by Provider: 08:00 Subjective/Events-last exam Patient was seen in his room this AM Patient min assist for transfers Objective Exam Last Set of Vital Signs Vital Signs Date Time Temp Pulse Resp B/P (MAP) Pulse Ox O2 Delivery O2 Flow Rate FiO2 07/23/17 05:16 97.2 63 16 115/67 96 Room Air Capillary Refill : I&O Intake and Output 07/24/17 00:00 Intake Total 600 ml Balance 600 ml Intake Oral 600 ml # Voids 4 General: Alert, Oriented X3, Cooperative, No Acute Distress HEENT: Atraumatic, PERRLA, EOMI, Mucous Memb Moist/[place] Neck: Supple, No JVD Lungs: Clear to Auscultation Heart: Regular Rate Abdomen: Normal Bowel Sounds, Soft, No Tenderness Extremities: No Edema Neuro: Other (Left HP upper >lower extremity mild dysarthria) Results Lab Laboratory Tests 07/20/17 10:14: Glucometer 194H 07/20/17 21:01: Glucometer 147H 07/21/17 10:14: Glucometer 124H 07/21/17 21:33: Glucometer 136H 07/22/17 10:03: Glucometer 143H 07/22/17 20:50: Glucometer 176H Assessment/Plan Assessment 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
--- NOTE | 2017-07-23 10:20 | Physical Therapy Daily Note ---
PT Daily Note-Current Subjective Patient agrees to ambulate to [facility] at this time. Pain Numeric Pain Scale: 0-No Pain Location: No Pain Reported Mental Status Patient Orientation: Normal For Age Transfers Functional [place] Measure 0=Not Assessed/NA 4=Minimal Assistance 1=Total Assistance 5=Supervision or Setup 2=Maximal Assistance 6=Modified [place] 3=Moderate Assistance 7=Complete IndependenceIRFPAI Quality Coding Scale 6 Independent with activity with or without an assistive device 5 Patient requires set up or clean up by helper. Patient completes activity by themselves 4 Supervision or touching assist (CGA). [place] provide cues , steadying assist 3 The helper provides less than half the effort to complete the activity 2 The helper provides more than half the effort to complete the activity 1 Dependent. The helper does all the effort to complete an activity 7 Patient refused to complete or attempt activity 9 The patient did not perform the activity before the current illness or injury 88 Not attempted due to Medical conditions or safety concerns Transfers (B, C, W/C) (FIM): 5 Scootin Rollin Roll Left to Right (QC): 4 Supine to/from Sit: 5 Sit to/from Stand: 5 Sit to Lying (QC): 4 Sit to Stand (QC): 4 Gait Training Does the Patient Walk?: Yes Gait (FIM): 5 Distance (FIM): 3=150 ft Distance: 400' Walk 10 feet (QC): 4 Walk 50 ft with 2 Turns(QC): 4 Walk 150 ft (QC): 4 Walking 10ft/uneven surface-QC: 4 Gait Level of Assist: 5 Gait Persons Needed: 1 Gait Assistive Device: Walker Platform (left platform) left LE lag with step to gait sequence Assessment Patient does fatigue with distance, however, is improving with functional mobility. Patient continues to desire to return to home with family this week. PT Short Term Goals Short Term Goals Time Frame: Jul 18, 2017 Transfers (B,C,W/C) (FIM): 4 (met) Gait (FIM): 4 (mt) Distance (FIM): 3=150 ft Gait Assistive Device: FWW Wheelchair Distance: 100' PT [facility] Goals Spa Therapist Goals PT Spa Therapist Goals Time Frame: Aug 01, 2017 Transfers (B,C,W/C) (FIM): 6 Sit to Lying (QC): 6 Lying-Sitting on Side/Bed(QC): 6 Sit to Stand (QC): 6 Rollin Roll Left to Right (QC): 6 Chair/Mlt-nv-Zuxjp Xfer(QC): 6 Car Transfer (QC): 5 Does the Patient Walk: Yes Gait (FIM): 6 Gait distance (FIM): 3=150 ft Walk 10 feet (QC): 6 Walk 10ft-Uneven Surface(QC): 6 Walk 50ft with 2 Turns (QC): 6 Walk 150 ft (QC): 6 Gait Assistive Device: FWW Does the Pt use WC or Scooter?: No Stairs (FIM): 5 # of Steps: 8 1 Step (curb) (QC): 6 4 Steps (QC): 6 12 Steps (QC): 88 Stairs Level Of Assist: 6 Picking up an Object (QC): 5 PT Plan Treatment/Plan Treatment Plan: Continue Plan of Care Treatment Plan: Bed Mobility, Education, Functional Activity Ninfa, Functional Strength, Group Therapy, Gait, Safety Treatment Duration: Aug 01, 2017 Frequency: At least 5-7 days/Wk (IRF) Estimated Hrs Per Day: 1.5 hours per day Patient and/or Family Agrees t: Yes Time/GCodes Time In: 950 Time Out: 1000 Total Billed Treatment Time: 10 Total Billed Treatment 1 visit FA 10 min LAURA DOUGLASS PT Jul 23, 2017 10:20
--- NOTE | 2017-07-23 11:36 | Occupational Ther Daily Note ---
OT Current Status-Daily Note Subjective No pain reported. Appearance Pt. declined showering. Agreed to work with OT. Mental Status/Objective Patient Orientation: Person, Place, Time, Situation Functional [place] Measure 0=Not Assessed/NA 4=Minimal Assistance 1=Total Assistance 5=Supervision or Setup 2=Maximal Assistance 6=Modified [place] 3=Moderate Assistance 7=Complete [place] ADL-Treatment Functional [place] Measure 0=Not Assessed/NA 4=Minimal Assistance 1=Total Assistance 5=Supervision or Setup 2=Maximal Assistance 6=Modified [place] 3=Moderate Assistance 7=Complete IndependenceIRFPAI Quality Coding Scale 6 Independent with activity with or without an assistive device 5 Patient requires set up or clean up by helper. Patient completes activity by themselves 4 Supervision or touching assist (CGA). [place] provide cues , steadying assist 3 The helper provides less than half the effort to complete the activity 2 The helper provides more than half the effort to complete the activity 1 Dependent. The helper does all the effort to complete an activity 7 Patient refused to complete or attempt activity 9 The patient did not perform the activity before the current illness or injury 88 Not attempted due to Medical conditions or safety concerns Eating (FIM): 6 (Pt. eating breakfast when OT entered room.) Eating (QC): 6 Transfers (B, C, W/C) (FIM): 4 (CGA for sit-stand and ambulation to therapy gym. Pt. required cues at times to vegetable picker left LE so as not to drag it.) Pt. tolerated e-stim to left UE. Tolerated 4 elizabeth-amps to left wrist extensors , 6 elizabeth-amps to left bicep, and 8 elizabeth-amps to left finger flexors, all for 10 minutes. Good activation noted. Pt. then stood at elevated table and worked on weightbearing activity to promote increased awareness of left side, and proprioceptive feedback of left joints. Pt. educated on how to weightbear using right UE as stabilizer of left UE. Cones placed in front of pt. Pt. instructed to vegetable picker cones using left hand. Pt. able to bring left hand over top of cones with increased effort and pick them up, to stack them on top of eachother. Pt. states that he is fatigued after this activity. Ambulated back to room. All needs met back in chair. Education OT Patient Education: Correct positioning, Exercise program, Progress toward Goal/Update tx plan, Purpose of tx/functional activities, Reviewed precautions, Rehab process, Transfer techniques Teaching Recipient: Patient Teaching Methods: Demonstration, Discussion Response to Teaching: Verbalize Understanding, Return Demonstration OT Short Term Goals Short Term Goals Time Frame: Jul 18, 2017 Eating(FIM): 5 Grooming(FIM): 5 Bathing(FIM): 5 Upper Body Dressing(FIM): 5 Lower Body Dressing(FIM): 4 Toileting(FIM): 4 Transfers (B,C,W/C) (FIM): 4 (met) Toilet/Commode Transfer(FIM): 4 Shower Transfer(FIM): 4 Additional Short Term Goals: 1-Demonstrate ADL Tasks, 2-Verbalize Understanding , 3-ImproveStrength/Ninfa 1=Demonstrate adherence to instructed precautions during ADL tasks. 2=Patient will verbalize/demonstrate understanding of assistive devices/ modifications for ADL. 3=Patient will improve strength/tolerance for activity to enable patient to perform ADL's. OT Die Cast Supervisor Goals Longterm Goals Time Frame: Aug 01, 2017 Eating (FIM): 6 Eating (QC): 6 Groomin Oral Hygiene (QC): 6 Bathing(FIM): 5 Shower/Bathe Self (QC): 5 Upper Body Dressing(FIM): 6 Upper Body Dressing (QC): 6 Lower Body Dressing(FIM): 6 Lower Body Dressing (QC): 6 On/Off Footwear (QC): 6 Toileting(FIM): 6 Toileting Hygiene (QC): 6 Transfers (B,C,W/C) (FIM): 6 Toilet/Commode Transfer(FIM): 6 Toilet/Commode Transfer (QC): 6 Shower Transfer(FIM): 5 Comprehension(FIM): 6 (MET) Expression (FIM): 6 (MET) Social Interaction(FIM): 6 (MET) Problem Solving(FIM): 6 (MET) Memory(FIM): 6 (MET) Additional Goals: 1-Demonstrate ADL Tasks, 2-Verbalize Understanding, 3- ImproveStrength/Ninfa 1=Demonstrate adherence to instructed precautions during ADL tasks. 2=Patient will verbalize/demonstrate understanding of assistive devices/ modifications for ADL. 3=Patient will improve strength/tolerance for activity to enable patient to perform ADL's. OT Education/Plan Problem List/Assessment Assessment: Decreased Activ Tolerance, Decreased UE Strength, Impaired Bed Mobility, Impaired Coordination, Impaired I ADL's, Impaired Self-Care Skills, Restricted Funct UE ROM Discharge Recommendations Plan/Recommendations: Continue POC Therapy D/C Recommendations: Home w/ Family Support, Occupational Therapy Home Care Target Placement Home with spouse. Treatment Plan/Plan of Care Treatment,Training & Education: Yes Patient would benefit from OT for education, treatment and training to promote independence in ADL's, mobility, safety and/or upper extremity function for ADL' s. Plan of Care: ADL Retraining, Caregiver Training, Functional Mobility, UE Funct Exercise/Act, UE Neuromus Re-Ed/Coord Treatment Duration: Aug 01, 2017 Frequency: At least 5-7 days/Wk (IRF) Estimated Hrs Per Day: 1.5 hours per day Agreement: Yes Rehab Potential: Good Time/GCodes Start Time: 08:15 Stop Time: 09:15 Total Time Billed (hr/min): 60 Billed Treatment Time 1, NM x 30minutes, FA x 30minutes NURY LIMON OT Jul 23, 2017 11:36
--- NOTE | 2017-07-23 12:40 | Physical Therapy Daily Note ---
PT Daily Note-Current Subjective Patient agrees to PT. Just complete with stroke club. Pain Numeric Pain Scale: 0-No Pain Location: No Pain Reported Mental Status Patient Orientation: Normal For Age Transfers Functional [place] Measure 0=Not Assessed/NA 4=Minimal Assistance 1=Total Assistance 5=Supervision or Setup 2=Maximal Assistance 6=Modified [place] 3=Moderate Assistance 7=Complete IndependenceIRFPAI Quality Coding Scale 6 Independent with activity with or without an assistive device 5 Patient requires set up or clean up by helper. Patient completes activity by themselves 4 Supervision or touching assist (CGA). [place] provide cues , steadying assist 3 The helper provides less than half the effort to complete the activity 2 The helper provides more than half the effort to complete the activity 1 Dependent. The helper does all the effort to complete an activity 7 Patient refused to complete or attempt activity 9 The patient did not perform the activity before the current illness or injury 88 Not attempted due to Medical conditions or safety concerns Transfers (B, C, W/C) (FIM): 5 Scootin Rollin Roll Left to Right (QC): 4 Supine to/from Sit: 5 Sit to/from Stand: 5 Sit to Lying (QC): 4 Sit to Stand (QC): 4 Chair/Mql-wy-Hykza Xfer(QC): 4 Bed to/from Chair: 5 Car Transfer (QC): 4 Gait Training Does the Patient Walk?: Yes Gait (FIM): 5 Distance (FIM): 3=150 ft Distance: 400' x 1; 150' x 2 (2# wt. bilateral LE) Walk 10 feet (QC): 4 Walk 50 ft with 2 Turns(QC): 4 Walk 150 ft (QC): 4 Walking 10ft/uneven surface-QC: 4 Gait Level of Assist: 5 Gait Persons Needed: 1 Gait Assistive Device: Walker Platform (left platform) step to gait sequence demonstrated increase ability with left foot clearance with 2# wt in place on left LE. Exercises Supine Ex: Quad Set, Lower trunk rotation, Heel Slides, Short Arc Quads, Straight leg raise, Hip abd/add (sidelying) Supine Reps: 20 (2 sets to increase strength to improve functional mobility with 2# wt bilateral LE) Seated Therapy Exercises: Long arc quads Seated Reps: 20 (2 sets with 2# wt) NuStep Minutes: 15 NuStep Workload: 5 (to improve reciprocal pattern with gait and to increase strength to improve functional mobility) Assessment Current Status: Excellent Progress PT Short Term Goals Short Term Goals Time Frame: Jul 18, 2017 Transfers (B,C,W/C) (FIM): 4 (met) Gait (FIM): 4 (mt) Distance (FIM): 3=150 ft Gait Assistive Device: FWW Wheelchair Distance: 100' PT Project Coach Goals Shelter Goals PT Project Coach Goals Time Frame: Aug 01, 2017 Transfers (B,C,W/C) (FIM): 6 Sit to Lying (QC): 6 Lying-Sitting on Side/Bed(QC): 6 Sit to Stand (QC): 6 Rollin Roll Left to Right (QC): 6 Chair/Uus-mw-Fmtih Xfer(QC): 6 Car Transfer (QC): 5 Does the Patient Walk: Yes Gait (FIM): 6 Gait distance (FIM): 3=150 ft Walk 10 feet (QC): 6 Walk 10ft-Uneven Surface(QC): 6 Walk 50ft with 2 Turns (QC): 6 Walk 150 ft (QC): 6 Gait Assistive Device: FWW Does the Pt use WC or Scooter?: No Stairs (FIM): 5 # of Steps: 8 1 Step (curb) (QC): 6 4 Steps (QC): 6 12 Steps (QC): 88 Stairs Level Of Assist: 6 Picking up an Object (QC): 5 PT Plan Treatment/Plan Treatment Plan: Continue Plan of Care Treatment Plan: Bed Mobility, Education, Functional Activity Ninfa, Functional Strength, Group Therapy, Gait, Safety Treatment Duration: Aug 01, 2017 Frequency: At least 5-7 days/Wk (IRF) Estimated Hrs Per Day: 1.5 hours per day Patient and/or Family Agrees t: Yes Time/GCodes Time In: 1050 Time Out: 1200 Total Billed Treatment Time: 70 Total Billed Treatment 1 visit EX x 3 45 min FA x 2 25 min LAURA DOUGLASS PT Jul 23, 2017 12:40
--- NOTE | 2017-07-23 13:21 | Physical Therapy Daily Note ---
PT Daily Note-Current Subjective Patient agrees to PT. Pain Numeric Pain Scale: 0-No Pain Location: No Pain Reported Mental Status Patient Orientation: Normal For Age Transfers Functional [place] Measure 0=Not Assessed/NA 4=Minimal Assistance 1=Total Assistance 5=Supervision or Setup 2=Maximal Assistance 6=Modified [place] 3=Moderate Assistance 7=Complete IndependenceIRFPAI Quality Coding Scale 6 Independent with activity with or without an assistive device 5 Patient requires set up or clean up by helper. Patient completes activity by themselves 4 Supervision or touching assist (CGA). [place] provide cues , steadying assist 3 The helper provides less than half the effort to complete the activity 2 The helper provides more than half the effort to complete the activity 1 Dependent. The helper does all the effort to complete an activity 7 Patient refused to complete or attempt activity 9 The patient did not perform the activity before the current illness or injury 88 Not attempted due to Medical conditions or safety concerns Transfers (B, C, W/C) (FIM): 5 Scootin Sit to/from Stand: 5 Sit to Stand (QC): 4 Gait Training Does the Patient Walk?: Yes Gait (FIM): 2 Distance (FIM): 5=440-91 ft Distance: 100' x 3 Walk 10 feet (QC): 4 Walk 50 ft with 2 Turns(QC): 4 Gait Level of Assist: 5 Gait Assistive Device: Walker Mir (2# wts bilateral LE's to improve foot clearance) Assessment Patient progressing with treatment plan and is highly motivated. PT Short Term Goals Short Term Goals Time Frame: Jul 18, 2017 Transfers (B,C,W/C) (FIM): 4 (met) Gait (FIM): 4 (mt) Distance (FIM): 3=150 ft Gait Assistive Device: FWW Wheelchair Distance: 100' PT [facility] Goals Diesel Truck Crane Operator Goals PT Diesel Truck Crane Operator Goals Time Frame: Aug 01, 2017 Transfers (B,C,W/C) (FIM): 6 Sit to Lying (QC): 6 Lying-Sitting on Side/Bed(QC): 6 Sit to Stand (QC): 6 Rollin Roll Left to Right (QC): 6 Chair/Kuh-zq-Dpudt Xfer(QC): 6 Car Transfer (QC): 5 Does the Patient Walk: Yes Gait (FIM): 6 Gait distance (FIM): 3=150 ft Walk 10 feet (QC): 6 Walk 10ft-Uneven Surface(QC): 6 Walk 50ft with 2 Turns (QC): 6 Walk 150 ft (QC): 6 Gait Assistive Device: FWW Does the Pt use WC or Scooter?: No Stairs (FIM): 5 # of Steps: 8 1 Step (curb) (QC): 6 4 Steps (QC): 6 12 Steps (QC): 88 Stairs Level Of Assist: 6 Picking up an Object (QC): 5 PT Plan Treatment/Plan Treatment Plan: Continue Plan of Care Treatment Plan: Bed Mobility, Education, Functional Activity Ninfa, Functional Strength, Group Therapy, Gait, Safety Treatment Duration: Aug 01, 2017 Frequency: At least 5-7 days/Wk (IRF) Estimated Hrs Per Day: 1.5 hours per day Patient and/or Family Agrees t: Yes Time/GCodes Time In: 1300 Time Out: 1315 Total Billed Treatment Time: 15 Total Billed Treatment 1 visit GT 15 min LAURA DOUGLASS PT Jul 23, 2017 13:21
--- NOTE | 2017-07-23 15:24 | Occupational Ther Daily Note ---
OT Current Status-Daily Note Subjective No pain reported. Appearance Pt. up in chair. Agrees to work with OT. Mental Status/Objective Patient Orientation: Person, Place, Time, Situation Functional [place] Measure 0=Not Assessed/NA 4=Minimal Assistance 1=Total Assistance 5=Supervision or Setup 2=Maximal Assistance 6=Modified [place] 3=Moderate Assistance 7=Complete [place] ADL-Treatment Functional [place] Measure 0=Not Assessed/NA 4=Minimal Assistance 1=Total Assistance 5=Supervision or Setup 2=Maximal Assistance 6=Modified [place] 3=Moderate Assistance 7=Complete IndependenceIRFPAI Quality Coding Scale 6 Independent with activity with or without an assistive device 5 Patient requires set up or clean up by helper. Patient completes activity by themselves 4 Supervision or touching assist (CGA). [place] provide cues , steadying assist 3 The helper provides less than half the effort to complete the activity 2 The helper provides more than half the effort to complete the activity 1 Dependent. The helper does all the effort to complete an activity 7 Patient refused to complete or attempt activity 9 The patient did not perform the activity before the current illness or injury 88 Not attempted due to Medical conditions or safety concerns Other Treatment Pt. transferred out of chair with CGA and ambulated to therapy gym using platform walker. Pt. states that he will most likely be using a platform walker when he goes home. Worked on sit-stands at walker with education to be careful about pushing back on chair, as pt. often will push back on chair and requires chair to be braced, which is not safe. Pt. verbalizes understanding. Pt. worked on bilateral coordination tasks. Threaded left hand with right and worked on crossing midline to picker packer cones and put in one spot from another. Twisted at trunk level with trunk rotation. Worked on self ranging techniques using right UE to guide left UE. Tolerated treatment well. OT facilitated biceps and wrist extensors, and triceps of left UE with muscle tapping and encouragement to actively range left UE. OT then worked on passively ranging left shoulder with scapular facilitation and range with good glide. Tolerated well. Ambulated back to room. All needs met back in room. Education OT Patient Education: Correct positioning, Exercise program, Modified ADL techniques, Progress toward Goal/Update tx plan, Purpose of tx/functional activities, Reviewed precautions, Rehab process, Transfer techniques Teaching Recipient: Patient Teaching Methods: Demonstration, Discussion Response to Teaching: Verbalize Understanding, Return Demonstration OT Short Term Goals Short Term Goals Time Frame: Jul 18, 2017 Eating(FIM): 5 Grooming(FIM): 5 Bathing(FIM): 5 Upper Body Dressing(FIM): 5 Lower Body Dressing(FIM): 4 Toileting(FIM): 4 Transfers (B,C,W/C) (FIM): 4 (met) Toilet/Commode Transfer(FIM): 4 Shower Transfer(FIM): 4 Additional Short Term Goals: 1-Demonstrate ADL Tasks, 2-Verbalize Understanding , 3-ImproveStrength/Ninfa 1=Demonstrate adherence to instructed precautions during ADL tasks. 2=Patient will verbalize/demonstrate understanding of assistive devices/ modifications for ADL. 3=Patient will improve strength/tolerance for activity to enable patient to perform ADL's. OT Snf Goals Pumper Gager Goals Time Frame: Aug 01, 2017 Eating (FIM): 6 Eating (QC): 6 Groomin Oral Hygiene (QC): 6 Bathing(FIM): 5 Shower/Bathe Self (QC): 5 Upper Body Dressing(FIM): 6 Upper Body Dressing (QC): 6 Lower Body Dressing(FIM): 6 Lower Body Dressing (QC): 6 On/Off Footwear (QC): 6 Toileting(FIM): 6 Toileting Hygiene (QC): 6 Transfers (B,C,W/C) (FIM): 6 Toilet/Commode Transfer(FIM): 6 Toilet/Commode Transfer (QC): 6 Shower Transfer(FIM): 5 Comprehension(FIM): 6 (MET) Expression (FIM): 6 (MET) Social Interaction(FIM): 6 (MET) Problem Solving(FIM): 6 (MET) Memory(FIM): 6 (MET) Additional Goals: 1-Demonstrate ADL Tasks, 2-Verbalize Understanding, 3- ImproveStrength/Ninfa 1=Demonstrate adherence to instructed precautions during ADL tasks. 2=Patient will verbalize/demonstrate understanding of assistive devices/ modifications for ADL. 3=Patient will improve strength/tolerance for activity to enable patient to perform ADL's. OT Education/Plan Problem List/Assessment Assessment: Decreased Activ Tolerance, Decreased UE Strength, Impaired Coordination, Impaired I ADL's, Impaired Self-Care Skills, Restricted Funct UE ROM Discharge Recommendations Plan/Recommendations: Continue POC Treatment Plan/Plan of Care Treatment,Training & Education: Yes Patient would benefit from OT for education, treatment and training to promote independence in ADL's, mobility, safety and/or upper extremity function for ADL' s. Plan of Care: ADL Retraining, Caregiver Training, Functional Mobility, UE Funct Exercise/Act, UE Neuromus Re-Ed/Coord Treatment Duration: Aug 01, 2017 Frequency: At least 5-7 days/Wk (IRF) Estimated Hrs Per Day: 1.5 hours per day Agreement: Yes Rehab Potential: Good Time/GCodes Start Time: 13:30 Stop Time: 14:00 Total Time Billed (hr/min): 30 Billed Treatment Time 1, FA x 30minutes NURY LIMON OT Jul 23, 2017 15:23
[2017-07-23 18:50] VITALS: BP 140/68
[2017-07-23] MEDS: ATORVASTATIN 40 MG (LIPITOR) TABLET PO SCH (20:59)
[2017-07-24 05:12] VITALS: BP 122/74
[2017-07-24] MEDS: NAPROXEN 250 MG (NAPROSYN) TABLET PO SCH ×2 (06:20→18:16)
[2017-07-24] MEDS: metFORMIN 500 MG (GLUCOPHAGE) TAB PO SCH ×2 (06:20→18:16)
[2017-07-24] MEDS: CLOPIDOGREL 75 MG (PLAVIX) TABLET PO SCH (08:53)
[2017-07-24] MEDS: ASPIRIN E.C. 325 MG (ECOTRIN) TABLET PO SCH (08:53)
--- NOTE | 2017-07-24 11:13 | Occupational Ther Daily Note ---
OT Current Status-Daily Note Subjective Pt alert, sitting in chair. Declines shower because pt will take one tomorrow while FIM testing. No c/o pain. Agreed to therapy. Mental Status/Objective Patient Orientation: Person, Place, Time, Situation Functional [place] Measure 0=Not Assessed/NA 4=Minimal Assistance 1=Total Assistance 5=Supervision or Setup 2=Maximal Assistance 6=Modified [place] 3=Moderate Assistance 7=Complete [place] ADL-Treatment Functional [place] Measure 0=Not Assessed/NA 4=Minimal Assistance 1=Total Assistance 5=Supervision or Setup 2=Maximal Assistance 6=Modified [place] 3=Moderate Assistance 7=Complete IndependenceIRFPAI Quality Coding Scale 6 Independent with activity with or without an assistive device 5 Patient requires set up or clean up by helper. Patient completes activity by themselves 4 Supervision or touching assist (CGA). [place] provide cues , steadying assist 3 The helper provides less than half the effort to complete the activity 2 The helper provides more than half the effort to complete the activity 1 Dependent. The helper does all the effort to complete an activity 7 Patient refused to complete or attempt activity 9 The patient did not perform the activity before the current illness or injury 88 Not attempted due to Medical conditions or safety concerns Toileting (FIM): 5 (SBA to stand and urinate in toilet. Pt able to manipulate clothing with SBA.) Transfers (B, C, W/C) (FIM): 4 (Pt requires CGA while ambulating with FWW, and sit to stand transfers. ) Toilet/Commode Transfer (FIM): 4 (CGA using platform FWW with toilet transfer.) Other Treatment Pt ambulated to therapy gym with CGA using FWW with arm platform. Tolerated E- Stim to L UE, L wrist extensors 3.5 elizabeth-amp, L bicep 5.5 elizabeth-amp, L finger flexors 4 elizabeth-amp, each for 10 mins. TALENT MANAGEMENT SPECIALIST performed PROM shoulder flexion on pt L UE 10x, pt completes AROM elbow flexion 5x before fatiguing. Pt actively pronates and supinates wrist to neutral with arm resting in lap, letting gravity take rest of way 3x before fatiguing. Pt performs wrist extension 10x to neutral, wrist flexion passively 10x. Pt completes finger flexion 10x AROM needing assistance to extend. Pt ambulates back to room with CGA using FWW with arm platform. After therapy, pt sitting in chair with call light and phone within reach. All needs met in room. OT Short Term Goals Short Term Goals Time Frame: Jul 18, 2017 Eating(FIM): 5 Grooming(FIM): 5 Bathing(FIM): 5 Upper Body Dressing(FIM): 5 Lower Body Dressing(FIM): 4 Toileting(FIM): 4 Transfers (B,C,W/C) (FIM): 4 (met) Toilet/Commode Transfer(FIM): 4 Shower Transfer(FIM): 4 Additional Short Term Goals: 1-Demonstrate ADL Tasks, 2-Verbalize Understanding , 3-ImproveStrength/Ninfa 1=Demonstrate adherence to instructed precautions during ADL tasks. 2=Patient will verbalize/demonstrate understanding of assistive devices/ modifications for ADL. 3=Patient will improve strength/tolerance for activity to enable patient to perform ADL's. OT Snf Goals Telephone Instrument Supervisor Goals Time Frame: Aug 01, 2017 Eating (FIM): 6 Eating (QC): 6 Groomin Oral Hygiene (QC): 6 Bathing(FIM): 5 Shower/Bathe Self (QC): 5 Upper Body Dressing(FIM): 6 Upper Body Dressing (QC): 6 Lower Body Dressing(FIM): 6 Lower Body Dressing (QC): 6 On/Off Footwear (QC): 6 Toileting(FIM): 6 Toileting Hygiene (QC): 6 Transfers (B,C,W/C) (FIM): 6 Toilet/Commode Transfer(FIM): 6 Toilet/Commode Transfer (QC): 6 Shower Transfer(FIM): 5 Comprehension(FIM): 6 (MET) Expression (FIM): 6 (MET) Social Interaction(FIM): 6 (MET) Problem Solving(FIM): 6 (MET) Memory(FIM): 6 (MET) Additional Goals: 1-Demonstrate ADL Tasks, 2-Verbalize Understanding, 3- ImproveStrength/Ninfa 1=Demonstrate adherence to instructed precautions during ADL tasks. 2=Patient will verbalize/demonstrate understanding of assistive devices/ modifications for ADL. 3=Patient will improve strength/tolerance for activity to enable patient to perform ADL's. OT Education/Plan Discharge Recommendations Plan/Recommendations: Continue POC Treatment Plan/Plan of Care Patient would benefit from OT for education, treatment and training to promote independence in ADL's, mobility, safety and/or upper extremity function for ADL' s. Plan of Care: ADL Retraining, Caregiver Training, Functional Mobility, UE Funct Exercise/Act, UE Neuromus Re-Ed/Coord Treatment Duration: Aug 01, 2017 Frequency: At least 5-7 days/Wk (IRF) Estimated Hrs Per Day: 1.5 hours per day Agreement: Yes Rehab Potential: Good Time/GCodes Start Time: 09:00 Stop Time: 10:00 Total Time Billed (hr/min): 60 Billed Treatment Time 1 visit, NM 3 (45 minutes) EX 1 (15 minutes) GREY VAUGHN Jul 24, 2017 11:13
--- NOTE | 2017-07-24 12:54 | Physical Therapy Daily Note ---
PT Daily Note-Current Subjective Pt sitting in recliner upon arrival. Pt agreed to PT. Pt hoping to discharge tomorrow or Saturday. Pain Numeric Pain Scale: 0-No Pain Location: No Pain Reported Mental Status Patient Orientation: Person, Place, Time, Situation Transfers Functional [place] Measure 0=Not Assessed/NA 4=Minimal Assistance 1=Total Assistance 5=Supervision or Setup 2=Maximal Assistance 6=Modified [place] 3=Moderate Assistance 7=Complete IndependenceIRFPAI Quality Coding Scale 6 Independent with activity with or without an assistive device 5 Patient requires set up or clean up by helper. Patient completes activity by themselves 4 Supervision or touching assist (CGA). [place] provide cues , steadying assist 3 The helper provides less than half the effort to complete the activity 2 The helper provides more than half the effort to complete the activity 1 Dependent. The helper does all the effort to complete an activity 7 Patient refused to complete or attempt activity 9 The patient did not perform the activity before the current illness or injury 88 Not attempted due to Medical conditions or safety concerns Scootin Rollin Supine to/from Sit: 4 Sit to/from Stand: 5 Sit to Stand (QC): 5 Weight Bearing Weight Bearing Restriction: Full Weight Bearing Location Restriction: LE Bilateral Gait Training Does the Patient Walk?: Yes Distance (FIM): 3=150 ft Distance: 250' Walk 10 feet (QC): 4 Walk 50 ft with 2 Turns(QC): 4 Walk 150 ft (QC): 4 Gait Level of Assist: 4 Gait Persons Needed: 1 Gait Assistive Device: Walker Platform Pt prefers platform walker for ambulation and will use it at home for safety purposes. Pt walks with slow but steady praful, no LOB. Pt fatigues and needs rest breaks. Wheelchair Training Does the Pt Use a Wheelchair?: No Exercises Supine Ex: Ankle pumps, Quad Set, Heel Slides, Straight leg raise, Hip abd/add Supine Reps: 20 Seated Therapy Exercises: Long arc quads Seated Reps: 20 Supine and EOB Ex completed with 2# ankle weights for strengthening. Treatments Pt transfers from recliner to standing using platform walker at [facility] then transferred to EOB. Pt transferred to Supine in bed to complete Supine Ex at [facility]. Pt then sat up to EOB at Min A to complete Seated Ex. Pt ambulated in Therapy Commons using Walker at [facility]. Pt returned to room at end of tx to rest in recliner and order lunch. Pt resting with all needs met. Assessment Current Status: Good Progress Pt tolerated tx well and wants to discharge tomorrow or Saturday. Pt has improved with strengthening and safety/independence of transfers and mobility. PT Short Term Goals Short Term Goals Time Frame: Jul 18, 2017 Transfers (B,C,W/C) (FIM): 4 (met) Gait (FIM): 4 (mt) Distance (FIM): 3=150 ft Gait Assistive Device: FWW Wheelchair Distance: 100' PT Snf Goals Child Development Specialist Goals PT Child Development Specialist Goals Time Frame: Aug 01, 2017 Transfers (B,C,W/C) (FIM): 6 Sit to Lying (QC): 6 Lying-Sitting on Side/Bed(QC): 6 Sit to Stand (QC): 6 Rollin Roll Left to Right (QC): 6 Chair/Imc-bq-Iurnw Xfer(QC): 6 Car Transfer (QC): 5 Does the Patient Walk: Yes Gait (FIM): 6 Gait distance (FIM): 3=150 ft Walk 10 feet (QC): 6 Walk 10ft-Uneven Surface(QC): 6 Walk 50ft with 2 Turns (QC): 6 Walk 150 ft (QC): 6 Gait Assistive Device: FWW Does the Pt use WC or Scooter?: No Stairs (FIM): 5 # of Steps: 8 1 Step (curb) (QC): 6 4 Steps (QC): 6 12 Steps (QC): 88 Stairs Level Of Assist: 6 Picking up an Object (QC): 5 PT Plan Problem List Problem List: Activity Tolerance, Functional Strength, Safety, Balance, Gait, Bed Mobility Treatment/Plan Treatment Plan: Continue Plan of Care Treatment Plan: Bed Mobility, Education, Functional Activity Ninfa, Functional Strength, Group Therapy, Gait, Safety Treatment Duration: Aug 01, 2017 Frequency: At least 5-7 days/Wk (IRF) Estimated Hrs Per Day: 1.5 hours per day Patient and/or Family Agrees t: Yes Safety Risks/Education Patient Education: Gait Training, Transfer Techniques, Correct Positioning, Safety Issues Teaching Recipient: Patient Teaching Methods: Discussion Response to Teaching: Verbalize Understanding Time/GCodes Time In: 1100 Time Out: 1200 Total Billed Treatment Time: 60 Total Billed Treatment visit, GT (15m), EX x2 (30m) & FA (15m) GRANT GOLDEN RN CORRECTIONS Jul 24, 2017 12:54
--- NOTE | 2017-07-24 14:03 | Occupational Ther Daily Note ---
OT Current Status-Daily Note Subjective Pt alert, sitting in chair. Agreed to therapy, no c/o pain. Mental Status/Objective Patient Orientation: Person, Place, Time, Situation Functional [place] Measure 0=Not Assessed/NA 4=Minimal Assistance 1=Total Assistance 5=Supervision or Setup 2=Maximal Assistance 6=Modified [place] 3=Moderate Assistance 7=Complete [place] ADL-Treatment Functional [place] Measure 0=Not Assessed/NA 4=Minimal Assistance 1=Total Assistance 5=Supervision or Setup 2=Maximal Assistance 6=Modified [place] 3=Moderate Assistance 7=Complete IndependenceIRFPAI Quality Coding Scale 6 Independent with activity with or without an assistive device 5 Patient requires set up or clean up by helper. Patient completes activity by themselves 4 Supervision or touching assist (CGA). [place] provide cues , steadying assist 3 The helper provides less than half the effort to complete the activity 2 The helper provides more than half the effort to complete the activity 1 Dependent. The helper does all the effort to complete an activity 7 Patient refused to complete or attempt activity 9 The patient did not perform the activity before the current illness or injury 88 Not attempted due to Medical conditions or safety concerns Other Treatment Pt ambulated to gym with CGA using FWW with arm platform. Pt performed L shldr external and internal rotation on table with cloth and gravity eliminated, AROM L shldr internal rotation and external rotation to neutral. Pt picked up rings with L UE in standing and put on mat with mod A to grasp, working on FM and finger grasp and release skills in L UE. Pt stood next to mat, grabbing cones with L UE from L side and placing on R side, positioned cones in order for pt to get good residential sales executive, working on gross grasp skills and crossing midline. Pt grasped cone with L hand requiring assistance to maintain residential sales executive while working on elbow flex/ext and scapular protraction/retraction. Tolerated well. Pt ambulated back to room with CGA using FWW and arm platform. After therapy pt sitting in chair, call light and phone in reach. All needs met in room. OT Short Term Goals Short Term Goals Time Frame: Jul 18, 2017 Eating(FIM): 5 Grooming(FIM): 5 Bathing(FIM): 5 Upper Body Dressing(FIM): 5 Lower Body Dressing(FIM): 4 Toileting(FIM): 4 Transfers (B,C,W/C) (FIM): 4 (met) Toilet/Commode Transfer(FIM): 4 Shower Transfer(FIM): 4 Additional Short Term Goals: 1-Demonstrate ADL Tasks, 2-Verbalize Understanding , 3-ImproveStrength/Ninfa 1=Demonstrate adherence to instructed precautions during ADL tasks. 2=Patient will verbalize/demonstrate understanding of assistive devices/ modifications for ADL. 3=Patient will improve strength/tolerance for activity to enable patient to perform ADL's. OT Senior Care Goals Senior Care Goals Time Frame: Aug 01, 2017 Eating (FIM): 6 Eating (QC): 6 Groomin Oral Hygiene (QC): 6 Bathing(FIM): 5 Shower/Bathe Self (QC): 5 Upper Body Dressing(FIM): 6 Upper Body Dressing (QC): 6 Lower Body Dressing(FIM): 6 Lower Body Dressing (QC): 6 On/Off Footwear (QC): 6 Toileting(FIM): 6 Toileting Hygiene (QC): 6 Transfers (B,C,W/C) (FIM): 6 Toilet/Commode Transfer(FIM): 6 Toilet/Commode Transfer (QC): 6 Shower Transfer(FIM): 5 Comprehension(FIM): 6 (MET) Expression (FIM): 6 (MET) Social Interaction(FIM): 6 (MET) Problem Solving(FIM): 6 (MET) Memory(FIM): 6 (MET) Additional Goals: 1-Demonstrate ADL Tasks, 2-Verbalize Understanding, 3- ImproveStrength/Ninfa 1=Demonstrate adherence to instructed precautions during ADL tasks. 2=Patient will verbalize/demonstrate understanding of assistive devices/ modifications for ADL. 3=Patient will improve strength/tolerance for activity to enable patient to perform ADL's. OT Education/Plan Discharge Recommendations Plan/Recommendations: Continue POC Treatment Plan/Plan of Care Patient would benefit from OT for education, treatment and training to promote independence in ADL's, mobility, safety and/or upper extremity function for ADL' s. Plan of Care: ADL Retraining, Caregiver Training, Functional Mobility, UE Funct Exercise/Act, UE Neuromus Re-Ed/Coord Treatment Duration: Aug 01, 2017 Frequency: At least 5-7 days/Wk (IRF) Estimated Hrs Per Day: 1.5 hours per day Agreement: Yes Rehab Potential: Good Time/GCodes Start Time: 13:00 Stop Time: 13:30 Total Time Billed (hr/min): 30 Billed Treatment Time 1 visit, NM 2 (30 minutes) GREY VAUGHN Jul 24, 2017 14:03
--- NOTE | 2017-07-24 15:56 | Physical Therapy Daily Note ---
PT Daily Note-Current Subjective Pt sitting in recliner upon arrival. Pt agrees to PT. Pain Numeric Pain Scale: 0-No Pain Location: No Pain Reported Mental Status Patient Orientation: Person, Place, Time, Situation Transfers Functional [place] Measure 0=Not Assessed/NA 4=Minimal Assistance 1=Total Assistance 5=Supervision or Setup 2=Maximal Assistance 6=Modified [place] 3=Moderate Assistance 7=Complete IndependenceIRFPAI Quality Coding Scale 6 Independent with activity with or without an assistive device 5 Patient requires set up or clean up by helper. Patient completes activity by themselves 4 Supervision or touching assist ([facility]). [place] provide cues , steadying assist 3 The helper provides less than half the effort to complete the activity 2 The helper provides more than half the effort to complete the activity 1 Dependent. The helper does all the effort to complete an activity 7 Patient refused to complete or attempt activity 9 The patient did not perform the activity before the current illness or injury 88 Not attempted due to Medical conditions or safety concerns Scootin Sit to/from Stand: 5 Sit to Stand (QC): 5 Weight Bearing Weight Bearing Restriction: Full Weight Bearing Location Restriction: LE Bilateral Gait Training Does the Patient Walk?: Yes Distance (FIM): 3=150 ft Distance: 150' Walk 10 feet (QC): 4 Walk 50 ft with 2 Turns(QC): 4 Walk 150 ft (QC): 4 Gait Level of Assist: 4 Gait Persons Needed: 1 Gait Assistive Device: Walker Platform Pt's gait is slow but steady, no LOB. Wheelchair Training Does the Pt Use a Wheelchair?: No Exercises NuStep Minutes: 15 NuStep Workload: 3 Treatments Pt transfers from recliner to standing using platform walker at [facility]. Pt ambulates in Therapy Commons before using NuStep for 15m at Workload 3 (using LUE brace & brace for LLE during NuStep use). Pt returns to room to rest at end of tx with all needs met. Assessment Current Status: Good Progress Pt has improved with safety and independence of transfers and mobility. PT Short Term Goals Short Term Goals Time Frame: Jul 18, 2017 Transfers (B,C,W/C) (FIM): 4 (met) Gait (FIM): 4 (mt) Distance (FIM): 3=150 ft Gait Assistive Device: FWW Wheelchair Distance: 100' PT [facility] Goals Highway Commissioner Goals PT [facility] Goals Time Frame: Aug 01, 2017 Transfers (B,C,W/C) (FIM): 6 Sit to Lying (QC): 6 Lying-Sitting on Side/Bed(QC): 6 Sit to Stand (QC): 6 Rollin Roll Left to Right (QC): 6 Chair/Nfi-an-Wxykz Xfer(QC): 6 Car Transfer (QC): 5 Does the Patient Walk: Yes Gait (FIM): 6 Gait distance (FIM): 3=150 ft Walk 10 feet (QC): 6 Walk 10ft-Uneven Surface(QC): 6 Walk 50ft with 2 Turns (QC): 6 Walk 150 ft (QC): 6 Gait Assistive Device: FWW Does the Pt use WC or Scooter?: No Stairs (FIM): 5 # of Steps: 8 1 Step (curb) (QC): 6 4 Steps (QC): 6 12 Steps (QC): 88 Stairs Level Of Assist: 6 Picking up an Object (QC): 5 PT Plan Problem List Problem List: Activity Tolerance, Functional Strength, Safety, Balance, Gait Treatment/Plan Treatment Plan: Continue Plan of Care Treatment Plan: Bed Mobility, Education, Functional Activity Ninfa, Functional Strength, Group Therapy, Gait, Safety Treatment Duration: Aug 01, 2017 Frequency: At least 5-7 days/Wk (IRF) Estimated Hrs Per Day: 1.5 hours per day Patient and/or Family Agrees t: Yes Safety Risks/Education Patient Education: Gait Training, Correct Positioning, Safety Issues Teaching Recipient: Patient Teaching Methods: Discussion Response to Teaching: Verbalize Understanding Time/GCodes Time In: 1400 Time Out: 1430 Total Billed Treatment Time: 30 Total Billed Treatment visit, GT (15m) & EX (15m) GRANT GOLDEN MANAGER MECHANICAL Jul 24, 2017 15:55
--- NOTE | 2017-07-24 17:48 | PM & R (SOAP) Progress Note ---
Subjective Time Seen by Provider: 07:45 Subjective/Events-last exam Patient was seen in his room this AM Progressing well with therapies.Patient SBA for transfers.Patient Anxious for discharge and discharge set for Saturday. Objective Exam Last Set of Vital Signs Vital Signs Date Time Temp Pulse Resp B/P (MAP) Pulse Ox O2 Delivery O2 Flow Rate FiO2 07/24/17 05:12 97.0 63 20 122/74 93 Room Air Capillary Refill : I&O Intake and Output 07/25/17 00:00 Intake Total 100 ml Balance 100 ml Intake Oral 100 ml # Voids 4 General: Alert, Oriented X3, Cooperative, No Acute Distress HEENT: Atraumatic, PERRLA, EOMI, Mucous Memb Moist/[place] Neck: Supple, No JVD Lungs: Clear to Auscultation Heart: Regular Rate Abdomen: Normal Bowel Sounds, Soft, No Tenderness Extremities: No Edema Neuro: Other (Left HP upper >lower extremity mild dysarthria) Results Lab Laboratory Tests 07/21/17 21:33: Glucometer 136H 07/22/17 10:03: Glucometer 143H 07/22/17 20:50: Glucometer 176H 07/23/17 11:01: Glucometer 123H 07/23/17 20:34: Glucometer 144H 07/24/17 10:11: Glucometer 140H Assessment/Plan Assessment Rt lacunar infarct with Left HP and dysarthria OA DM meds adjusted and now well controlled Presbycusis has hearing aides Fall over previous weekend with small abrasion on arm-healed with no further incidents Plan Continue PT/OT/ST Monitor accucheks and adjust meds as needed F/U with DR Prakash prn Team Conference held earlier today-See report for full functional update and POC SWATI STOREY MD Jul 24, 2017 17:48
[2017-07-24 18:00] VITALS: BP 140/62
[2017-07-24] MEDS: ATORVASTATIN 40 MG (LIPITOR) TABLET PO SCH (21:19)
[2017-07-25 05:55] VITALS: BP 124/69
[2017-07-25] MEDS: metFORMIN 500 MG (GLUCOPHAGE) TAB PO SCH ×2 (06:29→17:47)
[2017-07-25] MEDS: NAPROXEN 250 MG (NAPROSYN) TABLET PO SCH ×2 (06:29→17:47)
--- NOTE | 2017-07-25 08:21 | PM & R (SOAP) Progress Note ---
Subjective Time Seen by Provider: 07:55 Subjective/Events-last exam Patient was seen in his room this AM Patient looking forward to discharge tomorrow to home with spouse with HHC Patient still lacks dorsiflexion left ankle and has poor strength in wrist and hand on left but has antigravity strength proximally. Objective Exam Last Set of Vital Signs Vital Signs Date Time Temp Pulse Resp B/P (MAP) Pulse Ox O2 Delivery O2 Flow Rate FiO2 07/25/17 05:55 97.7 63 20 124/69 95 Room Air Capillary Refill : I&O Intake and Output 07/26/17 00:00 Intake Total 450 ml Balance 450 ml Intake Oral 450 ml # Voids 4 General: Alert, Oriented X3, Cooperative, No Acute Distress HEENT: Atraumatic, PERRLA, EOMI, Mucous Memb Moist/[place] Neck: Supple, No JVD Lungs: Clear to Auscultation Heart: Regular Rate Abdomen: Normal Bowel Sounds, Soft, No Tenderness Extremities: No Edema Neuro: Other (Left HP upper >lower extremity mild dysarthria) Results Lab Laboratory Tests 07/22/17 10:03: Glucometer 143H 07/22/17 20:50: Glucometer 176H 07/23/17 11:01: Glucometer 123H 07/23/17 20:34: Glucometer 144H 07/24/17 10:11: Glucometer 140H 07/24/17 21:07: Glucometer 132H Assessment/Plan Assessment Rt lacunar infarct with Left HP and dysarthria OA DM meds adjusted and now well controlled Presbycusis has hearing aides Fall over previous weekend with small abrasion on arm-healed with no further incidents Plan Continue PT/OT/ST Monitor accucheks and adjust meds as needed F/U with DR Prakash prrussell Team Conference held yesterday-See report for full functional update and POC Discharge remains tentatively set for tomorrow to home with family and [facility] Will have f/u with SWATI Olivier MD Jul 25, 2017 08:21
[2017-07-25] MEDS: CLOPIDOGREL 75 MG (PLAVIX) TABLET PO SCH (08:37)
[2017-07-25] MEDS: ASPIRIN E.C. 325 MG (ECOTRIN) TABLET PO SCH (08:37)
--- NOTE | 2017-07-25 12:00 | Physical Therapy Daily Note ---
PT Daily Note-Current Subjective Patient agrees to PT. He donns his socks and shoes with set up. Pain Numeric Pain Scale: 0-No Pain Location: No Pain Reported Mental Status Patient Orientation: Normal For Age Transfers Functional [place] Measure 0=Not Assessed/NA 4=Minimal Assistance 1=Total Assistance 5=Supervision or Setup 2=Maximal Assistance 6=Modified [place] 3=Moderate Assistance 7=Complete IndependenceIRFPAI Quality Coding Scale 6 Independent with activity with or without an assistive device 5 Patient requires set up or clean up by helper. Patient completes activity by themselves 4 Supervision or touching assist (CGA). [place] provide cues , steadying assist 3 The helper provides less than half the effort to complete the activity 2 The helper provides more than half the effort to complete the activity 1 Dependent. The helper does all the effort to complete an activity 7 Patient refused to complete or attempt activity 9 The patient did not perform the activity before the current illness or injury 88 Not attempted due to Medical conditions or safety concerns Transfers (B, C, W/C) (FIM): 5 Scootin Rollin Roll Left to Right (QC): 4 Supine to/from Sit: 5 Sit to/from Stand: 5 Sit to Lying (QC): 4 Sit to Stand (QC): 4 Gait Training Does the Patient Walk?: Yes Gait (FIM): 5 Distance (FIM): 3=150 ft Distance: 175' x 2 Walk 10 feet (QC): 4 Walk 50 ft with 2 Turns(QC): 4 Walk 150 ft (QC): 4 Walking 10ft/uneven surface-QC: 4 Gait Level of Assist: 5 Gait Persons Needed: 1 Gait Assistive Device: Walker Platform (left platform) step to gait sequence leading with left LE Stair Training Stair Training: Handrails/: 1 handrail Stairs (FIM): 2 #of Steps: 4 1 Step (curb) (QC): 4 4 Steps (QC): 4 12 Steps (QC): 88 Stairs: Pattern: Step to Level of Assist: 4 Balance Picking up an Object (QC): 4 Exercises Supine Ex: Quad Set, Glut sets, Lower trunk rotation, Heel Slides, Short Arc Quads, Straight leg raise, Hip abd/add (supine and sidelying) Supine Reps: 20 (2 sets with 2# wt bilaterally to increase strength to perform reciprocal pattern with gait) Seated Therapy Exercises: Long arc quads Seated Reps: 20 (2 sets 2#wt bilaterally to increase strength) Assessment Current Status: Excellent Progress Patient much improve with gross motor skills and will dismiss to home tomorrow with family support and home health intervention. Patient continues to requires SBA for safety with ambulation with left platform FWW. Patient has been educated on safety awareness and is highly aware and knowledgable. PT Short Term Goals Short Term Goals Time Frame: Jul 18, 2017 Transfers (B,C,W/C) (FIM): 4 (met) Gait (FIM): 4 (mt) Distance (FIM): 3=150 ft Gait Assistive Device: FWW Wheelchair Distance: 100' PT Animal Researcher Goals Animal Researcher Goals PT Animal Researcher Goals Time Frame: Aug 01, 2017 Transfers (B,C,W/C) (FIM): 6 Sit to Lying (QC): 6 Lying-Sitting on Side/Bed(QC): 6 Sit to Stand (QC): 6 Rollin Roll Left to Right (QC): 6 Chair/Zlc-co-Cbctq Xfer(QC): 6 Car Transfer (QC): 5 Does the Patient Walk: Yes Gait (FIM): 6 Gait distance (FIM): 3=150 ft Walk 10 feet (QC): 6 Walk 10ft-Uneven Surface(QC): 6 Walk 50ft with 2 Turns (QC): 6 Walk 150 ft (QC): 6 Gait Assistive Device: FWW Does the Pt use WC or Scooter?: No Stairs (FIM): 5 # of Steps: 8 1 Step (curb) (QC): 6 4 Steps (QC): 6 12 Steps (QC): 88 Stairs Level Of Assist: 6 Picking up an Object (QC): 5 PT Plan Treatment/Plan Treatment Plan: Continue Plan of Care Treatment Plan: Bed Mobility, Education, Functional Activity Ninfa, Functional Strength, Group Therapy, Gait, Safety Treatment Duration: Aug 01, 2017 Frequency: At least 5-7 days/Wk (IRF) Estimated Hrs Per Day: 1.5 hours per day Patient and/or Family Agrees t: Yes Time/GCodes Time In: 1050 Time Out: 1150 Total Billed Treatment Time: 60 Total Billed Treatment 1 visit EX x 2 30 min FA 15 min GT 15 min LAURA DOUGLASS PT Jul 25, 2017 12:00
--- NOTE | 2017-07-25 14:09 | Physical Therapy Daily Note ---
PT Daily Note-Current Subjective Patient agrees to PT. No c/o at this time. Pain Numeric Pain Scale: 0-No Pain Location: No Pain Reported Mental Status Patient Orientation: Normal For Age Transfers Functional [place] Measure 0=Not Assessed/NA 4=Minimal Assistance 1=Total Assistance 5=Supervision or Setup 2=Maximal Assistance 6=Modified [place] 3=Moderate Assistance 7=Complete IndependenceIRFPAI Quality Coding Scale 6 Independent with activity with or without an assistive device 5 Patient requires set up or clean up by helper. Patient completes activity by themselves 4 Supervision or touching assist (CGA). [place] provide cues , steadying assist 3 The helper provides less than half the effort to complete the activity 2 The helper provides more than half the effort to complete the activity 1 Dependent. The helper does all the effort to complete an activity 7 Patient refused to complete or attempt activity 9 The patient did not perform the activity before the current illness or injury 88 Not attempted due to Medical conditions or safety concerns Transfers (B, C, W/C) (FIM): 5 Scootin Sit to/from Stand: 5 Sit to Stand (QC): 4 Car Transfer (QC): 4 Gait Training Does the Patient Walk?: Yes Gait (FIM): 5 Distance (FIM): 3=150 ft Distance: 250' x 1; 50' x 1 Walk 10 feet (QC): 4 Walk 50 ft with 2 Turns(QC): 4 Walk 150 ft (QC): 4 Walking 10ft/uneven surface-QC: 4 Gait Level of Assist: 5 Gait Assistive Device: Walker Platform step to gait sequence Exercises NuStep Minutes: 15 NuStep Workload: 5 (to increase strength to improve functional mobility and reciprocal pattern with gait) Assessment Current Status: Excellent Progress PT Short Term Goals Short Term Goals Time Frame: Jul 18, 2017 Transfers (B,C,W/C) (FIM): 4 (met) Gait (FIM): 4 (mt) Distance (FIM): 3=150 ft Gait Assistive Device: FWW Wheelchair Distance: 100' PT Banquet Waiter/Waitress Goals Banquet Waiter/Waitress Goals PT Banquet Waiter/Waitress Goals Time Frame: Aug 01, 2017 Transfers (B,C,W/C) (FIM): 6 Sit to Lying (QC): 6 Lying-Sitting on Side/Bed(QC): 6 Sit to Stand (QC): 6 Rollin Roll Left to Right (QC): 6 Chair/Sgr-qd-Xunvn Xfer(QC): 6 Car Transfer (QC): 5 Does the Patient Walk: Yes Gait (FIM): 6 Gait distance (FIM): 3=150 ft Walk 10 feet (QC): 6 Walk 10ft-Uneven Surface(QC): 6 Walk 50ft with 2 Turns (QC): 6 Walk 150 ft (QC): 6 Gait Assistive Device: FWW Does the Pt use WC or Scooter?: No Stairs (FIM): 5 # of Steps: 8 1 Step (curb) (QC): 6 4 Steps (QC): 6 12 Steps (QC): 88 Stairs Level Of Assist: 6 Picking up an Object (QC): 5 PT Plan Treatment/Plan Treatment Plan: Continue Plan of Care Treatment Plan: Bed Mobility, Education, Functional Activity Ninfa, Functional Strength, Group Therapy, Gait, Safety Treatment Duration: Aug 01, 2017 Frequency: At least 5-7 days/Wk (IRF) Estimated Hrs Per Day: 1.5 hours per day Patient and/or Family Agrees t: Yes Discharge Recommendations Therapy D/C Recommendations: Home w/ Family Support, Physical Therapy Home Care Time/GCodes Time In: 1330 Time Out: 1400 Total Billed Treatment Time: 30 Total Billed Treatment 1 visit GT 15 min EX 15 min LAURA DOUGLASS PT Jul 25, 2017 14:09
--- NOTE | 2017-07-25 16:35 | Occupational Ther Daily Note ---
OT Current Status-Daily Note Subjective No pain reported. Appearance Pt. in bathroom. Agrees to shower. Mental Status/Objective Patient Orientation: Person, Place, Time, Situation Functional [place] Measure 0=Not Assessed/NA 4=Minimal Assistance 1=Total Assistance 5=Supervision or Setup 2=Maximal Assistance 6=Modified [place] 3=Moderate Assistance 7=Complete [place] ADL-Treatment Functional [place] Measure 0=Not Assessed/NA 4=Minimal Assistance 1=Total Assistance 5=Supervision or Setup 2=Maximal Assistance 6=Modified [place] 3=Moderate Assistance 7=Complete IndependenceIRFPAI Quality Coding Scale 6 Independent with activity with or without an assistive device 5 Patient requires set up or clean up by helper. Patient completes activity by themselves 4 Supervision or touching assist (CGA). [place] provide cues , steadying assist 3 The helper provides less than half the effort to complete the activity 2 The helper provides more than half the effort to complete the activity 1 Dependent. The helper does all the effort to complete an activity 7 Patient refused to complete or attempt activity 9 The patient did not perform the activity before the current illness or injury 88 Not attempted due to Medical conditions or safety concerns Grooming (FIM): 5 Oral Hygiene (QC): 5 Bathing (FIM): 5 (SBA in shower.) Shower/Bathe Self (QC): 4 Upper Body (FIM): 4 (Pt. did require min assist today to pull shirt down after multiple attempts to get it down on his own.) Upper Body Dressing (QC): 4 Lower Body Dressing (FIM): 5 (Pt. able to don LE clothing with SBA.) Lower Body Dressing (QC): 4 On/Off Footwear (QC): 4 Toileting (FIM): 5 (Pt. able to toilet self with SBA.) Toileting Hygiene (QC): 5 Transfers (B, C, W/C) (FIM): 6 Toilet/Commode Transfer (FIM): 6 (with some safety concerns.) Shower Transfer(FIM): 5 Other Treatment After ADLs, pt. tolerated E-stim to left UE. Tolerated 10 minutes to left wrist extensors x 8 elizabeth-amps. Tolerated well. Then completed AROM to left wrist extensors and elbow flexors. Note that pt. fatigues easily with active motion, but seems pleased with amount of progress that he has made. All needs met in his room. Education OT Patient Education: Correct positioning, Exercise program, Modified ADL techniques, Progress toward Goal/Update tx plan, Purpose of tx/functional activities, Transfer techniques Teaching Recipient: Patient Teaching Methods: Demonstration, Discussion Response to Teaching: Verbalize Understanding, Return Demonstration OT Short Term Goals Short Term Goals Time Frame: Jul 18, 2017 Eating(FIM): 5 Grooming(FIM): 5 Bathing(FIM): 5 Upper Body Dressing(FIM): 5 Lower Body Dressing(FIM): 4 Toileting(FIM): 4 Transfers (B,C,W/C) (FIM): 4 (met) Toilet/Commode Transfer(FIM): 4 Shower Transfer(FIM): 4 Additional Short Term Goals: 1-Demonstrate ADL Tasks, 2-Verbalize Understanding , 3-ImproveStrength/Ninfa 1=Demonstrate adherence to instructed precautions during ADL tasks. 2=Patient will verbalize/demonstrate understanding of assistive devices/ modifications for ADL. 3=Patient will improve strength/tolerance for activity to enable patient to perform ADL's. OT Group Home Goals Compo Caster Goals Time Frame: Aug 01, 2017 Eating (FIM): 6 Eating (QC): 6 Groomin Oral Hygiene (QC): 6 Bathing(FIM): 5 Shower/Bathe Self (QC): 5 Upper Body Dressing(FIM): 6 Upper Body Dressing (QC): 6 Lower Body Dressing(FIM): 6 Lower Body Dressing (QC): 6 On/Off Footwear (QC): 6 Toileting(FIM): 6 Toileting Hygiene (QC): 6 Transfers (B,C,W/C) (FIM): 6 Toilet/Commode Transfer(FIM): 6 Toilet/Commode Transfer (QC): 6 Shower Transfer(FIM): 5 Comprehension(FIM): 6 (MET) Expression (FIM): 6 (MET) Social Interaction(FIM): 6 (MET) Problem Solving(FIM): 6 (MET) Memory(FIM): 6 (MET) Additional Goals: 1-Demonstrate ADL Tasks, 2-Verbalize Understanding, 3- ImproveStrength/Ninfa 1=Demonstrate adherence to instructed precautions during ADL tasks. 2=Patient will verbalize/demonstrate understanding of assistive devices/ modifications for ADL. 3=Patient will improve strength/tolerance for activity to enable patient to perform ADL's. OT Education/Plan Problem List/Assessment Assessment: Decreased Activ Tolerance, Decreased UE Strength, Dependent Transfers, Impaired Bed Mobility, Impaired Coordination, Impaired Funct Balance , Impaired I ADL's, Impaired Self-Care Skills, Restricted Funct UE ROM Discharge Recommendations Plan/Recommendations: Continue POC Therapy D/C Recommendations: Home w/ Family Support, Occupational Therapy Home Care Treatment Plan/Plan of Care Treatment,Training & Education: Yes Patient would benefit from OT for education, treatment and training to promote independence in ADL's, mobility, safety and/or upper extremity function for ADL' s. Plan of Care: ADL Retraining, Caregiver Training, Functional Mobility, UE Funct Exercise/Act, UE Neuromus Re-Ed/Coord Treatment Duration: Aug 01, 2017 Frequency: At least 5-7 days/Wk (IRF) Estimated Hrs Per Day: 1.5 hours per day Agreement: Yes Rehab Potential: Good Time/GCodes Start Time: 08:15 Stop Time: 09:15 Total Time Billed (hr/min): 60 Billed Treatment Time 1, ADL x 45minutes, NM x 15minutes NURY LIMON OT Jul 25, 2017 16:35
--- NOTE | 2017-07-25 16:44 | Occupational Ther Daily Note ---
OT Current Status-Daily Note Subjective No pain reported. Appearance Pt. in gym area. Mental Status/Objective Patient Orientation: Person, Place Functional [place] Measure 0=Not Assessed/NA 4=Minimal Assistance 1=Total Assistance 5=Supervision or Setup 2=Maximal Assistance 6=Modified [place] 3=Moderate Assistance 7=Complete [place] ADL-Treatment Functional [place] Measure 0=Not Assessed/NA 4=Minimal Assistance 1=Total Assistance 5=Supervision or Setup 2=Maximal Assistance 6=Modified [place] 3=Moderate Assistance 7=Complete IndependenceIRFPAI Quality Coding Scale 6 Independent with activity with or without an assistive device 5 Patient requires set up or clean up by helper. Patient completes activity by themselves 4 Supervision or touching assist (CGA). [place] provide cues , steadying assist 3 The helper provides less than half the effort to complete the activity 2 The helper provides more than half the effort to complete the activity 1 Dependent. The helper does all the effort to complete an activity 7 Patient refused to complete or attempt activity 9 The patient did not perform the activity before the current illness or injury 88 Not attempted due to Medical conditions or safety concerns Transfers (B, C, W/C) (FIM): 6 (with platform walker.) Pt. completed series of UE AROM and AAROM exercises in multiple planes. Worked on trunk rotation, bilateral coordination, crossing midline, scapular retraction , protraction, shoulder flexion, core strengthening, elbow flexion, wrist extension, etc..... to increase overall UE strength and movement. Pt. is educated in upper body and core exercises to continue with at home to increase overall strength and mobility. Pt. verbalizes understanding. Pt. states that he notices that he has made progress in all areas. Education OT Patient Education: Correct positioning, Exercise program, Modified ADL techniques, Progress toward Goal/Update tx plan, Purpose of tx/functional activities, Reviewed precautions, Rehab process, Transfer techniques Teaching Recipient: Patient Teaching Methods: Demonstration, Discussion Response to Teaching: Verbalize Understanding, Return Demonstration OT Short Term Goals Short Term Goals Time Frame: Jul 18, 2017 Eating(FIM): 5 Grooming(FIM): 5 Bathing(FIM): 5 Upper Body Dressing(FIM): 5 Lower Body Dressing(FIM): 4 Toileting(FIM): 4 Transfers (B,C,W/C) (FIM): 4 (met) Toilet/Commode Transfer(FIM): 4 Shower Transfer(FIM): 4 Additional Short Term Goals: 1-Demonstrate ADL Tasks, 2-Verbalize Understanding , 3-ImproveStrength/Ninfa 1=Demonstrate adherence to instructed precautions during ADL tasks. 2=Patient will verbalize/demonstrate understanding of assistive devices/ modifications for ADL. 3=Patient will improve strength/tolerance for activity to enable patient to perform ADL's. OT Photographer Model Goals Photographer Model Goals Time Frame: Aug 01, 2017 Eating (FIM): 6 Eating (QC): 6 Groomin Oral Hygiene (QC): 6 Bathing(FIM): 5 Shower/Bathe Self (QC): 5 Upper Body Dressing(FIM): 6 Upper Body Dressing (QC): 6 Lower Body Dressing(FIM): 6 Lower Body Dressing (QC): 6 On/Off Footwear (QC): 6 Toileting(FIM): 6 Toileting Hygiene (QC): 6 Transfers (B,C,W/C) (FIM): 6 Toilet/Commode Transfer(FIM): 6 Toilet/Commode Transfer (QC): 6 Shower Transfer(FIM): 5 Comprehension(FIM): 6 (MET) Expression (FIM): 6 (MET) Social Interaction(FIM): 6 (MET) Problem Solving(FIM): 6 (MET) Memory(FIM): 6 (MET) Additional Goals: 1-Demonstrate ADL Tasks, 2-Verbalize Understanding, 3- ImproveStrength/Ninfa 1=Demonstrate adherence to instructed precautions during ADL tasks. 2=Patient will verbalize/demonstrate understanding of assistive devices/ modifications for ADL. 3=Patient will improve strength/tolerance for activity to enable patient to perform ADL's. OT Education/Plan Problem List/Assessment Assessment: Decreased Activ Tolerance, Decreased UE Strength, Impaired Coordination, Impaired I ADL's, Restricted Funct UE ROM Discharge Recommendations Plan/Recommendations: Continue POC Therapy D/C Recommendations: Home w/ Family Support, Occupational Therapy Home Care Treatment Plan/Plan of Care Treatment,Training & Education: Yes Patient would benefit from OT for education, treatment and training to promote independence in ADL's, mobility, safety and/or upper extremity function for ADL' s. Plan of Care: ADL Retraining, Caregiver Training, Functional Mobility, UE Funct Exercise/Act, UE Neuromus Re-Ed/Coord Treatment Duration: Aug 01, 2017 Frequency: At least 5-7 days/Wk (IRF) Estimated Hrs Per Day: 1.5 hours per day Agreement: Yes Rehab Potential: Good Time/GCodes Start Time: 14:00 Stop Time: 14:30 Total Time Billed (hr/min): 30 Billed Treatment Time 1, ADL x 15minutes, NM x 15minutes NURY LIMON OT Jul 25, 2017 16:44
[2017-07-25 19:28] VITALS: BP 156/72
[2017-07-25] MEDS: ATORVASTATIN 40 MG (LIPITOR) TABLET PO SCH (20:23)
[2017-07-26 06:00] VITALS: BP 117/70
[2017-07-26] MEDS: metFORMIN 500 MG (GLUCOPHAGE) TAB PO SCH (06:06)
[2017-07-26] MEDS: NAPROXEN 250 MG (NAPROSYN) TABLET PO SCH (06:07)
[2017-07-26] MEDS: CLOPIDOGREL 75 MG (PLAVIX) TABLET PO SCH (07:46)
[2017-07-26] MEDS: ASPIRIN E.C. 325 MG (ECOTRIN) TABLET PO SCH (07:46)
--- NOTE | 2017-07-26 08:14 | Therapy Team Discharge Summary ---
Therapy Discharge Summary Discharge Recommendations Date of Discharge Therapy D/C Recommendations: Home w/ Family Support, Occupational Therapy Home Care, Physical Therapy Home Care Physical Therapy Pt presented to ED on 06/28/17 with left sided weakness; diagnostic testing revealed CVA; pt sent home. Pt reports his symptoms did not resolve and presented to his primary care physicians office on 07/03/17; pt admitted to ARU directly with left sided weakness. Upon initial evaluation, patient required close CGA with skilled cues to sequence; difficulty clearing left LE as he swings through with toe drag and limited foot clearance with ambulation with left platform FWW. Patient upon dismissal, is SBA with ambulation, transfers and bed mobility. Patient has advanced with ambulation left platform FWW to SBA x 300' with improvement of left foot clearance and Good balance. Home Health to follow to continue to address gross motor skills. Goals not attained. PT Radio Repairer Domestic Goals Usp Goals PT Usp Goals Time Frame: Aug 01, 2017 Transfers (B,C,W/C) (FIM): 6 Roll Left to Right (QC): 6 Sit to Lying (QC): 6 Lying-Sitting on Side/Bed(QC): 6 Sit to Stand (QC): 6 Chair/Gnp-lx-Lzcdo Xfer(QC): 6 Car Transfer (QC): 5 Does the Patient Walk: Yes Gait (FIM): 6 Gait distance (FIM): 3=150 ft Walk 10 feet (QC): 6 Walk 10ft-Uneven Surface(QC): 6 Walk 50ft with 2 Turns (QC): 6 Walk 150 ft (QC): 6 Gait Assistive Device: FWW Does the Pt use WC or Scooter?: No Stairs (FIM): 5 # of Steps: 8 1 Step (curb) (QC): 6 4 Steps (QC): 6 12 Steps (QC): 88 Stairs Level Of Assist: 6 Picking up an Object (QC): 5 OT Radio Repairer Domestic Goals Usp Goals Time Frame: Aug 01, 2017 Eating (FIM): 6 Eating (QC): 6 Oral Hygiene (QC): 6 Grooming(FIM): 6 Bathing(FIM): 5 Shower/Bathe Self (QC): 5 Upper Body Dressing(FIM): 6 Upper Body Dressing (QC): 6 Lower Body Dressing(FIM): 6 Lower Body Dressing (QC): 6 On/Off Footwear (QC): 6 Toileting(FIM): 6 Toileting Hygiene (QC): 6 Transfers (B,C,W/C) (FIM): 6 Toilet/Commode Transfer(FIM): 6 Toilet/Commode Transfer (QC): 6 Shower Transfer(FIM): 5 Comprehension(FIM): 6 (MET) Expression (FIM): 6 (MET) Social Interaction(FIM): 6 (MET) Problem Solving(FIM): 6 (MET) Memory(FIM): 6 (MET) Additional Goals: 1-Demonstrate ADL Tasks, 2-Verbalize Understanding, 3- ImproveStrength/Ninfa 1=Demonstrate adherence to instructed precautions during ADL tasks. 2=Patient will verbalize/demonstrate understanding of assistive devices/ modifications for ADL. 3=Patient will improve strength/tolerance for activity to enable patient to perform ADL's. Speech Usp Goals Radio Repairer Domestic Goals 1. The patient will demonstrate increased intelligibility through oral expression. Time Frame: One Week Comprehension: 6 (MET) Expression: 6 (MET) Social Interaction: 6 (MET) Problem Solvin (MET) Memory: 6 (MET) LAURA DOUGLASS PT Jul 26, 2017 08:14
--- NOTE | 2017-07-26 08:33 | PM & R (SOAP) Progress Note ---
Subjective Time Seen by Provider: 08:00 Subjective/Events-last exam Patient was seen in his room this AM.Patient looking forward to discharge today. Objective Exam Last Set of Vital Signs Vital Signs Date Time Temp Pulse Resp B/P (MAP) Pulse Ox O2 Delivery O2 Flow Rate FiO2 07/26/17 06:00 97.7 60 16 117/70 93 Room Air Capillary Refill : I&O Intake and Output 07/27/17 00:00 Intake Total 300 ml Balance 300 ml Intake Oral 300 ml # Voids 4 General: Alert, Oriented X3, Cooperative, No Acute Distress HEENT: Atraumatic, PERRLA, EOMI, Mucous Memb Moist/[place] Neck: Supple, No JVD Lungs: Clear to Auscultation Heart: Regular Rate Abdomen: Normal Bowel Sounds, Soft, No Tenderness Extremities: No Edema Neuro: Other (Left HP upper >lower extremity mild dysarthria) Results Lab Laboratory Tests 07/23/17 11:01: Glucometer 123H 07/23/17 20:34: Glucometer 144H 07/24/17 10:11: Glucometer 140H 07/24/17 21:07: Glucometer 132H 07/25/17 10:22: Glucometer 149H 07/25/17 21:23: Glucometer 148H Assessment/Plan Assessment Rt lacunar infarct with Left HP and dysarthria OA DM meds adjusted and now well controlled Presbycusis has hearing aides Fall over previous weekend with small abrasion on arm-healed with no further incidents Plan Discharge today to home with family and HHC Will have f/u with DR Prakash See orders SWATI STOREY MD Jul 26, 2017 08:33
--- NOTE | 2017-07-26 09:10 | Therapy Team Discharge Summary ---
Therapy Discharge Summary Discharge Recommendations Date of Discharge 07-26-17 Therapy D/C Recommendations: Home w/ Family Support, Occupational Therapy Home Care, Physical Therapy Home Care Occupational Therapy Pt. has been seen by occupational therapy to increase overall strength and independence with daily tasks. Pt. has made substantial progress, but still would benefit from skilled OT to increase left UE movement and strength, and well as ADL skills that would make him more successful and independent in all areas. Pt. has met some goals, while still striving to reach others. Please see goals met. Pt. has made progress in movement in left UE. Has gained movement in left UE bicep, wrist extensors, and finger flexors. However, these are still weak areas, and not functional for overall skill set. Pt. has been successful with electrical stimulation trials and has benefitted in this setting with this modality. Would benefit from continued occupational therapy. Pt. to discharge home with spouse and family support. PT Fpc Goals Education Administrator Goals PT Fpc Goals Time Frame: Aug 01, 2017 Transfers (B,C,W/C) (FIM): 6 Roll Left to Right (QC): 6 Sit to Lying (QC): 6 Lying-Sitting on Side/Bed(QC): 6 Sit to Stand (QC): 6 Chair/Zsz-mx-Dsxcp Xfer(QC): 6 Car Transfer (QC): 5 Does the Patient Walk: Yes Gait (FIM): 6 Gait distance (FIM): 3=150 ft Walk 10 feet (QC): 6 Walk 10ft-Uneven Surface(QC): 6 Walk 50ft with 2 Turns (QC): 6 Walk 150 ft (QC): 6 Gait Assistive Device: FWW Does the Pt use WC or Scooter?: No Stairs (FIM): 5 # of Steps: 8 1 Step (curb) (QC): 6 4 Steps (QC): 6 12 Steps (QC): 88 Stairs Level Of Assist: 6 Picking up an Object (QC): 5 OT Education Administrator Goals Education Administrator Goals Time Frame: Aug 01, 2017 Eating (FIM): 6 (met) Eating (QC): 6 (met) Oral Hygiene (QC): 6 (not met) Grooming(FIM): 6 (not met) Bathing(FIM): 5 (met) Shower/Bathe Self (QC): 5 (not met) Upper Body Dressing(FIM): 6 (not met) Upper Body Dressing (QC): 6 (not met) Lower Body Dressing(FIM): 6 (not met) Lower Body Dressing (QC): 6 (not met) On/Off Footwear (QC): 6 (not met) Toileting(FIM): 6 (met) Toileting Hygiene (QC): 6 (met) Transfers (B,C,W/C) (FIM): 6 (met) Toilet/Commode Transfer(FIM): 6 (met) Toilet/Commode Transfer (QC): 6 (met) Shower Transfer(FIM): 5 (met) Comprehension(FIM): 6 (MET) Expression (FIM): 6 (MET) Social Interaction(FIM): 6 (MET) Problem Solving(FIM): 6 (MET) Memory(FIM): 6 (MET) Additional Goals: 1-Demonstrate ADL Tasks, 2-Verbalize Understanding, 3- ImproveStrength/Ninfa 1=Demonstrate adherence to instructed precautions during ADL tasks. 2=Patient will verbalize/demonstrate understanding of assistive devices/ modifications for ADL. 3=Patient will improve strength/tolerance for activity to enable patient to perform ADL's. Speech Education Administrator Goals Education Administrator Goals 1. The patient will demonstrate increased intelligibility through oral expression. Time Frame: One Week Comprehension: 6 (MET) Expression: 6 (MET) Social Interaction: 6 (MET) Problem Solvin (MET) Memory: 6 (MET) NURY LIMON OT Jul 26, 2017 09:10
[2017-07-26] MEDS ORDERED: CLOP75TA28 PO (09:48)
[2017-07-26] MEDS ORDERED: ATOR40TA PO (09:48)
[2017-07-26 11:35] VITALS: BP 117/70
--- NOTE | 2017-08-01 09:18 | DISCHARGE SUMMARY ---
DATE OF SERVICE: HISTORY OF PRESENT ILLNESS: The patient is a 67-year-old retired male who was admitted from Dr. Prakash's office PCP after imaging studies revealed an acute lacunar infarct on the right with resulting left hemiparesis. He was initially evaluated in ED and sent home, but having increasing weakness and problems with daily routine at home. He lives with his spouse in [place], [place]. He was referred to inpatient rehabilitation unit for ongoing stroke rehabilitation. He had been independent prior to this. PAST MEDICAL HISTORY: Diabetes mellitus, arthritis, presbycusis. He has bilateral hearing aids. He has had bilateral total knee replacements and elbow surgeries in the past. 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 He has been active in [employer] shows with his spouse during his long-term. MEDICAL COURSE: The patient was followed by Dr. Bradshaw and Olinda while on rehab unit. He was continued on his Lipitor, Plavix, aspirin and metformin. He was afebrile during his stay. His pulse was 60, respirations 16, blood pressure 117/70 on 07/26/2017, O2 sat 93% on room air. CBC on 07/04/2017 showed WBC 10.2, H and H 14.4/43, platelet count of 215k. Glucometer readings from 07/24/2017 to 07/26/2017 varied between 132 and 197. REHABILITATION COURSE: He progressed well with his therapies. He had increased strength and endurance. He had gradual return of his left hemiparesis but still lacked functional grain packer strength on the left. Speech therapy notes: Upon admission, the patient demonstrated mild dysarthria and left labial droop. Upon discharge, the patient demonstrated high accuracy with all exercises and strategies for oral motor exercises and functional speech. OT notes: Upon admission, he was mod assist for bathing, upper body dressing, max assist lower body dressing, mod assist for transfers, shower transfers, set up for grooming. Upon discharge, he has made good progress and movements with the left upper limb. He has gained movement in the left biceps, wrist extensors and finger flexors; however, these are still weak areas and not functional for overall skillset. He has been successful with electrical stimulation trials and has benefited in this setting with his mobility. He would benefit from ongoing therapies. Upon discharge he is setup for dressing, modified independent for toileting, hygiene and transfers, standby assist for shower transfers, standby assist for grooming, modified independent for eating, set up for bathing. PT notes: Upon admission, the patient required close contact guard with skilled cues to sequence difficulty clearing left lower limb as he swings through with toe drag and had limited foot clearance with ambulation with a left platform front wheeled walker. Upon discharge, he is standby assist for ambulation, transfers and bed mobility. He has advanced with ambulation with a left platform front wheeled walker to standby assist for 300 feet with improvement with left foot clearance and good balance. Home health care was recommended. DISCHARGE INSTRUCTIONS: The patient will have followup with Dr. Prakash 08/02/2016. The patient will have home health services. Accu-Cheks as per home regimen. Continue current diet. DISCHARGE MEDICATIONS: Lipitor 40 mg p.o. daily, Plavix 75 mg p.o. daily, ASA 81 mg p.o. daily. Victoza 1 to 2 mg subcu at bedtime, metformin 1000 mg p.o. b.i.d., naproxen 1 to 2 tablets p.o. b.i.d. p.r.n. pain. DISCHARGE DIAGNOSES: 1. Rehabilitation right lacunar infarct with resulting left hemiparesis and mild dysarthria with decline in his functional independence, improving. 2. Dysarthria, improved. 3. Diabetes mellitus controlled with medication. 4. Osteoarthritis status post bilateral total knee replacements. 5. Presbycusis, has bilateral hearing aids. CONDITION AT DISCHARGE: Improved and stable. PROGNOSIS: Rehab prognosis appears good for continued improvement at home with ongoing home health services and return to independent living with some assistance from spouse as needed. Job ID: [id number] DocumentID: [id number] Dictated Date: 08/01/2017 08:54:12 Supply Chain Consultant Date: 08/01/2017 09:17:05 Dictated By: SWATI BRADSHAW MD
== END 2017-07-26 11:35 | disposition home health service (06) | DRG 57 ==
PROVIDERS: ADMIT Physical Medicine & Rehabilitation; ATTEND Physical Medicine & Rehabilitation
DX: I69.354 Hemiplegia and hemiparesis following cerebral infarction affecting left non-dominant side (principal); I69.322 Dysarthria following cerebral infarction; E11.9 Type 2 diabetes mellitus without complications; Z79.84 Long term (current) use of oral hypoglycemic drugs; M19.072 Primary osteoarthritis, left ankle and foot; H91.13 Presbycusis, bilateral
CPT/HCPCS: 36415; 80053; 80061; 82962; 83036; 85027; 86618; 86666; 86668; 86757; 93306; 93880

== ENCOUNTER 2019-07-21 11:31 | Outpatient (RCR) | payer MEDICARE ==
[~2019-07-21] VITALS: Ht 182.9 cm; Wt 126.1 kg
[~2019-07-21 11:31] MED LIST changes: +ATOR40TA PO; +CELE-63 PO; +LIRA0.6P3 SQ; +METF-399 PO; +NAPR-1033 PO
== END 2019-10-19 | disposition home or self-care (01) ==
LOC: DSME 11:31
PROVIDERS: ATTEND Family Medicine
DX: E11.65 Type 2 diabetes mellitus with hyperglycemia (principal); I10 Essential (primary) hypertension

== ENCOUNTER → 2019-10-01 | Outpatient (CLI) | payer MEDICARE ==
[~2019-10-01] MED LIST changes: +ASPI-586 PO; +CLOP75TA69 PO; +FAMO1TAB21 PO; +FINA5TAB6 PO; +LOSA50TA63 PO; +NAPR-1070 PO; +SUCR1TAB36 PO; -TRAM50TA2 PO; +TRM50T PO
--- NOTE | 2019-10-01 14:08 | Diagnostic Imaging Report ---
PROCEDURE: US carotid duplex, bilateral. TECHNIQUE: Multiple real-time grayscale images were obtained over the carotid arteries in various projections, bilaterally. Additional spectral analysis and color Doppler duplex images were also obtained. INDICATION: Stroke. Correlation made with a CT angiogram from June 28, 2017. FINDINGS: Grayscale imaging demonstrates some mild atherosclerotic plaquing of the carotid bifurcations. The morphology of the waveforms within the common and internal carotid arteries appear within normal limits bilaterally. There is no abnormal elevation of the peak systolic velocities. The ICA to CCA ratios are normal. There is antegrade flow within both of the vertebral arteries. IMPRESSION: 1. While there is mild atherosclerotic plaquing at the carotid bifurcation there is no sonographic criteria to suggest a hemodynamically significant stenosis. There is no abnormal elevation of the peak systolic velocities and the ICA/CCA ratios are normal. 2. There is preservation of antegrade flow within both of the vertebral arteries. Parameters based on the consensus panel Terry-Scale and Doppler ultrasound criteria published October 2003, Radiology, Volume 229. DOPPLER (peak systolic velocity M/S Right Left CCA 1.08 .97 ICA Proximal .70 .51 ICA Mid .76 .48 ICA Distal .72 .67 RATIO .7 .7 ECA 1.20 1.14 VERT .66 .62 Dictated by: Dictated on workstation # [id number]
== END ==
LOC: RAD 12:41
PROVIDERS: ATTEND Family Medicine
DX: I65.29 Occlusion and stenosis of unspecified carotid artery (principal); I63.9 Cerebral infarction, unspecified
CPT/HCPCS: 93880

== ENCOUNTER 2019-12-02 20:06 | Emergency (ER) | payer MEDICARE ==
[~2019-12-02] VITALS: Ht 182 cm; Wt 126.0 kg
[~2019-12-02 20:06] MED LIST changes: -ASPI-586 PO; -CLOP75TA69 PO; -FAMO1TAB21 PO; -FINA5TAB6 PO; -LOSA50TA63 PO; -NAPR-1070 PO; -SUCR1TAB36 PO
--- NOTE | 2019-12-02 21:03 | ED EENT ---
History of Present Illness General Chief Complaint: Oral/Throat Problems Stated Complaint: TROUBLE SWALLOWING Source: patient, spouse Exam Limitations: clinical condition History of Present Illness Date Seen by Provider: Dec 02, 2019 Time Seen by Provider: 20:48 Initial Comments Patient's had 10 days of difficulty swallowing progressively getting worse. He's never had esophageal strictures, esophageal surgeries etc. He denies any abdominal surgeries. He says tonight he ate some chicken and at 1830 and got stuck and he was not able to clear more than just a little bit of it. He's not able to swallow even his own secretions. He is not having any difficulty breathing. He does have a history of high blood pressure, hyperlipidemia, history of CVA on aspirin and Plavix. No history of coronary disease. No history of dysrhythmias known. No shortness of breath. He denies nausea. Allergies and Home Medications Allergies Coded Allergies: No Known Allergies (Unverified Allergy, Unknown, 02/15/14) Home Medications Aspirin 81 Mg Tablet.dr, 81 MG PO 1200, (Reported) Atorvastatin Calcium 40 Mg Tablet, 40 MG PO HS, (Reported) Atorvastatin Calcium 40 Mg Tablet, 40 MG PO HS Prescribed by: SWATI STOREY on 07/26/17947 Clopidogrel Bisulfate 75 Mg Tablet, 75 MG PO 1200, (Reported) Clopidogrel Bisulfate 75 Mg Tablet, 75 MG PO DAILY Prescribed by: SWATI STOREY on 07/26/17947 Famotidine/Ca Carb/Mag Hydrox 1 Each Tab.chew, 1 EACH PO DAILY Prescribed by: SWATI VALDEZ on 12/02/192253 Liraglutide 0.6 Mg/0.1 Ml Pen.injctr, 1.2 MG SQ HS, (Reported) Metformin HCl 1,000 Mg Tablet, 1,000 MG PO BID, (Reported) Naproxen Sodium 220 Mg Tablet, 220-440 MG PO BID PRN for PAIN-MILD, (Reported) TAKES 1-2 (220 MG) TABLET Sucralfate 1 Gm Tablet, 1 GM PO QIDACHS Prescribed by: SWATI VALDEZ on 12/02/192253 Patient Home Medication List Home Medication List Reviewed: Yes Review of Systems Review of Systems Constitutional: No chills, No diaphoresis Eyes: Denies Blindness, Denies Blurred Vision Ears: Denies Dizziness, Denies Pain Nose: denies clots, denies congestion Mouth: denies clots, denies loose teeth Throat: see HPI, pain, painful swallowing, difficulty with fluids Respiratory: No cough, No hemoptysis Cardiovascular: No chest pain, No palpitations Gastrointestinal: No abdominal pain, No constipation, No diarrhea Past Wfekjnq-Fydafn-Dbdxtm Hx Patient Social History Alcohol Use: Regular Use Alcohol Beverage of Choice: Beer Recreational Drug Use: No Smoking Status: Never a Smoker 2nd Hand Smoke Exposure: No Recent Hopitalizations: No Immunizations Up To Date Tetanus Booster (TDap): More than 5yrs Date of Pneumonia Vaccine: Aug 23, 2015 Date of Influenza Vaccine: Aug 23, 2015 Seasonal Allergies Seasonal Allergies: No Past Medical History Surgeries: Yes Orthopedic Respiratory: No Currently Using CPAP: No Currently Using BIPAP: No Cardiac: No Neurological: Yes Stroke Reproductive Disorders: No Sexually Transmitted Disease: No HIV/AIDS: No Genitourinary: No Gastrointestinal: No Musculoskeletal: Yes Arthritis Endocrine: Yes Diabetes, Non-Insulin dep HEENT: No Cataract Loss of Vision: Denies Hearing Impairment: Hard of Hearing, Bilateral Hearing Aide Cancer: No Psychosocial: No Integumentary: No Blood Disorders: No Adverse Reaction/Blood Tranf: No Family Medical History Cancer 03 FATHER (BLADDER) 03 MOTHER (LUNG) Myocardial infarction 03 FATHER No Family History of: Abdominal aortic aneurysm Alcoholism Congestive heart failure Family history: Alzheimer's disease Family history: Arthritis Family history: Asthma Family history: Breast disease Family history: Cardiovascular disease Family history: Diabetes mellitus Family history: Gastrointestinal disease Family history: Hypertension Family history: Thyroid disorder Heart disease Hereditary disease History of - anemia Parkinson's disease Prostate cancer Psychotic disorder Seizure disorder Stroke Heart Disease, Cancer, Hypertension Physical Exam Vital Signs Vital Signs - First Documented 12/02/19 20:25 Pulse 74 Resp 20 B/P (MAP) 155/69 (97) Pulse Ox 96 O2 Delivery Room Air Height, Weight, BMI Height: 6'0.00" Weight: 278lbs. 7.0oz. 121.061268pt; 37.70 BMI Method:Stated General Appearance: WD/WN, no apparent distress Eyes: bilateral eye normal inspection, bilateral eye PERRL, bilateral eye EOMI Ears: bilateral ear auricle normal, bilateral ear canal normal, bilateral ear TM normal Nose: normal inspection; No active bleeding, No discharge Mouth/Throat: normal mouth inspection, pharynx normal, excessive drooling Neck: full range of motion, normal inspection Cardiovascular: normal peripheral pulses, regular rate, rhythm Respiratory: no respiratory distress, no accessory muscle use Gastrointestinal: non tender, soft Neurologic/Psychiatric: alert, normal mood/affect, oriented x 3 Progress/Results/Core Measures Results/Orders My Orders Orders - RAIZA HEDRICK Succinylcholine Injection (Succinylcholi (12/02/19 21:45) Propofol Injection (Diprivan Injection) (12/02/19 21:45) Lidocaine 2% Pf 5 Ml (Xylocaine 2% Pf) (12/02/19 21:45) Sevoflurane (15 Min) Inhal Omayra (Ultane ( (12/02/19 21:45) Fentanyl Injection (Sublimaze Injection (12/02/19 21:45) Midazolam Injection (Versed Injection) (12/02/19 21:45) Ondansetron Injection (Zofran Injectio (12/02/19 22:44) Sevoflurane (15 Min) Inhal Omayra (Ultane ( (12/02/19 22:44) Sevoflurane (15 Min) Inhal Omayra (Ultane ( (12/02/19 22:44) Vital Signs/I&O 12/02/19 12/02/19 12/02/19 12/02/19 20:25 23:02 23:02 23:10 Temp 37.3 Pulse 74 Resp 20 19 16 B/P (MAP) 155/69 (97) 134/72 (92) 135/70 (91) Pulse Ox 96 99 99 O2 Delivery Room Air OxyMask O2 Flow Rate 8 8 8 12/02/19 12/02/19 12/02/19 12/02/19 23:15 23:20 23:30 23:30 Resp 16 16 B/P (MAP) 130/77 (94) 134/93 (107) Pulse Ox 99 98 O2 Delivery OxyMask OxyMask OxyMask O2 Flow Rate 8 3 3 12/02/19 12/02/19 12/02/19 23:40 23:46 23:50 Temp 36.3 Resp 16 16 B/P (MAP) 135/78 (97) 132/76 (94) Pulse Ox 98 93 O2 Delivery Room Air Progress Progress Note : Time: 01:00 Progress Note Patient recovered from endoscopy. Consults : Consulting Physician: SWATI VALDEZ DO Consults Notes 2055: Dr. Valdez agreed to take the patient to endoscopy lab. Discussed the case presentation and he plans to take the patient to endoscopy. He would like us to call the team and so we notified warehouse distribution manager. Departure Impression Primary Impression: Bolus impaction of digestive tract Disposition: HOME, SELF-CARE Condition: Improved Departure-Patient Inst. Decision time for Depature: 01:00 Referrals: ROCHELLE RIBEIRO MD (PCP/Family) Primary Care Physician Patient Instructions: Food Obstruction Add. Discharge Instructions: All discharge instructions reviewed with patient and/or family. Voiced understanding. Scripts Famotidine/Ca Carb/Mag Hydrox (Pepcid Complete Tablet Chew) 1 Each Tab.chew 1 EACH PO DAILY, #30 TAB Prov: SWATI AVLDEZ DO 12/02/19 Sucralfate (Carafate) 1 Gm Tablet 1 GM PO QIDACHS, #120 TAB Prov: SWATI VALDEZ DO 12/02/19 RAIZA HEDRICK Dec 02, 2019 21:03
--- NOTE | 2019-12-02 21:42 | NUR ---
EM RN WITH ANETHESIA AT PT BEDSIDE
[2019-12-02] MEDS ORDERED: MIDAZOLAM 2 MG/2 ML (VERSED) VIAL ONE (21:45)
[2019-12-02] MEDS ORDERED: SUCCINYLCHOLINE INJ 100 MG/5 ML SYR ONE (21:45)
[2019-12-02] MEDS ORDERED: SEVOFLURANE (ULTANE) 15 ML INHAL SOLN ONE ×3 (21:45→22:44)
[2019-12-02] MEDS ORDERED: proPOfol 200 MG/20 ML (DIPRIVAN) VIAL IV ONE (21:45)
[2019-12-02] MEDS ORDERED: fentaNYL INJECTION 100 MCG/2 ML AMP ONE (21:45)
[2019-12-02] MEDS ORDERED: LIDOCAINE PF 2% 5 ML (XYLOCAINE) VIAL ONE (21:45)
--- NOTE | 2019-12-02 21:58 | NUR ---
PT TO ENDO DEPT. WITH STAFF IN STABLE CONDITION
--- NOTE | 2019-12-02 22:01 | Consultation - Surgery ---
History of Present Illness History of Present Illness Patient Consulted On(ken[place]/time) 12/02/19 21:55 Time Seen by Provider: 17:39 History of Present Illness Surgery asked to consult regarding dysphagia, possible food impaction. HPI per ED: Patient's had 10 days of difficulty swallowing progressively getting worse. He's never had esophageal strictures, esophageal surgeries etc. He denies any abdominal surgeries. He says tonight he ate some chicken and at 1830 and got stuck and he was not able to clear more than just a little bit of it. He's not able to swallow even his own secretions. He is not having any difficulty breathing. He does have a history of high blood pressure, hyperlipidemia, history of CVA on aspirin and Plavix. No history of coronary disease. No history of dysrhythmias known. No shortness of breath. He denies nausea. When I spoke to pt he states over the past week and a half it has felt like things are getting stuck, but then passing. Prior to this time he has never had any troubles. He has hx of CVA with residual left sided weakness, happened in 2017. Pt states he has never had an EGD before. Denies hematemesis or hemoptysis and no hx of Gastritis. Pt is not in pain. Allergies and Home Medications Allergies Coded Allergies: No Known Allergies (Unverified Allergy, Unknown, 02/15/14) Home Medications Aspirin 81 Mg Tablet.dr, 81 MG PO 1200, (Reported) Atorvastatin Calcium 40 Mg Tablet, 40 MG PO HS, (Reported) Atorvastatin Calcium 40 Mg Tablet, 40 MG PO HS Prescribed by: SWATI STOREY on 07/26/17947 Clopidogrel Bisulfate 75 Mg Tablet, 75 MG PO 1200, (Reported) Clopidogrel Bisulfate 75 Mg Tablet, 75 MG PO DAILY Prescribed by: SWATI STOREY on 07/26/17947 Liraglutide 0.6 Mg/0.1 Ml Pen.injctr, 1.2 MG SQ HS, (Reported) Metformin HCl 1,000 Mg Tablet, 1,000 MG PO BID, (Reported) Naproxen Sodium 220 Mg Tablet, 220-440 MG PO BID PRN for PAIN-MILD, (Reported) TAKES 1-2 (220 MG) TABLET Patient Home Medication List Home Medication List Reviewed: Yes Past Zdtsbgd-Mkxdve-Gvjnyz Hx Patient Social History Alcohol Use: Rarely Uses (once every 4 months maybe) Recreational Drug Use: No Smoking Status: Never a Smoker 2nd Hand Smoke Exposure: No Recent Hopitalizations: No Immunizations Up To Date Tetanus Booster (TDap): More than 5yrs Date of Pneumonia Vaccine: Aug 23, 2015 Date of Influenza Vaccine: Aug 23, 2015 Seasonal Allergies Seasonal Allergies: No Surgeries History of Surgeries: Yes Surgeries: Orthopedic Respiratory History of Respiratory Disorde: No Cardiovascular History of Cardiac Disorders: No Neurological History of Neurological Disord: Yes Neurological Disorders: Stroke Reproductive System Hx Reproductive Disorders: No Sexually Transmitted Disease: No HIV/AIDS: No Genitourinary History of Genitourinary Disor: No Gastrointestinal History of Gastrointestinal Di: No Musculoskeletal History of Musculoskeletal Dis: Yes Musculoskeletal Disorders: Arthritis Endocrine History of Endocrine Disorders: Yes Endocrine Disorders: Diabetes, Non-Insulin dep HEENT History of HEENT Disorders: No HEENT Disorders: Cataract Loss of Vision: Denies Hearing Impairment: Hard of Hearing, Bilateral Hearing Aide Cancer History of Cancer: No Psychosocial History of Psychiatric Problem: No Integumentary History of Skin or Integumenta: No Blood Transfusions History of Blood Disorders: No Adverse Reaction to a Blood Tr: No Family Medical History Significant Family History: Heart Disease (father had [place]), Cancer, Hypertension (father and mother) Family Medial History: Cancer 03 FATHER (BLADDER) 03 MOTHER (LUNG) Myocardial infarction 03 FATHER Review of Systems-General Constitutional: No chills; weakness (left side) EENTM: No blurred vision, No double vision, No mouth pain, No mouth swelling, No epistaxis Respiratory: No cough, No dyspnea on exertion, No short of breath Cardiovascular: No chest pain, No palpitations Gastrointestinal: No abdominal pain; loss of appetite; No nausea, No vomiting Genitourinary: No dysuria, No frequency, No hematuria Musculoskeletal: joint pain, joint swelling, muscle pain, muscle stiffness Skin: No change in color, No change in hair/nails Psychiatric/Neurological: Denies Anxiety, Denies Depressed, Denies Seizure; We akness Other pt is on ASA and Plavix because of CVA and states he bruises easily Physical Exam-General Problems Physical Exam Vital Signs Capillary Refill : HR - 77, BP - 156/97, R - 20, Pulse Ox 95% on RA General Appearance: no apparent distress, obese Eyes: Bilateral Eye PERRL, Bilateral Eye EOMI HEENT: pharynx normal; No scleral icterus (R), No scleral icterus (L); other (very slight droop of mouth on left) Neck: non-tender, supple Respiratory: lungs clear, normal breath sounds, no respiratory distress, no accessory muscle use Cardiovascular: regular rate, rhythm, no murmur Gastrointestinal: non tender, soft, no organomegaly, no pulsatile mass, hernia (small UH) Rectal: deferred Back: no CVA tenderness, no vertebral tenderness Extremities: no pedal edema, no calf tenderness, normal capillary refill, other (decreased strength in left extremities) Neurologic/Psychiatric: alert, normal mood/affect, oriented x 3 Skin: normal color, warm/dry Lymphatic: no adenopathy (neck, axilla or groin) Assessment/Plan Assessment/Plan Assessment/Plan Dysphagia Probable Food bolus with impaction DM Hx of CVA Pt ate some chicken, that appears to not have gone all the way down. Will take pt for an EGD and attempt to remove the food impaction. Will probably do biopsies, but only if something obvious or suspicious; because pt is on Plavix and may not stop bleeding. Discussed risks and complications of procedure with pt and his ; not limitedt to pain, bleeding, infection and even esophageal perforation. All questions answered to their satisfaction. Has IV fluids and discussed case with OIL FIELD EQUIPMENT MECHANIC SUPERVISOR, pt will be intubated for procedure. SWATI VALDEZ DO Dec 02, 2019 22:01
[2019-12-02] MEDS ORDERED: ONDANSETRON 4 MG/2 ML (SDV) Z0FRAN ONE (22:44)
--- NOTE | 2019-12-02 22:51 | Progress Note-Post Operative ---
Post-Operative Progess Note Surgeon (s)/Funeral Home Manager (s) Surgeon SWATI VALDEZ DO Funeral Home Manager: none Pre-Operative Diagnosis dysphagia, food impaction Post-Operative Diagnosis Dysphagia Impacted food bolus Esophagitis Bleeding ulcer vs erosion from food Procedure & Operative Findings Date of Procedure 12/02/19 Procedure Performed/Findings EGD with removal of food bolus Anesthesia Type GET Estimated Blood Loss Estimated blood loss (mL): none Specimens/Packing Specimens Removed piece of food SWATI VALDEZ DO Dec 02, 2019 22:51
[2019-12-02] MEDS ORDERED: FAMO1TAB21 PO (22:54)
[2019-12-02] MEDS ORDERED: SUCR1TAB36 PO (22:54)
--- NOTE | 2019-12-02 22:55 | Endoscopy Discharge Instruct ---
Endo Procedure/Findings Findings 1.: Gastritis 2.: Leach's Esophagus 3.: Other Findings (Esophageal ulcer) Discharge Instructions - Activity: You might feel a little sleepy until tomorrow. This is due to the medicine you received to relax you. Until tomorrow, you should: NOT drive a car, operate machinery or power tools. NOT drink any alcoholic beverages. NOT make any important decisions or sign importortant papers. Do not return to work until tomorrow, unless otherwise instructed. Resume previous activities tomorrow. Diet: Start by taking liquids. If you tolerate liquids, advance to solid food. make an appointment for one week. 1.: EGD in 6-8 weeks Notify Physician - If you experience excessive bleeding, unusual abdominal pain, fever, or chest pain, contact your doctor immediately. SWATI VALDEZ DO Dec 02, 2019 22:55
[2019-12-02 23:02] VITALS: BP 134/72
[2019-12-02 23:10] VITALS: BP 135/70
[2019-12-02 23:20] VITALS: BP 130/77
[2019-12-02 23:30] VITALS: BP 134/93
[2019-12-02 23:40] VITALS: BP 135/78
[2019-12-02 23:50] VITALS: BP 132/76
--- NOTE | 2019-12-03 | OPERATIVE REPORT ---
DATE OF SERVICE: PREOPERATIVE DIAGNOSES: Dysphagia, possible food bolus impaction. POSTOPERATIVE DIAGNOSES: Dysphagia, food impaction, esophagitis, questionable esophageal ulcer and gastritis. PROCEDURE: EGD with removal of food bolus. SURGEON: Mark Kuhn DO. NEUROSURGERY RESEARCH DIRECTOR: None. ANESTHESIA: General endotracheal tube. SPECIMEN: Piece of food. BLOOD LOSS: None. FLUIDS: Per anesthesia. POSTOPERATIVE CONDITION: Stable. INDICATION FOR PROCEDURE: The patient is a 69-year-old male who is eating some chicken and felt to get stuck, unable to even swallow spit. Stated over the past 10 days, he began having similar problems but usually passed. FINDINGS: The patient had a large piece of food stuck in the distal esophagus right at the GE junction. He also found to have some blood clot what looked like it was from the possibly esophageal ulcer. He had some gastritis. He had some esophagitis. PROCEDURE NOTE: After informed consent was obtained, the patient was brought to the operating room, placed on the operating table in supine position. He was intubated and then EGD was passed down the mouth through the esophagus. In the esophagus, saw pieces of food and then saw a large blood clot in the esophagus, saw a large piece of food. Tried to grasp this with a biopsy grasper, only took small pieces. Elected to treat this over and get a net around this large piece of food and took it all the way out. Picture was taken of this large piece of food, had to go down to a couple more times to get more food with a net and pulled it out and then once I had done this, then able to visualize an area where it looked like there was a clot, almost look like an ulcer, maybe even an erosion from the food. The GE junction looked very inflamed, almost looked like some definite esophagitis, but did not do a biopsy because the patient is on Plavix. Pushed into the stomach. It looked like he had some gastritis. He may even have had a small hiatal hernia, but could not tell because there was a large amount of food and liquid still in the upper part of the stomach, suctioned out as much as I could, still unable to get all of it out, but able to get most of it out. Pushed into the duodenum. Duodenum looked okay. Again, did not do any biopsies at this point then suctioned out the air out of the stomach, had flushed off the esophageal area. Again, this looked like possibly an ulcer, little bit of bleed, did not look like varices, took a picture, was not bleeding at this time, suctioning out all the water we had flushed with and then pulled the scope up the esophagus, took a few more pictures and then pulled the scope out. The patient tolerated the procedure and he was then transferred to recovery room in stable condition. Job ID: [id number] DocumentID: [id number] Dictated Date: 12/02/2019 23:03:10 Refresh Technician Date: 12/02/2019 23:59:51 Dictated By: DO ARLENE QUIROGA
--- NOTE | 2019-12-03 00:05 | NUR ---
PT RETURNS FROM ENDO DEPT. PLACED PT ON 2L VIA NC D/T 02 SAT 92% ON RA, NO S/S OF DISTRESS
[2019-12-03 01:12] VITALS: BP 144/83
--- NOTE | 2019-12-03 10:49 | Anesthesia-General Post-Op ---
General Patient Condition Mental Status/LOC: Same as Preop Cardiovascular: Satisfactory Nausea/Vomiting: Absent Respiratory: Satisfactory Pain: Controlled Complications: Absent Post Op Complications Complications None Follow Up Care/Instructions Patient Instructions None needed. Anesthesia/Patient Condition Patient Condition Patient is doing well, no complaints, stable vital signs, no apparent adverse anesthesia problems. No complications reported per nursing. DILLON EUCEDA CRNA Dec 03, 2019 10:48
== END 2019-12-02 21:58 | disposition other institution (70) ==
LOC: EDUNIT# 20:06 → ER 20:08
DX: T18.9XXA Foreign body of alimentary tract, part unspecified, initial encounter (principal); E11.9 Type 2 diabetes mellitus without complications; E78.5 Hyperlipidemia, unspecified; Z79.82 Long term (current) use of aspirin; Z79.02 Long term (current) use of antithrombotics/antiplatelets; Z86.73 Personal history of transient ischemic attack (TIA), and cerebral infarction without residual deficits; Z82.49 Family history of ischemic heart disease and other diseases of the circulatory system
CPT/HCPCS: 99282

== ENCOUNTER 2020-01-04 06:14 | Outpatient (CLI) | payer MEDICARE ==
[~2020-01-04] VITALS: Ht 182 cm; Wt 126.0 kg
[~2020-01-04 06:14] MED LIST changes: +FAMO1TAB21 PO; +SUCR1TAB36 PO
[2020-01-04] MEDS ORDERED: NAPR-1070 PO (09:32)
[2020-01-04] MEDS ORDERED: FINA5TAB6 PO (09:32)
[2020-01-04] MEDS ORDERED: ASPI-586 PO (09:32)
[2020-01-04] MEDS ORDERED: METF-399 PO (09:32)
[2020-01-04] MEDS ORDERED: LIRA0.6P SQ (09:32)
[2020-01-04] MEDS ORDERED: CLOP75TA69 PO (09:32)
[2020-01-04] MEDS ORDERED: ATOR40TA70 PO (09:32)
[2020-01-04] MEDS ORDERED: LOSA50TA63 PO (09:32)
== END 2020-01-04 09:40 | disposition home or self-care (01) ==
LOC: PREOP 06:14
PROVIDERS: ATTEND Surgery
DX: Z01.818 Encounter for other preprocedural examination (principal)

== ENCOUNTER → 2022-12-04 | Outpatient (CLI) | payer MEDICARE ==
[~2022-12-04] MED LIST changes: +ASPI-1238 PO; +ASPI-586 PO; -ASPI-983 PO; +CLOP-31 PO; +FINA5TAB6 PO; +LOSA50TA63 PO; +NAPR-1070 PO
--- NOTE | 2022-12-04 14:23 | Diagnostic Imaging Report ---
PROCEDURE: US carotid duplex, bilateral. TECHNIQUE: Multiple real-time grayscale images were obtained over the carotid arteries in various projections, bilaterally. Additional spectral analysis and color Doppler duplex images were also obtained. INDICATION: Atherosclerotic disease and hypertension. There is mild plaque identified at the carotid bifurcations as well as the proximal internal and extra carotid arteries. However, velocities are normal bilaterally. No velocity elevation is seen. There is no evidence of high-grade of stenosis. Both vertebral arteries demonstrate antegrade flow. IMPRESSION: Bilateral carotid plaque. There is no evidence of a hemodynamically significant stenosis. Parameters based on the consensus panel Terry-Scale and Doppler ultrasound criteria published October 2003, Radiology, Volume 229. DOPPLER (peak systolic velocity M/S Right Left CCA .86 .66 ICA Proximal .86 .47 ICA Mid .66 .47 ICA Distal .57 .67 RATIO .99 1.0 ECA .49 .87 VERT .65 .25 Dictated by: Dictated on workstation # [id number]
== END ==
LOC: RAD 11:24
PROVIDERS: ATTEND Family Medicine
DX: I65.23 Occlusion and stenosis of bilateral carotid arteries (principal); I25.10 Atherosclerotic heart disease of native coronary artery without angina pectoris; E78.2 Mixed hyperlipidemia
CPT/HCPCS: 93880